=== PATIENT | male | born 2000 | race Caucasian/White ===

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

== ENCOUNTER 2018-05-01 13:58 | Emergency (ER) | payer BC, OTHER ==
--- NOTE | 2018-05-01 14:10 | PDOC ---
Rapid Medical Evaluation Time Seen by Provider: 05/01/18 14:05 Medical Evaluation: Allergies Allergy/AdvReac Type Severity Reaction Status Date / Time bee venom protein (honey bee) Allergy Severe Difficulty Verified 09/07/17 17:05 Breathing 05/01/18 14:05 I have done a brief in-person assessment of this patient. The patient presents with a chief complaint of nausea and vomiting since yesterday. Patient states after smoking marijuana yesterday, his color changed, and he has weakness in his body States discomfort in left lower quadrant. Also reports dark colored urine with strong odor, reports history of "liver problems" Pertinent physical exam findings NAD even and unlabored breathing non tender abdomen I have ordered the following: urinalysis The patient will proceed to the Ed for further evaluation.
[2018-05-01 14:11] VITALS: BP 136/72; PULSE 104; TEMP 98.1; BMI 31.2
[2018-05-01 14:47] LABS: BASO % 0.2 % (0-2.0); HEMATOCRIT 46.1 % (35.4-49); HEMOGLOBIN 15.6 GM/dL (11.7-16.9); LYMPH % 16.7 % (8-40); MCH 30.1 pg (25.7-33.7); MCHC 33.7 g/dl (32.0-35.9); MEAN CELL VOLUME 89.4 fl (80-96); MEAN PLT VOLUME 8.9 fl (7.5-11.1); MONO % 8.5 % (3.8-10.2); NEUT % 74.6 % (42.8-82.8); PLATELET COUNT 206 K/MM3 (134-434); RBC 5.16 M/mm3 (4.00-5.60); RDW 13.1 % (11.9-15.9)
[2018-05-01 15:14] LABS: ALBUMIN 4.1 g/dl (3.4-5.0); ALK PHOS 58 U/L (45-117); ANION GAP 11 MMOL/L (8-16); BLOOD UREA NITROGEN 17 mg/dL (7-18); CALCIUM 9.5 mg/dL (8.5-10.1); CHLORIDE 112 mmol/L (98-107); CO2 26 mmol/L (21-32); CREATININE 1.2 mg/dL (0.55-1.3); GLUCOSE,RANDOM 109 mg/dL (74-106); POTASSIUM 4.4 mmol/L (3.5-5.1); SGOT/AST 14 U/L (15-37); SGPT/ALT 21 U/L (13-61); SODIUM 149 mmol/L (136-145); TOT PROT 7.3 g/dl (6.4-8.2)
--- NOTE | 2018-05-01 15:34 | PDOC ---
Attending Attestation - Resident Resident Name: DanyChauncey - ED Attending Attestation I have performed the following: I have examined & evaluated the patient, The case was reviewed & discussed with the resident, I agree w/resident's findings & plan, Exceptions are as noted - HPI HPI: 17 yo M history prior liver failure following an amphetamine overdose presents with N/V x1 day. He states he was using marijuana last night, was concerned it was laced with another drug. Denies fever, jaundice, urine discoloration. - Physicial Exam PE: GENERAL: Awake, alert, and fully oriented, in no acute distress HEAD: No signs of trauma EYES: PERRLA, EOMI, sclera anicteric, conjunctiva clear ENT: Auricles normal inspection, hearing grossly normal, nares patent, oropharynx clear without exudates. Moist mucosa NECK: Normal ROM, supple, no lymphadenopathy, JVD, or masses LUNGS: Breath sounds equal, clear to auscultation bilaterally. No wheezes, and no crackles HEART: Regular rate and rhythm, normal S1 and S2, no murmurs, rubs or gallops ABDOMEN: Soft, nontender, normoactive bowel sounds. No guarding, no rebound. No masses EXTREMITIES: Normal range of motion, no edema. No clubbing or cyanosis. No cords, erythema, or tenderness NEUROLOGICAL: Cranial nerves II through XII grossly intact. Normal speech, normal gait. Motor and sensation intact SKIN: Warm, Dry, normal turgor, no rashes or lesions noted. - Medical Decision Making Pt comfortable on initial exam, no signs of acute abdomen. No signs of liver failure. Pt requesting food on arrival in ED. This is likely cannabis hyperemesis, however, labs obtained in light of prior history. RUQ sono obtained secondary to elevated TBili. No acute findings. Stable for DC home.
[2018-05-01] MEDS ORDERED: FAMOTIDINE 20 MG/50 ML IVPB 20 MG/50 ML MG IVPB ONE ×2 (15:47→15:52)
[2018-05-01] MEDS ORDERED: ONDANSETRON 4 MG/2 ML VIAL IVPUSH ONE (15:47)
[2018-05-01] MEDS ORDERED: SODIUM CHLORIDE 1,000 ML IV STA (15:52)
[2018-05-01] MEDS ORDERED: ONDANSETRON 4 MG/2 ML VIAL ONE (15:52)
--- NOTE | 2018-05-01 16:52 | PDOC ---
History of Present Illness - General Chief Complaint: Nausea/Vomiting Stated Complaint: NAUSEA/VOMITING Time Seen by Provider: 05/01/18 14:05 History Source: Patient Exam Limitations: No Limitations - History of Present Illness Initial Comments: 05/01/18 16:40 Pt. is a 17 y.o. M w/ PMHx. of Bipolar disorder, insomnia, poly substance and "liver problems" presents to the ED with nausea and vomiting since last night after "smoking some weed." Pt. states that an hour after "5 pulls from a blunt"( less than he normally uses) he began to feel nauseous and vomited. Pt. 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 Pt. states that he has vomited bilious non-bloody emesis from midnight to 3am and then from 6am to noon. Pt. endorses lower back pain, and how flashes while throwing up. Pt. endorses mild SOB and double vision yesterday that has resolved. Pt. states that he as not been able to refill his Seroquel or Zyprexa because he has not followed up with his Psychiatrist. Pt. denies chest pain, head ache, abdominal pain, constipation, changes in bowel habits or urinary habits. EKG, CBC, CMP, RUQ US, UTox., UA, Pepcid, Zofran and IVF were ordered to rule out cholecystitis. Pt. like has emesis as a sequelae of marijuana use. Timing/Duration: 24 hours Severity: mild Modifying Factors: worse with: eating Associated Symptoms: reports: nausea/vomiting, shortness of breath. denies: chest pain, fever/chills, headaches, loss of appetite, seizure Aspirin Received prior to arrival: Yes: no aspirin today Beta Iris Contraindications(Core Measure): Yes: Not Prescribed Past History - Travel Traveled outside of the country in the last 30 days: No Close contact w/someone who was outside of country & ill: No - Past Medical History Allergies/Adverse Reactions: Allergies Allergy/AdvReac Type Severity Reaction Status Date / Time bee venom protein (honey bee) Allergy Severe Difficulty Verified 09/07/17 17:05 Breathing Home Medications: Ambulatory Orders Quetiapine Fumarate [Seroquel -] 300 mg PO HS 08/29/15 Anemia: No COPD: No Diabetes: No HTN: No Hypercholesterolemia: No Psychiatric Problems: Yes (DEPRESSION) Seizures: No - Immunization History Immunization Up to Date: Yes - Suicide/Smoking/Psychosocial Hx Smoking Status: No Smoking History: Smoker current status UNK Have you smoked in the past 12 months: No Number of Cigarettes Smoked Daily: 3 Information on smoking cessation initiated: No Hx Alcohol Use: Yes (occassionally) Drug/Substance Use Hx: Yes Substance Use Type: None Review of Systems - Review of Systems Able to Perform ROS?: Yes Is the patient limited British proficient: No Constitutional: No: Chills, Fever, Weakness, Unexplained wgt Loss HEENTM: Yes: Recent change in vision (resolved ), Double Vision (resolved ) Respiratory: Yes: Shortness of Breath (resolved ). No: Cough, Orthopnea, Wheezing, Hemoptysis Cardiac (ROS): No: Chest Pain, Edema, Lightheadedness, Palpitations ABD/GI: Yes: Nausea, Vomiting. No: Constipated, Diarrhea, Difficulty Swallowing , Poor Appetite, Rectal Bleeding, Tarry Stools : No: Burning, Dysuria, Discharge, Frequency, Flank Pain, Hematuria, Pain, Urgency Musculoskeletal: Yes: Back Pain. No: Joint Pain, Muscle Weakness, Neck Pain Integumentary: No: Symptoms Reported Neurological: No: Symptoms reported, Headache, Paresthesia, Seizure, Tremors, Weakness, Unsteady Gait, Dizziness Psychiatric: Yes: Depression, Mood Swings Endocrine: No: Symptoms Reported Hematologic/Lymphatic: No: Symptoms Reported *Physical Exam - Vital Signs Last Vital Signs Temp Pulse Resp BP Pulse Ox 98.1 F 104 H 20 136/72 99 05/01/18 14:05 05/01/18 14:05 05/01/18 14:05 05/01/18 14:05 05/01/18 14:05 - Physical Exam General Appearance: Yes: Nourished, Appropriately Dressed. No: Apparent Distress HEENT: positive: BRYCE, Normal ENT Inspection, Normal Voice, Symmetrical, Pharynx Normal, Hearing Grossly Normal. negative: Pharyngeal Erythema, Tonsillar Exudate, Tonsillar Erythema, Nasal Congestion Neck: positive: Trachea midline, Normal Thyroid, Supple. negative: Tender, Rigid, Carotid bruit, Lymphadenopathy (R), Lymphadenopathy (L) Respiratory/Chest: positive: Lungs Clear, Normal Breath Sounds. negative: Chest Tender, Respiratory Distress, Accessory Muscle Use, Rapid RR, Crackles, Rales, Wheezing Cardiovascular: positive: Regular Rhythm, Regular Rate, S1, S2. negative: Edema , JVD, Murmur Vascular Pulses: Dorsalis-Pedis (R): 2+ (2+ radial ), Doralis-Pedis (L): 2+ (2+ radial ) Gastrointestinal/Abdominal: positive: Normal Bowel Sounds, Soft. negative: Tender, Distended, Guarding, Rebound, Tenderness, Hernia Rectal Exam: positive: deferred Musculoskeletal: positive: Normal Inspection. negative: CVA Tenderness, Vertebral Tenderness Extremity: positive: Normal Capillary Refill, Normal Inspection, Normal Range of Motion, Pelvis Stable. negative: Tender, Coldness, Pedal Edema, Swelling, Calf Tenderness, Erythema, Inflammation Integumentary: positive: Normal Color, Dry, Warm Neurologic: positive: theater manager II-XII NML intact, Fully Oriented, Alert, Normal Response, Motor Strength 5/5, Respond to painful stimul, Responsive Moderate Sedation - Procedure Monitoring Vital Signs: Procedure Monitoring Vital Signs Temperature 98.1 F 05/01/18 14:05 Pulse Rate 104 H 05/01/18 14:05 Respiratory Rate 20 05/01/18 14:05 Blood Pressure 136/72 05/01/18 14:05 O2 Sat by Pulse Oximetry (%) 99 05/01/18 14:05 ED Treatment Course - LABORATORY CBC & Chemistry Diagram: 05/01/18 14:20 05/01/18 14:20 - ADDITIONAL ORDERS Additional order review: Laboratory Results 05/01/18 14:20 Sodium 149 H Potassium 4.4 Chloride 112 H Carbon Dioxide 26 Anion Gap 11 BUN 17 Creatinine 1.2 Creat Clearance w eGFR > 60 Random Glucose 109 H Calcium 9.5 Total Bilirubin 2.0 H AST 14 L ALT 21 Alkaline Phosphatase 58 Total Protein 7.3 Albumin 4.1 05/01/18 14:20 RBC 5.16 MCV 89.4 MCHC 33.7 RDW 13.1 MPV 8.9 Neutrophils % 74.6 D Lymphocytes % 16.7 D Monocytes % 8.5 Eosinophils % 0.0 D Basophils % 0.2 - Medications Given in the ED: ED Medications Discontinued Medications Generic Name Dose Route Start Last Admin Trade Name Freq PRN Reason Stop Dose Admin Famotidine/Sodium Chloride 20 mg in 50 mls @ 100 mls/hr 05/01/18 15:47 16:14 Pepcid 20 Mg Premixed Ivpb - IVPB 05/01/18 16:16 100 mls/hr ONCE ONE Administration Ondansetron HCl 4 mg 05/01/18 15:47 05/01/18 16:14 Zofran Injection IVPUSH 05/01/18 15:48 4 mg ONCE ONE Administration *DC/Admit/Observation/Transfer Diagnosis at time of Disposition: Marijuana abuse, Nausea & vomiting - Discharge Dispostion Disposition: HOME Condition at time of disposition: Stable - Referrals Referrals: Ishaan Bailey MD [Primary Care Provider] - - Patient Instructions Printed Discharge Instructions: DI for Drug Abuse and Drug Addiction Additional Instructions: You came in for nausea and vomiting after marijuana use. We gave you fluids and medications to treat nausea. Please discontinue use of marijuana to prevent further nausea and vomiting in addition to liver injury. Please follow up with your Primary Care Physician within 1 week. If you do not have a Primary Care Physician we have provided one for you. - Post Discharge Activity
[2018-05-01 18:53] LABS: URINE APPEARANCE CLEAR; URINE BILIRUBIN NEGATIVE (<2.0 mg/dL); URINE COLOR YELLOW; URINE GLUCOSE (UA) NEGATIVE (NEGATIVE); URINE KETONE NEGATIVE (NEGATIVE); URINE LEUK ESTERASE NEGATIVE (NEGATIVE); URINE NITRITE NEGATIVE (NEGATIVE); URINE PROTEIN NEGATIVE (NEGATIVE)
[2018-05-01 19:19] LABS: METHADONE, UR NEGATIVE ng/ml (CUTOFF=300); PHENCYCLIDINE,URINE NEGATIVE ng/ml (CUTOFF=25); URINE AMPHETAMINES NEGATIVE ng/ml (CUTOFF=500); URINE BARBITURATES NEGATIVE ng/ml (CUTOFF=200); URINE BENZODIAZEPINES NEGATIVE ng/ml (CUTOFF=200)
[2018-05-01 19:26] LABS: COCAINE, UR POSITIVE ng/ml (CUTOFF=300); OPIATES, URI POSITIVE ng/ml (CUTOFF=300)
--- NOTE | 2018-05-02 10:02 | EKG ---
Test Reason : Blood Pressure : / mmHG Vent. Rate : 087 BPM Atrial Rate : 087 BPM P-R Int : 132 ms QRS Dur : 086 ms QT Int : 348 ms P-R-T Axes : 024 071 060 degrees QTc Int : 418 ms NORMAL SINUS RHYTHM NORMAL ECG NO PREVIOUS ECGS AVAILABLE Confirmed by yT Worrell MD ([id number]) on 05/02/2018 10:02:36 AM Referred By: Confirmed By:Ty Worrell MD
== END 2018-05-01 19:02 | disposition home or self-care (01) ==
LOC: JER 13:58
PROC: 3E033GC Introduction of Other Therapeutic Substance into Peripheral Vein, Percutaneous Approach (ICD-10-PCS; principal; 2018-05-01)
PROC: 3E0337Z Introduction of Electrolytic and Water Balance Substance into Peripheral Vein, Percutaneous Approach (ICD-10-PCS; 2018-05-01)
DX: F12.10 Cannabis abuse, uncomplicated (principal); R11.2 Nausea with vomiting, unspecified
CPT/HCPCS: 36415; 76705-TC; 80053; 80307; 81003; 85025; 87086; 93005; 93010; 99283-25; J7030

== ENCOUNTER 2018-10-12 20:39 | Emergency (ER) | payer SELFPAY ==
[2018-10-12 20:44] VITALS: BMI 26.3
[2018-10-12] MEDS ORDERED: MAG HYDROX/AL HYDROX/SIMETH 30 ML UNIT-DOSE CUP PO ONE (21:12)
[2018-10-12] MEDS ORDERED: FAMOTIDINE 20 MG/50 ML IVPB 20 MG/50 ML MG IVPB ONE ×2 (21:12→21:25)
[2018-10-12] MEDS ORDERED: SODIUM CHLORIDE 0.9% 500 ML INFUS.BAG IV ONE (21:12)
--- NOTE | 2018-10-12 21:13 | PDOC ---
History of Present Illness - General Chief Complaint: Alcohol intoxication Stated Complaint: INTOXICATED History Source: Patient Exam Limitations: No Limitations - History of Present Illness Initial Comments: 10/12/18 21:00 18YOM with h/o nipolar disorder (on thorazine and depakote), insomnia, polysubstance use disorder (including meth), EtOH use disorder, and prior liver failure who p/w reported polysubstance use requesting detox/rehab. The patient states he is sick of his substance use and wants to get clean. He wants to go to [place] for rehab where his 4 month old son lives. He last used crack cocaine an hour ago and had impending doom feeling, chest pain, and pounding palpitations. He also uses PCP. He denies IVDA except one time where he shot up cocaine a week ago. He also noted using meth and marijuana. He notes abdominal discomfort and head-to-toe body aches. Otherwise denies f/c/n/v/d/c, rash, skin infections, cough, SOB, or additional symptoms. Has been in detox and rehab before. Past History - Past Medical History Allergies/Adverse Reactions: Allergies Allergy/AdvReac Type Severity Reaction Status Date / Time bee venom protein (honey bee) Allergy Severe Difficulty Verified 10/12/18 20:45 Breathing Home Medications: Ambulatory Orders Chlorpromazine [Thorazine -] 50 mg PO DAILY 10/13/18 Risperidone [Risperdal] 2 mg PO DAILY 10/13/18 Anemia: No COPD: No Diabetes: No HTN: No Hypercholesterolemia: No Psychiatric Problems: Yes (DEPRESSION) Seizures: No - Immunization History Immunization Up to Date: Yes - Suicide/Smoking/Psychosocial Hx Smoking Status: No Smoking History: Current every day smoker Have you smoked in the past 12 months: No Number of Cigarettes Smoked Daily: 5 Information on smoking cessation initiated: Yes Hx Alcohol Use: No Drug/Substance Use Hx: Yes (COCAINE,METH,PCP.) Substance Use Type: None Review of Systems - Review of Systems Able to Perform ROS?: Yes Comments:: 10/12/18 21:16 GEN: malaise, no fever, chills, generalized weakness, or weight change HEENT: no ear pain, sore throat, vision change, or eye pain CV: chest pain, palpitations, no lightheadedness, syncope, or edema RESP: no cough, wheezing, or SOB GI: abdominal pain, no nausea, vomiting, diarrhea, constipation, or white/black/ bloody stool : no dysuria, hematuria, incontinence, retention, bleeding, or discharge MSK: muscle pain, no neck/back pain, or joint swelling/pain NEURO: no headache, seizure, vertigo, numbness, tingling, or focal weakness PSYCH: substance use, depression, no behavior change, SI, or HI SKIN: no jaundice, no rash ROS otherwise negative except as noted in HPI *Physical Exam - Vital Signs Last Vital Signs Temp Pulse Resp BP Pulse Ox 98.2 F 114 H 20 128/85 100 10/12/18 20:41 10/12/18 20:41 10/12/18 20:41 10/12/18 20:41 10/12/18 20:41 - Physical Exam Comments: 10/12/18 21:23 GENERAL: nontoxic appearing, A/Ox4, mild emotional distress, answers questions appropriately HEENT: scleral injection bilaterally, PERRLA, EOMI, moist mucous membranes NECK/BACK: no midline ttp, no spinal stepoff or deformity, no hematoma, full ROM , neck supple CARDIOVASCULAR: regular rate/rhythm, normal S1S2, no MGR, strong peripheral pulses, capillary refill <2 seconds, extremities wwp, no edema LUNGS/RESPIRATORY: no respiratory distress, CTAB GI/ABDOMEN: symmetric [id number]-[id number], normoactive BS, soft, no ttp, no midline pulsatile masses : no CVA tenderness EXTREMITIES: no muscle atrophy, no acute deformity SKIN: warm and dry, no pallor, no jaundice, no rash, no bruising, no skin breakdown, no cuts, no lesions NEUROLOGICAL: GCS 15, CN II-XII grossly intact, 5/5 strength proximally and distally, no facial droop PSYCHIATRIC: good eye contact, depressed affect, intermittently tearful, normal thought process, no SI/HI, not responding to external stimuli Heart Score/ECG Review - History History: Moderately suspicious - Electrocardiogram EKG: Normal - Age Age: </= 45 - Risk Factors Based on the list above the patient has:: No risk factors known - Troponin Troponin: </= normal limit - Score Heart Score - Total: 1 #1 SR rate 75 with normal axis/intervals and no ischemic ST-T changes ED Treatment Course - LABORATORY CBC & Chemistry Diagram: 10/12/18 21:58 10/12/18 21:58 Medical Decision Making - Medical Decision Making 10/12/18 21:25 Pt with h/o polysubstance use p/w chest discomfort, head-to-toe body aches, requesting detox/rehab. Initial Vital Signs Temp Pulse Resp BP Pulse Ox 98.2 F 114 H 20 128/85 100 10/12/18 20:41 10/12/18 20:41 10/12/18 20:41 10/12/18 20:41 10/12/18 20:41 Exam: As noted in Physical Exam section. DDX IBNLT: intoxication, withdrawal (w/wo seizures), DT, hepatic encephalopathy , ICH, UGIB (can cause AMS), LGIB, SBP, metabolic derangement, coingestion, hepatorenal syndrome, hepatopulmonary syndrome, Wernickes encephalopathy, Korsakoff syndrome, trauma, etc. W/U ordered: Labs as noted below, EKG TX ordered: IVF, benadryl Laboratory Tests 10/12/18 10/12/18 10/12/18 21:58 21:58 22:30 WBC 13.4 H RBC 5.29 Hgb 16.6 Hct 48.3 MCV 91.3 MCH 31.4 MCHC 34.4 RDW 12.9 Plt Count 183 MPV 8.5 Absolute Neuts (auto) 11.3 H Neutrophils % 83.9 H Lymphocytes % 8.2 D Monocytes % 7.5 Eosinophils % 0.1 D Basophils % 0.3 Nucleated RBC % 0 Sodium 140 Potassium 4.0 Chloride 108 H Carbon Dioxide 26 Anion Gap 6 L BUN 16.8 Creatinine 0.9 Est GFR (CKD-EPI)AfAm 142.00 Est GFR (CKD-EPI)NonAf 122.52 Random Glucose 87 Calcium 9.1 Total Bilirubin 1.7 H AST 23 ALT 31 Alkaline Phosphatase 59 Troponin I < 0.02 Total Protein 7.2 Albumin 4.2 Urine Color Yellow Urine Appearance Clear Urine pH 6.5 Ur Specific [place] 1.030 Urine Protein Negative Urine Glucose (UA) Negative Urine Ketones Trace H Urine Blood Negative Urine Nitrite Negative Urine Bilirubin Negative Urine Urobilinogen 1.0 Ur Leukocyte Esterase Negative Salicylates < 1.7 L Opiates Screen Methadone Screen Acetaminophen < 2.0 L Barbiturate Screen Phencyclidine Screen Ur Amphetamines Screen MDMA (Ecstasy) Screen Benzodiazepines Screen Cocaine Screen U Marijuana (THC) Screen Alcohol, Quantitative < 3.0 10/12/18 22:30 WBC RBC Hgb Hct MCV MCH MCHC RDW Plt Count MPV Absolute Neuts (auto) Neutrophils % Lymphocytes % Monocytes % Eosinophils % Basophils % Nucleated RBC % Sodium Potassium Chloride Carbon Dioxide Anion Gap BUN Creatinine Est GFR (CKD-EPI)AfAm Est GFR (CKD-EPI)NonAf Random Glucose Calcium Total Bilirubin AST ALT Alkaline Phosphatase Troponin I Total Protein Albumin Urine Color Urine Appearance Urine pH Ur Specific [place] Urine Protein Urine Glucose (UA) Urine Ketones Urine Blood Urine Nitrite Urine Bilirubin Urine Urobilinogen Ur Leukocyte Esterase Salicylates Opiates Screen Negative Methadone Screen Negative Acetaminophen Barbiturate Screen Negative Phencyclidine Screen Negative Ur Amphetamines Screen Negative MDMA (Ecstasy) Screen Negative Benzodiazepines Screen Negative Cocaine Screen Positive A* U Marijuana (THC) Screen Positive A* Alcohol, Quantitative Patient appears comfortable, texting on phone. EKG: Reviewed; results as noted in ECG Review section. HEART score is 1 but taken with a grain of salt because cocaine use is involved. Repeat troponin has been ordered for 0200. [facility] is contacted; they will re-open at 8 am and agree to have patient sent at that time. 10/12/18 23:55 Patient's care endorsed to night team at this time, pending repeat troponin and 8am transport to [facility]. 10/13/18 21:28 *DC/Admit/Observation/Transfer Diagnosis at time of Disposition: Polysubstance (excluding opioids) dependence - Discharge Dispostion Disposition: HOME Condition at time of disposition: Stable Decision to Admit order: No - Referrals - Patient Instructions Printed Discharge Instructions: DI for Drug Abuse and Drug Addiction Additional Instructions: You were seen in the ER for drug use/addiction and chest discomfort. We did an exam, lab work on your blood and urine, and an electrocardiogram. We gave you your Risperdal, and some benadryl for what looks like an insect bite on your arm. After our assessment, we do not believe you are having a medical emergency at this time, and we believe you are safe to go to [facility] for detox. We will drive you there. If you have any new or worsening symptoms, please come back to the ER at any time (24 hours a day). If you are having severe or life threatening symptoms, or symptoms that make it unsafe to drive or have someone drive you, please call 911. In case you ever need them, here are some detox and rehab resources other than [facility]: [facility] [address] [address] 24 Hour Facility [phone] Directions Located on the corner of [address] and [address] [employer] Stops [address] Stops Subway Train Lines A, C, B, D, 1 at [facility] N, R, Q at [address] [place] [address] Lines M57, M31, M11 [facility] [address] [address] Hours of Operation 9 a.m. - 8 p.m. [facility] is a Substance Abuse Rehab Services in [place], [place] Address: [address] [place] [address], [address] Intake Line: [phone] Website:[email or web address] Primary Focus: Substance Abuse Rehab Services Treatment Type: Hospital inpatient, Hospital inpatient detoxification, General Hospital(including [place] hospital) Treatment Approaches: No information available, please contact the facility directly. [facility] located in [place], [place]. Address: [address] [place] [address] , [address] - Post Discharge Activity
[2018-10-12] MEDS ORDERED: MAG HYDROX/AL HYDROX/SIMETH 30 ML UNIT-DOSE CUP ONE (21:24)
[2018-10-12 22:07] LABS: BASO % 0.3 % (0-2.0); EOS % 0.1 % (0-4.5); HEMATOCRIT 48.3 % (35.4-49); HEMOGLOBIN 16.6 GM/dL (11.7-16.9); LYMPH % 8.2 % (8-40); MCH 31.4 pg (25.7-33.7); MCHC 34.4 g/dl (32.0-35.9); MEAN CELL VOLUME 91.3 fl (80-96); MEAN PLT VOLUME 8.5 fl (7.5-11.1); MONO % 7.5 % (3.8-10.2); NEUT % 83.9 % (42.8-82.8); PLATELET COUNT 183 K/MM3 (134-434); RBC 5.29 M/mm3 (4.00-5.60); RDW 12.9 % (11.9-15.9); WHITE BLOOD COUNT 13.4 K/mm3 (4.0-10.0)
[2018-10-12 22:28] LABS: ALBUMIN 4.2 g/dl (3.4-5.0); ALK PHOS 59 U/L (45-117); ANION GAP 6 MMOL/L (8-16); BILIRUBIN,TOTAL 1.7 mg/dL (0.2-1); BLOOD UREA NITROGEN 16.8 mg/dL (7-18); CALCIUM 9.1 mg/dL (8.5-10.1); CHLORIDE 108 mmol/L (98-107); CO2 26 mmol/L (21-32); CREATININE 0.9 mg/dL (0.55-1.3); GLUCOSE,RANDOM 87 mg/dL (74-106); SGOT/AST 23 U/L (15-37); SGPT/ALT 31 U/L (13-61); SODIUM 140 mmol/L (136-145); TOT PROT 7.2 g/dl (6.4-8.2)
[2018-10-12 22:40] LABS: PH,URINE 6.5 (5.0-8.0); URINE APPEARANCE CLEAR; URINE BILIRUBIN NEGATIVE (NEGATIVE); URINE COLOR YELLOW; URINE GLUCOSE (UA) NEGATIVE (NEGATIVE); URINE KETONE TRACE (NEGATIVE); URINE LEUK ESTERASE NEGATIVE (NEGATIVE); URINE NITRITE NEGATIVE (NEGATIVE); URINE PROTEIN NEGATIVE (NEGATIVE)
[2018-10-12 22:56] LABS: METHADONE, UR NEGATIVE ng/ml (CUTOFF=300); OPIATES, URI NEGATIVE ng/ml (CUTOFF=300); PHENCYCLIDINE,URINE NEGATIVE ng/ml (CUTOFF=25); URINE AMPHETAMINES NEGATIVE ng/ml (CUTOFF=500); URINE BARBITURATES NEGATIVE ng/ml (CUTOFF=200); URINE BENZODIAZEPINES NEGATIVE ng/ml (CUTOFF=200)
[2018-10-12 23:11] LABS: COCAINE, UR POSITIVE ng/ml (CUTOFF=300)
[2018-10-12] MEDS ORDERED: diphenhydrAMINE HCL 25 MG CAPSULE (FP) PO ONE ×2 (23:20→23:49)
--- NOTE | 2018-10-12 23:24 | PDOC ---
Documentation entered by Nallely Agee SCRIBE, acting as scribe for Zuleika Hawkins DO. Zuleika Hawkins DO: This documentation has been prepared by the katherinee, Nallely Agee SCRIBE, under my direction and personally reviewed by me in its entirety. I confirm that the documentation accurately reflects all work, treatment, procedures, and medical decision making performed by me. Attending Attestation - Resident Resident Name: MatiasChloé - ED Attending Attestation I have performed the following: I have examined & evaluated the patient, The case was reviewed & discussed with the resident, I agree w/resident's findings & plan, Exceptions are as noted - HPI HPI: 10/12/18 22:02 The patient is a 18-year-old male with a past medical history significant for bipolar disorder, polysubstance abuse, alcohol abuse, and hx of liver failure ( following an amphetamine overdose) presents to the emergency department with abdominal pain and chest pain s/p smoking crack cocaine. The patient reports he was recently discharged from [facility] 2 days ago, where he was seen for psych related help. The patient reports he smoked crack cocaine today about an hour [employer], and since then hes been having chest pain, palpitations, abdominal pain, and body pain. The patient reports last IVDU was 13 days ago, when she injected cocaine, denies prior IVDU. The patient also reports using PCP and marijuana in the past. Denies fever, chills, nausea, vomiting, diarrhea. Denies SI, HI, or self-harm ideation. Allergies: bee venom. NKDA - Physicial Exam PE: 10/12/18 21:51 Constitutional: +agitated. Awake, alert, oriented. No acute distress. Head: Normocephalic. Atraumatic Eyes: PERRL. EOMI. Conjunctivae are not pale. ENT: Mucous membranes are moist and intact. Posterior pharynx without exudates or erythema. Uvula midline. Neck: Supple. Full ROM. No lymphadenopathy. Cardiovascular: +tachycardia. Regular rate. Regular rhythm. S1, S2 regular. Distal pulses are 2+ and symmetric. Pulmonary/Chest: No evidence of respiratory distress. Clear to auscultation bilaterally No wheezing, rales or rhonchi. Abdominal: +mild diffuse tenderness. Soft and nondistended. No rebound, guarding or rigidity. No organomegaly. No palpable masses. Back: No CVA tenderness. Musculoskeletal: No lower extremity edema. No cyanosis. No clubbing. Full range of motion in all extremities. No calf tenderness. Radial/pedal pulses are intact and 2+ bilaterally Skin: +old healed cut calderon to the left upper extremity. +bug bite to the left upper extremity. No track calderon on the arm. Skin is warm and dry. No petechiae. No purpura. Neurological: Alert and oriented to person, place, and time. Cranial nerves II -XII are grossly intact. Normal speech. Strength is grossly symmetric. No sensory deficits. Psychiatric: +Agitated. Good eye contact. Normal interaction, affect and behavior. - Medical Decision Making 10/12/18 21:39 I, Dr. Zuleika Hawkins, DO, attest that this document has been prepared under my direction and personally reviewed by me in its entirety. I further attest, that it accurately reflects all work, treatment, procedures and medical decision -making performed by me. 10/12/18 21:40 a/p: 18yo male with pcp and crack cocaine use -last injected 13 days ago, last smoked cocaine today -using x 2 days -after use of cocaine today he developed cp and abd pain -pt states pain has improved -given cocaine use, concern for acs -will send labs, ekg, cxr -pt requesting detox -denies si/hi -recently was in [facility] for psych help, hasn't taken his meds bc he couldn't afford them at the pharmacy due to insurance issues since -will monitor and reassess 10/12/18 23:24 uds + cocaine and marijuana 10/12/18 23:24 trop negative 10/13/18 00:09 pt pending transfer to [facility] in the AM given psych meds 10/13/18 00:11 repeat trop at 2am 10/13/18 02:02 pt pending repeat trop and transfer to [facility] in the AM Heart Score/ECG Review - ECG Intrepretation Comment:: 10/13/18 00:09 sinus at 70, nl axis, nl interval, no acute st/t wave findings
[2018-10-12] MEDS ORDERED: risperiDONE 2 MG TABLET PO ONE (23:47)
[2018-10-12] MEDS ORDERED: risperiDONE 0.5 MG TABLET (FP) ONE (23:59)
--- NOTE | 2018-10-13 00:12 | PDOC ---
*Physical Exam - Vital Signs Last Vital Signs Temp Pulse Resp BP Pulse Ox 98.2 F 114 H 20 128/85 100 10/12/18 20:41 10/12/18 20:41 10/12/18 20:41 10/12/18 20:41 10/12/18 20:41 ED Treatment Course - LABORATORY CBC & Chemistry Diagram: 10/12/18 21:58 10/12/18 21:58 - ADDITIONAL ORDERS Additional order review: Laboratory Results 10/12/18 10/12/18 10/12/18 22:30 22:30 21:58 Sodium 140 Potassium 4.0 Chloride 108 H Carbon Dioxide 26 Anion Gap 6 L BUN 16.8 Creatinine 0.9 Est GFR (CKD-EPI)AfAm 142.00 Est GFR (CKD-EPI)NonAf 122.52 Random Glucose 87 Calcium 9.1 Total Bilirubin 1.7 H AST 23 ALT 31 Alkaline Phosphatase 59 Troponin I < 0.02 Total Protein 7.2 Albumin 4.2 Urine Color Yellow Urine Appearance Clear Urine pH 6.5 Ur Specific [place] 1.030 Urine Protein Negative Urine Glucose (UA) Negative Urine Ketones Trace H Urine Blood Negative Urine Nitrite Negative Urine Bilirubin Negative Urine Urobilinogen 1.0 Ur Leukocyte Esterase Negative Salicylates < 1.7 L Opiates Screen Negative Methadone Screen Negative Acetaminophen < 2.0 L Barbiturate Screen Negative Phencyclidine Screen Negative Ur Amphetamines Screen Negative MDMA (Ecstasy) Screen Negative Benzodiazepines Screen Negative Cocaine Screen Positive A* U Marijuana (THC) Screen Positive A* Alcohol, Quantitative < 3.0 10/12/18 21:58 RBC 5.29 MCV 91.3 MCHC 34.4 RDW 12.9 MPV 8.5 Neutrophils % 83.9 H Lymphocytes % 8.2 D Monocytes % 7.5 Eosinophils % 0.1 D Basophils % 0.3 - Medications Given in the ED: ED Medications Discontinued Medications Generic Name Dose Route Start Last Admin Trade Name Freq PRN Reason Stop Dose Admin Al Hydroxide/Mg Hydroxide 30 ml 10/12/18 21:12 10/12/18 22:03 Mylanta Oral Suspension - PO 10/12/18 21:13 30 ml ONCE ONE Administration Famotidine/Sodium Chloride 20 mg in 50 mls @ 100 mls/hr 10/12/18 21:12 22:04 Pepcid 20 Mg Premixed Ivpb - IVPB 10/12/18 21:41 100 mls/hr ONCE ONE Administration Sodium Chloride 1,000 ml 10/12/18 21:12 10/12/18 22:03 Normal Saline - IV 10/12/18 21:13 1,000 ml ONCE ONE Administration Medical Decision Making - Medical Decision Making Received sign out from resident Dr. Matias. In short, pt is a 18 y/o male presenting for chest pain after abusing crack cocaine approx. 1hr prior to arrival. Electrolytes within normal limits. Initial EKG unremarkable for ischemic tracings. Initial troponin not elevated. Repeat EKG and troponin already ordered. Will f/u. Plan to discharged to [facility] at 08:00 when beds become available. Pt slept comfortably. No acute events since receiving sign out. Pt continuing to await transport to [facility]. Pt signed out to resident Dr. Ramirez after he was verbally appraised of the pts HPI, current ED course, and plan of management. Will f/u on pending transfer. *DC/Admit/Observation/Transfer Diagnosis at time of Disposition: Polysubstance (excluding opioids) dependence - Discharge Dispostion Disposition: [facility] Condition at time of disposition: Stable - Referrals - Patient Instructions Printed Discharge Instructions: DI for Drug Abuse and Drug Addiction Additional Instructions: You were seen in the ER for drug use/addiction and chest discomfort. We did an exam, lab work on your blood and urine, and an electrocardiogram. We gave you your Risperdal, and some benadryl for what looks like an insect bite on your arm. After our assessment, we do not believe you are having a medical emergency at this time, and we believe you are safe to go to [facility] for detox. We will drive you there. If you have any new or worsening symptoms, please come back to the ER at any time (24 hours a day). If you are having severe or life threatening symptoms, or symptoms that make it unsafe to drive or have someone drive you, please call 911. In case you ever need them, here are some detox and rehab resources other than [facility]: [facility] [address] [address] 24 Hour Facility [phone] Directions Located on the corner of [address] and [address] Convenient Subway Stops [address] Stops Subway Train Lines A, C, B, D, 1 at [facility][1] N, R, Q at [address] Bus Lines M57, M31, M11 [facility] [address] [address] Hours of Operation 9 a.m. - 8 p.m. [facility] is a Substance Abuse Rehab Services in [place], [place] Address: [address] [place] [address], [address] Intake Line: [phone] Website:[email or web address] Primary Focus: Substance Abuse Rehab Services Treatment Type: Hospital inpatient, Hospital inpatient detoxification, General Hospital(including [place] hospital) Treatment Approaches: No information available, please contact the facility directly. [facility] Center located in [place], [place]. Address: [address] [place] [address] , [address] - Post Discharge Activity
[2018-10-13 06:52] VITALS: BP 105/59; PULSE 72; TEMP 98.1
--- NOTE | 2018-10-13 13:36 | EKG ---
Test Reason : Blood Pressure : / mmHG Vent. Rate : 070 BPM Atrial Rate : 070 BPM P-R Int : 162 ms QRS Dur : 088 ms QT Int : 394 ms P-R-T Axes : 055 067 051 degrees QTc Int : 425 ms NORMAL SINUS RHYTHM NORMAL ECG WHEN COMPARED WITH ECG OF 01-MAY-2018 16:45, NO SIGNIFICANT CHANGE WAS FOUND Confirmed by RIDGE DORSEY MD ([id number]) on 10/13/2018 1:36:13 PM Referred By: Confirmed By:RIDGE DORSEY MD
== END 2018-10-13 09:00 | disposition home or self-care (01) ==
LOC: JER 20:39
PROC: 3E033GC Introduction of Other Therapeutic Substance into Peripheral Vein, Percutaneous Approach (ICD-10-PCS; principal; 2018-10-12)
DX: F19.20 Other psychoactive substance dependence, uncomplicated (principal); F14.20 Cocaine dependence, uncomplicated; F12.20 Cannabis dependence, uncomplicated; F17.210 Nicotine dependence, cigarettes, uncomplicated
CPT/HCPCS: 36415; 80053; 80307; 81003; 84484; 85025; 93005; 93010; 99284-25

== ENCOUNTER 2019-02-19 20:59 | Inpatient (IN) | payer OTHER ==
[2019-02-19 17:04] VITALS: BMI 25.9
--- NOTE | 2019-02-19 22:06 | HP ---
"CIWA Score Nausea/Vomitin Muscle Tremors: 2 Anxiety: 1-Mildly Anxious Agitation: 1-Slight > Activity Paroxysmal Sweats: 3 (Increased facial moisture) Orientation: 1-Uncertain about Date Tacttile Disturbances: 0-None Auditory Disturbances: 0-None Visual Disturbances: 0-None Headache: 2-Mild CIWA-Ar Total Score: 12 - Admission Criteria [facility]ASAS Guidelines: Admission for Medically Managed Detox: Requires at least one of the followin. CIWA greater than 12 2. Seizures within the past 24 hours 3. Delirium tremens within the past 24 hours 4. Hallucinations within the past 24 hours 5. Acute intervention needed for co occurring medical disorder 6. Acute intervention needed for co occurring psychiatric disorder 7. Severe withdrawal that cannot be handled at a lower level of care (continued vomiting, continued diarrhea, abnormal vital signs) requiring intravenous medication and/or fluids 8. Patient presents the following: CIWA greater than 12 (ROCCO: 0.085) Admission Criteria Met: Admission criteria met Admitting History and Physical - Smoking History Smoking history: Current every day smoker Have you smoked in the past 12 months: No Aproximately how many cigarettes per day: 10 - Alcohol/Substance Use Hx Alcohol Use: Yes [facility] Chief Complaint: Here for alcohol detox. Allergies/Adverse Reactions: Allergies Allergy/AdvReac Type Severity Reaction Status Date / Time bee venom protein (honey bee) Allergy Severe Difficulty Verified 02/19/19 16:52 Breathing History of Present Illness: 18 yo presents w/alcohol withdrawal symptoms and poly-substance use disorder, seeking detox. ROCCO: 0.085 Utox: + THC/AMARILIS/ Alcohol use began at age 5. Currently drinks 1/2 pint vodka daily x 3-4 weeks. Cocaine use began at age 17. Currently using about 1x/week. Marijuana use began at age 12. Currently using daily. Nicotine use began at age 13. Currently smokes 4-6 cig/day. Denies seizures, blackouts, overdoses. PMHx: Elevated liver enzymes. Chlamydia 10/2018 - Completed tx. EK10/12/18: NSR MHHx: Insomnia, Depression. Denies thoughts of harming self or others. Does not see a MH Provider in the community. Would like to see one while here. SHx: Lives w/ girlfriend. Unemployed. Has court on 02/21. Search Terms: Geovany Cox, 2000 Search Date: 02/19/2019 10:10:43 PM The Drug Utilization Report below displays all of the controlled substance prescriptions, if any, that your patient has filled in the last twelve months. The information displayed on this report is compiled from pharmacy submissions to the Department, and accurately reflects the information as submitted by the pharmacies. This report was requested by: Kaylen Ferrell | Reference #: [id number] There are no results for the search terms that you entered. Exam Limitations: No Limitations - Ebola screening Have you traveled outside of the country in the last 21 days: No Have you had contact with anyone from an Ebola affected area: No Have you been sick,other than usual withdrawal symptoms: No Do you have a fever: No - Review of Systems Constitutional: Changes in sleep (Difficulty falling and staying asleep.) EENT: reports: Blurred Vision, Dental Problems (Broken teeth.) Respiratory: reports: No Symptoms reported Cardiac: reports: No Symptoms Reported GI: reports: Nausea, Vomiting : reports: No Symptoms Reported (Denies burning/pain w/ urination) Musculoskeletal: reports: No Symptoms Reported Integumentary: reports: No Symptoms Reported Neuro: reports: Headache (MIld throbbing frontal headache), Other (Sharp stabbing pain in (L) arm since started smoking crack.) Endocrine: reports: Increased Thirst Hematology: reports: No Symptoms Reported Psychiatric: reports: Orientated x3 (Missed date by 1 day.), Anxious, Depressed (Denies thoughts of harming self or others) Patient History - Patient Medical History Hx Anemia: No Hx Chronic Obstructive Pulmonary Disease (COPD): No Hx Hypertension: No Hx Hypercholesterolemia: No Hx Seizures: No Hx Diabetes: No Hx Liver Disease: Yes (ELEVATED LIVER ENZYMES) - Patient Surgical History Past Surgical History: No - PPD History Previous Implant?: Yes Documented Results: Negative w/proof Implanted On Prior [facility] Admission?: No PPD to be Administered?: Yes - Smoking Cessation Smoking history: Current every day smoker Have you smoked in the past 12 months: No Aproximately how many cigarettes per day: 5 Hx Chewing Tobacco Use: No Initiated information on smoking cessation: Yes 'Breaking Loose' booklet given: 02/19/19 - Substance & Tx. History Hx Alcohol Use: Yes Hx Substance Use: Yes Substance Use Type: Alcohol, Cocaine, Marijuana Hx Substance Use Treatment: Yes (detox, rehab) - Substances abused Crack Substance route: Inhalation Frequency: 3-6 times per week Amount used: a couple dimes Age of first use: 17 Date of last use: 02/17/19 Alcohol Substance route: Oral Frequency: Daily Amount used: a whole bottle of vodka Age of first use: 5 Date of last use: 02/19/19 [facility] Vital [facility] Vital Signs: Vital Signs - 24 hr 02/19/19 16:55 Temperature 96.8 F L Pulse Rate 65 Respiratory 16 Rate Blood Pressure 120/88 - Physical General Appearance: Yes: Nourished, Mild Distress, Tremorous (Mild), Sweating ( Increased facial moisture), Anxious HEENTM: Yes: EOMI (Jerking movement of eyes upon lateral gaze), Hearing grossly Normal, Normocephalic, Normal Voice, BRYCE, Pharynx Normal Respiratory: Yes: Lungs Clear (Pulse Ox = 99 %), Normal Breath Sounds, No Respiratory Distress Neck: Yes: No masses,lesions,Nodules, Supple Breast: Yes: Breast Exam Deferred Cardiology: Yes: Regular Rhythm, Regular Rate, S1, S2 Abdominal: Yes: Non Tender, Flat, Soft, Increased Bowel Sounds Genitourinary: Yes: Within Normal Limits Back: Yes: Normal Inspection Musculoskeletal: Yes: full range of Motion, Gait Steady Extremities: Yes: Normal Capillary Refill Neurological: Yes: food counter worker II-XII NML intact (Jerking movement of eyes upon lateral gaze), Fully Oriented, Alert, Motor Strength 5/5 Integumentary: Yes: Normal Color, Warm Lymphatic: Yes: Within Normal Limits - Diagnostic (1) Alcohol dependence with withdrawal, uncomplicated Current Visit: Yes Status: Acute (2) Cannabis dependence, uncomplicated Current Visit: Yes Status: Chronic (3) Cocaine dependence, uncomplicated Current Visit: Yes Status: Chronic (4) Unspecified nystagmus Current Visit: Yes Status: Acute (5) Nicotine dependence, unspecified, uncomplicated Current Visit: Yes Status: Chronic Qualifiers: Nicotine product type: cigarettes Qualified Code(s): F17.210 - Nicotine dependence, cigarettes, uncomplicated Cleared for Admission [facility] - [facility] Level of Care: Medically Managed Detox Regimen/Protocol: Librium Claeared for Rehab Admission: No Breathalyzer - Breathalyzer Breathalyzer: 0.085 Urine Drug Screen - Test Device Lot number: [id number] Expiration date: 10/22/20 - Control Is test valid?: Yes - Results Drug screen NEGATIVE: No Urine drug screen results: THC-Marijuana, AMARILIS-Cocaine Inpatient Rehab Admission - Rehab Decision to Admit Inpatient rehab admission?: No"
[2019-02-19] MEDS ORDERED: MAGNESIUM CITRATE 300 ML BOTTLE PO PRN (22:45)
[2019-02-19] MEDS ORDERED: MENTHOL/PHENOL 1 EACH UD MM PRN (22:45)
[2019-02-19] MEDS ORDERED: BISMUTH SUBSALICYLATE 524 MG/30 ML UD PO PRN (22:45)
[2019-02-19] MEDS ORDERED: MAG HYDROX/AL HYDROX/SIMETH 30 ML UNIT-DOSE CUP PO PRN (22:45)
[2019-02-19] MEDS ORDERED: NICOTINE POLACRILEX 2 MG GUM BUC PRN (22:45)
[2019-02-19] MEDS ORDERED: ACETAMINOPHEN 325 MG TABLET (FP) PO PRN ×2 (22:45)
[2019-02-19] MEDS ORDERED: IBUPROFEN 400 MG TABLET (FP) PO PRN (22:45)
[2019-02-19] MEDS ORDERED: MAGNESIUM HYDROX 2400MG/30ML ORAL SUSPENSION 30 ML CUP PO PRN (22:45)
[2019-02-19] MEDS ORDERED: METHOCARBAMOL 500 MG TABLET PO PRN (22:45)
[2019-02-19] MEDS ORDERED: chlordiazePOXIDE HCL 25 MG CAPSULE PO ONE (23:30)
[2019-02-19] MEDS: MELATONIN 5 MG TABLETS PO PRN (23:43)
[2019-02-20] MEDS ORDERED: chlordiazePOXIDE HCL 10 MG CAPSULE PO PRN ×2 (01:00→22:49)
[2019-02-20] MEDS: chlordiazePOXIDE HCL 25 MG CAPSULE PO SCH ×3 (06:18→22:11)
[2019-02-20 09:59] LABS: HEMATOCRIT 45.7 % (35.4-49); HEMOGLOBIN 15.5 GM/dL (11.7-16.9); MCH 31.3 pg (25.7-33.7); MEAN CELL VOLUME 92.3 fl (80-96); MEAN PLT VOLUME 9.6 fl (7.5-11.1); PLATELET COUNT 155 K/MM3 (134-434); RBC 4.96 M/mm3 (4.00-5.60); RDW 12.9 % (11.9-15.9); WHITE BLOOD COUNT 4.1 K/mm3 (4.0-10.0)
[2019-02-20 10:02] LABS: ALBUMIN 3.6 g/dl (3.4-5.0); BILIRUBIN,TOTAL 1.4 mg/dL (0.2-1); BLOOD UREA NITROGEN 17.5 mg/dL (7-18); CALCIUM 8.9 mg/dL (8.5-10.1); CREATININE 1.1 mg/dL (0.55-1.3); POTASSIUM 4.1 mmol/L (3.5-5.1); TOT PROT 6.4 g/dl (6.4-8.2)
[2019-02-20] MEDS: PRENATAL VITAMINS W/ FOLIC ACID TABLET (FP) PO SCH (10:46)
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
[2019-02-20] MEDS ORDERED: risperiDONE 1 MG TABLET (FP) PO SCH (12:00)
[2019-02-20] MEDS ORDERED: FLU VACCINE QUAD 60 MCG/0.5 ML (MDV 19-20) IM ONE (12:00)
[2019-02-20] MEDS ORDERED: risperiDONE 1 MG TABLET (FP) PO ONE (12:06)
--- NOTE | 2019-02-20 12:27 | PN ---
S CIWA - CIWA Score Nausea/Vomitin Muscle Tremors: 3 Anxiety: 2 Agitation: 2 Paroxysmal Sweats: No Perspiration Orientation: 0-Oriented Tacttile Disturbances: 1-Very Mild Itch/Numbness Auditory Disturbances: 0-None Visual Disturbances: 0-None Headache: 1-Very Mild CIWA-Ar Total Score: 11 S Progress Note (SOAP) Subjective: alert,irritable,anxious,interrupted sleep,tremor Objective: 02/20/19 12:25 Vital Signs Temperature 97.3 F L 02/20/19 09:42 Pulse Rate 83 02/20/19 09:42 Respiratory Rate 18 02/20/19 09:42 Blood Pressure 151/79 02/20/19 09:42 O2 Sat by Pulse Oximetry (%) Laboratory Last Values WBC 4.1 K/mm3 (4.0-10.0) 02/20/19 08:15 RBC 4.96 M/mm3 (4.00-5.60) 02/20/19 08:15 Hgb 15.5 GM/dL (11.7-16.9) 02/20/19 08:15 Hct 45.7 % (35.4-49) 02/20/19 08:15 MCV 92.3 fl (80-96) 02/20/19 08:15 MCH 31.3 pg (25.7-33.7) 02/20/19 08:15 MCHC 34.0 g/dl (32.0-35.9) 02/20/19 08:15 RDW 12.9 % (11.9-15.9) 02/20/19 08:15 Plt Count 155 K/MM3 (134-434) 02/20/19 08:15 MPV 9.6 fl (7.5-11.1) 02/20/19 08:15 Sodium 138 mmol/L (136-145) 02/20/19 08:15 Potassium 4.1 mmol/L (3.5-5.1) 02/20/19 08:15 Chloride 104 mmol/L (98-107) 02/20/19 08:15 Carbon Dioxide 29 mmol/L (21-32) 02/20/19 08:15 Anion Gap 5 MMOL/L (8-16) L 02/20/19 08:15 BUN 17.5 mg/dL (7-18) 02/20/19 08:15 Creatinine 1.1 mg/dL (0.55-1.3) 02/20/19 08:15 Est GFR (CKD-EPI)AfAm 111.41 02/20/19 08:15 Est GFR (CKD-EPI)NonAf 96.13 02/20/19 08:15 Random Glucose 84 mg/dL (74-106) 02/20/19 08:15 Calcium 8.9 mg/dL (8.5-10.1) 02/20/19 08:15 Total Bilirubin 1.4 mg/dL (0.2-1) H 02/20/19 08:15 AST 20 U/L (15-37) 02/20/19 08:15 ALT 34 U/L (13-61) 02/20/19 08:15 Alkaline Phosphatase 46 U/L (45-117) 02/20/19 08:15 Total Protein 6.4 g/dl (6.4-8.2) 02/20/19 08:15 Albumin 3.6 g/dl (3.4-5.0) 02/20/19 08:15 RPR Titer Nonreactive (NONREACTIVE) 02/20/19 08:15 HIV 1&2 Antibody Screen Negative 02/20/19 08:15 HIV P24 Antigen Negative 02/20/19 08:15 Assessment: 02/20/19 12:26 withdrawal symptom Plan: continue detox librium regimen
[2019-02-20] MEDS: PARoxetine HCL 20 MG TABLET PO SCH (12:51)
[2019-02-20] MEDS: risperiDONE 1 MG TABLET (FP) PO SCH ×2 (13:15→22:11)
[2019-02-20] MEDS: GABAPENTIN 400 MG CAPSULE (FP) PO SCH ×2 (13:15→22:13)
[2019-02-20] MEDS ORDERED: THIAMINE HCL 100 MG TABLET (FP) PO SCH (22:00)
[2019-02-20] MEDS ORDERED: risperiDONE 2 MG TABLET PO SCH (22:00)
[2019-02-20] MEDS: MELATONIN 5 MG TABLETS PO PRN (22:11)
[2019-02-21] MEDS: chlordiazePOXIDE 5 MG CAPSULE PO SCH ×2 (06:11→13:55)
[2019-02-21] MEDS: risperiDONE 1 MG TABLET (FP) PO SCH ×2 (06:12→13:55)
[2019-02-21] MEDS: GABAPENTIN 400 MG CAPSULE (FP) PO SCH ×2 (06:12→13:55)
[2019-02-21 10:00] LABS: URINE APPEARANCE CLEAR; URINE BILIRUBIN NEGATIVE (NEGATIVE); URINE COLOR YELLOW; URINE GLUCOSE (UA) NEGATIVE (NEGATIVE); URINE KETONE NEGATIVE (NEGATIVE); URINE LEUK ESTERASE NEGATIVE (NEGATIVE); URINE NITRITE NEGATIVE (NEGATIVE); URINE PROTEIN NEGATIVE (NEGATIVE); URINE UROBILINOGEN 0.2 mg/dL (0.2-1.0)
[2019-02-21] MEDS: PRENATAL VITAMINS W/ FOLIC ACID TABLET (FP) PO SCH (10:24)
[2019-02-21] MEDS: PARoxetine HCL 20 MG TABLET PO SCH (10:24)
--- NOTE | 2019-02-21 10:38 | PN ---
S CIWA - CIWA Score Nausea/Vomitin Muscle Tremors: 2 Anxiety: 2 Agitation: 2 Paroxysmal Sweats: 1-Minimal Palms Moist Orientation: 0-Oriented Tacttile Disturbances: 1-Very Mild Itch/Numbness Auditory Disturbances: 0-None Visual Disturbances: 0-None Headache: 2-Mild CIWA-Ar Total Score: 12 [facility] Progress Note (SOAP) Subjective: alert,irritable,anxious,interrupted sleep,tremor Objective: 02/21/19 10:37 Vital Signs Temperature 97.8 F 02/21/19 09:17 Pulse Rate 63 02/21/19 09:17 Respiratory Rate 18 02/21/19 09:17 Blood Pressure 105/50 L 02/21/19 09:17 O2 Sat by Pulse Oximetry (%) Laboratory Last Values WBC 4.1 K/mm3 (4.0-10.0) 02/20/19 08:15 RBC 4.96 M/mm3 (4.00-5.60) 02/20/19 08:15 Hgb 15.5 GM/dL (11.7-16.9) 02/20/19 08:15 Hct 45.7 % (35.4-49) 02/20/19 08:15 MCV 92.3 fl (80-96) 02/20/19 08:15 MCH 31.3 pg (25.7-33.7) 02/20/19 08:15 MCHC 34.0 g/dl (32.0-35.9) 02/20/19 08:15 RDW 12.9 % (11.9-15.9) 02/20/19 08:15 Plt Count 155 K/MM3 (134-434) 02/20/19 08:15 MPV 9.6 fl (7.5-11.1) 02/20/19 08:15 Sodium 138 mmol/L (136-145) 02/20/19 08:15 Potassium 4.1 mmol/L (3.5-5.1) 02/20/19 08:15 Chloride 104 mmol/L (98-107) 02/20/19 08:15 Carbon Dioxide 29 mmol/L (21-32) 02/20/19 08:15 Anion Gap 5 MMOL/L (8-16) L 02/20/19 08:15 BUN 17.5 mg/dL (7-18) 02/20/19 08:15 Creatinine 1.1 mg/dL (0.55-1.3) 02/20/19 08:15 Est GFR (CKD-EPI)AfAm 111.41 02/20/19 08:15 Est GFR (CKD-EPI)NonAf 96.13 02/20/19 08:15 Random Glucose 84 mg/dL (74-106) 02/20/19 08:15 Calcium 8.9 mg/dL (8.5-10.1) 02/20/19 08:15 Total Bilirubin 1.4 mg/dL (0.2-1) H 02/20/19 08:15 AST 20 U/L (15-37) 02/20/19 08:15 ALT 34 U/L (13-61) 02/20/19 08:15 Alkaline Phosphatase 46 U/L (45-117) 02/20/19 08:15 Total Protein 6.4 g/dl (6.4-8.2) 02/20/19 08:15 Albumin 3.6 g/dl (3.4-5.0) 02/20/19 08:15 Urine Color Yellow 02/21/19 08:00 Urine Appearance Clear 02/21/19 08:00 Urine pH 6.0 (5.0-8.0) 02/21/19 08:00 Ur Specific [place] 1.020 (1.010-1.035) 02/21/19 08:00 Urine Protein Negative (NEGATIVE) 02/21/19 08:00 Urine Glucose (UA) Negative (NEGATIVE) 02/21/19 08:00 Urine Ketones Negative (NEGATIVE) 02/21/19 08:00 Urine Blood Negative (NEGATIVE) 02/21/19 08:00 Urine Nitrite Negative (NEGATIVE) 02/21/19 08:00 Urine Bilirubin Negative (NEGATIVE) 02/21/19 08:00 Urine Urobilinogen 0.2 mg/dL (0.2-1.0) 02/21/19 08:00 Ur Leukocyte Esterase Negative (NEGATIVE) 02/21/19 08:00 RPR Titer Nonreactive (NONREACTIVE) 02/20/19 08:15 HIV 1&2 Antibody Screen Negative 02/20/19 08:15 HIV P24 Antigen Negative 02/20/19 08:15 Assessment: 02/21/19 10:37 withdrawal symptom Plan: continue detox librium regimen
[2019-02-21 13:02] VITALS: BP 110/64; PULSE 118; TEMP 98.2
--- NOTE | 2019-02-21 15:02 | PN ---
[facility] Progress Note Note: patient did not want to complete treatment,all attempts to convince patient to stray with no avail,high risk of relapsing explain,understood, patient signed release ama,advise to call 911 if any problem
--- NOTE | 2019-02-21 15:06 | DS ---
[facility] Detox Discharge Summary Admission Date: 02/19/19 Discharge Date: 02/21/19 - History Present History: Alcohol Dependence, Cannabis Dependence, Cocaine Dependence Additional Comments: paatient left ama - Physical Exam Results Vital Signs: Vital Signs Temperature 98.2 F 02/21/19 13:01 Pulse Rate 118 H 02/21/19 13:01 Respiratory Rate 18 02/21/19 13:01 Blood Pressure 110/64 02/21/19 13:01 O2 Sat by Pulse Oximetry (%) Pertinent Admission Physical Exam Findings: withdrawal signs and symptom Laboratory Last Values WBC 4.1 K/mm3 (4.0-10.0) 02/20/19 08:15 RBC 4.96 M/mm3 (4.00-5.60) 02/20/19 08:15 Hgb 15.5 GM/dL (11.7-16.9) 02/20/19 08:15 Hct 45.7 % (35.4-49) 02/20/19 08:15 MCV 92.3 fl (80-96) 02/20/19 08:15 MCH 31.3 pg (25.7-33.7) 02/20/19 08:15 MCHC 34.0 g/dl (32.0-35.9) 02/20/19 08:15 RDW 12.9 % (11.9-15.9) 02/20/19 08:15 Plt Count 155 K/MM3 (134-434) 02/20/19 08:15 MPV 9.6 fl (7.5-11.1) 02/20/19 08:15 Sodium 138 mmol/L (136-145) 02/20/19 08:15 Potassium 4.1 mmol/L (3.5-5.1) 02/20/19 08:15 Chloride 104 mmol/L (98-107) 02/20/19 08:15 Carbon Dioxide 29 mmol/L (21-32) 02/20/19 08:15 Anion Gap 5 MMOL/L (8-16) L 02/20/19 08:15 BUN 17.5 mg/dL (7-18) 02/20/19 08:15 Creatinine 1.1 mg/dL (0.55-1.3) 02/20/19 08:15 Est GFR (CKD-EPI)AfAm 111.41 02/20/19 08:15 Est GFR (CKD-EPI)NonAf 96.13 02/20/19 08:15 Random Glucose 84 mg/dL (74-106) 02/20/19 08:15 Calcium 8.9 mg/dL (8.5-10.1) 02/20/19 08:15 Total Bilirubin 1.4 mg/dL (0.2-1) H 02/20/19 08:15 AST 20 U/L (15-37) 02/20/19 08:15 ALT 34 U/L (13-61) 02/20/19 08:15 Alkaline Phosphatase 46 U/L (45-117) 02/20/19 08:15 Total Protein 6.4 g/dl (6.4-8.2) 02/20/19 08:15 Albumin 3.6 g/dl (3.4-5.0) 02/20/19 08:15 Urine Color Yellow 02/21/19 08:00 Urine Appearance Clear 02/21/19 08:00 Urine pH 6.0 (5.0-8.0) 02/21/19 08:00 Ur Specific [place] 1.020 (1.010-1.035) 02/21/19 08:00 Urine Protein Negative (NEGATIVE) 02/21/19 08:00 Urine Glucose (UA) Negative (NEGATIVE) 02/21/19 08:00 Urine Ketones Negative (NEGATIVE) 02/21/19 08:00 Urine Blood Negative (NEGATIVE) 02/21/19 08:00 Urine Nitrite Negative (NEGATIVE) 02/21/19 08:00 Urine Bilirubin Negative (NEGATIVE) 02/21/19 08:00 Urine Urobilinogen 0.2 mg/dL (0.2-1.0) 02/21/19 08:00 Ur Leukocyte Esterase Negative (NEGATIVE) 02/21/19 08:00 RPR Titer Nonreactive (NONREACTIVE) 02/20/19 08:15 HIV 1&2 Antibody Screen Negative 02/20/19 08:15 HIV P24 Antigen Negative 02/20/19 08:15 Vital Signs Temperature 98.2 F 02/21/19 13:01 Pulse Rate 118 H 02/21/19 13:01 Respiratory Rate 18 02/21/19 13:01 Blood Pressure 110/64 02/21/19 13:01 O2 Sat by Pulse Oximetry (%) - Medication Discharge Medications: Ambulatory Orders Chlorpromazine [Thorazine -] 50 mg PO DAILY 10/13/18 Risperidone [Risperdal] 2 mg PO DAILY 10/13/18 Gabapentin 400 mg PO DAILY 02/19/19 Paxil 4 mg PO BIDLASIX 02/19/19 - Diagnosis (1) Alcohol dependence with withdrawal, uncomplicated Current Visit: Yes Status: Acute (2) Cannabis dependence, uncomplicated Current Visit: Yes Status: Acute (3) Cocaine dependence, uncomplicated Current Visit: Yes Status: Acute (4) Bipolar disorder Current Visit: Yes Status: Chronic (5) Nicotine dependence Current Visit: Yes Status: Chronic - AMA Did Patient Leave Against Medical Advice: Yes
[2019-02-22] MEDS ORDERED: chlordiazePOXIDE HCL 10 MG CAPSULE PO PRN (05:00)
[2019-02-22] MEDS ORDERED: chlordiazePOXIDE HCL 10 MG CAPSULE PO SCH (05:00)
[2019-02-23] MEDS ORDERED: chlordiazePOXIDE HCL 10 MG CAPSULE PO ONE (05:00)
== END 2019-02-21 16:06 | disposition left against medical advice (07) | DRG 770 ==
LOC: YASAS 20:59 → Y6N 23:19
PROVIDERS: ADMIT Allergy & Immunology; ATTEND Allergy & Immunology
PROC: HZ2ZZZZ Detoxification Services for Substance Abuse Treatment (ICD-10-PCS; principal; 2019-02-19)
DX: F10.230 Alcohol dependence with withdrawal, uncomplicated (principal); F14.20 Cocaine dependence, uncomplicated; F12.20 Cannabis dependence, uncomplicated; F17.210 Nicotine dependence, cigarettes, uncomplicated; F31.9 Bipolar disorder, unspecified; F43.10 Post-traumatic stress disorder, unspecified; F19.24 Other psychoactive substance dependence with psychoactive substance-induced mood disorder; F19.282 Other psychoactive substance dependence with psychoactive substance-induced sleep disorder; Z91.038 Other insect allergy status; Z87.438 Personal history of other diseases of male genital organs
CPT/HCPCS: 36415; 80053; 81003; 85027; 86593; 87389; J2794; Q2036

== ENCOUNTER 2019-03-11 17:14 | Inpatient (IN) | payer OTHER ==
[2019-03-11 17:39] VITALS: BMI 24.7
--- NOTE | 2019-03-11 18:30 | HP ---
CIWA Score Nausea/Vomitin Muscle Tremors: 2 Anxiety: 2 Agitation: 2 Paroxysmal Sweats: 2 Orientation: 0-Oriented Tacttile Disturbances: 2-Mild Itch/Numbness/Burn Auditory Disturbances: 0-None Visual Disturbances: 0-None Headache: 2-Mild CIWA-Ar Total Score: 14 - Admission Criteria OASAS Guidelines: Admission for Medically Managed Detox: Requires at least one of the followin. CIWA greater than 12 2. Seizures within the past 24 hours 3. Delirium tremens within the past 24 hours 4. Hallucinations within the past 24 hours 5. Acute intervention needed for co occurring medical disorder 6. Acute intervention needed for co occurring psychiatric disorder 7. Severe withdrawal that cannot be handled at a lower level of care (continued vomiting, continued diarrhea, abnormal vital signs) requiring intravenous medication and/or fluids 8. Patient presents the following: CIWA greater than 12 Admission Criteria Met: Admission criteria met Admitting History and Physical - Smoking History Smoking history: Current every day smoker Have you smoked in the past 12 months: No Aproximately how many cigarettes per day: 5 - Alcohol/Substance Use Hx Alcohol Use: Yes Admission ROS S - HPI Chief Complaint: I want to stop using alcohol and drugs Allergies/Adverse Reactions: Allergies Allergy/AdvReac Type Severity Reaction Status Date / Time bee venom protein (honey bee) Allergy Severe Difficulty Verified 02/19/19 16:52 Breathing History of Present Illness: Patient is a 18 year old male who presents for detox. His last treatment was from 02/19-02/21/19; he signed out AMA because he had to go and do drugs and drink. He reports blackout a year ago. - Ebola screening Have you traveled outside of the country in the last 21 days: No ([place]) Have you had contact with anyone from an Ebola affected area: No Have you been sick,other than usual withdrawal symptoms: No Do you have a fever: No - Review of Systems Constitutional: Chills, Loss of Appetite, Changes in sleep, Weight Stable EENT: reports: No Symptoms Reported Respiratory: reports: Cough, SOB with Exertion Cardiac: reports: No Symptoms Reported GI: reports: Nausea, Poor Appetite, Poor Fluid Intake, Abdominal cramping : reports: No Symptoms Reported Musculoskeletal: reports: Back Pain, Joint Pain, Muscle Pain, Muscle Weakness Integumentary: reports: Flushing Neuro: reports: Headache, Numbness, Tremors Endocrine: reports: No Symptoms Reported Hematology: reports: No Symptoms Reported Psychiatric: reports: Anxious Other Systems: Reviewed and Negative Patient History - Patient Medical History Hx Anemia: No Hx Asthma: No Hx Chronic Obstructive Pulmonary Disease (COPD): No Hx Cancer: No Hx Cardiac Disorders: No Hx Congestive Heart Failure: No Hx Hypertension: No Hx Hypercholesterolemia: No Hx Pacemaker: No HX Cerebrovascular Accident: No Hx Seizures: No Hx Diabetes: No Hx Gastrointestinal Disorders: No Hx Liver Disease: Yes Hx Genitourinary Disorders: No Hx Sexually Transmitted Disorders: Yes (Chlamydia) Hx Renal Disease (ESRD): No Hx Thyroid Disease: No Hx Human Immunodeficiency Virus (HIV): No Hx Hepatitis C: No Hx Depression: No Hx Suicide Attempt: No Hx Bipolar Disorder: Yes Hx Schizophrenia: No Other Medical History: Neuropathy - Patient Surgical History Past Surgical History: No - PPD History Previous Implant?: Yes Documented Results: Negative w/o proof Implanted On Prior [facility] Admission?: Yes Date: 02/21/19 Results: pt left PPD to be Administered?: Yes - Smoking Cessation Smoking history: Current every day smoker Have you smoked in the past 12 months: Yes Aproximately how many cigarettes per day: 10 Hx Chewing Tobacco Use: No Initiated information on smoking cessation: Yes 'Breaking Loose' booklet given: 03/11/19 - Substances abused Crack Substance route: Inhalation Frequency: 3-6 times per week Amount used: $50 Age of first use: 17 Date of last use: 03/11/19 Alcohol Substance route: Oral Frequency: Daily Amount used: 1 pint of vodka Age of first use: 10 Date of last use: 03/11/19 Admission Physical Exam S - Vital Signs Vital Signs: Vital Signs - 24 hr 03/11/19 17:36 Temperature 98.9 F Pulse Rate 95 H Respiratory 19 Rate Blood Pressure 107/63 - Physical General Appearance: Yes: No Apparent Distress, Anxious HEENTM: Yes: Hearing grossly Normal, Normocephalic, Normal Voice, Pharynx Normal Respiratory: Yes: Chest Non-Tender, Lungs Clear, Normal Breath Sounds, No Respiratory Distress, No Accessory Muscle Use Neck: Yes: No masses,lesions,Nodules, Supple Breast: Yes: Breast Exam Deferred Cardiology: Yes: Regular Rhythm, Regular Rate, S1, S2 Abdominal: Yes: Normal Bowel Sounds, Soft Genitourinary: Yes: Within Normal Limits Back: Yes: Normal Inspection Musculoskeletal: Yes: Gait Steady, Back pain, Muscle Pain, Other (knee pain) Extremities: Yes: Non-Tender, Tremors, Coldness Neurological: Yes: Fully Oriented, Alert, Motor Strength 5/5, Normal Mood/Affect , Normal Response, Numbness, Other (neuropathy) Integumentary: Yes: Normal Color, Moist Lymphatic: Yes: Within Normal Limits - Diagnostic (1) Alcohol dependence with withdrawal, uncomplicated Current Visit: Yes Status: Acute (2) Cannabis dependence, uncomplicated Current Visit: Yes Status: Acute (3) Cocaine dependence, uncomplicated Current Visit: Yes Status: Acute (4) Bipolar disorder Current Visit: Yes Status: Chronic (5) Nicotine dependence Current Visit: Yes Status: Chronic Qualifiers: Nicotine product type: cigarettes Substance use status: uncomplicated Qualified Code(s): F17.210 - Nicotine dependence, cigarettes, uncomplicated (6) Neuropathy Current Visit: Yes Status: Chronic Cleared for Admission S - Detox or Rehab [facility] Level of Care: Medically Managed Detox Regimen/Protocol: Librium Claeared for Rehab Admission: No Breathalyzer - Breathalyzer Breathalyzer: 0 Urine Drug Screen - Test Device Lot number: [id number] Expiration date: 11/22/20 - Control Is test valid?: Yes - Results Drug screen NEGATIVE: No Urine drug screen results: THC-Marijuana, AMARILIS-Cocaine Inpatient Rehab Admission - Rehab Decision to Admit Inpatient rehab admission?: No
[2019-03-11] MEDS ORDERED: chlordiazePOXIDE HCL 25 MG CAPSULE PO PRN (18:32)
[2019-03-11] MEDS ORDERED: chlordiazePOXIDE HCL 25 MG CAPSULE PO ONE (18:32)
[2019-03-11] MEDS ORDERED: METHOCARBAMOL 500 MG TABLET PO PRN (18:32)
[2019-03-11] MEDS ORDERED: IBUPROFEN 400 MG TABLET (FP) PO PRN (18:32)
[2019-03-11] MEDS ORDERED: NICOTINE POLACRILEX 2 MG GUM BUC PRN (18:32)
[2019-03-11] MEDS ORDERED: hydrOXYzine PAMOATE 50 MG CAPSULE (FP) PO PRN (18:32)
[2019-03-11] MEDS ORDERED: ACETAMINOPHEN 325 MG TABLET (FP) PO PRN ×2 (18:32)
[2019-03-11] MEDS ORDERED: MELATONIN 5 MG TABLETS PO PRN (18:32)
[2019-03-11] MEDS ORDERED: ONDANSETRON *ODT* 4 MG TABLET SL PRN (18:32)
[2019-03-11] MEDS ORDERED: MAGNESIUM CITRATE 300 ML BOTTLE PO PRN (18:32)
[2019-03-11] MEDS ORDERED: BISMUTH SUBSALICYLATE 524 MG/30 ML UD PO PRN (18:32)
[2019-03-11] MEDS ORDERED: MAG HYDROX/AL HYDROX/SIMETH 30 ML UNIT-DOSE CUP PO PRN (18:32)
[2019-03-11] MEDS ORDERED: MENTHOL/PHENOL 1 EACH UD MM PRN (18:32)
[2019-03-11] MEDS ORDERED: MAGNESIUM HYDROX 2400MG/30ML ORAL SUSPENSION 30 ML CUP PO PRN (18:32)
[2019-03-11] MEDS: NICOTINE 7 MG/24 HOURS TOPICAL PATCH TD SCH (19:44)
[2019-03-11] MEDS ORDERED: THIAMINE HCL 100 MG TABLET (FP) PO SCH (22:00)
[2019-03-11] MEDS ORDERED: GABAPENTIN 400 MG PO SCH (22:00)
[2019-03-12] MEDS: chlordiazePOXIDE HCL 25 MG CAPSULE PO SCH ×3 (00:02→10:34)
[2019-03-12] MEDS: GABAPENTIN 400 MG CAPSULE (FP) PO SCH ×3 (00:02→13:27)
[2019-03-12] MEDS ORDERED: PRENATAL VITAMINS W/ FOLIC ACID TABLET (FP) PO SCH (10:00)
[2019-03-12] MEDS: NICOTINE 7 MG/24 HOURS TOPICAL PATCH TD SCH (10:34)
--- NOTE | 2019-03-12 10:47 | PN ---
S CIWA - CIWA Score Nausea/Vomitin-Mild Nausea/No Vomiting Muscle Tremors: 3 Anxiety: 3 Agitation: 4-Moderately Restless Paroxysmal Sweats: 3 Orientation: 0-Oriented Tacttile Disturbances: 0-None Auditory Disturbances: 0-None Visual Disturbances: 0-None Headache: 0-None Present CIWA-Ar Total Score: 14 [facility] Progress Note (SOAP) Subjective: nausea sweats irritable agitation Objective: 03/12/19 11:00 Vital Signs Temperature 97.9 F 03/12/19 09:24 Pulse Rate 78 03/12/19 09:24 Respiratory Rate 18 03/12/19 09:24 Blood Pressure 119/76 03/12/19 09:24 O2 Sat by Pulse Oximetry (%) labs pending aaox3 ambulating no acute distress Assessment: 03/12/19 11:01 withdrawals Plan: continue detox increase fluids gardenia leong prn
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
[2019-03-12 12:12] LABS: HEMATOCRIT 43.8 % (35.4-49); HEMOGLOBIN 14.9 GM/dL (11.7-16.9); MCH 31.5 pg (25.7-33.7); MEAN CELL VOLUME 92.6 fl (80-96); MEAN PLT VOLUME 9.8 fl (7.5-11.1); PLATELET COUNT 155 K/MM3 (134-434); RBC 4.73 M/mm3 (4.00-5.60); RDW 13.3 % (11.9-15.9); WHITE BLOOD COUNT 3.4 K/mm3 (4.0-10.0)
[2019-03-12 12:13] LABS: ALBUMIN 3.4 g/dl (3.4-5.0); BILIRUBIN,TOTAL 0.7 mg/dL (0.2-1); BLOOD UREA NITROGEN 12.9 mg/dL (7-18); CALCIUM 8.7 mg/dL (8.5-10.1); CREATININE 0.8 mg/dL (0.55-1.3); TOT PROT 5.8 g/dl (6.4-8.2)
--- NOTE | 2019-03-12 12:55 | PN ---
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 pt was encouraged to stay and complete his detox however pt insisted on leaving, pt was also advised of risks of relapse, seizure, OD, DTs and or loss, however, pt chose to sign out AMA.
--- NOTE | 2019-03-12 12:56 | DS ---
[facility] Detox Discharge Summary Admission Date: 03/11/19 - History Present History: Alcohol Dependence, Cannabis Dependence, Cocaine Dependence - Physical Exam Results Vital Signs: Vital Signs Temperature 97.9 F 03/12/19 09:24 Pulse Rate 78 03/12/19 09:24 Respiratory Rate 18 03/12/19 09:24 Blood Pressure 119/76 03/12/19 09:24 O2 Sat by Pulse Oximetry (%) - Treatment Hospital Course: Discharged Condition Good, Rehab Referral Accepted - Medication Discharge Medications: Ambulatory Orders Risperidone [Risperdal] 1 mg PO DAILY 10/13/18 Gabapentin 400 mg PO TID 02/19/19 Sertraline HCl [Zoloft -] 75 mg PO DAILY 03/11/19 - Diagnosis (1) Alcohol dependence with withdrawal, uncomplicated Current Visit: Yes Status: Chronic (2) Cannabis dependence, uncomplicated Current Visit: Yes Status: Chronic (3) Cocaine dependence, uncomplicated Current Visit: Yes Status: Acute (4) Bipolar disorder Current Visit: Yes Status: Chronic (5) Nicotine dependence Current Visit: Yes Status: Chronic Qualifiers: Nicotine product type: cigarettes Substance use status: uncomplicated Qualified Code(s): F17.210 - Nicotine dependence, cigarettes, uncomplicated (6) Closed fracture dislocation of metacarpophalangeal joint Current Visit: No Status: Acute (7) Marihuana abuse Current Visit: No Status: Acute (8) Polysubstance (excluding opioids) dependence Current Visit: No Status: Acute (9) Substance induced mood disorder Current Visit: No Status: Acute (10) Substance-induced sleep disorder Current Visit: No Status: Acute (11) PTSD (post-traumatic stress disorder) Current Visit: No Status: Chronic - AMA Did Patient Leave Against Medical Advice: Yes
[2019-03-12 13:30] VITALS: BP 115/60; PULSE 73; TEMP 98.2
[2019-03-12] MEDS ORDERED: SERTRALINE HCL 25 MG TABLET (FP) PO SCH (13:45)
[2019-03-12] MEDS ORDERED: risperiDONE 1 MG TABLET (FP) PO SCH (13:45)
[2019-03-13] MEDS ORDERED: chlordiazePOXIDE HCL 25 MG CAPSULE PO SCH (05:00)
[2019-03-14] MEDS ORDERED: chlordiazePOXIDE HCL 10 MG CAPSULE PO PRN
[2019-03-14] MEDS ORDERED: chlordiazePOXIDE HCL 10 MG CAPSULE PO SCH (05:00)
[2019-03-15] MEDS ORDERED: chlordiazePOXIDE HCL 10 MG CAPSULE PO SCH (05:00)
[2019-03-16] MEDS ORDERED: chlordiazePOXIDE HCL 10 MG CAPSULE PO ONE (05:00)
== END 2019-03-12 13:45 | disposition left against medical advice (07) | DRG 770 ==
LOC: YASAS 17:14 → Y6N 18:56
PROVIDERS: ADMIT Allergy & Immunology; ATTEND Allergy & Immunology
PROC: HZ2ZZZZ Detoxification Services for Substance Abuse Treatment (ICD-10-PCS; principal; 2019-03-11)
DX: F10.230 Alcohol dependence with withdrawal, uncomplicated (principal); F14.20 Cocaine dependence, uncomplicated; F12.20 Cannabis dependence, uncomplicated; F17.210 Nicotine dependence, cigarettes, uncomplicated; F19.282 Other psychoactive substance dependence with psychoactive substance-induced sleep disorder; F19.24 Other psychoactive substance dependence with psychoactive substance-induced mood disorder; F31.9 Bipolar disorder, unspecified; F43.10 Post-traumatic stress disorder, unspecified; G62.9 Polyneuropathy, unspecified; K76.9 Liver disease, unspecified; Z86.19 Personal history of other infectious and parasitic diseases
CPT/HCPCS: 36415; 80053; 85027; 86593; 87389

== ENCOUNTER 2019-06-16 01:04 | Inpatient (IN) | payer OTHER ==
[2019-06-16 01:49] VITALS: BMI 27.1
--- NOTE | 2019-06-16 02:12 | HP ---
COWS - Scale Resting Pulse: 1= [place] 81-100 Sweatin=Flushed/Facial Moisture Restless Observation: 0= Sits Still Pupil Size: 1= Pupils >than Normal Bone or Joint Aches: 2= Severe Diffuse Aches Runny Nose/ Eye Tearin= Runny Nose/Eyes GI Upset > 30mins: 3= Vomiting/Diarrhea (vomiting x 3) Tremor Observation: 2= Slight Tremor Visible Yawning Observation: 1= 1-2x During Session Anxiety or Irritability: 2=Irritable/Anxious Goose Flesh Skin: 0=Smooth Skin COWS Score: 16 CIWA Score Nausea/Vomitin (vomiting x 3) Muscle Tremors: 3 Anxiety: 3 Agitation: 2 Paroxysmal Sweats: 3 Orientation: 0-Oriented Tacttile Disturbances: 0-None Auditory Disturbances: 0-None Visual Disturbances: 1-Very Mild Sensitivity Headache: 2-Mild CIWA-Ar Total Score: 17 - Admission Criteria OASAS Guidelines: Admission for Medically Managed Detox: Requires at least one of the followin. CIWA greater than 12 2. Seizures within the past 24 hours 3. Delirium tremens within the past 24 hours 4. Hallucinations within the past 24 hours 5. Acute intervention needed for co occurring medical disorder 6. Acute intervention needed for co occurring psychiatric disorder 7. Severe withdrawal that cannot be handled at a lower level of care (continued vomiting, continued diarrhea, abnormal vital signs) requiring intravenous medication and/or fluids 8. Admitting History and Physical - Smoking History Smoking history: Current every day smoker Have you smoked in the past 12 months: Yes Aproximately how many cigarettes per day: 10 - Alcohol/Substance Use Hx Alcohol Use: Yes Admission [facility] Chief Complaint: Heroin and alcohol withdrawal symptoms Allergies/Adverse Reactions: Allergies Allergy/AdvReac Type Severity Reaction Status Date / Time bee venom protein (honey bee) Allergy Severe Difficulty Verified 02/19/19 16:52 Breathing History of Present Illness: 18 years old male with a history of heroin and alcohol withdrawal symptoms is eking admission to detox. Patient has medical history of chlamydia and elevated liver enzymes, psych history of insomnia, depression, anxiety and bipolar disorder. He reports suicide attempt in 2014 and denies suicidal ideation at his time. 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 Exam Limitations: No Limitations - Ebola screening Have you traveled outside of the country in the last 21 days: No Have you had contact with anyone from an Ebola affected area: No Do you have a fever: No - Review of Systems Constitutional: Chills, Malaise, Night Sweats, Changes in sleep EENT: reports: No Symptoms Reported Respiratory: reports: No Symptoms reported Cardiac: reports: No Symptoms Reported : reports: No Symptoms Reported Musculoskeletal: reports: Back Pain, Joint Pain Integumentary: reports: Dryness, Flushing Neuro: reports: Headache, Tremors Endocrine: reports: No Symptoms Reported Hematology: reports: No Symptoms Reported Psychiatric: reports: Mood/Affect Appropiate, Orientated x3, Anxious, Depressed Other Systems: Reviewed and Negative Patient History - Patient Medical History Hx Anemia: No Hx Asthma: No Hx Chronic Obstructive Pulmonary Disease (COPD): No Hx Cancer: No Hx Cardiac Disorders: No Hx Congestive Heart Failure: No Hx Hypertension: No Hx Hypercholesterolemia: No Hx Pacemaker: No HX Cerebrovascular Accident: No Hx Seizures: No Hx Diabetes: No Hx Gastrointestinal Disorders: No Hx Liver Disease: Yes (elevated liver enzymes) Hx Genitourinary Disorders: No Hx Sexually Transmitted Disorders: Yes (chlymadia (treated)) Hx Renal Disease (ESRD): No Hx Thyroid Disease: No Hx Human Immunodeficiency Virus (HIV): No (Negative 2018) Hx Hepatitis C: No Hx Depression: Yes Hx Suicide Attempt: No (Attempt in 2013. Denies suicidal ideation at this time) Hx Bipolar Disorder: Yes Hx Schizophrenia: No Other Medical History: Anxiety - Patient Surgical History Past Surgical History: No Hx Neurologic Surgery: No Hx Cataract Extraction: No Hx Cardiac Surgery: No Hx Lung Surgery: No Hx Abdominal Surgery: No Hx Appendectomy: No Hx Cholecystectomy: No Hx Genitourinary Surgery: No Hx Orthopedic Surgery: No Anesthesia Reaction: No - PPD History Previous Implant?: Yes Implanted On Prior [facility] Admission?: No Date: 03/13/19 Results: pt left PPD to be Administered?: Yes - Reproductive History Patient is a Female of Child Bearing Age (11 -55 yrs old): No (male) - Smoking Cessation Smoking history: Current every day smoker Have you smoked in the past 12 months: Yes Aproximately how many cigarettes per day: 10 Hx Chewing Tobacco Use: No Initiated information on smoking cessation: Yes 'Breaking Loose' booklet given: 06/16/19 - Substance & Tx. History Hx Alcohol Use: Yes Hx Substance Use: Yes Substance Use Type: Heroin Hx Substance Use Treatment: Yes ([facility]) - Substances abused Heroin Frequency: Daily Amount used: 4 bags Age of first use: 18 Date of last use: 06/15/19 Alcohol Frequency: 3-6 times per week Amount used: 1 pint of liquor (jose) Age of first use: 10 Date of last use: 06/15/19 Marijuana/Hashish Substance route: Oral Frequency: Daily Amount used: $20 Age of first use: 12 Date of last use: 06/15/19 Cocaine Frequency: Daily Amount used: $60 Age of first use: 15 Date of last use: 06/15/19 Admission Physical Exam [facility] - Vital Signs Vital Signs: Vital Signs - 24 hr 06/16/19 01:38 Temperature 97.6 F Pulse Rate 85 Respiratory 16 Rate Blood Pressure 118/57 L - Physical General Appearance: Yes: Moderate Distress, Tremorous, Irritable, Anxious HEENTM: Yes: Within Normal Limits Respiratory: Yes: Lungs Clear, Normal Breath Sounds, No Respiratory Distress Neck: Yes: Within Normal Limits Breast: Yes: Breast Exam Deferred Cardiology: Yes: Within Normal Limits Abdominal: Yes: Normal Bowel Sounds, Soft Genitourinary: Yes: Within Normal Limits Back: Yes: Normal Inspection Musculoskeletal: Yes: Back pain Extremities: Yes: Tremors Neurological: Yes: Within Normal Limits Integumentary: Yes: Warm Lymphatic: Yes: Within Normal Limits - Diagnostic (1) Marijuana dependence Current Visit: Yes Status: Chronic (2) Alcohol dependence with withdrawal, uncomplicated Current Visit: Yes Status: Acute (3) Cocaine dependence, uncomplicated Current Visit: No Status: Acute (4) Bipolar disorder Current Visit: Yes Status: Chronic Qualifiers: Current episode severity: unspecified (5) Nicotine dependence Current Visit: Yes Status: Chronic Qualifiers: Nicotine product type: cigarettes Substance use status: uncomplicated Qualified Code(s): F17.210 - Nicotine dependence, cigarettes, uncomplicated (6) PTSD (post-traumatic stress disorder) Current Visit: Yes Status: Chronic Cleared for Admission [facility] - Detox or Rehab [facility] Level of Care: Medically Managed Detox Regimen/Protocol: Methadone/Librium Claeared for Rehab Admission: No Breathalyzer - Breathalyzer Breathalyzer: 0 Urine Drug Screen - Test Device Lot number: [id number] Expiration date: 03/24/21 - Control Is test valid?: Yes - Results Drug screen NEGATIVE: No Urine drug screen results: THC-Marijuana, AMARILIS-Cocaine, MOP-Opiates Inpatient Rehab Admission - Rehab Decision to Admit Inpatient rehab admission?: No
[2019-06-16] MEDS ORDERED: MAG HYDROX/AL HYDROX/SIMETH 30 ML UNIT-DOSE CUP PO PRN (02:37)
[2019-06-16] MEDS ORDERED: IBUPROFEN 400 MG TABLET (FP) PO PRN (02:37)
[2019-06-16] MEDS ORDERED: cloNIDine HCL 0.1 MG TABLET PO PRN (02:37)
[2019-06-16] MEDS ORDERED: chlordiazePOXIDE HCL 10 MG CAPSULE PO PRN (02:37)
[2019-06-16] MEDS ORDERED: MELATONIN 5 MG TABLETS PO PRN (02:37)
[2019-06-16] MEDS ORDERED: METHADONE HCL 10 MG TABLET (FOR DETOX USE ONLY) PO ONE (02:37)
[2019-06-16] MEDS ORDERED: MAGNESIUM CITRATE 300 ML BOTTLE PO PRN (02:37)
[2019-06-16] MEDS ORDERED: MAGNESIUM HYDROX 2400MG/30ML ORAL SUSPENSION 30 ML CUP PO PRN (02:37)
[2019-06-16] MEDS ORDERED: NICOTINE POLACRILEX 2 MG GUM BUC PRN (02:37)
[2019-06-16] MEDS ORDERED: MENTHOL/PHENOL 1 EACH UD MM PRN (02:37)
[2019-06-16] MEDS ORDERED: BISMUTH SUBSALICYLATE 524 MG/30 ML UD PO PRN (02:37)
[2019-06-16] MEDS ORDERED: ACETAMINOPHEN 325 MG TABLET (FP) PO PRN ×2 (02:37)
[2019-06-16] MEDS: chlordiazePOXIDE HCL 25 MG CAPSULE PO SCH ×3 (05:15→22:27)
[2019-06-16] MEDS: PRENATAL VITAMINS W/ FOLIC ACID TABLET (FP) PO SCH (10:21)
[2019-06-16] MEDS: NICOTINE 14 MG/24 HOURS TOPICAL PATCH TD SCH (10:21)
[2019-06-16] MEDS ORDERED: diphenhydrAMINE HCL 50 MG CAPSULE PO ONE (10:30)
--- NOTE | 2019-06-16 10:35 | EKG ---
Test Reason : Blood Pressure : / mmHG Vent. Rate : 068 BPM Atrial Rate : 068 BPM P-R Int : 158 ms QRS Dur : 092 ms QT Int : 370 ms P-R-T Axes : 051 066 055 degrees QTc Int : 393 ms NORMAL SINUS RHYTHM NORMAL ECG WHEN COMPARED WITH ECG OF 13-OCT-2018 02:14, NO SIGNIFICANT CHANGE WAS FOUND Confirmed by MARIELY NICOLAS MD ([id number]) on 06/16/2019 10:35:39 AM Referred By: EBONI MOTA NP Confirmed By:MARIELY NICOLAS MD
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
--- NOTE | 2019-06-16 17:22 | PN ---
S CIWA - CIWA Score Nausea/Vomitin-No Nausea/No Vomiting Muscle Tremors: None Anxiety: 4-Mod. Anxious/Guarded Agitation: 3 Paroxysmal Sweats: 2 Orientation: 0-Oriented Tacttile Disturbances: 2-Mild Itch/Numbness/Burn Auditory Disturbances: 0-None Visual Disturbances: 1-Very Mild Sensitivity Headache: 2-Mild CIWA-Ar Total Score: 14 [facility] COWS - Scale Resting Pulse: 0= AR 80 or Below Sweatin= Chills/Flushing Restless Observation: 1= Difficult to Sit Still Pupil Size: 0= Normal to Room Light Bone or Joint Aches: 2= Severe Diffuse Aches Runny Nose/ Eye Tearin= Nasal Congestion GI Upset > 30mins: 0= None Tremor Observation of Outstretched Hands: 0= None Yawning Observation: 1= 1-2x During Session Anxiety or Irritability: 2=Irritable/Anxious Goose Flesh Skin: 3=Piloerection COWS Score: 11 [facility] Progress Note (SOAP) Subjective: Anxious, Sweating, Body Aches, Insomnia, Itching (Generalized). Objective: PATIENT A & O X 3, OBSERVED AMBULATING ON DETOX UNIT UNASSISTED. IN NO ACUTE DISTRESS. 06/16/19 17:23 Vital Signs Temperature 98.4 F 06/16/19 13:42 Pulse Rate 80 06/16/19 13:42 Respiratory Rate 18 06/16/19 13:42 Blood Pressure 112/62 06/16/19 13:42 O2 Sat by Pulse Oximetry (%) RESULTS OF DETOX ADMISSION LABS PENDING. Assessment: 06/16/19 17:25 WITHDRAWAL SYMPTOMS. Plan: CONTINUE DETOX. INCREASE DAILY ORAL WATER INTAKE. BENADRYL, 50 MG ORAL X 1 DOSE FOR RELIEF OF GENERALIZED ITCHING.
[2019-06-16] MEDS: risperiDONE 2 MG TABLET PO SCH (22:27)
[2019-06-16] MEDS: THIAMINE HCL 100 MG TABLET (FP) PO SCH (22:27)
[2019-06-17] MEDS: chlordiazePOXIDE 5 MG CAPSULE PO SCH ×3 (06:55→22:15)
[2019-06-17 09:46] LABS: HEMATOCRIT 42.1 % (35.4-49); HEMOGLOBIN 14.4 GM/dL (11.7-16.9); MCH 31.9 pg (25.7-33.7); MCHC 34.3 g/dl (32.0-35.9); MEAN CELL VOLUME 93.1 fl (80-96); MEAN PLT VOLUME 9.5 fl (7.5-11.1); PLATELET COUNT 157 K/MM3 (134-434); RBC 4.52 M/mm3 (4.00-5.60); WHITE BLOOD COUNT 3.7 K/mm3 (4.0-10.0)
[2019-06-17] MEDS ORDERED: METHADONE HCL 5 MG TABLET (FOR DETOX USE ONLY) PO ONE (10:00)
[2019-06-17 10:16] LABS: ALBUMIN 3.2 g/dl (3.4-5.0); BILIRUBIN,TOTAL 0.7 mg/dL (0.2-1); BLOOD UREA NITROGEN 10.6 mg/dL (7-18); CALCIUM 8.7 mg/dL (8.5-10.1); CREATININE 1.1 mg/dL (0.55-1.3); POTASSIUM 4.1 mmol/L (3.5-5.1); TOT PROT 5.6 g/dl (6.4-8.2)
[2019-06-17] MEDS: PRENATAL VITAMINS W/ FOLIC ACID TABLET (FP) PO SCH (10:31)
[2019-06-17] MEDS: risperiDONE 1 MG TABLET PO SCH (10:31)
[2019-06-17] MEDS: NICOTINE 14 MG/24 HOURS TOPICAL PATCH TD SCH (10:32)
--- NOTE | 2019-06-17 16:23 | PN ---
[facility] CIWA - CIWA Score Nausea/Vomitin-Mild Nausea/No Vomiting Muscle Tremors: 2 Anxiety: 2 Agitation: 2 Paroxysmal Sweats: 2 Orientation: 0-Oriented Tacttile Disturbances: 0-None Auditory Disturbances: 0-None Visual Disturbances: 0-None Headache: 0-None Present CIWA-Ar Total Score: 9 S COWS - Scale Resting Pulse: 1= SD 81-100 Sweatin= Chills/Flushing Restless Observation: 0= Sits Still Pupil Size: 0= Normal to Room Light Bone or Joint Aches: 2= Severe Diffuse Aches Runny Nose/ Eye Tearin= None GI Upset > 30mins: 2= Nausea/Diarrhea Tremor Observation of Outstretched Hands: 2= Slight Tremor Visible Yawning Observation: 0= None Anxiety or Irritability: 2=Irritable/Anxious Goose Flesh Skin: 0=Smooth Skin COWS Score: 10 [facility] Progress Note (SOAP) Subjective: Feels ok Objective: 06/17/19 16:22 Last Vital Signs Temp Pulse Resp BP Pulse Ox 97.5 F L 82 18 126/64 06/17/19 12:59 06/17/19 12:59 06/17/19 12:59 06/17/19 12:59 Laboratory Tests 06/17/19 06/17/19 06/17/19 07:10 07:10 07:10 WBC 3.7 L RBC 4.52 Hgb 14.4 Hct 42.1 MCV 93.1 MCH 31.9 MCHC 34.3 RDW 13.0 Plt Count 157 MPV 9.5 Sodium 139 Potassium 4.1 Chloride 106 Carbon Dioxide 28 Anion Gap 4 L BUN 10.6 Creatinine 1.1 Est GFR (CKD-EPI)AfAm 111.41 Est GFR (CKD-EPI)NonAf 96.13 Random Glucose 93 Calcium 8.7 Total Bilirubin 0.7 AST 12 L ALT 17 Alkaline Phosphatase 47 Total Protein 5.6 L Albumin 3.2 L RPR Titer Nonreactive HIV 1&2 Antibody Screen HIV P24 Antigen 06/17/19 07:10 WBC RBC Hgb Hct MCV MCH MCHC RDW Plt Count MPV Sodium Potassium Chloride Carbon Dioxide Anion Gap BUN Creatinine Est GFR (CKD-EPI)AfAm Est GFR (CKD-EPI)NonAf Random Glucose Calcium Total Bilirubin AST ALT Alkaline Phosphatase Total Protein Albumin RPR Titer HIV 1&2 Antibody Screen Negative HIV P24 Antigen Negative Labs reviewed Assessment: 06/17/19 16:23 Withdrawal sxs Plan: Continue detox Encouraged PO water intake
[2019-06-17] MEDS: THIAMINE HCL 100 MG TABLET (FP) PO SCH (22:16)
[2019-06-17] MEDS: risperiDONE 2 MG TABLET PO SCH (22:16)
[2019-06-17] MEDS: METHOCARBAMOL 500 MG TABLET PO PRN (22:16)
[2019-06-18] MEDS ORDERED: chlordiazePOXIDE HCL 10 MG CAPSULE PO PRN
[2019-06-18] MEDS: chlordiazePOXIDE HCL 10 MG CAPSULE PO SCH ×3 (06:13→21:35)
[2019-06-18] MEDS ORDERED: METHADONE HCL 10 MG TABLET (FOR DETOX USE ONLY) PO ONE (10:00)
[2019-06-18] MEDS: PRENATAL VITAMINS W/ FOLIC ACID TABLET (FP) PO SCH (10:37)
[2019-06-18] MEDS: NICOTINE 14 MG/24 HOURS TOPICAL PATCH TD SCH (10:37)
[2019-06-18] MEDS: risperiDONE 1 MG TABLET PO SCH (10:37)
--- NOTE | 2019-06-18 10:43 | PN ---
[facility] CIWA - CIWA Score Nausea/Vomitin-Mild Nausea/No Vomiting Muscle Tremors: 2 Anxiety: 1-Mildly Anxious Agitation: 1-Slight > Activity Paroxysmal Sweats: 1-Minimal Palms Moist Orientation: 0-Oriented Tacttile Disturbances: 0-None Auditory Disturbances: 0-None Visual Disturbances: 0-None Headache: 0-None Present CIWA-Ar Total Score: 6 S COWS - Scale Resting Pulse: 1= MO 81-100 Sweatin= Chills/Flushing Restless Observation: 1= Difficult to Sit Still Pupil Size: 0= Normal to Room Light Bone or Joint Aches: 1= Mild Discomfort Runny Nose/ Eye Tearin= Nasal Congestion GI Upset > 30mins: 1= Stomach Cramp Tremor Observation of Outstretched Hands: 0= None Yawning Observation: 0= None Anxiety or Irritability: 0= None Goose Flesh Skin: 0=Smooth Skin COWS Score: 6 S Progress Note (SOAP) Subjective: pt was admitted for dual detox. Completing detox protocols. O: Vital Signs - 24 hr 06/17/19 06/17/19 06/17/19 12:59 16:37 20:38 Temperature 97.5 F L 97.3 F L 98.1 F Pulse Rate 82 65 75 Respiratory 18 18 16 Rate Blood Pressure 126/64 125/71 123/78 06/18/19 06/18/19 06/18/19 00:31 06:40 08:39 Temperature 96.8 F L Pulse Rate 81 Respiratory 16 16 18 Rate Blood Pressure 123/67 Laboratory Tests 06/17/19 06/17/19 06/17/19 07:10 07:10 07:10 WBC 3.7 L RBC 4.52 Hgb 14.4 Hct 42.1 MCV 93.1 MCH 31.9 MCHC 34.3 RDW 13.0 Plt Count 157 MPV 9.5 Sodium 139 Potassium 4.1 Chloride 106 Carbon Dioxide 28 Anion Gap 4 L BUN 10.6 Creatinine 1.1 Est GFR (CKD-EPI)AfAm 111.41 Est GFR (CKD-EPI)NonAf 96.13 Random Glucose 93 Calcium 8.7 Total Bilirubin 0.7 AST 12 L ALT 17 Alkaline Phosphatase 47 Total Protein 5.6 L Albumin 3.2 L RPR Titer Nonreactive HIV 1&2 Antibody Screen HIV P24 Antigen 06/17/19 07:10 WBC RBC Hgb Hct MCV MCH MCHC RDW Plt Count MPV Sodium Potassium Chloride Carbon Dioxide Anion Gap BUN Creatinine Est GFR (CKD-EPI)AfAm Est GFR (CKD-EPI)NonAf Random Glucose Calcium Total Bilirubin AST ALT Alkaline Phosphatase Total Protein Albumin RPR Titer HIV 1&2 Antibody Screen Negative HIV P24 Antigen Negative a/p: AUd/OUD: continue detox protocols pt states she will continue with suboxone as an outpt anticipate d/c tomorrow
[2019-06-18] MEDS: METHOCARBAMOL 500 MG TABLET PO PRN (13:36)
--- NOTE | 2019-06-18 16:30 | PN ---
[facility] Progress Note Note: Family emergency and requesting to leave. Discussed relapse risks and encouraged to remain to complete detox. Going to outpatient in a.m. Patient agreed to stay.
--- NOTE | 2019-06-18 16:30 | DS ---
[facility] Detox Discharge Summary Admission Date: 06/16/19 Discharge Date: 06/18/19 - Physical Exam Results Vital Signs: Vital Signs Temperature 97.9 F 06/18/19 13:32 Pulse Rate 95 H 06/18/19 13:32 Respiratory Rate 18 06/18/19 13:32 Blood Pressure 140/65 06/18/19 13:32 O2 Sat by Pulse Oximetry (%) - Medication Discharge Medications: Ambulatory Orders Risperidone [Risperdal] 1 mg PO DAILY 10/13/18 Gabapentin 400 mg PO TID 02/19/19 Sertraline HCl [Zoloft -] 75 mg PO DAILY 03/11/19 - AMA Did Patient Leave Against Medical Advice: Yes
[2019-06-18] MEDS ORDERED: hydrOXYzine PAMOATE 25 MG CAPSULE (FP) PO PRN (17:07)
[2019-06-18] MEDS: THIAMINE HCL 100 MG TABLET (FP) PO SCH (21:35)
[2019-06-18] MEDS: risperiDONE 2 MG TABLET PO SCH (21:35)
[2019-06-19] MEDS ORDERED: chlordiazePOXIDE HCL 10 MG CAPSULE PO ONE (05:00)
[2019-06-19] MEDS ORDERED: METHADONE HCL 5 MG TABLET (FOR DETOX USE ONLY) PO ONE (06:00)
--- NOTE | 2019-06-19 09:47 | PN ---
[facility] CIWA - CIWA Score Nausea/Vomitin-No Nausea/No Vomiting Muscle Tremors: None Anxiety: 1-Mildly Anxious Agitation: 0-Normal Activity Paroxysmal Sweats: No Perspiration Orientation: 0-Oriented Tacttile Disturbances: 0-None Auditory Disturbances: 0-None Visual Disturbances: 0-None Headache: 0-None Present CIWA-Ar Total Score: 1 [facility] COWS - Scale Resting Pulse: 0= ID 80 or Below Sweatin= No chills or Flushing Restless Observation: 0= Sits Still Pupil Size: 0= Normal to Room Light Bone or Joint Aches: 0= None Runny Nose/ Eye Tearin= None GI Upset > 30mins: 0= None Tremor Observation of Outstretched Hands: 0= None Yawning Observation: 0= None Anxiety or Irritability: 1=Feels Anxious/Irritable Goose Flesh Skin: 0=Smooth Skin COWS Score: 1 [facility] Progress Note (SOAP) Subjective: alert,no complaint Objective: 06/19/19 09:46 Vital Signs Temperature 97.7 F 06/19/19 05:50 Pulse Rate 58 L 06/19/19 05:50 Respiratory Rate 18 06/19/19 05:50 Blood Pressure 95/51 L 06/19/19 05:50 O2 Sat by Pulse Oximetry (%) Assessment: 06/19/19 09:46 detox completed,no withdrawal symptom Plan: discharge today,follow up with after care program as arrangement
--- NOTE | 2019-06-19 09:49 | DS ---
[facility] Detox Discharge Summary Admission Date: 06/16/19 Discharge Date: 06/19/19 - History Present History: Alcohol Dependence, Cannabis Dependence, Cocaine Dependence, Opioid Dependence Additional Comments: alert,oriented x 3 heart normal heart sound,s1s2 lung clear,no wheezing abdomen no pain,soft ambulation on the unit stable for discharge total time spending on discharge 30 mins Pertinent Past History: bipolar disorder - Physical Exam Results Vital Signs: Vital Signs Temperature 97.7 F 06/19/19 05:50 Pulse Rate 58 L 06/19/19 05:50 Respiratory Rate 18 06/19/19 05:50 Blood Pressure 95/51 L 06/19/19 05:50 O2 Sat by Pulse Oximetry (%) Pertinent Admission Physical Exam Findings: withdrawal signs and symptom Laboratory Last Values WBC 3.7 K/mm3 (4.0-10.0) L 06/17/19 07:10 RBC 4.52 M/mm3 (4.00-5.60) 06/17/19 07:10 Hgb 14.4 GM/dL (11.7-16.9) 06/17/19 07:10 Hct 42.1 % (35.4-49) 06/17/19 07:10 MCV 93.1 fl (80-96) 06/17/19 07:10 MCH 31.9 pg (25.7-33.7) 06/17/19 07:10 MCHC 34.3 g/dl (32.0-35.9) 06/17/19 07:10 RDW 13.0 % (11.9-15.9) 06/17/19 07:10 Plt Count 157 K/MM3 (134-434) 06/17/19 07:10 MPV 9.5 fl (7.5-11.1) 06/17/19 07:10 Sodium 139 mmol/L (136-145) 06/17/19 07:10 Potassium 4.1 mmol/L (3.5-5.1) 06/17/19 07:10 Chloride 106 mmol/L (98-107) 06/17/19 07:10 Carbon Dioxide 28 mmol/L (21-32) 06/17/19 07:10 Anion Gap 4 MMOL/L (8-16) L 06/17/19 07:10 BUN 10.6 mg/dL (7-18) 06/17/19 07:10 Creatinine 1.1 mg/dL (0.55-1.3) 06/17/19 07:10 Est GFR (CKD-EPI)AfAm 111.41 06/17/19 07:10 Est GFR (CKD-EPI)NonAf 96.13 06/17/19 07:10 Random Glucose 93 mg/dL (74-106) 06/17/19 07:10 Calcium 8.7 mg/dL (8.5-10.1) 06/17/19 07:10 Total Bilirubin 0.7 mg/dL (0.2-1) 06/17/19 07:10 AST 12 U/L (15-37) L 06/17/19 07:10 ALT 17 U/L (13-61) 06/17/19 07:10 Alkaline Phosphatase 47 U/L (45-117) 06/17/19 07:10 Total Protein 5.6 g/dl (6.4-8.2) L 06/17/19 07:10 Albumin 3.2 g/dl (3.4-5.0) L 06/17/19 07:10 RPR Titer Nonreactive (NONREACTIVE) 06/17/19 07:10 Hep C Ab Diagnostic <0.1 s/co ratio (0.0-0.9) 06/17/19 07:10 HIV 1&2 Antibody Screen Negative 06/17/19 07:10 HIV P24 Antigen Negative 06/17/19 07:10 Vital Signs Temperature 97.7 F 06/19/19 05:50 Pulse Rate 58 L 06/19/19 05:50 Respiratory Rate 18 06/19/19 05:50 Blood Pressure 95/51 L 06/19/19 05:50 O2 Sat by Pulse Oximetry (%) - Treatment Hospital Course: Detox Protocol Followed, Detoxed Safely, Responded well, Discharged Condition Good, Rehab Referral Accepted Patient has Accepted a Rehab Referral to: declined - Medication Discharge Medications: Ambulatory Orders Risperidone [Risperdal] 1 mg PO DAILY 10/13/18 Gabapentin 400 mg PO TID 02/19/19 Sertraline HCl [Zoloft -] 75 mg PO DAILY 03/11/19 - Diagnosis (1) Alcohol dependence with withdrawal, uncomplicated Current Visit: Yes Status: Acute (2) Bipolar disorder Current Visit: Yes Status: Chronic Qualifiers: Current episode severity: unspecified (3) Cocaine dependence, uncomplicated Current Visit: Yes Status: Chronic (4) Marijuana dependence Current Visit: Yes Status: Chronic (5) Nicotine dependence Current Visit: Yes Status: Chronic Qualifiers: Nicotine product type: cigarettes Substance use status: uncomplicated Qualified Code(s): F17.210 - Nicotine dependence, cigarettes, uncomplicated (6) Opioid dependence Current Visit: Yes Status: Acute - AMA Did Patient Leave Against Medical Advice: No
[2019-06-19 09:50] VITALS: BP 153/70; PULSE 74; TEMP 97.5
== END 2019-06-19 09:23 | disposition home or self-care (01) | DRG 773 ==
LOC: YASAS 01:04 → Y6N 02:29
PROVIDERS: ADMIT Allergy & Immunology; ATTEND Allergy & Immunology
PROC: HZ2ZZZZ Detoxification Services for Substance Abuse Treatment (ICD-10-PCS; principal; 2019-06-16)
DX: F10.230 Alcohol dependence with withdrawal, uncomplicated (principal); F11.23 Opioid dependence with withdrawal; F14.20 Cocaine dependence, uncomplicated; F12.20 Cannabis dependence, uncomplicated; F17.210 Nicotine dependence, cigarettes, uncomplicated; F31.9 Bipolar disorder, unspecified; F19.24 Other psychoactive substance dependence with psychoactive substance-induced mood disorder; F43.10 Post-traumatic stress disorder, unspecified; G62.9 Polyneuropathy, unspecified; R94.5 Abnormal results of liver function studies; Z86.19 Personal history of other infectious and parasitic diseases; Z91.410 Personal history of adult physical and sexual abuse; Z91.19 Patient's noncompliance with other medical treatment and regimen
CPT/HCPCS: 36415; 80053; 85027; 86593; 86803; 87389; 93005; 93010; J0735; J2794

== ENCOUNTER 2020-04-29 09:01 | Emergency (ER) | payer OTHER ==
[2020-04-29] MEDS ORDERED: morphine SULFATE 4 MG/ML VIAL IVPUSH ONE (09:08)
[2020-04-29] MEDS ORDERED: morphine SULFATE 4 MG/ML VIAL ONE (09:08)
[2020-04-29] MEDS ORDERED: LIDOCAINE HCL 2% (50ML VIAL) INF ONE (09:20)
[2020-04-29] MEDS ORDERED: MIDAZOLAM HCL 2 MG/2 ML SINGLE DOSE VIAL IVPUSH ONE (09:20)
[2020-04-29 09:24] VITALS: TEMP 98.1; BMI 24.4
[2020-04-29] MEDS ORDERED: LIDOCAINE HCL 2% (20ML MULTI-DOSE VIAL) ONE (09:27)
[2020-04-29] MEDS ORDERED: MIDAZOLAM HCL 2 MG/2 ML SINGLE DOSE VIAL ONE (09:28)
[2020-04-29] MEDS ORDERED: HYDROmorphone HCl 2 MG/ML VIAL ONE ×2 (10:01→10:02)
[2020-04-29] MEDS ORDERED: HYDROmorphone HCL CARPU-JECT 2 MG/1 ML DISP.SYRIN IVPUSH ONE (13:14)
[2020-04-29 18:42] VITALS: BP 133/90; PULSE 80
== END 2020-04-29 13:35 | disposition home or self-care (01) ==
LOC: JER 09:01
PROC: 0RSKXZZ Reposition Left Shoulder Joint, External Approach (ICD-10-PCS; principal; 2020-04-29)
PROC: 3E033NZ Introduction of Analgesics, Hypnotics, Sedatives into Peripheral Vein, Percutaneous Approach (ICD-10-PCS; 2020-04-29)
PROC: 3E033GC Introduction of Other Therapeutic Substance into Peripheral Vein, Percutaneous Approach (ICD-10-PCS; 2020-04-29)
PROC: 3E033NZ Introduction of Analgesics, Hypnotics, Sedatives into Peripheral Vein, Percutaneous Approach (ICD-10-PCS; 2020-04-29)
DX: S43.005A Unspecified dislocation of left shoulder joint, initial encounter (principal)
CPT/HCPCS: 71045-TC-FY; 73030-TC-LT-FY; 99285-25

== ENCOUNTER 2020-05-13 14:45 | Inpatient (IN) | payer OTHER ==
[2020-05-13] MEDS ORDERED: MAG HYDROX/AL HYDROX/SIMETH 30 ML UNIT-DOSE CUP PO PRN (18:44)
[2020-05-13] MEDS ORDERED: NICOTINE POLACRILEX 2 MG GUM BUC PRN (18:44)
[2020-05-13] MEDS ORDERED: ONDANSETRON *ODT* 4 MG TABLET SL PRN (18:44)
[2020-05-13] MEDS ORDERED: IBUPROFEN 400 MG TABLET (FP) PO PRN (18:44)
[2020-05-13] MEDS ORDERED: MAGNESIUM CITRATE 300 ML BOTTLE PO PRN (18:44)
[2020-05-13] MEDS ORDERED: MAGNESIUM HYDROX 2400MG/30ML ORAL SUSPENSION 30 ML CUP PO PRN (18:44)
[2020-05-13] MEDS ORDERED: ACETAMINOPHEN 325 MG TABLET (FP) PO PRN ×2 (18:44)
[2020-05-13] MEDS ORDERED: METHADONE HCL 10 MG TABLET (FOR DETOX USE ONLY) PO ONE (18:44)
[2020-05-13] MEDS ORDERED: BISMUTH SUBSALICYLATE 524 MG/30 ML UD PO PRN (18:44)
[2020-05-13] MEDS ORDERED: MENTHOL/PHENOL 1 EACH UD MM PRN (18:44)
[2020-05-13 19:12] VITALS: BMI 23.4
[2020-05-13] MEDS: THIAMINE HCL 100 MG TABLET (FP) PO SCH (22:51)
[2020-05-13] MEDS: METHOCARBAMOL 500 MG TABLET PO PRN (22:51)
[2020-05-13] MEDS: MELATONIN 5 MG TABLETS PO SCH (22:51)
[2020-05-14] MEDS: cloNIDine HCL 0.1 MG TABLET PO PRN ×3 (05:25→17:32)
[2020-05-14] MEDS ORDERED: METHADONE HCL 5 MG TABLET (FOR DETOX USE ONLY) ONE (09:02)
[2020-05-14] MEDS ORDERED: METHADONE HCL 10 MG TABLET (FOR DETOX USE ONLY) ONE (09:02)
[2020-05-14] MEDS: PRENATAL VITAMINS W/ FOLIC ACID TABLET (FP) PO SCH (09:39)
[2020-05-14] MEDS: NICOTINE 14 MG/24 HOURS TOPICAL PATCH TD SCH (09:39)
[2020-05-14] MEDS: hydrOXYzine PAMOATE 25 MG CAPSULE (FP) PO PRN (09:40)
[2020-05-14] MEDS ORDERED: METHADONE (DETOX) 20 MG, METHADONE (DETOX) 5 MG PO ONE (10:00)
[2020-05-14 11:01] LABS: HEMATOCRIT 43.8 % (35.4-49); MCH 31.5 pg (25.7-33.7); MCHC 34.2 g/dl (32.0-35.9); MEAN PLT VOLUME 9.3 fl (7.5-11.1); PLATELET COUNT 185 K/MM3 (134-434); RBC 4.76 M/mm3 (4.00-5.60); RDW 13.3 % (11.9-15.9); WHITE BLOOD COUNT 3.2 K/mm3 (4.0-10.0)
[2020-05-14 11:09] LABS: POTASSIUM 4.7 mmol/L (3.5-5.1)
[2020-05-14 11:11] LABS: CALCIUM 8.7 mg/dL (8.5-10.1)
[2020-05-14 11:12] LABS: ALBUMIN 3.2 g/dl (3.4-5.0); BLOOD UREA NITROGEN 14.4 mg/dL (7-18)
[2020-05-14 11:16] LABS: BILIRUBIN,TOTAL 0.6 mg/dL (0.2-1); TOT PROT 5.9 g/dl (6.4-8.2)
[2020-05-14] MEDS ORDERED: ONDANSETRON *ODT* 4 MG TABLET SL PRN (16:30)
[2020-05-14] MEDS: diazePAM 5 MG TABLET PO PRN ×2 (17:31→22:44)
[2020-05-14] MEDS: QUEtiapine FUMARATE 100 MG TABLET (FP) PO SCH (22:42)
[2020-05-14] MEDS: THIAMINE HCL 100 MG TABLET (FP) PO SCH (22:42)
[2020-05-14] MEDS: MELATONIN 5 MG TABLETS PO SCH (22:42)
[2020-05-14] MEDS: METHOCARBAMOL 500 MG TABLET PO PRN (22:45)
[2020-05-15] MEDS: hydrOXYzine PAMOATE 25 MG CAPSULE (FP) PO PRN ×2 (01:44→16:44)
[2020-05-15] MEDS: diazePAM 5 MG TABLET PO PRN ×3 (09:26→22:44)
[2020-05-15] MEDS: PRENATAL VITAMINS W/ FOLIC ACID TABLET (FP) PO SCH (09:26)
[2020-05-15] MEDS: NICOTINE 14 MG/24 HOURS TOPICAL PATCH TD SCH (09:30)
[2020-05-15] MEDS ORDERED: METHADONE HCL 10 MG TABLET (FOR DETOX USE ONLY) PO ONE (10:00)
[2020-05-15] MEDS: cloNIDine HCL 0.1 MG TABLET PO PRN ×2 (13:01→22:44)
[2020-05-15] MEDS: QUEtiapine FUMARATE 100 MG TABLET (FP) PO SCH (22:44)
[2020-05-15] MEDS: THIAMINE HCL 100 MG TABLET (FP) PO SCH (22:44)
[2020-05-15] MEDS: METHOCARBAMOL 500 MG TABLET PO PRN (22:44)
[2020-05-15] MEDS: MELATONIN 5 MG TABLETS PO SCH (22:44)
[2020-05-16] MEDS: hydrOXYzine PAMOATE 25 MG CAPSULE (FP) PO PRN (02:18)
[2020-05-16] MEDS: diazePAM 5 MG TABLET PO PRN ×2 (03:57→10:30)
[2020-05-16] MEDS ORDERED: METHADONE HCL 10 MG TABLET (FOR DETOX USE ONLY) ONE (08:50)
[2020-05-16] MEDS ORDERED: METHADONE HCL 5 MG TABLET (FOR DETOX USE ONLY) ONE (08:50)
[2020-05-16 09:09] VITALS: BP 101/55; PULSE 60; TEMP 98
[2020-05-16] MEDS ORDERED: METHADONE (DETOX) 10 MG, METHADONE (DETOX) 5 MG PO ONE (10:00)
[2020-05-16] MEDS: PRENATAL VITAMINS W/ FOLIC ACID TABLET (FP) PO SCH (10:29)
[2020-05-16] MEDS: NICOTINE 14 MG/24 HOURS TOPICAL PATCH TD SCH (10:29)
[2020-05-17] MEDS ORDERED: METHADONE HCL 10 MG TABLET (FOR DETOX USE ONLY) PO ONE (10:00)
[2020-05-18] MEDS ORDERED: METHADONE HCL 5 MG TABLET (FOR DETOX USE ONLY) PO ONE (06:00)
== END 2020-05-16 11:19 | disposition left against medical advice (07) | DRG 770 ==
LOC: YASAS 14:45 → Y3N 18:47
PROVIDERS: ADMIT Allergy & Immunology; ATTEND Allergy & Immunology
PROC: HZ2ZZZZ Detoxification Services for Substance Abuse Treatment (ICD-10-PCS; principal; 2020-05-13)
DX: F11.23 Opioid dependence with withdrawal (principal); F14.20 Cocaine dependence, uncomplicated; F17.210 Nicotine dependence, cigarettes, uncomplicated; F19.24 Other psychoactive substance dependence with psychoactive substance-induced mood disorder; F31.9 Bipolar disorder, unspecified; F43.10 Post-traumatic stress disorder, unspecified; G47.00 Insomnia, unspecified; B19.10 Unspecified viral hepatitis B without hepatic coma; B19.20 Unspecified viral hepatitis C without hepatic coma; G62.9 Polyneuropathy, unspecified; Z62.810 Personal history of physical and sexual abuse in childhood; Z91.5 Personal history of self-harm; Z91.030 Bee allergy status; Z86.19 Personal history of other infectious and parasitic diseases; S43.005D Unspecified dislocation of left shoulder joint, subsequent encounter; X58.XXXD Exposure to other specified factors, subsequent encounter; Z56.0 Unemployment, unspecified
CPT/HCPCS: 36415; 80053; 85027; 86780; 93005; 93010; C9803; J0735; U0003

== ENCOUNTER 2020-06-30 15:19 | Emergency (ER) | payer OTHER ==
[2020-06-30 15:37] VITALS: BP 116/80; PULSE 66; TEMP 98.8; BMI 23.3
[2020-06-30] MEDS ORDERED: LACTATED RINGERS SOLUTION 1000 ML INFUS.BAG IV ONE (15:42)
[2020-06-30 16:23] LABS: BASO % 0.2 % (0-2.0); EOS % 0.8 % (0-4.5); HEMATOCRIT 45.2 % (35.4-49); HEMOGLOBIN 15.9 GM/dL (11.7-16.9); LYMPH % 27.7 % (8-40); MCHC 35.1 g/dl (32.0-35.9); MEAN CELL VOLUME 91.1 fl (80-96); MEAN PLT VOLUME 8.3 fl (7.5-11.1); MONO % 7.9 % (3.8-10.2); NEUT % 63.4 % (42.8-82.8); PLATELET COUNT 202 K/MM3 (134-434); RBC 4.96 M/mm3 (4.00-5.60); RDW 12.8 % (11.9-15.9); WHITE BLOOD COUNT 4.6 K/mm3 (4.0-10.0)
[2020-06-30 16:43] LABS: POTASSIUM 4.3 mmol/L (3.5-5.1)
[2020-06-30 16:45] LABS: BLOOD UREA NITROGEN 16.7 mg/dL (7-18); CALCIUM 9.7 mg/dL (8.5-10.1)
[2020-06-30 16:49] LABS: CREATININE 1.1 mg/dL (0.55-1.3)
[2020-06-30 16:50] LABS: BILIRUBIN,TOTAL 1.5 mg/dL (0.2-1); TOT PROT 7.1 g/dl (6.4-8.2)
[2020-06-30] MEDS ORDERED: SODIUM CHLORIDE 1,000 ML IV STA (17:01)
== END 2020-06-30 18:28 | disposition home or self-care (01) ==
LOC: JER 15:19
PROC: 3E0337Z Introduction of Electrolytic and Water Balance Substance into Peripheral Vein, Percutaneous Approach (ICD-10-PCS; principal; 2020-06-30)
DX: F11.220 Opioid dependence with intoxication, uncomplicated (principal)
CPT/HCPCS: 36415; 80053; 82550; 82553; 85025; 99285-25

== ENCOUNTER 2021-04-30 09:12 | Emergency (ER) | payer OTHER ==
[2021-04-30 09:22] VITALS: BP 136/82; PULSE 66; TEMP 98.1; BMI 25.7
[2021-04-30] MEDS ORDERED: ONDANSETRON 4 MG/2 ML VIAL IVPUSH ONE (09:44)
[2021-04-30] MEDS ORDERED: ACETAMINOPHEN 1000 MG/100 ML BAG IVPB ONE (09:44)
[2021-04-30] MEDS ORDERED: SODIUM CHLORIDE 1,000 ML IV STA (09:44)
[2021-04-30] MEDS ORDERED: ACETAMINOPHEN INJECTION 100 ML IVPB ONE (10:38)
[2021-04-30] MEDS ORDERED: ONDANSETRON 4 MG/2 ML VIAL ONE (10:38)
[2021-04-30 12:16] LABS: URINE APPEARANCE CLEAR; URINE BILIRUBIN NEGATIVE (NEGATIVE); URINE COLOR YELLOW; URINE GLUCOSE (UA) NEGATIVE (NEGATIVE); URINE KETONE NEGATIVE (NEGATIVE); URINE LEUK ESTERASE NEGATIVE (NEGATIVE); URINE NITRITE NEGATIVE (NEGATIVE); URINE PROTEIN NEGATIVE (NEGATIVE); URINE UROBILINOGEN 0.2 mg/dL (0.2-1.0)
[2021-04-30 12:40] LABS: BASO % 0.4 % (0-2.0); EOS % 0.3 % (0-4.5); HEMATOCRIT 44.6 % (35.4-49); LYMPH % 17.5 % (8-40); MCH 30.9 pg (25.7-33.7); MCHC 33.5 g/dl (32.0-35.9); MEAN CELL VOLUME 92.3 fl (80-96); MEAN PLT VOLUME 8.6 fl (7.5-11.1); MONO % 6.3 % (3.8-10.2); NEUT % 75.5 % (42.8-82.8); PLATELET COUNT 196 10^3/uL (134-434); RBC 4.84 M/mm3 (4.00-5.60); RDW 12.4 % (11.9-15.9); WHITE BLOOD COUNT 5.6 K/mm3 (4.0-10.0)
[2021-04-30 13:03] LABS: ALBUMIN 3.7 g/dl (3.4-5.0); BLOOD UREA NITROGEN 9.7 mg/dL (7-18); CALCIUM 8.9 mg/dL (8.5-10.1)
[2021-04-30 13:06] LABS: CREATININE 0.8 mg/dL (0.55-1.3)
[2021-04-30 13:08] LABS: BILIRUBIN,TOTAL 1.2 mg/dL (0.2-1); TOT PROT 6.9 g/dl (6.4-8.2)
[2021-04-30] MEDS ORDERED: MAG HYDROX/AL HYDROX/SIMETH -MYLANTA- ORAL SUSPENSION PO ONE (14:52)
[2021-04-30] MEDS ORDERED: FAMOTIDINE 20 MG TABLET PO ONE (14:53)
[2021-04-30] MEDS ORDERED: FAMOTIDINE 20 MG TABLET ONE (14:56)
[2021-04-30] MEDS ORDERED: MAG HYDROX/AL HYDROX/SIMETH 30 ML UNIT-DOSE CUP ONE (14:57)
== END 2021-04-30 18:21 | disposition home or self-care (01) ==
LOC: JER 09:12
PROC: 3E033NZ Introduction of Analgesics, Hypnotics, Sedatives into Peripheral Vein, Percutaneous Approach (ICD-10-PCS; principal; 2021-04-30)
PROC: 3E033GC Introduction of Other Therapeutic Substance into Peripheral Vein, Percutaneous Approach (ICD-10-PCS; 2021-04-30)
PROC: 3E0337Z Introduction of Electrolytic and Water Balance Substance into Peripheral Vein, Percutaneous Approach (ICD-10-PCS; 2021-04-30)
DX: R10.84 Generalized abdominal pain (principal)
CPT/HCPCS: 36415; 74177-TC; 76870-TC; 80053; 81003; 83690; 85025; 87086; 99285-25; J0131

== ENCOUNTER 2021-05-18 14:16 | Inpatient (IN) | payer OTHER ==
[2021-05-19 00:44] VITALS: BMI 26.2
[2021-05-19] MEDS ORDERED: IBUPROFEN 400 MG TABLET (FP) PO PRN (01:39)
[2021-05-19] MEDS ORDERED: MAGNESIUM CITRATE 300 ML BOTTLE PO PRN (01:39)
[2021-05-19] MEDS ORDERED: ONDANSETRON *ODT* 4 MG TABLET SL PRN (01:39)
[2021-05-19] MEDS ORDERED: cloNIDine HCL 0.1 MG TABLET PO PRN (01:39)
[2021-05-19] MEDS ORDERED: MENTHOL/PHENOL 1 EACH UD MM PRN (01:39)
[2021-05-19] MEDS ORDERED: ACETAMINOPHEN 325 MG TABLET (FP) PO PRN ×2 (01:39)
[2021-05-19] MEDS ORDERED: methaDONE HCL 10 MG TABLET (FOR DETOX USE ONLY) PO ONE ×2 (01:39→10:00)
[2021-05-19] MEDS ORDERED: diazePAM 5 MG TABLET PO PRN (01:39)
[2021-05-19] MEDS ORDERED: BISMUTH SUBSALICYLATE 524 MG/30 ML PO PRN (01:39)
[2021-05-19] MEDS ORDERED: MAGNESIUM HYDROX 2400MG/30ML ORAL SUSPENSION 30 ML CUP PO PRN (01:39)
[2021-05-19] MEDS ORDERED: MAG HYDROX/AL HYDROX/SIMETH 30 ML UNIT-DOSE CUP PO PRN (01:39)
[2021-05-19] MEDS ORDERED: METHOCARBAMOL 500 MG TABLET ONE (02:16)
[2021-05-19] MEDS ORDERED: methaDONE HCL 10 MG TABLET (FOR DETOX USE ONLY) ONE (02:16)
[2021-05-19] MEDS: METHOCARBAMOL 500 MG TABLET PO PRN (02:21)
[2021-05-19] MEDS: diazePAM 5 MG TABLET PO SCH ×4 (05:20→22:20)
[2021-05-19] MEDS: PRENATAL VITAMINS W/ FOLIC ACID TABLET (FP) PO SCH (10:36)
[2021-05-19] MEDS: NICOTINE 14 MG/24 HOURS TOPICAL PATCH TD SCH (10:38)
[2021-05-19 14:33] LABS: HEMATOCRIT 41.9 % (35.4-49); MCH 30.7 pg (25.7-33.7); MCHC 33.5 g/dl (32.0-35.9); MEAN CELL VOLUME 91.7 fl (80-96); MEAN PLT VOLUME 8.9 fl (7.5-11.1); PLATELET COUNT 213 10^3/uL (134-434); RBC 4.57 M/mm3 (4.00-5.60); RDW 12.5 % (11.9-15.9); WHITE BLOOD COUNT 4.1 K/mm3 (4.0-10.0)
[2021-05-19 14:36] LABS: CALCIUM 8.4 mg/dL (8.5-10.1)
[2021-05-19 14:37] LABS: ALBUMIN 3.2 g/dl (3.4-5.0); BLOOD UREA NITROGEN 15.4 mg/dL (7-18)
[2021-05-19 14:40] LABS: CREATININE 1.1 mg/dL (0.55-1.3)
[2021-05-19 14:42] LABS: BILIRUBIN,TOTAL 1.3 mg/dL (0.2-1); TOT PROT 5.8 g/dl (6.4-8.2)
[2021-05-19] MEDS: THIAMINE HCL 100 MG TABLET (FP) PO SCH (22:21)
[2021-05-19] MEDS: QUEtiapine FUMARATE 100 MG TABLET (FP) PO SCH (22:21)
[2021-05-19] MEDS: MELATONIN 5 MG TABLETS PO SCH (22:21)
[2021-05-20] MEDS: diazePAM 5 MG TABLET PO SCH ×3 (05:17→22:26)
[2021-05-20] MEDS: METHOCARBAMOL 500 MG TABLET PO PRN ×2 (05:18→20:47)
[2021-05-20] MEDS ORDERED: methaDONE HCL 10 MG TABLET (FOR DETOX USE ONLY) ONE (09:16)
[2021-05-20] MEDS: PRENATAL VITAMINS W/ FOLIC ACID TABLET (FP) PO SCH (10:22)
[2021-05-20] MEDS: NICOTINE 10 MG CARTRIDGE (INHALER) IH PRN (10:25)
[2021-05-20] MEDS: NICOTINE 14 MG/24 HOURS TOPICAL PATCH TD SCH (10:25)
[2021-05-20] MEDS: QUEtiapine FUMARATE 100 MG TABLET (FP) PO SCH (22:26)
[2021-05-20] MEDS: THIAMINE HCL 100 MG TABLET (FP) PO SCH (22:26)
[2021-05-20] MEDS: hydrOXYzine PAMOATE 25 MG CAPSULE (FP) PO PRN (22:26)
[2021-05-20] MEDS: MELATONIN 5 MG TABLETS PO SCH (22:26)
[2021-05-21] MEDS: diazePAM 5 MG TABLET PO SCH ×2 (05:50→17:43)
[2021-05-21] MEDS: METHOCARBAMOL 500 MG TABLET PO PRN ×2 (05:51→17:44)
[2021-05-21] MEDS ORDERED: methaDONE HCL 10 MG TABLET (FOR DETOX USE ONLY) PO ONE (10:00)
[2021-05-21] MEDS: NICOTINE 14 MG/24 HOURS TOPICAL PATCH TD SCH (12:14)
[2021-05-21] MEDS: PRENATAL VITAMINS W/ FOLIC ACID TABLET (FP) PO SCH (12:18)
[2021-05-21] MEDS: hydrOXYzine PAMOATE 25 MG CAPSULE (FP) PO PRN ×3 (12:49→22:27)
[2021-05-21] MEDS: THIAMINE HCL 100 MG TABLET (FP) PO SCH (22:27)
[2021-05-21] MEDS: QUEtiapine FUMARATE 100 MG TABLET (FP) PO SCH (22:27)
[2021-05-21] MEDS: MELATONIN 5 MG TABLETS PO SCH (22:27)
[2021-05-22] MEDS ORDERED: diazePAM 5 MG TABLET PO ONE (06:00)
[2021-05-22] MEDS ORDERED: methaDONE HCL 10 MG TABLET (FOR DETOX USE ONLY) ONE (08:46)
[2021-05-22] MEDS: NICOTINE 14 MG/24 HOURS TOPICAL PATCH TD SCH (11:14)
[2021-05-22] MEDS: PRENATAL VITAMINS W/ FOLIC ACID TABLET (FP) PO SCH (11:14)
[2021-05-22] MEDS: hydrOXYzine PAMOATE 25 MG CAPSULE (FP) PO PRN ×2 (17:34→21:28)
[2021-05-22] MEDS: METHOCARBAMOL 500 MG TABLET PO PRN (20:11)
[2021-05-22] MEDS: THIAMINE HCL 100 MG TABLET (FP) PO SCH (21:28)
[2021-05-22] MEDS: MELATONIN 5 MG TABLETS PO SCH (21:28)
[2021-05-22] MEDS: QUEtiapine FUMARATE 100 MG TABLET (FP) PO SCH (21:28)
[2021-05-23] MEDS ORDERED: methaDONE HCL 10 MG TABLET (FOR DETOX USE ONLY) PO ONE (10:00)
[2021-05-23] MEDS: PRENATAL VITAMINS W/ FOLIC ACID TABLET (FP) PO SCH (11:44)
[2021-05-23] MEDS: NICOTINE 14 MG/24 HOURS TOPICAL PATCH TD SCH (11:44)
[2021-05-23] MEDS: QUEtiapine FUMARATE 50 MG TABLET PO PRN ×2 (14:05→23:11)
[2021-05-23] MEDS: hydrOXYzine PAMOATE 25 MG CAPSULE (FP) PO PRN ×2 (14:05→23:11)
[2021-05-23] MEDS: METHOCARBAMOL 500 MG TABLET PO PRN (23:11)
[2021-05-23] MEDS: MELATONIN 5 MG TABLETS PO SCH (23:11)
[2021-05-23] MEDS: THIAMINE HCL 100 MG TABLET (FP) PO SCH (23:12)
[2021-05-23] MEDS: QUEtiapine FUMARATE 100 MG TABLET (FP) PO SCH (23:12)
[2021-05-23] MEDS: NICOTINE 10 MG CARTRIDGE (INHALER) IH PRN (23:13)
[2021-05-24] MEDS: NICOTINE 14 MG/24 HOURS TOPICAL PATCH TD SCH (10:24)
[2021-05-24] MEDS: PRENATAL VITAMINS W/ FOLIC ACID TABLET (FP) PO SCH (10:24)
[2021-05-24] MEDS: hydrOXYzine PAMOATE 25 MG CAPSULE (FP) PO PRN ×2 (10:41→19:27)
[2021-05-24] MEDS: QUEtiapine FUMARATE 50 MG TABLET PO PRN (10:41)
[2021-05-24] MEDS: MELATONIN 5 MG TABLETS PO SCH (22:03)
[2021-05-24] MEDS: QUEtiapine FUMARATE 100 MG TABLET (FP) PO SCH (22:03)
[2021-05-24] MEDS: THIAMINE HCL 100 MG TABLET (FP) PO SCH (22:04)
[2021-05-25 09:07] VITALS: BP 125/71; PULSE 73; TEMP 96.4
[2021-05-25] MEDS: NICOTINE 14 MG/24 HOURS TOPICAL PATCH TD SCH (10:27)
[2021-05-25] MEDS: PRENATAL VITAMINS W/ FOLIC ACID TABLET (FP) PO SCH (10:28)
== END 2021-05-25 09:15 | disposition home or self-care (01) | DRG 773 ==
LOC: YASAS 14:16 → Y3N 05-19 01:07
PROVIDERS: ADMIT Allergy & Immunology; ATTEND Allergy & Immunology
PROC: HZ2ZZZZ Detoxification Services for Substance Abuse Treatment (ICD-10-PCS; principal; 2021-05-19)
DX: F11.23 Opioid dependence with withdrawal (principal); F10.230 Alcohol dependence with withdrawal, uncomplicated; F13.20 Sedative, hypnotic or anxiolytic dependence, uncomplicated; F14.20 Cocaine dependence, uncomplicated; F12.20 Cannabis dependence, uncomplicated; F17.210 Nicotine dependence, cigarettes, uncomplicated; F19.282 Other psychoactive substance dependence with psychoactive substance-induced sleep disorder; F19.24 Other psychoactive substance dependence with psychoactive substance-induced mood disorder; F31.9 Bipolar disorder, unspecified; F43.10 Post-traumatic stress disorder, unspecified; B19.20 Unspecified viral hepatitis C without hepatic coma; B19.10 Unspecified viral hepatitis B without hepatic coma; G62.9 Polyneuropathy, unspecified; Z62.810 Personal history of physical and sexual abuse in childhood; Z86.19 Personal history of other infectious and parasitic diseases
CPT/HCPCS: 36415; 71046-TC-FY; 80048; 80053; 81003; 83735; 85025; 85027; 86780; 87086; 87491; 87591; 90715; 93005; 93010; 99284-25; C9803; U0003; U0005

== ENCOUNTER 2021-05-18 17:04 | Emergency (ER) | payer OTHER ==
[2021-05-18 18:37] VITALS: BP 137/84; PULSE 88; TEMP 98.2; BMI 29.2
[2021-05-18] MEDS ORDERED: DIPHTH,PERTUSS(ACELL),TET 0.5 ML DISP.SYRIN IM ONE ×2 (18:37→19:07)
[2021-05-18] MEDS ORDERED: LORazepam 2 MG TABLET PO ONE (19:07)
[2021-05-18] MEDS ORDERED: LORazepam 1 MG TABLET ONE (19:31)
[2021-05-18 19:35] LABS: BASO % 1.1 % (0-2.0); EOS % 1.1 % (0-4.5); HEMATOCRIT 46.4 % (35.4-49); HEMOGLOBIN 15.6 GM/dL (11.7-16.9); LYMPH % 42.4 % (8-40); MCH 30.8 pg (25.7-33.7); MCHC 33.6 g/dl (32.0-35.9); MEAN CELL VOLUME 91.5 fl (80-96); MEAN PLT VOLUME 8.5 fl (7.5-11.1); MONO % 11.3 % (3.8-10.2); NEUT % 44.1 % (42.8-82.8); PLATELET COUNT 245 10^3/uL (134-434); RBC 5.07 M/mm3 (4.00-5.60); RDW 12.8 % (11.9-15.9); WHITE BLOOD COUNT 4.1 K/mm3 (4.0-10.0)
[2021-05-18 19:51] LABS: CALCIUM 9.3 mg/dL (8.5-10.1)
[2021-05-18 19:52] LABS: ALBUMIN 3.9 g/dl (3.4-5.0); BLOOD UREA NITROGEN 17.4 mg/dL (7-18); MAGNESIUM 2.3 mg/dL (1.8-2.4)
[2021-05-18 19:54] LABS: CREATININE 1.5 mg/dL (0.55-1.3)
[2021-05-18 19:56] LABS: BILIRUBIN,TOTAL 1.7 mg/dL (0.2-1)
[2021-05-18] MEDS ORDERED: LACTATED RINGERS SOLUTION 1000 ML INFUS.BAG IV ONE ×2 (20:09→21:19)
[2021-05-18 22:28] LABS: PH,URINE 6.5 (5.0-8.0); URINE APPEARANCE CLEAR; URINE BILIRUBIN NEGATIVE (NEGATIVE); URINE COLOR DK YELLOW; URINE GLUCOSE (UA) NEGATIVE (NEGATIVE); URINE KETONE TRACE (NEGATIVE); URINE LEUK ESTERASE NEGATIVE (NEGATIVE); URINE NITRITE NEGATIVE (NEGATIVE); URINE PROTEIN TRACE (NEGATIVE)
[2021-05-18 23:10] LABS: CALCIUM 8.1 mg/dL (8.5-10.1)
[2021-05-18 23:11] LABS: BLOOD UREA NITROGEN 18.6 mg/dL (7-18)
[2021-05-18 23:14] LABS: CREATININE 1.3 mg/dL (0.55-1.3)
== END 2021-05-18 23:52 | disposition short-term general hospital (02) ==
LOC: JER 17:04
PROC: 3E0234Z Introduction of Serum, Toxoid and Vaccine into Muscle, Percutaneous Approach (ICD-10-PCS; principal; 2021-05-18)
DX: F19.10 Other psychoactive substance abuse, uncomplicated (principal); F10.239 Alcohol dependence with withdrawal, unspecified
CPT/HCPCS: 36415; 71046-TC-FY; 80048; 80053; 81003; 83735; 85025; 86780; 87086; 87491; 87591; 90715; 99284-25; C9803; U0003; U0005

== ENCOUNTER 2021-08-31 11:37 | Inpatient (IN) | payer OTHER ==
[2021-08-31 15:12] VITALS: BMI 21.7
[2021-08-31] MEDS ORDERED: P-EPHED 60MG/TRIPROLIDI 2.5MG TABLET PO PRN (16:08)
[2021-08-31] MEDS ORDERED: MAGNESIUM CITRATE 300 ML BOTTLE PO PRN (16:08)
[2021-08-31] MEDS ORDERED: guaiFENesin 200 MG/10 ML 10 ML UNIT-DOSE CUPS PO PRN (16:08)
[2021-08-31] MEDS ORDERED: MAG HYDROX/AL HYDROX/SIMETH 30 ML UNIT-DOSE CUP PO PRN (16:08)
[2021-08-31] MEDS ORDERED: NALOXONE HCL (KLOXXADO) 8 MG SPRAY NS PRN (16:08)
[2021-08-31] MEDS ORDERED: IBUPROFEN 400 MG TABLET (FP) PO PRN (16:08)
[2021-08-31] MEDS ORDERED: ACETAMINOPHEN 325 MG TABLET (FP) PO PRN (16:08)
[2021-08-31] MEDS ORDERED: NICOTINE 10 MG CARTRIDGE (INHALER) IH PRN (16:08)
[2021-08-31] MEDS ORDERED: MAGNESIUM HYDROX 2400MG/30ML ORAL SUSPENSION 30 ML CUP PO PRN (16:08)
[2021-08-31] MEDS ORDERED: LOPERAMIDE HCL 2 MG CAPSULE PO PRN (16:08)
[2021-08-31] MEDS ORDERED: THIAMINE HCL 100 MG TABLET (FP) PO SCH (22:00)
[2021-08-31] MEDS ORDERED: MELATONIN 5 MG TABLETS PO SCH (22:00)
[2021-09-01] MEDS: NICOTINE 7 MG/24 HOURS TOPICAL PATCH TD SCH ×2 (01:56→10:41)
[2021-09-01] MEDS: hydrOXYzine PAMOATE 25 MG CAPSULE (FP) PO SCH ×4 (01:57→10:38)
[2021-09-01] MEDS ORDERED: PRENATAL VITAMINS W/ FOLIC ACID TABLET (FP) PO SCH (10:00)
[2021-09-01] MEDS ORDERED: methaDONE HCL 40 MG DISPERSABLE TABLET PO ONE (10:00)
[2021-09-01] MEDS ORDERED: hydrOXYzine PAMOATE 50 MG CAPSULE (FP) PO PRN (11:22)
[2021-09-01 11:27] LABS: HEMATOCRIT 42.7 % (35.4-49); HEMOGLOBIN 14.6 GM/dL (11.7-16.9); MCH 31.1 pg (25.7-33.7); MCHC 34.3 g/dl (32.0-35.9); MEAN CELL VOLUME 90.5 fl (80-96); MEAN PLT VOLUME 9.1 fl (7.5-11.1); PLATELET COUNT 194 10^3/uL (134-434); RBC 4.72 M/mm3 (4.00-5.60); RDW 12.9 % (11.9-15.9); WHITE BLOOD COUNT 4.6 K/mm3 (4.0-10.0)
[2021-09-01 12:27] LABS: CALCIUM 9.3 mg/dL (8.5-10.1)
[2021-09-01 12:28] LABS: ALBUMIN 3.9 g/dl (3.4-5.0); BLOOD UREA NITROGEN 15.3 mg/dL (7-18)
[2021-09-01 12:32] LABS: TOT PROT 6.7 g/dl (6.4-8.2)
[2021-09-01 12:34] LABS: BILIRUBIN,TOTAL 1.1 mg/dL (0.2-1)
[2021-09-01 18:32] VITALS: BP 107/54; PULSE 75; TEMP 99.1
[2021-09-01 19:18] LABS: SYPHILIS W/ RPR CONF NON-REACTIVE (NONREACTIVE)
== END 2021-09-01 19:19 | disposition other institution (70) | DRG 773 ==
LOC: YASAS 11:37 → Y6N 22:08
PROVIDERS: ADMIT Allergy & Immunology; ATTEND Allergy & Immunology
PROC: HZ2ZZZZ Detoxification Services for Substance Abuse Treatment (ICD-10-PCS; principal; 2021-08-31)
DX: F11.23 Opioid dependence with withdrawal (principal); F14.20 Cocaine dependence, uncomplicated; F12.20 Cannabis dependence, uncomplicated; F15.10 Other stimulant abuse, uncomplicated; F17.210 Nicotine dependence, cigarettes, uncomplicated; F19.282 Other psychoactive substance dependence with psychoactive substance-induced sleep disorder; F19.280 Other psychoactive substance dependence with psychoactive substance-induced anxiety disorder; F19.24 Other psychoactive substance dependence with psychoactive substance-induced mood disorder; F31.9 Bipolar disorder, unspecified; B18.1 Chronic viral hepatitis B without delta-agent; B18.2 Chronic viral hepatitis C
CPT/HCPCS: 36415; 80053; 85027; 86780; 86803; 87522; C9803-CS; U0003; U0005

== ENCOUNTER 2021-09-01 18:14 | Inpatient (IN) | payer OTHER ==
[2021-09-01] MEDS ORDERED: BENZOCAINE/MENTHOL (CHLORASEPTIC ) LOZENGE MM PRN (19:15)
[2021-09-01] MEDS ORDERED: ACETAMINOPHEN 325 MG TABLET (FP) PO PRN (19:15)
[2021-09-01] MEDS ORDERED: MAG HYDROX/AL HYDROX/SIMETH 30 ML UNIT-DOSE CUP PO PRN (19:15)
[2021-09-01] MEDS ORDERED: LOPERAMIDE HCL 2 MG CAPSULE PO PRN (19:15)
[2021-09-01] MEDS ORDERED: IBUPROFEN 400 MG TABLET (FP) PO PRN (19:15)
[2021-09-01] MEDS ORDERED: guaiFENesin 200 MG/10 ML 10 ML UNIT-DOSE CUPS PO PRN (19:15)
[2021-09-01] MEDS ORDERED: MAGNESIUM HYDROX 2400MG/30ML ORAL SUSPENSION 30 ML CUP PO PRN (19:15)
[2021-09-01] MEDS ORDERED: P-EPHED 60MG/TRIPROLIDI 2.5MG TABLET PO PRN (19:15)
[2021-09-01] MEDS ORDERED: MAGNESIUM CITRATE 300 ML BOTTLE PO PRN (19:15)
[2021-09-01] MEDS ORDERED: MELATONIN 5 MG TABLETS PO PRN (19:15)
[2021-09-01] MEDS: THIAMINE HCL 100 MG TABLET (FP) PO SCH (21:23)
[2021-09-01] MEDS: hydrOXYzine PAMOATE 25 MG CAPSULE (FP) PO PRN (21:23)
[2021-09-02] MEDS ORDERED: methaDONE HCL 40 MG DISPERSABLE TABLET PO SCH (06:30)
[2021-09-02] MEDS: hydrOXYzine PAMOATE 25 MG CAPSULE (FP) PO PRN ×4 (07:10→21:14)
[2021-09-02] MEDS ORDERED: NICOTINE POLACRILEX 2 MG GUM BUC PRN (10:03)
[2021-09-02] MEDS: NICOTINE 14 MG/24 HOURS TOPICAL PATCH TD SCH (10:48)
[2021-09-02] MEDS: NICOTINE 10 MG CARTRIDGE (INHALER) IH SCH (10:48)
[2021-09-02] MEDS: PRENATAL VITAMINS W/ FOLIC ACID TABLET (FP) PO SCH (10:48)
[2021-09-02] MEDS: THIAMINE HCL 100 MG TABLET (FP) PO SCH (21:14)
[2021-09-03] MEDS ORDERED: methaDONE HCL 40 MG DISPERSABLE TABLET ONE (05:44)
[2021-09-03] MEDS ORDERED: methaDONE HCL 10 MG TABLET ONE (05:44)
[2021-09-03] MEDS ORDERED: methaDONE HCL 10 MG TABLET PO SCH (06:00)
[2021-09-03] MEDS: methaDONE 40 MG, methaDONE 10 MG PO SCH (07:01)
[2021-09-03] MEDS: hydrOXYzine PAMOATE 25 MG CAPSULE (FP) PO PRN ×2 (07:03→11:12)
[2021-09-03] MEDS: NICOTINE 10 MG CARTRIDGE (INHALER) IH SCH (11:25)
[2021-09-03] MEDS: PRENATAL VITAMINS W/ FOLIC ACID TABLET (FP) PO SCH (11:25)
[2021-09-03] MEDS: NICOTINE 14 MG/24 HOURS TOPICAL PATCH TD SCH (11:25)
[2021-09-03] MEDS: QUEtiapine FUMARATE 25 MG TABLET PO PRN ×2 (12:53→18:55)
[2021-09-03] MEDS: QUEtiapine FUMARATE 100 MG TABLET (FP) PO SCH (21:24)
[2021-09-03] MEDS: THIAMINE HCL 100 MG TABLET (FP) PO SCH (21:24)
[2021-09-04] MEDS ORDERED: methaDONE HCL 40 MG DISPERSABLE TABLET ONE (03:51)
[2021-09-04] MEDS ORDERED: methaDONE HCL 10 MG TABLET ONE (03:51)
[2021-09-04] MEDS: methaDONE 40 MG, methaDONE 10 MG PO SCH (07:02)
[2021-09-04] MEDS: NICOTINE 14 MG/24 HOURS TOPICAL PATCH TD SCH (09:51)
[2021-09-04] MEDS: NICOTINE 10 MG CARTRIDGE (INHALER) IH SCH (09:51)
[2021-09-04] MEDS: PRENATAL VITAMINS W/ FOLIC ACID TABLET (FP) PO SCH (09:51)
[2021-09-04] MEDS: QUEtiapine FUMARATE 25 MG TABLET PO PRN (19:08)
[2021-09-04] MEDS: THIAMINE HCL 100 MG TABLET (FP) PO SCH (21:35)
[2021-09-04] MEDS: QUEtiapine FUMARATE 100 MG TABLET (FP) PO SCH (21:35)
[2021-09-05] MEDS ORDERED: methaDONE HCL 40 MG DISPERSABLE TABLET ONE (03:37)
[2021-09-05] MEDS ORDERED: methaDONE HCL 10 MG TABLET ONE (03:37)
[2021-09-05] MEDS: methaDONE 40 MG, methaDONE 10 MG PO SCH (06:38)
[2021-09-05] MEDS: NICOTINE 14 MG/24 HOURS TOPICAL PATCH TD SCH (10:07)
[2021-09-05] MEDS: NICOTINE 10 MG CARTRIDGE (INHALER) IH SCH (10:07)
[2021-09-05] MEDS: PRENATAL VITAMINS W/ FOLIC ACID TABLET (FP) PO SCH (10:07)
[2021-09-05] MEDS: QUEtiapine FUMARATE 25 MG TABLET PO PRN (10:08)
[2021-09-05] MEDS: QUEtiapine FUMARATE 100 MG TABLET (FP) PO SCH (21:13)
[2021-09-05] MEDS: THIAMINE HCL 100 MG TABLET (FP) PO SCH (21:13)
[2021-09-06] MEDS ORDERED: methaDONE HCL 10 MG TABLET ONE (03:13)
[2021-09-06] MEDS ORDERED: methaDONE HCL 40 MG DISPERSABLE TABLET ONE (03:13)
[2021-09-06] MEDS: methaDONE 40 MG, methaDONE 10 MG PO SCH (06:37)
[2021-09-06] MEDS: NICOTINE 14 MG/24 HOURS TOPICAL PATCH TD SCH (09:48)
[2021-09-06] MEDS: NICOTINE 10 MG CARTRIDGE (INHALER) IH SCH ×2 (09:48→14:51)
[2021-09-06] MEDS: PRENATAL VITAMINS W/ FOLIC ACID TABLET (FP) PO SCH (09:48)
[2021-09-06] MEDS: QUEtiapine FUMARATE 25 MG TABLET PO PRN (16:05)
[2021-09-07] MEDS: QUEtiapine FUMARATE 100 MG TABLET (FP) PO SCH ×2 (00:26→21:48)
[2021-09-07] MEDS: THIAMINE HCL 100 MG TABLET (FP) PO SCH ×2 (00:26→21:48)
[2021-09-07] MEDS: QUEtiapine FUMARATE 25 MG TABLET PO PRN (05:04)
[2021-09-07] MEDS ORDERED: methaDONE HCL 10 MG TABLET ONE (05:31)
[2021-09-07] MEDS ORDERED: methaDONE HCL 40 MG DISPERSABLE TABLET ONE (05:31)
[2021-09-07] MEDS: methaDONE 40 MG, methaDONE 10 MG PO SCH (06:35)
[2021-09-07] MEDS: NICOTINE 14 MG/24 HOURS TOPICAL PATCH TD SCH (10:19)
[2021-09-07] MEDS: PRENATAL VITAMINS W/ FOLIC ACID TABLET (FP) PO SCH (10:19)
[2021-09-07] MEDS: NICOTINE 10 MG CARTRIDGE (INHALER) IH SCH (10:19)
[2021-09-07 16:08] LABS: SARS-CoV-2 NAA Not Detected (Not Detected)
[2021-09-08] MEDS ORDERED: methaDONE HCL 40 MG DISPERSABLE TABLET ONE (07:04)
[2021-09-08] MEDS ORDERED: methaDONE HCL 10 MG TABLET ONE (07:04)
[2021-09-08] MEDS: methaDONE 40 MG, methaDONE 10 MG PO SCH (07:08)
[2021-09-08] MEDS: PRENATAL VITAMINS W/ FOLIC ACID TABLET (FP) PO SCH (10:05)
[2021-09-08] MEDS: NICOTINE 10 MG CARTRIDGE (INHALER) IH SCH (10:05)
[2021-09-08] MEDS: NICOTINE 14 MG/24 HOURS TOPICAL PATCH TD SCH (10:06)
[2021-09-08] MEDS: THIAMINE HCL 100 MG TABLET (FP) PO SCH (21:39)
[2021-09-08] MEDS: QUEtiapine FUMARATE 100 MG TABLET (FP) PO SCH (21:39)
[2021-09-09] MEDS ORDERED: methaDONE HCL 40 MG DISPERSABLE TABLET ONE (04:09)
[2021-09-09] MEDS ORDERED: methaDONE HCL 10 MG TABLET ONE (04:09)
[2021-09-09] MEDS: methaDONE 40 MG, methaDONE 10 MG PO SCH (07:04)
[2021-09-09] MEDS: NICOTINE 14 MG/24 HOURS TOPICAL PATCH TD SCH (10:10)
[2021-09-09] MEDS: hydrOXYzine PAMOATE 50 MG CAPSULE (FP) PO PRN ×2 (10:10→17:35)
[2021-09-09] MEDS: PRENATAL VITAMINS W/ FOLIC ACID TABLET (FP) PO SCH (10:10)
[2021-09-09] MEDS: NICOTINE 10 MG CARTRIDGE (INHALER) IH SCH (10:10)
[2021-09-09] MEDS: THIAMINE HCL 100 MG TABLET (FP) PO SCH (21:26)
[2021-09-09] MEDS: SUVOREXANT 10 MG TABLET PO PRN (21:29)
[2021-09-10] MEDS ORDERED: methaDONE HCL 10 MG TABLET ONE (03:11)
[2021-09-10] MEDS ORDERED: methaDONE HCL 40 MG DISPERSABLE TABLET ONE (03:11)
[2021-09-10] MEDS: methaDONE 40 MG, methaDONE 10 MG PO SCH (06:58)
[2021-09-10] MEDS: PRENATAL VITAMINS W/ FOLIC ACID TABLET (FP) PO SCH (10:05)
[2021-09-10] MEDS: NICOTINE 14 MG/24 HOURS TOPICAL PATCH TD SCH (10:06)
[2021-09-10] MEDS: NICOTINE 10 MG CARTRIDGE (INHALER) IH SCH (10:06)
[2021-09-10] MEDS: hydrOXYzine PAMOATE 50 MG CAPSULE (FP) PO PRN (16:26)
[2021-09-10] MEDS: THIAMINE HCL 100 MG TABLET (FP) PO SCH (21:27)
[2021-09-10] MEDS: SUVOREXANT 10 MG TABLET PO PRN (21:29)
[2021-09-11] MEDS ORDERED: methaDONE HCL 40 MG DISPERSABLE TABLET ONE (03:31)
[2021-09-11] MEDS ORDERED: methaDONE HCL 10 MG TABLET ONE (03:31)
[2021-09-11] MEDS: NICOTINE 14 MG/24 HOURS TOPICAL PATCH TD SCH (09:59)
[2021-09-11] MEDS: methaDONE 40 MG, methaDONE 10 MG PO SCH (09:59)
[2021-09-11] MEDS: PRENATAL VITAMINS W/ FOLIC ACID TABLET (FP) PO SCH (09:59)
[2021-09-11] MEDS ORDERED: buPROPion HCL 75 MG TABLET PO SCH (10:00)
[2021-09-11] MEDS: NICOTINE 10 MG CARTRIDGE (INHALER) IH SCH ×2 (10:01→17:08)
[2021-09-11] MEDS: buPROPion HCL 75 MG TABLET PO SCH ×2 (10:26→17:10)
[2021-09-11] MEDS: SUVOREXANT 15 MG TABLET PO PRN (21:28)
[2021-09-11] MEDS: THIAMINE HCL 100 MG TABLET (FP) PO SCH (21:28)
[2021-09-11] MEDS: hydrOXYzine PAMOATE 50 MG CAPSULE (FP) PO PRN (23:29)
[2021-09-12] MEDS ORDERED: methaDONE HCL 40 MG DISPERSABLE TABLET ONE (07:34)
[2021-09-12] MEDS ORDERED: methaDONE HCL 10 MG TABLET ONE (07:34)
[2021-09-12] MEDS: methaDONE 40 MG, methaDONE 10 MG PO SCH (07:38)
[2021-09-12] MEDS: PRENATAL VITAMINS W/ FOLIC ACID TABLET (FP) PO SCH (10:15)
[2021-09-12] MEDS: buPROPion HCL 75 MG TABLET PO SCH ×2 (10:15→16:59)
[2021-09-12] MEDS: NICOTINE 10 MG CARTRIDGE (INHALER) IH SCH (10:15)
[2021-09-12] MEDS: NICOTINE 14 MG/24 HOURS TOPICAL PATCH TD SCH (10:16)
[2021-09-12] MEDS: hydrOXYzine PAMOATE 50 MG CAPSULE (FP) PO PRN ×2 (14:14→21:27)
[2021-09-12] MEDS: NICOTINE 10 MG CARTRIDGE (INHALER) IH PRN (18:03)
[2021-09-12] MEDS: THIAMINE HCL 100 MG TABLET (FP) PO SCH (21:27)
[2021-09-12] MEDS: SUVOREXANT 15 MG TABLET PO PRN (21:27)
[2021-09-13] MEDS ORDERED: methaDONE HCL 10 MG TABLET ONE (03:35)
[2021-09-13] MEDS ORDERED: methaDONE HCL 40 MG DISPERSABLE TABLET ONE (03:35)
[2021-09-13] MEDS: methaDONE 40 MG, methaDONE 10 MG PO SCH (07:14)
[2021-09-13] MEDS: buPROPion HCL 75 MG TABLET PO SCH ×2 (10:02→17:22)
[2021-09-13] MEDS: NICOTINE 14 MG/24 HOURS TOPICAL PATCH TD SCH (10:02)
[2021-09-13] MEDS: PRENATAL VITAMINS W/ FOLIC ACID TABLET (FP) PO SCH (10:02)
[2021-09-13] MEDS: hydrOXYzine PAMOATE 50 MG CAPSULE (FP) PO PRN ×2 (14:52→21:46)
[2021-09-13] MEDS: NICOTINE 10 MG CARTRIDGE (INHALER) IH PRN ×2 (14:53→21:47)
[2021-09-13] MEDS: SUVOREXANT 15 MG TABLET PO PRN (21:45)
[2021-09-13] MEDS: THIAMINE HCL 100 MG TABLET (FP) PO SCH (21:46)
[2021-09-14] MEDS ORDERED: methaDONE HCL 10 MG TABLET ONE (03:09)
[2021-09-14] MEDS ORDERED: methaDONE HCL 40 MG DISPERSABLE TABLET ONE (03:09)
[2021-09-14] MEDS: methaDONE 40 MG, methaDONE 10 MG PO SCH (07:06)
[2021-09-14] MEDS: PRENATAL VITAMINS W/ FOLIC ACID TABLET (FP) PO SCH (10:09)
[2021-09-14] MEDS: NICOTINE 14 MG/24 HOURS TOPICAL PATCH TD SCH (10:09)
[2021-09-14] MEDS: NICOTINE 10 MG CARTRIDGE (INHALER) IH PRN ×2 (10:09→17:06)
[2021-09-14] MEDS: buPROPion HCL 75 MG TABLET PO SCH ×2 (10:09→17:05)
[2021-09-14] MEDS: THIAMINE HCL 100 MG TABLET (FP) PO SCH (21:20)
[2021-09-14] MEDS: hydrOXYzine PAMOATE 50 MG CAPSULE (FP) PO PRN (21:20)
[2021-09-14] MEDS: SUVOREXANT 15 MG TABLET PO PRN (21:22)
[2021-09-15] MEDS ORDERED: methaDONE HCL 10 MG TABLET ONE (05:39)
[2021-09-15] MEDS ORDERED: methaDONE HCL 40 MG DISPERSABLE TABLET ONE (05:40)
[2021-09-15] MEDS: methaDONE 40 MG, methaDONE 10 MG PO SCH (06:36)
[2021-09-15 08:05] VITALS: BP 108/69; PULSE 70; TEMP 98.4
[2021-09-15] MEDS: NICOTINE 14 MG/24 HOURS TOPICAL PATCH TD SCH (09:12)
[2021-09-15] MEDS: PRENATAL VITAMINS W/ FOLIC ACID TABLET (FP) PO SCH (09:12)
[2021-09-15] MEDS: buPROPion HCL 75 MG TABLET PO SCH (09:12)
== END 2021-09-15 09:51 | disposition home or self-care (01) | DRG 772 ==
LOC: YASAS 18:14 → Y3W 18:18 → Y5N 09-03 18:25
PROVIDERS: ADMIT Allergy & Immunology; ATTEND Psychiatry & Neurology Pain Medicine
PROC: HZ42ZZZ Group Counseling for Substance Abuse Treatment, Cognitive-Behavioral (ICD-10-PCS; principal; 2021-09-01)
DX: F11.20 Opioid dependence, uncomplicated (principal); F10.20 Alcohol dependence, uncomplicated; F14.20 Cocaine dependence, uncomplicated; F12.20 Cannabis dependence, uncomplicated; F17.210 Nicotine dependence, cigarettes, uncomplicated; F19.280 Other psychoactive substance dependence with psychoactive substance-induced anxiety disorder; F19.24 Other psychoactive substance dependence with psychoactive substance-induced mood disorder; F31.9 Bipolar disorder, unspecified; B19.10 Unspecified viral hepatitis B without hepatic coma; B19.20 Unspecified viral hepatitis C without hepatic coma; Z62.810 Personal history of physical and sexual abuse in childhood; Z86.19 Personal history of other infectious and parasitic diseases; Z86.59 Personal history of other mental and behavioral disorders; Z91.51 Personal history of suicidal behavior
CPT/HCPCS: C9803-CS; U0003; U0005

== ENCOUNTER 2021-09-25 04:11 | Emergency (ER) | payer OTHER ==
[2021-09-25] MEDS ORDERED: NALOXONE HCL 0.4 MG/ML VIAL ONE (04:43)
[2021-09-25 04:51] VITALS: BMI 29.2
[2021-09-25] MEDS ORDERED: NALOXONE HCL 0.4 MG/ML VIAL IM ONE (04:52)
[2021-09-25] MEDS ORDERED: ACETAMINOPHEN 500 MG TABLET (FP) PO ONE (06:30)
[2021-09-25] MEDS ORDERED: ACETAMINOPHEN 325 MG TABLET (FP) ONE (06:39)
[2021-09-25 07:42] LABS: BASO % 0.2 % (0-2.0); EOS % 0.3 % (0-4.5); HEMATOCRIT 39.7 % (35.4-49); HEMOGLOBIN 14.3 GM/dL (11.7-16.9); LYMPH % 18.3 % (8-40); MCH 31.6 pg (25.7-33.7); MEAN CELL VOLUME 87.8 fl (80-96); MEAN PLT VOLUME 8.4 fl (7.5-11.1); NEUT % 72.2 % (42.8-82.8); PLATELET COUNT 190 10^3/uL (134-434); RBC 4.52 M/mm3 (4.00-5.60); RDW 12.8 % (11.9-15.9); WHITE BLOOD COUNT 4.9 K/mm3 (4.0-10.0)
[2021-09-25 08:02] LABS: CHLORIDE 102 mmol/L (98-107); SODIUM 139 mmol/L (136-145)
[2021-09-25 08:05] LABS: ALBUMIN 3.6 g/dl (3.4-5.0); ANION GAP 6 MMOL/L (8-16); BLOOD UREA NITROGEN 13.2 mg/dL (7-18); CO2 31 mmol/L (21-32); GLUCOSE,RANDOM 88 mg/dL (74-106)
[2021-09-25 08:08] LABS: SGOT/AST 20 U/L (15-37); SGPT/ALT 42 U/L (13-61)
[2021-09-25 08:09] LABS: BILIRUBIN,TOTAL 1.2 mg/dL (0.2-1); TOT PROT 6.7 g/dl (6.4-8.2)
[2021-09-25 08:11] LABS: ALK PHOS 49 U/L (45-117)
[2021-09-25 09:11] VITALS: BP 93/55; PULSE 65
== END 2021-09-25 12:15 | disposition home or self-care (01) ==
LOC: JER 04:11
PROC: 3E023GC Introduction of Other Therapeutic Substance into Muscle, Percutaneous Approach (ICD-10-PCS; principal; 2021-09-25)
DX: T40.5X1A Poisoning by cocaine, accidental (unintentional), initial encounter (principal); T40.411A Poisoning by fentanyl or fentanyl analogs, accidental (unintentional), initial encounter
CPT/HCPCS: 0241U-QW; 36415; 71045-TC-FY; 80053; 80307; 85025; 93005; 93010; 99285-25

== ENCOUNTER 2021-11-18 11:48 | Inpatient (IN) | payer OTHER ==
[2021-11-18 13:08] VITALS: BMI 26.5
[2021-11-18] MEDS ORDERED: MAG HYDROX/AL HYDROX/SIMETH 30 ML UNIT-DOSE CUP PO PRN (14:05)
[2021-11-18] MEDS ORDERED: ACETAMINOPHEN 325 MG TABLET (FP) PO PRN ×2 (14:05)
[2021-11-18] MEDS ORDERED: BISMUTH SUBSALICYLATE 262 MG/15 ML BTL PO PRN (14:05)
[2021-11-18] MEDS ORDERED: NICOTINE 10 MG CARTRIDGE (INHALER) IH PRN (14:05)
[2021-11-18] MEDS ORDERED: DICYCLOMINE HCL 10 MG CAPSULE PO PRN (14:05)
[2021-11-18] MEDS ORDERED: MAGNESIUM HYDROX 2400MG/30ML ORAL SUSPENSION 30 ML CUP PO PRN (14:05)
[2021-11-18] MEDS ORDERED: IBUPROFEN 600 MG TABLET (FP) PO PRN (14:05)
[2021-11-18] MEDS ORDERED: LOPERAMIDE HCL 2 MG CAPSULE PO PRN (14:05)
[2021-11-18] MEDS ORDERED: BENZOCAINE/MENTHOL (CHLORASEPTIC ) LOZENGE MM PRN (14:05)
[2021-11-18] MEDS ORDERED: MAGNESIUM CITRATE 300 ML BOTTLE PO PRN (14:05)
[2021-11-18] MEDS ORDERED: cloNIDine HCL 0.1 MG TABLET PO PRN (14:05)
[2021-11-18] MEDS ORDERED: ONDANSETRON *ODT* 4 MG TABLET SL PRN (14:05)
[2021-11-18] MEDS ORDERED: IBUPROFEN 400 MG TABLET (FP) PO PRN (14:05)
[2021-11-18] MEDS ORDERED: NEOMYCIN/BACI/POLY/HC TOPICAL OINT 15 GM TUBE TP SCH (14:45)
[2021-11-18] MEDS: METHOCARBAMOL 500 MG TABLET PO PRN (16:01)
[2021-11-18] MEDS ORDERED: propRANOLol HCL 10 MG TABLET PO SCH (17:00)
[2021-11-18 18:23] LABS: HEMATOCRIT 39.9 % (35.4-49); HEMOGLOBIN 13.5 GM/dL (11.7-16.9); MCH 31.2 pg (25.7-33.7); MEAN CELL VOLUME 91.7 fl (80-96); MEAN PLT VOLUME 8.7 fl (7.5-11.1); PLATELET COUNT 204 10^3/uL (134-434); RBC 4.35 M/mm3 (4.00-5.60); RDW 13.8 % (11.9-15.9); WHITE BLOOD COUNT 5.5 K/mm3 (4.0-10.0)
[2021-11-18 18:29] LABS: CALCIUM 8.6 mg/dL (8.5-10.1)
[2021-11-18 18:30] LABS: ALBUMIN 3.7 g/dl (3.4-5.0); BLOOD UREA NITROGEN 21.5 mg/dL (7-18)
[2021-11-18] MEDS ORDERED: BACITRACIN/POLYMYXIN B SULFATE 15 GM TUBE TP SCH (18:30)
[2021-11-18 18:33] LABS: CREATININE 1.2 mg/dL (0.55-1.3)
[2021-11-18 18:35] LABS: TOT PROT 6.9 g/dl (6.4-8.2)
[2021-11-18] MEDS: hydrOXYzine PAMOATE 25 MG CAPSULE (FP) PO SCH ×2 (18:39→22:17)
[2021-11-18 21:21] VITALS: RESP 18
[2021-11-18] MEDS ORDERED: LITHIUM CARBONATE 300 MG CAPSULE PO SCH ×2 (22:00)
[2021-11-18] MEDS ORDERED: THIAMINE HCL 100 MG TABLET (FP) PO SCH (22:00)
[2021-11-18] MEDS ORDERED: MELATONIN 5 MG TABLETS PO SCH (22:00)
[2021-11-18] MEDS ORDERED: QUEtiapine FUMARATE 300 MG TABLET PO SCH (22:00)
[2021-11-18] MEDS: DOCUSATE SODIUM 100 MG CAPSULE (FP) PO SCH (22:17)
[2021-11-19] MEDS: hydrOXYzine PAMOATE 25 MG CAPSULE (FP) PO SCH ×3 (06:42→13:22)
[2021-11-19] MEDS ORDERED: QUEtiapine FUMARATE 200 MG TABLET PO SCH (07:00)
[2021-11-19] MEDS ORDERED: LITHIUM CARBONATE 300 MG CAPSULE PO SCH ×2 (07:00)
[2021-11-19] MEDS ORDERED: PRENATAL VITAMINS W/ FOLIC ACID TABLET (FP) PO SCH (10:00)
[2021-11-19] MEDS: METHOCARBAMOL 500 MG TABLET PO PRN (10:49)
[2021-11-19] MEDS: DOCUSATE SODIUM 100 MG CAPSULE (FP) PO SCH (10:49)
[2021-11-19] MEDS ORDERED: BACITRACIN/POLYMYXIN B SULFATE 15 GM TUBE TP SCH (12:12)
[2021-11-19] MEDS ORDERED: methaDONE HCL 10 MG TABLET PO ONE (12:48)
[2021-11-19] MEDS ORDERED: methaDONE 40 MG, methaDONE 10 MG PO ONE (12:55)
[2021-11-19 13:10] VITALS: BP 121/65; PULSE 84; TEMP 96
[2021-11-19] MEDS ORDERED: methaDONE HCL 10 MG TABLET ONE (13:20)
[2021-11-19] MEDS ORDERED: methaDONE HCL 40 MG DISPERSABLE TABLET ONE (13:20)
[2021-11-19] MEDS ORDERED: methaDONE HCL 10 MG TABLET (FOR DETOX USE ONLY) PO ONE (14:05)
[2021-11-20] MEDS ORDERED: methaDONE HCL 40 MG DISPERSABLE TABLET PO SCH (06:00)
[2021-11-20] MEDS ORDERED: methaDONE 40 MG, methaDONE 10 MG PO SCH (06:00)
[2021-11-21] MEDS ORDERED: methaDONE HCL 10 MG TABLET (FOR DETOX USE ONLY) PO ONE (10:00)
[2021-11-22] MEDS ORDERED: methaDONE HCL 10 MG TABLET (FOR DETOX USE ONLY) PO ONE (10:00)
== END 2021-11-19 13:30 | disposition home or self-care (01) | DRG 773 ==
LOC: YASAS 11:48 → Y6N 15:07
PROVIDERS: ADMIT Allergy & Immunology; ATTEND Surgery
PROC: HZ2ZZZZ Detoxification Services for Substance Abuse Treatment (ICD-10-PCS; principal; 2021-11-18)
DX: F11.23 Opioid dependence with withdrawal (principal); F14.20 Cocaine dependence, uncomplicated; F39 Unspecified mood [affective] disorder; F43.10 Post-traumatic stress disorder, unspecified; B18.2 Chronic viral hepatitis C; Z87.891 Personal history of nicotine dependence; Z91.038 Other insect allergy status; Z56.0 Unemployment, unspecified; Z59.00 Homelessness unspecified
CPT/HCPCS: 36415; 80053; 80178; 80307; 81003; 82550; 82553; 84443; 85025; 85027; 86780; 87086; 87811; 99282-25; C9803-CS; U0003; U0005

== ENCOUNTER 2021-12-01 23:28 | Inpatient (IN) | payer OTHER ==
[2021-12-01 21:34] VITALS: BMI 20.9
[2021-12-02] MEDS ORDERED: BENZOCAINE/MENTHOL (CHLORASEPTIC ) LOZENGE MM PRN (01:06)
[2021-12-02] MEDS ORDERED: LOPERAMIDE HCL 2 MG CAPSULE PO PRN (01:06)
[2021-12-02] MEDS ORDERED: ONDANSETRON *ODT* 4 MG TABLET SL PRN (01:06)
[2021-12-02] MEDS ORDERED: MAGNESIUM CITRATE 300 ML BOTTLE PO PRN (01:06)
[2021-12-02] MEDS ORDERED: BISMUTH SUBSALICYLATE 524 MG/30 ML PO PRN (01:06)
[2021-12-02] MEDS ORDERED: ACETAMINOPHEN 325 MG TABLET (FP) PO PRN ×2 (01:06)
[2021-12-02] MEDS ORDERED: IBUPROFEN 600 MG TABLET (FP) PO PRN (01:06)
[2021-12-02] MEDS ORDERED: methaDONE HCL 10 MG TABLET (FOR DETOX USE ONLY) PO ONE (01:06)
[2021-12-02] MEDS ORDERED: IBUPROFEN 400 MG TABLET (FP) PO PRN (01:06)
[2021-12-02] MEDS ORDERED: NICOTINE POLACRILEX 2 MG GUM BUC PRN (01:06)
[2021-12-02] MEDS ORDERED: DICYCLOMINE HCL 10 MG CAPSULE PO PRN (01:06)
[2021-12-02] MEDS ORDERED: MAG HYDROX/AL HYDROX/SIMETH 30 ML UNIT-DOSE CUP PO PRN (01:06)
[2021-12-02] MEDS ORDERED: MAGNESIUM HYDROX 2400MG/30ML ORAL SUSPENSION 30 ML CUP PO PRN (01:06)
[2021-12-02] MEDS: NICOTINE 21 MG/24 HOURS TOPICAL PATCH TD SCH (10:44)
[2021-12-02] MEDS: PRENATAL VITAMINS W/ FOLIC ACID TABLET (FP) PO SCH (10:44)
[2021-12-02 11:51] LABS: HIV INTERPRETATION NEGATIVE (NEGATIVE)
[2021-12-02] MEDS: LITHIUM CARBONATE 300 MG CAPSULE PO SCH (12:38)
[2021-12-02] MEDS: METHOCARBAMOL 500 MG TABLET PO PRN ×2 (14:31→22:11)
[2021-12-02 15:04] LABS: HEMATOCRIT 38.8 % (35.4-49); HEMOGLOBIN 13.2 GM/dL (11.7-16.9); MCH 30.6 pg (25.7-33.7); MCHC 33.9 g/dl (32.0-35.9); MEAN CELL VOLUME 90.2 fl (80-96); MEAN PLT VOLUME 8.3 fl (7.5-11.1); PLATELET COUNT 259 10^3/uL (134-434); RDW 13.5 % (11.9-15.9); WHITE BLOOD COUNT 4.9 K/mm3 (4.0-10.0)
[2021-12-02 15:17] LABS: ALBUMIN 3.2 g/dl (3.4-5.0)
[2021-12-02 15:22] LABS: BLOOD UREA NITROGEN 9.3 mg/dL (7-18); CALCIUM 8.8 mg/dL (8.5-10.1); CREATININE 0.9 mg/dL (0.55-1.3)
[2021-12-02 15:25] LABS: TOT PROT 6.2 g/dl (6.4-8.2)
[2021-12-02 15:28] LABS: BILIRUBIN,TOTAL 0.5 mg/dL (0.2-1)
[2021-12-02] MEDS: NICOTINE 10 MG CARTRIDGE (INHALER) IH PRN (18:08)
[2021-12-02] MEDS: THIAMINE HCL 100 MG TABLET (FP) PO SCH (22:08)
[2021-12-02] MEDS: QUEtiapine FUMARATE 100 MG TABLET (FP) PO SCH (22:08)
[2021-12-02] MEDS: MELATONIN 5 MG TABLETS PO SCH (22:08)
[2021-12-02] MEDS: cloNIDine HCL 0.1 MG TABLET PO PRN (22:11)
[2021-12-03] MEDS: NICOTINE 10 MG CARTRIDGE (INHALER) IH PRN (09:33)
[2021-12-03] MEDS: PRENATAL VITAMINS W/ FOLIC ACID TABLET (FP) PO SCH (10:43)
[2021-12-03] MEDS: LITHIUM CARBONATE 300 MG CAPSULE PO SCH (10:43)
[2021-12-03] MEDS: METHOCARBAMOL 500 MG TABLET PO PRN ×2 (10:45→17:26)
[2021-12-03] MEDS: NICOTINE 21 MG/24 HOURS TOPICAL PATCH TD SCH (11:48)
[2021-12-03] MEDS: cloNIDine HCL 0.1 MG TABLET PO PRN ×2 (17:26→22:30)
[2021-12-03] MEDS: MELATONIN 5 MG TABLETS PO SCH (22:30)
[2021-12-03] MEDS: THIAMINE HCL 100 MG TABLET (FP) PO SCH (22:30)
[2021-12-03] MEDS: QUEtiapine FUMARATE 100 MG TABLET (FP) PO SCH (22:30)
[2021-12-04 06:46] VITALS: RESP 18
[2021-12-04] MEDS ORDERED: methaDONE HCL 10 MG TABLET (FOR DETOX USE ONLY) PO ONE (10:00)
[2021-12-04] MEDS: PRENATAL VITAMINS W/ FOLIC ACID TABLET (FP) PO SCH (10:34)
[2021-12-04] MEDS: METHOCARBAMOL 500 MG TABLET PO PRN ×2 (10:34→18:13)
[2021-12-04] MEDS: LITHIUM CARBONATE 300 MG CAPSULE PO SCH (10:34)
[2021-12-04] MEDS: NICOTINE 21 MG/24 HOURS TOPICAL PATCH TD SCH (10:38)
[2021-12-04] MEDS: cloNIDine HCL 0.1 MG TABLET PO PRN (18:13)
[2021-12-04 22:13] VITALS: BP 105/59; PULSE 58; TEMP 97.3
[2021-12-06] MEDS ORDERED: methaDONE HCL 10 MG TABLET (FOR DETOX USE ONLY) PO ONE (10:00)
== END 2021-12-04 20:55 | disposition left against medical advice (07) | DRG 770 ==
LOC: YASAS 23:28 → Y6N 12-02 01:20
PROVIDERS: ADMIT Allergy & Immunology; ATTEND Allergy & Immunology
PROC: HZ2ZZZZ Detoxification Services for Substance Abuse Treatment (ICD-10-PCS; principal; 2021-12-02)
DX: F10.230 Alcohol dependence with withdrawal, uncomplicated (principal); F11.20 Opioid dependence, uncomplicated; F14.20 Cocaine dependence, uncomplicated; F15.20 Other stimulant dependence, uncomplicated; F12.20 Cannabis dependence, uncomplicated; F17.210 Nicotine dependence, cigarettes, uncomplicated; F19.280 Other psychoactive substance dependence with psychoactive substance-induced anxiety disorder; F19.282 Other psychoactive substance dependence with psychoactive substance-induced sleep disorder; F19.24 Other psychoactive substance dependence with psychoactive substance-induced mood disorder; F43.10 Post-traumatic stress disorder, unspecified; Z62.810 Personal history of physical and sexual abuse in childhood; Z56.0 Unemployment, unspecified
CPT/HCPCS: 36415; 80053; 80178; 85027; 86780; 87389; 99285-25; C9803-CS; J0735; U0003; U0005

== ENCOUNTER 2022-01-17 02:08 | Inpatient (IN) | payer OTHER ==
[2022-01-17 02:13] VITALS: BMI 22.1
[2022-01-17] MEDS ORDERED: NICOTINE POLACRILEX 4 MG GUM BUC PRN (03:34)
[2022-01-17] MEDS ORDERED: LOPERAMIDE HCL 2 MG CAPSULE PO PRN (03:34)
[2022-01-17] MEDS ORDERED: MAGNESIUM CITRATE 300 ML BOTTLE PO PRN (03:34)
[2022-01-17] MEDS ORDERED: LORazepam 1 MG TABLET PO PRN (03:34)
[2022-01-17] MEDS ORDERED: ACETAMINOPHEN 325 MG TABLET (FP) PO PRN ×2 (03:34)
[2022-01-17] MEDS ORDERED: cloNIDine HCL 0.1 MG TABLET PO PRN (03:34)
[2022-01-17] MEDS ORDERED: MAG HYDROX/AL HYDROX/SIMETH 30 ML UNIT-DOSE CUP PO PRN (03:34)
[2022-01-17] MEDS ORDERED: methaDONE HCL 10 MG TABLET (FOR DETOX USE ONLY) PO ONE (03:34)
[2022-01-17] MEDS ORDERED: DICYCLOMINE HCL 10 MG CAPSULE PO PRN (03:34)
[2022-01-17] MEDS ORDERED: NALOXONE HCL (KLOXXADO) 8 MG SPRAY NS PRN (03:34)
[2022-01-17] MEDS ORDERED: IBUPROFEN 400 MG TABLET (FP) PO PRN (03:34)
[2022-01-17] MEDS ORDERED: ONDANSETRON *ODT* 4 MG TABLET SL PRN (03:34)
[2022-01-17] MEDS ORDERED: BENZOCAINE/MENTHOL (CHLORASEPTIC ) LOZENGE MM PRN (03:34)
[2022-01-17] MEDS ORDERED: BISMUTH SUBSALICYLATE 524 MG/30 ML PO PRN (03:34)
[2022-01-17] MEDS ORDERED: MAGNESIUM HYDROX 2400MG/30ML ORAL SUSPENSION 30 ML CUP PO PRN (03:34)
[2022-01-17] MEDS: LORazepam 2 MG TABLET PO SCH ×4 (04:53→22:28)
[2022-01-17] MEDS: hydrOXYzine PAMOATE 25 MG CAPSULE (FP) PO SCH ×5 (06:22→23:29)
[2022-01-17] MEDS: NICOTINE 14 MG/24 HOURS TOPICAL PATCH TD SCH (10:15)
[2022-01-17] MEDS: PRENATAL VITAMINS W/ FOLIC ACID TABLET (FP) PO SCH (10:15)
[2022-01-17] MEDS: BACITRACIN 0.9 GM PACKET TP SCH ×2 (11:17→22:28)
[2022-01-17] MEDS ORDERED: QUEtiapine FUMARATE 100 MG TABLET (FP) PO ONE (11:58)
[2022-01-17] MEDS: QUEtiapine FUMARATE 100 MG TABLET (FP) PO SCH (22:28)
[2022-01-17] MEDS: THIAMINE HCL 100 MG TABLET (FP) PO SCH (22:28)
[2022-01-17] MEDS: MELATONIN 5 MG TABLETS PO SCH (23:29)
[2022-01-18] MEDS: hydrOXYzine PAMOATE 25 MG CAPSULE (FP) PO SCH ×5 (05:32→22:10)
[2022-01-18] MEDS: LORazepam 1 MG TABLET PO SCH ×4 (05:34→22:10)
[2022-01-18] MEDS: QUEtiapine FUMARATE 100 MG TABLET (FP) PO SCH (10:28)
[2022-01-18] MEDS: PRENATAL VITAMINS W/ FOLIC ACID TABLET (FP) PO SCH (10:28)
[2022-01-18] MEDS: BACITRACIN 0.9 GM PACKET TP SCH ×2 (10:28→22:15)
[2022-01-18] MEDS: NICOTINE 14 MG/24 HOURS TOPICAL PATCH TD SCH (10:35)
[2022-01-18 11:17] LABS: HEMOGLOBIN 13.8 GM/dL (11.7-16.9); MCH 29.9 pg (25.7-33.7); MCHC 32.8 g/dl (32.0-35.9); MEAN CELL VOLUME 91.2 fl (80-96); MEAN PLT VOLUME 8.6 fl (7.5-11.1); PLATELET COUNT 229 10^3/uL (134-434); RDW 13.5 % (11.9-15.9); WHITE BLOOD COUNT 3.8 K/mm3 (4.0-10.0)
[2022-01-18 11:20] LABS: CALCIUM 9.1 mg/dL (8.5-10.1)
[2022-01-18 11:21] LABS: ALBUMIN 3.6 g/dl (3.4-5.0)
[2022-01-18 11:25] LABS: BILIRUBIN,TOTAL 1.1 mg/dL (0.2-1)
[2022-01-18 11:26] LABS: TOT PROT 6.5 g/dl (6.4-8.2)
[2022-01-18] MEDS: QUEtiapine FUMARATE 25 MG TABLET PO PRN (16:43)
[2022-01-18] MEDS: NICOTINE 10 MG CARTRIDGE (INHALER) IH PRN (16:44)
[2022-01-18] MEDS: THIAMINE HCL 100 MG TABLET (FP) PO SCH (22:10)
[2022-01-18] MEDS: QUEtiapine FUMARATE 200 MG TABLET PO SCH (22:10)
[2022-01-18] MEDS: MELATONIN 5 MG TABLETS PO SCH (22:16)
[2022-01-19] MEDS ORDERED: LORazepam 0.5 MG TABLET PO PRN
[2022-01-19] MEDS: LORazepam 0.5 MG TABLET PO SCH ×4 (06:13→22:46)
[2022-01-19] MEDS: hydrOXYzine PAMOATE 25 MG CAPSULE (FP) PO SCH ×5 (06:16→22:45)
[2022-01-19] MEDS ORDERED: methaDONE HCL 10 MG TABLET (FOR DETOX USE ONLY) PO ONE (10:00)
[2022-01-19] MEDS: NICOTINE 14 MG/24 HOURS TOPICAL PATCH TD SCH (10:43)
[2022-01-19] MEDS: PRENATAL VITAMINS W/ FOLIC ACID TABLET (FP) PO SCH (10:43)
[2022-01-19] MEDS: BACITRACIN 0.9 GM PACKET TP SCH ×2 (10:43→22:48)
[2022-01-19] MEDS: QUEtiapine FUMARATE 200 MG TABLET PO SCH ×2 (10:54→22:45)
[2022-01-19] MEDS: NICOTINE 10 MG CARTRIDGE (INHALER) IH PRN (10:54)
[2022-01-19] MEDS ORDERED: hydrOXYzine PAMOATE 50 MG CAPSULE (FP) PO ONE (12:30)
[2022-01-19] MEDS: propRANOLol HCL 10 MG TABLET PO SCH ×2 (12:40→18:12)
[2022-01-19] MEDS: QUEtiapine FUMARATE 25 MG TABLET PO PRN ×2 (14:44→19:53)
[2022-01-19] MEDS: METHOCARBAMOL 500 MG TABLET PO PRN (17:18)
[2022-01-19] MEDS: MELATONIN 5 MG TABLETS PO SCH (22:45)
[2022-01-19] MEDS: THIAMINE HCL 100 MG TABLET (FP) PO SCH (22:45)
[2022-01-20] MEDS ORDERED: LORazepam 0.5 MG TABLET PO ONE (05:00)
[2022-01-20] MEDS: hydrOXYzine PAMOATE 25 MG CAPSULE (FP) PO SCH ×5 (06:33→23:07)
[2022-01-20] MEDS ORDERED: QUEtiapine FUMARATE 25 MG TABLET PO ONE (09:20)
[2022-01-20] MEDS ORDERED: LORazepam 0.5 MG TABLET PO PRN (09:21)
[2022-01-20] MEDS ORDERED: hydrOXYzine PAMOATE 25 MG CAPSULE (FP) PO ONE (09:30)
[2022-01-20] MEDS ORDERED: ONDANSETRON *ODT* 4 MG TABLET SL ONE (09:30)
[2022-01-20] MEDS: PRENATAL VITAMINS W/ FOLIC ACID TABLET (FP) PO SCH (11:07)
[2022-01-20] MEDS: QUEtiapine FUMARATE 25 MG TABLET PO PRN ×2 (11:08→18:01)
[2022-01-20] MEDS: METHOCARBAMOL 500 MG TABLET PO PRN (11:11)
[2022-01-20] MEDS: IBUPROFEN 600 MG TABLET (FP) PO PRN (11:12)
[2022-01-20] MEDS: BACITRACIN 0.9 GM PACKET TP SCH ×2 (11:13→23:07)
[2022-01-20] MEDS: NICOTINE 14 MG/24 HOURS TOPICAL PATCH TD SCH (11:13)
[2022-01-20] MEDS: QUEtiapine FUMARATE 200 MG TABLET PO SCH ×2 (11:14→23:07)
[2022-01-20] MEDS: propRANOLol HCL 10 MG TABLET PO SCH ×3 (11:36→18:03)
[2022-01-20] MEDS: NICOTINE 10 MG CARTRIDGE (INHALER) IH PRN (17:16)
[2022-01-20] MEDS: MELATONIN 5 MG TABLETS PO SCH (23:07)
[2022-01-20] MEDS: THIAMINE HCL 100 MG TABLET (FP) PO SCH (23:07)
[2022-01-21] MEDS: hydrOXYzine PAMOATE 25 MG CAPSULE (FP) PO SCH ×3 (06:15→14:12)
[2022-01-21 07:17] VITALS: RESP 18
[2022-01-21] MEDS: NICOTINE 10 MG CARTRIDGE (INHALER) IH PRN (08:55)
[2022-01-21] MEDS ORDERED: methaDONE HCL 10 MG TABLET (FOR DETOX USE ONLY) PO ONE (10:00)
[2022-01-21] MEDS: propRANOLol HCL 10 MG TABLET PO SCH ×2 (10:06→14:12)
[2022-01-21] MEDS: BACITRACIN 0.9 GM PACKET TP SCH (10:06)
[2022-01-21] MEDS: QUEtiapine FUMARATE 25 MG TABLET PO PRN (10:06)
[2022-01-21] MEDS: PRENATAL VITAMINS W/ FOLIC ACID TABLET (FP) PO SCH (10:07)
[2022-01-21] MEDS: NICOTINE 14 MG/24 HOURS TOPICAL PATCH TD SCH (10:07)
[2022-01-21] MEDS: METHOCARBAMOL 500 MG TABLET PO PRN (10:10)
[2022-01-21] MEDS: IBUPROFEN 600 MG TABLET (FP) PO PRN (10:10)
[2022-01-21] MEDS: QUEtiapine FUMARATE 200 MG TABLET PO SCH (10:13)
[2022-01-21 14:21] VITALS: BP 114/55; PULSE 76; TEMP 96.9
== END 2022-01-21 15:44 | disposition home or self-care (01) | DRG 773 ==
LOC: YASAS 02:08 → Y6N 03:53
PROVIDERS: ADMIT Allergy & Immunology; ATTEND Allergy & Immunology
PROC: HZ2ZZZZ Detoxification Services for Substance Abuse Treatment (ICD-10-PCS; principal; 2022-01-17)
DX: F11.23 Opioid dependence with withdrawal (principal); F10.230 Alcohol dependence with withdrawal, uncomplicated; F13.20 Sedative, hypnotic or anxiolytic dependence, uncomplicated; F14.20 Cocaine dependence, uncomplicated; F15.20 Other stimulant dependence, uncomplicated; F12.20 Cannabis dependence, uncomplicated; F15.951 Other stimulant use, unspecified with stimulant-induced psychotic disorder with hallucinations; F19.280 Other psychoactive substance dependence with psychoactive substance-induced anxiety disorder; F19.282 Other psychoactive substance dependence with psychoactive substance-induced sleep disorder; F19.24 Other psychoactive substance dependence with psychoactive substance-induced mood disorder; F17.210 Nicotine dependence, cigarettes, uncomplicated; F31.9 Bipolar disorder, unspecified; Z62.810 Personal history of physical and sexual abuse in childhood; Z86.19 Personal history of other infectious and parasitic diseases; Z59.02 Unsheltered homelessness
CPT/HCPCS: 36415; 80053; 80178; 85027; 86780; C9803-CS; Q0162; U0003; U0005

== ENCOUNTER 2022-01-28 09:25 | Inpatient (IN) | payer OTHER ==
[2022-01-28 10:03] VITALS: BMI 22.3
[2022-01-28] MEDS ORDERED: ONDANSETRON *ODT* 4 MG TABLET SL PRN (10:24)
[2022-01-28] MEDS ORDERED: MAGNESIUM HYDROX 2400MG/30ML ORAL SUSPENSION 30 ML CUP PO PRN (10:24)
[2022-01-28] MEDS ORDERED: METHOCARBAMOL 500 MG TABLET PO PRN (10:24)
[2022-01-28] MEDS ORDERED: NALOXONE HCL (KLOXXADO) 8 MG SPRAY NS PRN (10:24)
[2022-01-28] MEDS ORDERED: ACETAMINOPHEN 325 MG TABLET (FP) PO PRN ×2 (10:24)
[2022-01-28] MEDS ORDERED: DICYCLOMINE HCL 10 MG CAPSULE PO PRN (10:24)
[2022-01-28] MEDS ORDERED: BISMUTH SUBSALICYLATE 524 MG/30 ML PO PRN (10:24)
[2022-01-28] MEDS ORDERED: P-EPHED 60MG/TRIPROLIDI 2.5MG TABLET PO PRN (10:24)
[2022-01-28] MEDS ORDERED: MAG HYDROX/AL HYDROX/SIMETH 30 ML UNIT-DOSE CUP PO PRN (10:24)
[2022-01-28] MEDS ORDERED: IBUPROFEN 400 MG TABLET (FP) PO PRN (10:24)
[2022-01-28] MEDS ORDERED: guaiFENesin 200 MG/10 ML 10 ML UNIT-DOSE CUPS PO PRN (10:24)
[2022-01-28] MEDS ORDERED: IBUPROFEN 600 MG TABLET (FP) PO PRN (10:24)
[2022-01-28] MEDS ORDERED: LOPERAMIDE HCL 2 MG CAPSULE PO PRN (10:24)
[2022-01-28] MEDS ORDERED: MAGNESIUM CITRATE 300 ML BOTTLE PO PRN (10:24)
[2022-01-28] MEDS ORDERED: BENZOCAINE/MENTHOL (CHLORASEPTIC ) LOZENGE MM PRN (10:24)
[2022-01-28] MEDS ORDERED: cloNIDine HCL 0.1 MG TABLET PO PRN (10:27)
[2022-01-28] MEDS ORDERED: methaDONE HCL 10 MG TABLET (FOR DETOX USE ONLY) PO ONE (10:45)
[2022-01-28] MEDS ORDERED: NICOTINE 7 MG/24 HOURS TOPICAL PATCH TD PRN (10:45)
[2022-01-28] MEDS ORDERED: methaDONE HCL 10 MG TABLET (FOR DETOX USE ONLY) ONE (10:47)
[2022-01-28] MEDS ORDERED: IBUPROFEN 600 MG TABLET (FP) PO ONE (10:47)
[2022-01-28] MEDS: diazePAM 5 MG TABLET PO PRN ×2 (12:05→16:27)
[2022-01-28] MEDS: hydrOXYzine PAMOATE 25 MG CAPSULE (FP) PO PRN (16:28)
[2022-01-28] MEDS: NICOTINE 10 MG CARTRIDGE (INHALER) IH PRN (17:09)
[2022-01-28 19:25] LABS: HIV INTERPRETATION NEGATIVE (NEGATIVE)
[2022-01-28] MEDS ORDERED: QUEtiapine FUMARATE 50 MG TABLET PO SCH (22:00)
[2022-01-28] MEDS: MELATONIN 5 MG TABLETS PO PRN (22:47)
[2022-01-28] MEDS: THIAMINE HCL 100 MG TABLET (FP) PO SCH (22:47)
[2022-01-29] MEDS: diazePAM 5 MG TABLET PO PRN ×3 (06:10→18:30)
[2022-01-29] MEDS ORDERED: QUEtiapine FUMARATE 50 MG TABLET PO SCH (07:00)
[2022-01-29] MEDS: PRENATAL VITAMINS W/ FOLIC ACID TABLET (FP) PO SCH (10:27)
[2022-01-29] MEDS ORDERED: FLU VACC QS2022-23(6MOS UP)/PF 60 MCG/0.5 ML SYRINGE IM ONE (12:00)
[2022-01-29] MEDS: hydrOXYzine PAMOATE 25 MG CAPSULE (FP) PO PRN ×2 (13:15→18:31)
[2022-01-29 14:31] LABS: HEMATOCRIT 43.2 % (35.4-49); HEMOGLOBIN 13.9 GM/dL (11.7-16.9); MCH 29.3 pg (25.7-33.7); MCHC 32.2 g/dl (32.0-35.9); MEAN CELL VOLUME 91.1 fl (80-96); MEAN PLT VOLUME 9.2 fl (7.5-11.1); PLATELET COUNT 258 10^3/uL (134-434); RBC 4.74 M/mm3 (4.00-5.60); RDW 13.3 % (11.9-15.9); WHITE BLOOD COUNT 6.7 K/mm3 (4.0-10.0)
[2022-01-29 15:08] LABS: BLOOD UREA NITROGEN 12.3 mg/dL (7-18); CALCIUM 8.8 mg/dL (8.5-10.1)
[2022-01-29 15:09] LABS: ALBUMIN 3.3 g/dl (3.4-5.0)
[2022-01-29 15:13] LABS: BILIRUBIN,TOTAL 1.1 mg/dL (0.2-1); TOT PROT 6.1 g/dl (6.4-8.2)
[2022-01-29] MEDS: NICOTINE 10 MG CARTRIDGE (INHALER) IH PRN (20:52)
[2022-01-29] MEDS: THIAMINE HCL 100 MG TABLET (FP) PO SCH (22:27)
[2022-01-29] MEDS: QUEtiapine FUMARATE 100 MG TABLET (FP) PO SCH (22:27)
[2022-01-29] MEDS: MELATONIN 5 MG TABLETS PO PRN (22:27)
[2022-01-30] MEDS: PRENATAL VITAMINS W/ FOLIC ACID TABLET (FP) PO SCH (09:44)
[2022-01-30] MEDS: QUEtiapine FUMARATE 100 MG TABLET (FP) PO SCH (09:45)
[2022-01-30] MEDS: hydrOXYzine PAMOATE 25 MG CAPSULE (FP) PO PRN (09:45)
[2022-01-30 09:52] VITALS: RESP 18
[2022-01-30] MEDS ORDERED: methaDONE HCL 10 MG TABLET (FOR DETOX USE ONLY) PO ONE (10:00)
[2022-01-30] MEDS ORDERED: NICOTINE 21 MG/24 HOURS TOPICAL PATCH TD SCH (10:00)
[2022-01-30] MEDS: diazePAM 5 MG TABLET PO PRN (12:21)
[2022-01-30 12:54] VITALS: BP 117/68; PULSE 70; TEMP 97.5
[2022-02-01] MEDS ORDERED: methaDONE HCL 10 MG TABLET (FOR DETOX USE ONLY) PO ONE (10:00)
== END 2022-01-30 15:00 | disposition left against medical advice (07) | DRG 770 ==
LOC: YASAS 09:25 → Y3N 10:34
PROVIDERS: ADMIT Allergy & Immunology; ATTEND Psychiatry & Neurology Psychiatry
PROC: HZ2ZZZZ Detoxification Services for Substance Abuse Treatment (ICD-10-PCS; principal; 2022-01-28)
DX: F11.23 Opioid dependence with withdrawal (principal); F14.20 Cocaine dependence, uncomplicated; F16.20 Hallucinogen dependence, uncomplicated; F12.20 Cannabis dependence, uncomplicated; F17.210 Nicotine dependence, cigarettes, uncomplicated; F19.24 Other psychoactive substance dependence with psychoactive substance-induced mood disorder; F43.10 Post-traumatic stress disorder, unspecified; F90.9 Attention-deficit hyperactivity disorder, unspecified type; E87.6 Hypokalemia; G47.00 Insomnia, unspecified; Z86.19 Personal history of other infectious and parasitic diseases; Z56.0 Unemployment, unspecified; Z59.00 Homelessness unspecified; Z91.199 Patient's noncompliance with other medical treatment and regimen due to unspecified reason
CPT/HCPCS: 36415; 80053; 80178; 85027; 87389; C9803-CS; G0008; Q2036; U0003; U0005

== ENCOUNTER 2022-04-02 16:31 | Inpatient (IN) | payer OTHER ==
[2022-04-02 17:11] VITALS: BMI 20.9
[2022-04-02] MEDS ORDERED: BISMUTH SUBSALICYLATE 524 MG/30 ML PO PRN (20:05)
[2022-04-02] MEDS ORDERED: cloNIDine HCL 0.1 MG TABLET PO PRN (20:05)
[2022-04-02] MEDS ORDERED: MAGNESIUM HYDROX 2400MG/30ML ORAL SUSPENSION 30 ML CUP PO PRN (20:05)
[2022-04-02] MEDS ORDERED: ACETAMINOPHEN 325 MG TABLET (FP) PO PRN ×2 (20:05)
[2022-04-02] MEDS ORDERED: POLYETHYLENE GLYCOL (HEALTHYLAX) 3350 17 GM PACKET PO PRN (20:05)
[2022-04-02] MEDS ORDERED: DICYCLOMINE HCL 10 MG CAPSULE PO PRN (20:05)
[2022-04-02] MEDS ORDERED: NALOXONE HCL (KLOXXADO) 8 MG SPRAY NS PRN (20:05)
[2022-04-02] MEDS ORDERED: ONDANSETRON *ODT* 4 MG TABLET SL PRN (20:05)
[2022-04-02] MEDS ORDERED: LOPERAMIDE HCL 2 MG CAPSULE PO PRN (20:05)
[2022-04-02] MEDS ORDERED: methaDONE HCL 10 MG TABLET (FOR DETOX USE ONLY) PO ONE (20:05)
[2022-04-02] MEDS ORDERED: MAG HYDROX/AL HYDROX/SIMETH 30 ML UNIT-DOSE CUP PO PRN (20:05)
[2022-04-02] MEDS ORDERED: BENZOCAINE/MENTHOL (CHLORASEPTIC ) LOZENGE MM PRN (20:05)
[2022-04-02] MEDS ORDERED: methaDONE HCL 10 MG TABLET (FOR DETOX USE ONLY) ONE (23:33)
[2022-04-02] MEDS: PRENATAL VITAMINS W/ FOLIC ACID TABLET (FP) PO SCH (23:40)
[2022-04-03] MEDS: hydrOXYzine PAMOATE 25 MG CAPSULE (FP) PO PRN ×3 (00:26→17:04)
[2022-04-03] MEDS: METHOCARBAMOL 500 MG TABLET PO PRN ×3 (00:26→17:04)
[2022-04-03] MEDS: IBUPROFEN 400 MG TABLET (FP) PO PRN (01:47)
[2022-04-03] MEDS: MELATONIN 5 MG TABLETS PO SCH ×2 (01:50→22:52)
[2022-04-03] MEDS: THIAMINE HCL 100 MG TABLET (FP) PO SCH ×2 (01:50→22:52)
[2022-04-03] MEDS: NICOTINE 7 MG/24 HOURS TOPICAL PATCH TD SCH ×2 (01:51→11:12)
[2022-04-03] MEDS: BACITRACIN 15 GM TUBE TOPICAL OINTMENT TP SCH ×2 (01:51→11:12)
[2022-04-03] MEDS: NICOTINE 10 MG CARTRIDGE (INHALER) IH PRN (08:27)
[2022-04-03] MEDS: PRENATAL VITAMINS W/ FOLIC ACID TABLET (FP) PO SCH (09:48)
[2022-04-03] MEDS ORDERED: QUEtiapine FUMARATE 50 MG TABLET PO ONE (10:47)
[2022-04-03] MEDS ORDERED: FLUoxetine HCL 20 MG CAPSULE PO ONE (10:47)
[2022-04-03 11:48] LABS: HEMATOCRIT 39.8 % (35.4-49); HEMOGLOBIN 13.3 GM/dL (11.7-16.9); MCH 29.8 pg (25.7-33.7); MCHC 33.3 g/dl (32.0-35.9); MEAN CELL VOLUME 89.7 fl (80-96); MEAN PLT VOLUME 8.6 fl (7.5-11.1); PLATELET COUNT 249 10^3/uL (134-434); RBC 4.44 M/mm3 (4.00-5.60); RDW 14.2 % (11.9-15.9); WHITE BLOOD COUNT 5.1 K/mm3 (4.0-10.0)
[2022-04-03 12:34] LABS: ALBUMIN 3.1 g/dl (3.4-5.0); BLOOD UREA NITROGEN 15.4 mg/dL (7-18); CALCIUM 8.7 mg/dL (8.5-10.1)
[2022-04-03 12:37] LABS: BILIRUBIN,TOTAL 0.8 mg/dL (0.2-1); CREATININE 0.9 mg/dL (0.55-1.3); TOT PROT 5.8 g/dl (6.4-8.2)
[2022-04-03] MEDS: busPIRone HCL 10 MG TABLET (FP) PO SCH ×2 (13:21→22:51)
[2022-04-03] MEDS: IBUPROFEN 600 MG TABLET (FP) PO PRN (17:03)
[2022-04-03] MEDS: QUEtiapine FUMARATE 200 MG TABLET PO SCH (22:51)
[2022-04-03] MEDS: propRANOLol HCL 10 MG TABLET PO SCH (22:56)
[2022-04-04] MEDS: busPIRone HCL 10 MG TABLET (FP) PO SCH ×3 (06:46→22:39)
[2022-04-04] MEDS ORDERED: methaDONE HCL 10 MG TABLET (FOR DETOX USE ONLY) PO ONE (10:00)
[2022-04-04] MEDS: QUEtiapine FUMARATE 100 MG TABLET (FP) PO SCH (10:56)
[2022-04-04] MEDS: propRANOLol HCL 10 MG TABLET PO SCH ×2 (10:56→22:40)
[2022-04-04] MEDS: PRENATAL VITAMINS W/ FOLIC ACID TABLET (FP) PO SCH (10:56)
[2022-04-04] MEDS: NICOTINE 7 MG/24 HOURS TOPICAL PATCH TD SCH (10:58)
[2022-04-04] MEDS ORDERED: methaDONE HCL 10 MG TABLET (FOR DETOX USE ONLY) ONE (11:03)
[2022-04-04] MEDS: BACITRACIN 15 GM TUBE TOPICAL OINTMENT TP SCH (11:06)
[2022-04-04] MEDS: hydrOXYzine PAMOATE 25 MG CAPSULE (FP) PO PRN (15:27)
[2022-04-04] MEDS: METHOCARBAMOL 500 MG TABLET PO PRN (15:27)
[2022-04-04] MEDS: IBUPROFEN 400 MG TABLET (FP) PO PRN (18:13)
[2022-04-04] MEDS: QUEtiapine FUMARATE 200 MG TABLET PO SCH (22:39)
[2022-04-04] MEDS: MELATONIN 5 MG TABLETS PO SCH (22:41)
[2022-04-04] MEDS: THIAMINE HCL 100 MG TABLET (FP) PO SCH (22:41)
[2022-04-05] MEDS: busPIRone HCL 10 MG TABLET (FP) PO SCH ×4 (06:48→22:22)
[2022-04-05] MEDS: METHOCARBAMOL 500 MG TABLET PO PRN ×2 (10:32→18:41)
[2022-04-05] MEDS: propRANOLol HCL 10 MG TABLET PO SCH ×2 (10:32→22:22)
[2022-04-05] MEDS: QUEtiapine FUMARATE 100 MG TABLET (FP) PO SCH (10:33)
[2022-04-05] MEDS: PRENATAL VITAMINS W/ FOLIC ACID TABLET (FP) PO SCH (10:33)
[2022-04-05] MEDS: NICOTINE 7 MG/24 HOURS TOPICAL PATCH TD SCH (10:33)
[2022-04-05] MEDS: BACITRACIN 15 GM TUBE TOPICAL OINTMENT TP SCH (10:37)
[2022-04-05] MEDS: hydrOXYzine PAMOATE 25 MG CAPSULE (FP) PO PRN (18:42)
[2022-04-05] MEDS: QUEtiapine FUMARATE 200 MG TABLET PO SCH (22:21)
[2022-04-05] MEDS: THIAMINE HCL 100 MG TABLET (FP) PO SCH (22:21)
[2022-04-05] MEDS: MELATONIN 5 MG TABLETS PO SCH (22:21)
[2022-04-06] MEDS: busPIRone HCL 10 MG TABLET (FP) PO SCH ×3 (06:15→21:13)
[2022-04-06] MEDS ORDERED: methaDONE HCL 10 MG TABLET (FOR DETOX USE ONLY) PO ONE (10:00)
[2022-04-06] MEDS: PRENATAL VITAMINS W/ FOLIC ACID TABLET (FP) PO SCH (10:33)
[2022-04-06] MEDS: QUEtiapine FUMARATE 100 MG TABLET (FP) PO SCH (10:34)
[2022-04-06] MEDS: propRANOLol HCL 10 MG TABLET PO SCH ×2 (10:34→21:13)
[2022-04-06] MEDS: NICOTINE 7 MG/24 HOURS TOPICAL PATCH TD SCH (10:34)
[2022-04-06] MEDS: BACITRACIN 15 GM TUBE TOPICAL OINTMENT TP SCH (10:35)
[2022-04-06] MEDS: NICOTINE 10 MG CARTRIDGE (INHALER) IH PRN (10:46)
[2022-04-06] MEDS: hydrOXYzine PAMOATE 25 MG CAPSULE (FP) PO PRN (20:16)
[2022-04-06] MEDS: METHOCARBAMOL 500 MG TABLET PO PRN (20:16)
[2022-04-06] MEDS: QUEtiapine FUMARATE 200 MG TABLET PO SCH (21:12)
[2022-04-06] MEDS: THIAMINE HCL 100 MG TABLET (FP) PO SCH (21:12)
[2022-04-06] MEDS: MELATONIN 5 MG TABLETS PO SCH (21:13)
[2022-04-07 05:55] VITALS: RESP 16
[2022-04-07] MEDS: busPIRone HCL 10 MG TABLET (FP) PO SCH (06:07)
[2022-04-07 08:50] VITALS: BP 105/55; PULSE 56; TEMP 97.5
[2022-04-07] MEDS: IBUPROFEN 600 MG TABLET (FP) PO PRN (09:59)
[2022-04-07] MEDS: propRANOLol HCL 10 MG TABLET PO SCH (09:59)
[2022-04-07] MEDS: BACITRACIN 15 GM TUBE TOPICAL OINTMENT TP SCH (10:00)
[2022-04-07] MEDS: NICOTINE 7 MG/24 HOURS TOPICAL PATCH TD SCH (10:01)
[2022-04-07] MEDS: PRENATAL VITAMINS W/ FOLIC ACID TABLET (FP) PO SCH (10:02)
[2022-04-07] MEDS: QUEtiapine FUMARATE 100 MG TABLET (FP) PO SCH (10:02)
== END 2022-04-07 11:34 | disposition other institution (70) | DRG 773 ==
LOC: YASAS 16:31 → Y3N 23:36
PROVIDERS: ADMIT Allergy & Immunology; ATTEND Surgery
PROC: HZ2ZZZZ Detoxification Services for Substance Abuse Treatment (ICD-10-PCS; principal; 2022-04-02)
DX: F11.23 Opioid dependence with withdrawal (principal); F14.20 Cocaine dependence, uncomplicated; F12.20 Cannabis dependence, uncomplicated; F19.24 Other psychoactive substance dependence with psychoactive substance-induced mood disorder; F19.282 Other psychoactive substance dependence with psychoactive substance-induced sleep disorder; Z86.59 Personal history of other mental and behavioral disorders; Z62.810 Personal history of physical and sexual abuse in childhood; Z91.410 Personal history of adult physical and sexual abuse; Z86.19 Personal history of other infectious and parasitic diseases; Z91.51 Personal history of suicidal behavior; Z56.0 Unemployment, unspecified; Z59.00 Homelessness unspecified
CPT/HCPCS: 36415; 80053; 85027; 86780; 87811; C9803-CS; U0003; U0005

== ENCOUNTER 2022-04-07 11:50 | Inpatient (IN) | payer OTHER ==
[2022-04-07] MEDS ORDERED: IBUPROFEN 400 MG TABLET (FP) PO PRN (14:55)
[2022-04-07] MEDS ORDERED: NICOTINE 10 MG CARTRIDGE (INHALER) IH PRN (14:55)
[2022-04-07] MEDS ORDERED: LOPERAMIDE HCL 2 MG CAPSULE PO PRN (14:55)
[2022-04-07] MEDS ORDERED: POLYETHYLENE GLYCOL (HEALTHYLAX) 3350 17 GM PACKET PO PRN (14:55)
[2022-04-07] MEDS ORDERED: MAGNESIUM HYDROX 2400MG/30ML ORAL SUSPENSION 30 ML CUP PO PRN (14:55)
[2022-04-07] MEDS ORDERED: guaiFENesin 200 MG/10 ML 10 ML UNIT-DOSE CUPS PO PRN (14:55)
[2022-04-07] MEDS ORDERED: P-EPHED 60MG/TRIPROLIDI 2.5MG TABLET PO PRN (14:55)
[2022-04-07] MEDS ORDERED: BENZOCAINE/MENTHOL (CHLORASEPTIC ) LOZENGE MM PRN (14:55)
[2022-04-07] MEDS ORDERED: hydrOXYzine PAMOATE 25 MG CAPSULE (FP) PO PRN (14:55)
[2022-04-07] MEDS ORDERED: MAG HYDROX/AL HYDROX/SIMETH 30 ML UNIT-DOSE CUP PO PRN (14:55)
[2022-04-07] MEDS ORDERED: ACETAMINOPHEN 325 MG TABLET (FP) PO PRN (14:55)
[2022-04-07] MEDS: busPIRone HCL 10 MG TABLET (FP) PO SCH ×2 (15:18→21:34)
[2022-04-07] MEDS: propRANOLol HCL 10 MG TABLET PO SCH (21:06)
[2022-04-07] MEDS ORDERED: QUEtiapine FUMARATE 200 MG TABLET PO SCH (22:00)
[2022-04-07] MEDS ORDERED: THIAMINE HCL 100 MG TABLET (FP) PO SCH (22:00)
[2022-04-07] MEDS ORDERED: MELATONIN 5 MG TABLETS PO SCH (22:00)
[2022-04-07 22:04] VITALS: RESP 18; TEMP 97.7
[2022-04-08] MEDS: busPIRone HCL 10 MG TABLET (FP) PO SCH ×2 (06:32→13:11)
[2022-04-08] MEDS ORDERED: BUPRENORPHINE HCL 150 MCG, BUPRENORPHINE HCL 75 MCG BC PRN (09:19)
[2022-04-08] MEDS ORDERED: BUPRENORPHINE HCL 150 MCG, BUPRENORPHINE HCL 75 MCG BC ONE (09:19)
[2022-04-08] MEDS ORDERED: cloNIDine HCL 0.1 MG TABLET PO ONE (09:19)
[2022-04-08] MEDS: propRANOLol HCL 10 MG TABLET PO SCH (09:27)
[2022-04-08] MEDS ORDERED: QUEtiapine FUMARATE 50 MG TABLET PO SCH (10:00)
[2022-04-08] MEDS ORDERED: NICOTINE 7 MG/24 HOURS TOPICAL PATCH TD SCH (10:00)
[2022-04-08] MEDS ORDERED: PRENATAL VITAMINS W/ FOLIC ACID TABLET (FP) PO SCH (10:00)
[2022-04-08] MEDS ORDERED: FLUoxetine HCL 20 MG CAPSULE PO ONE (10:04)
[2022-04-08] MEDS ORDERED: QUEtiapine FUMARATE 50 MG TABLET PO ONE (10:04)
[2022-04-08 11:08] VITALS: BP 133/70; PULSE 81
[2022-04-08] MEDS ORDERED: cloNIDine HCL 0.1 MG TABLET PO PRN (13:19)
[2022-04-09] MEDS ORDERED: BUPRENORPHINE HCL 150 MCG, BUPRENORPHINE HCL 75 MCG BC PRN
[2022-04-09] MEDS ORDERED: BUPRENORPHINE HCL 150 MCG, BUPRENORPHINE HCL 75 MCG BC SCH (06:00)
[2022-04-09] MEDS ORDERED: FLUoxetine HCL 20 MG CAPSULE PO SCH (10:00)
[2022-04-10] MEDS ORDERED: BUPRENORPHINE HCL 450 MCG FILM BC SCH (06:00)
[2022-04-11] MEDS ORDERED: BUPRENORPHINE/NALOXONE 4 MG/1 MG FILM PACKET SL SCH (06:00)
[2022-04-12] MEDS ORDERED: BUPRENORPHINE/NALOXONE 8 MG/2 MG FILM PACKET SL SCH (06:00)
== END 2022-04-08 13:40 | disposition home or self-care (01) | DRG 773 ==
LOC: YASAS 11:50 → Y3W 12:00 → Y3E 04-08 11:46
PROVIDERS: ADMIT Allergy & Immunology; ATTEND Psychiatry & Neurology Pain Medicine
PROC: HZ2ZZZZ Detoxification Services for Substance Abuse Treatment (ICD-10-PCS; principal; 2022-04-07)
DX: F11.20 Opioid dependence, uncomplicated (principal); F12.20 Cannabis dependence, uncomplicated; F17.210 Nicotine dependence, cigarettes, uncomplicated; F19.24 Other psychoactive substance dependence with psychoactive substance-induced mood disorder; F19.280 Other psychoactive substance dependence with psychoactive substance-induced anxiety disorder; F31.9 Bipolar disorder, unspecified; G47.00 Insomnia, unspecified; Z91.199 Patient's noncompliance with other medical treatment and regimen due to unspecified reason; Z56.0 Unemployment, unspecified
CPT/HCPCS: 36415; 86803; 87522

== ENCOUNTER 2022-04-16 20:45 | Emergency (ER) | payer OTHER ==
[2022-04-16 21:04] VITALS: BMI 20.3
[2022-04-16] MEDS ORDERED: SODIUM CHLORIDE 0.9% 500 ML INFUS.BAG IV ONE (21:11)
[2022-04-16] MEDS ORDERED: ONDANSETRON 4 MG/2 ML VIAL IVPUSH ONE (22:13)
[2022-04-16] MEDS ORDERED: ONDANSETRON 4 MG/2 ML VIAL ONE (22:22)
[2022-04-16 22:26] LABS: BASO % 0.3 % (0-2.0); EOS % 0.2 % (0-4.5); HEMATOCRIT 43.9 % (35.4-49); HEMOGLOBIN 14.5 GM/dL (11.7-16.9); LYMPH % 14.3 % (8-40); MCH 29.7 pg (25.7-33.7); MCHC 33.1 g/dl (32.0-35.9); MEAN CELL VOLUME 89.8 fl (80-96); MEAN PLT VOLUME 7.9 fl (7.5-11.1); MONO % 4.4 % (3.8-10.2); NEUT % 80.8 % (42.8-82.8); PLATELET COUNT 270 10^3/uL (134-434); WHITE BLOOD COUNT 6.5 K/mm3 (4.0-10.0)
[2022-04-16 22:30] LABS: INR 1.15 (0.83-1.09); PROTHROMBIN TIME (PATIENT) 13.2 SEC (9.7-13.0)
[2022-04-16 22:44] LABS: CHLORIDE 102 mmol/L (98-107); SODIUM 139 mmol/L (136-145)
[2022-04-16 22:46] LABS: ANION GAP 8 MMOL/L (8-16); BLOOD UREA NITROGEN 13.7 mg/dL (7-18); CALCIUM 9.3 mg/dL (8.5-10.1); CO2 29 mmol/L (21-32); GLUCOSE,RANDOM 84 mg/dL (74-106); MAGNESIUM 2.1 mg/dL (1.8-2.4)
[2022-04-16 22:49] LABS: SGOT/AST 27 U/L (15-37); SGPT/ALT 45 U/L (13-61)
[2022-04-16 22:51] LABS: BILIRUBIN,TOTAL 1.3 mg/dL (0.2-1)
[2022-04-16 22:52] LABS: ALBUMIN 3.8 g/dl (3.4-5.0); ALK PHOS 48 U/L (45-117)
[2022-04-17] MEDS ORDERED: LORazepam 2 MG TABLET PO ONE (04:34)
[2022-04-17] MEDS ORDERED: FAMOTIDINE 20 MG/50 ML IVPB 20 MG/50 ML MG IVPB ONE ×2 (04:35→04:38)
[2022-04-17] MEDS ORDERED: ACETAMINOPHEN 1000 MG/100 ML BAG IVPB ONE (04:35)
[2022-04-17] MEDS ORDERED: ACETAMINOPHEN INJECTION 100 ML IVPB ONE (04:38)
[2022-04-17] MEDS ORDERED: LORazepam 1 MG TABLET ONE (04:38)
[2022-04-17 04:52] LABS: URINE APPEARANCE TURBID; URINE BILIRUBIN NEGATIVE (NEGATIVE); URINE COLOR YELLOW; URINE GLUCOSE (UA) NEGATIVE (NEGATIVE); URINE KETONE TRACE (NEGATIVE); URINE LEUK ESTERASE NEGATIVE (NEGATIVE); URINE NITRITE NEGATIVE (NEGATIVE); URINE PROTEIN NEGATIVE (NEGATIVE)
[2022-04-17 04:58] LABS: PHENCYCLIDINE,URINE NEGATIVE (NEGATIVE)
[2022-04-17 04:59] LABS: METHADONE, UR NEGATIVE (NEGATIVE); URINE AMPHETAMINES NEGATIVE (NEGATIVE); URINE BARBITURATES NEGATIVE (NEGATIVE)
[2022-04-17 05:02] VITALS: BP 110/63; PULSE 76; RESP 18; TEMP 98.1
[2022-04-17 05:11] LABS: COCAINE, UR POSITIVE (NEGATIVE); OPIATES, URI POSITIVE (NEGATIVE); URINE BENZODIAZEPINES NEGATIVE (NEGATIVE)
== END 2022-04-17 05:19 | disposition home or self-care (01) ==
LOC: JER 20:45
PROC: 3E0333Z Introduction of Anti-inflammatory into Peripheral Vein, Percutaneous Approach (ICD-10-PCS; principal; 2022-04-16)
PROC: 3E033GC Introduction of Other Therapeutic Substance into Peripheral Vein, Percutaneous Approach (ICD-10-PCS; 2022-04-16)
PROC: 3E033NZ Introduction of Analgesics, Hypnotics, Sedatives into Peripheral Vein, Percutaneous Approach (ICD-10-PCS; 2022-04-16)
PROC: 3E033GC Introduction of Other Therapeutic Substance into Peripheral Vein, Percutaneous Approach (ICD-10-PCS; 2022-04-16)
DX: F19.10 Other psychoactive substance abuse, uncomplicated (principal)
CPT/HCPCS: 36415; 70450-TC; 71045-TC-FY; 72125-TC; 80053; 80307; 81003; 83735; 84484; 85025; 85610; 87086; 93005; 93010; 99285-25

== ENCOUNTER 2022-04-17 05:41 | Inpatient (IN) | payer OTHER ==
[2022-04-17 06:09] VITALS: BMI 22.4
[2022-04-17] MEDS ORDERED: MAGNESIUM HYDROX 2400MG/30ML ORAL SUSPENSION 30 ML CUP PO PRN (06:19)
[2022-04-17] MEDS ORDERED: IBUPROFEN 400 MG TABLET (FP) PO PRN (06:19)
[2022-04-17] MEDS ORDERED: hydrOXYzine PAMOATE 25 MG CAPSULE (FP) PO PRN (06:19)
[2022-04-17] MEDS ORDERED: MAG HYDROX/AL HYDROX/SIMETH 30 ML UNIT-DOSE CUP PO PRN (06:19)
[2022-04-17] MEDS ORDERED: NALOXONE HCL (KLOXXADO) 8 MG SPRAY NS PRN (06:19)
[2022-04-17] MEDS ORDERED: NICOTINE POLACRILEX 2 MG GUM BUC PRN (06:19)
[2022-04-17] MEDS ORDERED: POLYETHYLENE GLYCOL (HEALTHYLAX) 3350 17 GM PACKET PO PRN (06:19)
[2022-04-17] MEDS ORDERED: DICYCLOMINE HCL 10 MG CAPSULE PO PRN (06:19)
[2022-04-17] MEDS ORDERED: BENZOCAINE/MENTHOL (CHLORASEPTIC ) LOZENGE MM PRN (06:19)
[2022-04-17] MEDS ORDERED: ACETAMINOPHEN 325 MG TABLET (FP) PO PRN ×2 (06:19)
[2022-04-17] MEDS ORDERED: NALOXONE HCL 0.4 MG/ML VIAL IM PRN (06:19)
[2022-04-17] MEDS ORDERED: MELATONIN 5 MG TABLETS PO PRN (06:19)
[2022-04-17] MEDS ORDERED: ONDANSETRON *ODT* 4 MG TABLET SL PRN (06:19)
[2022-04-17] MEDS ORDERED: P-EPHED 60MG/TRIPROLIDI 2.5MG TABLET PO PRN (06:19)
[2022-04-17] MEDS ORDERED: IBUPROFEN 600 MG TABLET (FP) PO PRN (06:19)
[2022-04-17] MEDS ORDERED: LOPERAMIDE HCL 2 MG CAPSULE PO PRN (06:19)
[2022-04-17] MEDS ORDERED: METHOCARBAMOL 500 MG TABLET PO PRN (06:19)
[2022-04-17] MEDS ORDERED: guaiFENesin 200 MG/10 ML 10 ML UNIT-DOSE CUPS PO PRN (06:19)
[2022-04-17] MEDS ORDERED: BISMUTH SUBSALICYLATE 524 MG/30 ML PO PRN (06:19)
[2022-04-17] MEDS ORDERED: diazePAM 5 MG TABLET PO ONE (06:22)
[2022-04-17] MEDS ORDERED: diazePAM 5 MG TABLET PO PRN (06:22)
[2022-04-17] MEDS ORDERED: methaDONE HCL 10 MG TABLET (FOR DETOX USE ONLY) PO ONE (06:23)
[2022-04-17] MEDS ORDERED: cloNIDine HCL 0.1 MG TABLET PO PRN (06:23)
[2022-04-17] MEDS: PRENATAL VITAMINS W/ FOLIC ACID TABLET (FP) PO SCH (10:39)
[2022-04-17] MEDS: diazePAM 5 MG TABLET PO SCH ×3 (10:40→22:07)
[2022-04-17] MEDS: NICOTINE 14 MG/24 HOURS TOPICAL PATCH TD SCH (10:40)
[2022-04-17] MEDS: FLUoxetine HCL 20 MG CAPSULE PO SCH (12:19)
[2022-04-17] MEDS: QUEtiapine FUMARATE 100 MG TABLET (FP) PO SCH (12:19)
[2022-04-17] MEDS ORDERED: QUEtiapine FUMARATE 200 MG TABLET PO SCH (22:00)
[2022-04-17] MEDS ORDERED: THIAMINE HCL 100 MG TABLET (FP) PO SCH (22:00)
[2022-04-17] MEDS: busPIRone HCL 10 MG TABLET (FP) PO SCH (22:08)
[2022-04-18 06:51] VITALS: PULSE 69
[2022-04-18] MEDS: diazePAM 5 MG TABLET PO SCH ×2 (07:01→10:01)
[2022-04-18 08:57] VITALS: BP 116/59; RESP 16; TEMP 98
[2022-04-18] MEDS: NICOTINE 14 MG/24 HOURS TOPICAL PATCH TD SCH (09:03)
[2022-04-18] MEDS: busPIRone HCL 10 MG TABLET (FP) PO SCH (09:04)
[2022-04-18] MEDS: FLUoxetine HCL 20 MG CAPSULE PO SCH (09:04)
[2022-04-18] MEDS: QUEtiapine FUMARATE 100 MG TABLET (FP) PO SCH (09:06)
[2022-04-18] MEDS: PRENATAL VITAMINS W/ FOLIC ACID TABLET (FP) PO SCH (09:08)
[2022-04-18] MEDS ORDERED: NICOTINE 10 MG CARTRIDGE (INHALER) IH PRN (10:01)
[2022-04-19] MEDS ORDERED: diazePAM 5 MG TABLET PO SCH (06:00)
[2022-04-19] MEDS ORDERED: methaDONE HCL 10 MG TABLET (FOR DETOX USE ONLY) PO ONE (10:00)
[2022-04-20] MEDS ORDERED: diazePAM 5 MG TABLET PO SCH (06:00)
[2022-04-21] MEDS ORDERED: diazePAM 5 MG TABLET PO ONE (06:00)
[2022-04-21] MEDS ORDERED: methaDONE HCL 10 MG TABLET (FOR DETOX USE ONLY) PO ONE (10:00)
== END 2022-04-18 11:43 | disposition left against medical advice (07) | DRG 770 ==
LOC: YASAS 05:41 → Y3N 06:40
PROVIDERS: ADMIT Allergy & Immunology; ATTEND Allergy & Immunology
PROC: HZ2ZZZZ Detoxification Services for Substance Abuse Treatment (ICD-10-PCS; principal; 2022-04-17)
DX: F11.23 Opioid dependence with withdrawal (principal); F13.20 Sedative, hypnotic or anxiolytic dependence, uncomplicated; F14.20 Cocaine dependence, uncomplicated; F17.210 Nicotine dependence, cigarettes, uncomplicated; F19.24 Other psychoactive substance dependence with psychoactive substance-induced mood disorder; F31.9 Bipolar disorder, unspecified; G62.9 Polyneuropathy, unspecified; Z86.19 Personal history of other infectious and parasitic diseases; Z56.0 Unemployment, unspecified; Z59.00 Homelessness unspecified
CPT/HCPCS: C9803-CS; U0003; U0005

== ENCOUNTER 2022-09-21 17:56 | Inpatient (IN) | payer OTHER ==
[2022-09-21 18:40] VITALS: BMI 23.8
[2022-09-21] MEDS ORDERED: ACETAMINOPHEN 325 MG TABLET (FP) PO PRN (20:52)
[2022-09-21] MEDS ORDERED: IBUPROFEN 400 MG TABLET (FP) PO PRN (20:52)
[2022-09-21] MEDS ORDERED: NALOXONE HCL 0.4 MG/ML VIAL IM PRN (20:52)
[2022-09-21] MEDS ORDERED: LOPERAMIDE HCL 2 MG CAPSULE PO PRN (20:52)
[2022-09-21] MEDS ORDERED: BENZONATATE 200 MG CAPSULE PO PRN (20:52)
[2022-09-21] MEDS ORDERED: DICYCLOMINE HCL 10 MG CAPSULE PO PRN (20:52)
[2022-09-21] MEDS ORDERED: POLYETHYLENE GLYCOL (HEALTHYLAX) 3350 17 GM PACKET PO PRN (20:52)
[2022-09-21] MEDS ORDERED: hydrOXYzine PAMOATE 25 MG CAPSULE (FP) PO PRN (20:52)
[2022-09-21] MEDS ORDERED: MAG HYDROX/AL HYDROX/SIMETH 30 ML UNIT-DOSE CUP PO PRN (20:52)
[2022-09-21] MEDS ORDERED: IBUPROFEN 600 MG TABLET (FP) PO PRN (20:52)
[2022-09-21] MEDS ORDERED: guaiFENesin 600 MG TABLET.ER (FP) PO PRN (20:52)
[2022-09-21] MEDS ORDERED: NALOXONE HCL (KLOXXADO) 8 MG SPRAY NS PRN (20:52)
[2022-09-21] MEDS ORDERED: MAGNESIUM HYDROX 2400MG/30ML ORAL SUSPENSION 30 ML CUP PO PRN (20:52)
[2022-09-21] MEDS ORDERED: ONDANSETRON *ODT* 4 MG TABLET SL PRN (20:52)
[2022-09-21] MEDS ORDERED: P-EPHED 60MG/TRIPROLIDI 2.5MG TABLET PO PRN (20:52)
[2022-09-21] MEDS ORDERED: NICOTINE POLACRILEX 2 MG GUM BUC PRN (20:52)
[2022-09-21] MEDS ORDERED: BISMUTH SUBSALICYLATE 524 MG/30 ML PO PRN (20:52)
[2022-09-21] MEDS ORDERED: BENZOCAINE/MENTHOL (CHLORASEPTIC ) LOZENGE MM PRN (20:52)
[2022-09-21] MEDS ORDERED: MELATONIN 5 MG TABLETS PO SCH (22:00)
[2022-09-21] MEDS: THIAMINE HCL 100 MG TABLET (FP) PO SCH (23:44)
[2022-09-22] MEDS ORDERED: NICOTINE 7 MG/24 HOURS TOPICAL PATCH TD SCH (10:00)
[2022-09-22] MEDS ORDERED: PRENATAL VITAMINS W/ FOLIC ACID TABLET (FP) PO SCH (10:00)
[2022-09-22] MEDS ORDERED: methaDONE HCL 10 MG TABLET (FOR DETOX USE ONLY) PO ONE (10:00)
[2022-09-22] MEDS: METHOCARBAMOL 500 MG TABLET PO PRN ×2 (10:11→17:49)
[2022-09-22 11:41] LABS: HEMATOCRIT 39.5 % (35.4-49); MCH 31.5 pg (25.7-33.7); MCHC 35.6 g/dl (32.0-35.9); MEAN CELL VOLUME 88.5 fl (80-96); MEAN PLT VOLUME 8.8 fl (7.5-11.1); PLATELET COUNT 233 10^3/uL (134-434); RBC 4.46 M/mm3 (4.00-5.60); RDW 13.4 % (11.9-15.9); WHITE BLOOD COUNT 3.7 K/mm3 (4.0-10.0)
[2022-09-22 12:11] LABS: POTASSIUM 4.1 mmol/L (3.5-5.1)
[2022-09-22 12:28] LABS: CALCIUM 8.9 mg/dL (8.5-10.1)
[2022-09-22 12:29] LABS: ALBUMIN 3.2 g/dl (3.4-5.0); BLOOD UREA NITROGEN 10.7 mg/dL (7-18)
[2022-09-22 12:32] LABS: CREATININE 0.9 mg/dL (0.55-1.3)
[2022-09-22 12:33] LABS: BILIRUBIN,TOTAL 1.2 mg/dL (0.2-1)
[2022-09-22] MEDS ORDERED: NICOTINE 21 MG/24 HOURS TOPICAL PATCH TD SCH (12:33)
[2022-09-22] MEDS ORDERED: NICOTINE POLACRILEX 4 MG GUM BUC PRN (12:33)
[2022-09-22] MEDS: NICOTINE 10 MG CARTRIDGE (INHALER) IH PRN ×2 (13:13→18:03)
[2022-09-22 17:56] VITALS: RESP 17
[2022-09-22] MEDS ORDERED: QUEtiapine FUMARATE 200 MG TABLET PO SCH (22:00)
[2022-09-22] MEDS: THIAMINE HCL 100 MG TABLET (FP) PO SCH (23:07)
[2022-09-23 07:15] VITALS: BP 134/63; PULSE 82; TEMP 97.6
[2022-09-24] MEDS ORDERED: methaDONE HCL 10 MG TABLET (FOR DETOX USE ONLY) PO ONE (10:00)
[2022-09-26] MEDS ORDERED: methaDONE HCL 10 MG TABLET (FOR DETOX USE ONLY) PO ONE (10:00)
== END 2022-09-23 06:18 | disposition left against medical advice (07) | DRG 770 ==
LOC: YASAS 17:56 → Y6N 22:57 → UNDOADMIN 22:57 → Y6N 09-22 08:14
PROVIDERS: ADMIT Allergy & Immunology; ATTEND Surgery
PROC: HZ2ZZZZ Detoxification Services for Substance Abuse Treatment (ICD-10-PCS; principal; 2022-09-21)
DX: F11.23 Opioid dependence with withdrawal (principal); F14.20 Cocaine dependence, uncomplicated; F12.20 Cannabis dependence, uncomplicated; F17.210 Nicotine dependence, cigarettes, uncomplicated; F31.9 Bipolar disorder, unspecified; F19.282 Other psychoactive substance dependence with psychoactive substance-induced sleep disorder; F19.24 Other psychoactive substance dependence with psychoactive substance-induced mood disorder; F43.10 Post-traumatic stress disorder, unspecified; G62.9 Polyneuropathy, unspecified; Z62.810 Personal history of physical and sexual abuse in childhood; Z56.0 Unemployment, unspecified; Z59.00 Homelessness unspecified
CPT/HCPCS: 36415; 80053; 85027; 86780; C9803-CS; U0003; U0005

== ENCOUNTER 2022-09-23 20:34 | Inpatient (IN) | payer OTHER ==
[2022-09-23 21:05] VITALS: BMI 23.7
[2022-09-23] MEDS ORDERED: LOPERAMIDE HCL 2 MG CAPSULE PO PRN (22:08)
[2022-09-23] MEDS ORDERED: BENZONATATE 200 MG CAPSULE PO PRN (22:08)
[2022-09-23] MEDS ORDERED: P-EPHED 60MG/TRIPROLIDI 2.5MG TABLET PO PRN (22:08)
[2022-09-23] MEDS ORDERED: ONDANSETRON *ODT* 4 MG TABLET SL PRN (22:08)
[2022-09-23] MEDS ORDERED: BENZOCAINE/MENTHOL (CHLORASEPTIC ) LOZENGE MM PRN (22:08)
[2022-09-23] MEDS ORDERED: DICYCLOMINE HCL 10 MG CAPSULE PO PRN (22:08)
[2022-09-23] MEDS ORDERED: POLYETHYLENE GLYCOL (HEALTHYLAX) 3350 17 GM PACKET PO PRN (22:08)
[2022-09-23] MEDS ORDERED: guaiFENesin 600 MG TABLET.ER (FP) PO PRN (22:08)
[2022-09-23] MEDS ORDERED: NALOXONE HCL (KLOXXADO) 8 MG SPRAY NS PRN (22:08)
[2022-09-23] MEDS ORDERED: MAGNESIUM HYDROX 2400MG/30ML ORAL SUSPENSION 30 ML CUP PO PRN (22:08)
[2022-09-23] MEDS ORDERED: BISMUTH SUBSALICYLATE 524 MG/30 ML PO PRN (22:08)
[2022-09-23] MEDS ORDERED: NICOTINE POLACRILEX 4 MG GUM BUC PRN (22:08)
[2022-09-23] MEDS ORDERED: IBUPROFEN 400 MG TABLET (FP) PO PRN (22:08)
[2022-09-23] MEDS ORDERED: MAG HYDROX/AL HYDROX/SIMETH 30 ML UNIT-DOSE CUP PO PRN (22:08)
[2022-09-23] MEDS ORDERED: IBUPROFEN 600 MG TABLET (FP) PO PRN (22:08)
[2022-09-23] MEDS ORDERED: NALOXONE HCL 0.4 MG/ML VIAL IM PRN (22:08)
[2022-09-23] MEDS ORDERED: methaDONE HCL 10 MG TABLET (FOR DETOX USE ONLY) PO ONE (22:11)
[2022-09-23] MEDS ORDERED: cloNIDine HCL 0.1 MG TABLET PO PRN (22:11)
[2022-09-24] MEDS: METHOCARBAMOL 500 MG TABLET PO PRN ×2 (02:03→10:14)
[2022-09-24] MEDS: hydrOXYzine PAMOATE 25 MG CAPSULE (FP) PO PRN ×2 (02:03→10:14)
[2022-09-24] MEDS: diazePAM 5 MG TABLET PO PRN ×3 (02:03→20:32)
[2022-09-24] MEDS ORDERED: methaDONE HCL 10 MG TABLET (FOR DETOX USE ONLY) PO ONE ×3 (02:09→10:00)
[2022-09-24] MEDS: PRENATAL VITAMINS W/ FOLIC ACID TABLET (FP) PO SCH (10:13)
[2022-09-24] MEDS: NICOTINE 21 MG/24 HOURS TOPICAL PATCH TD SCH (10:15)
[2022-09-24 14:13] LABS: HIV INTERPRETATION NEGATIVE (NEGATIVE)
[2022-09-24] MEDS ORDERED: MELATONIN 5 MG TABLETS PO SCH (22:00)
[2022-09-24] MEDS: QUEtiapine FUMARATE 200 MG TABLET PO SCH (22:11)
[2022-09-24] MEDS: THIAMINE HCL 100 MG TABLET (FP) PO SCH (22:11)
[2022-09-25] MEDS ORDERED: QUEtiapine FUMARATE 300 MG TABLET PO SCH (07:00)
[2022-09-25] MEDS ORDERED: QUEtiapine FUMARATE 100 MG TABLET (FP) PO SCH (07:05)
[2022-09-25] MEDS: QUEtiapine FUMARATE 100 MG TABLET (FP) PO SCH (07:13)
[2022-09-25] MEDS: ACETAMINOPHEN 325 MG TABLET (FP) PO PRN (07:14)
[2022-09-25] MEDS ORDERED: methaDONE HCL 10 MG TABLET (FOR DETOX USE ONLY) PO ONE (10:00)
[2022-09-25] MEDS: PRENATAL VITAMINS W/ FOLIC ACID TABLET (FP) PO SCH (10:50)
[2022-09-25] MEDS: NICOTINE 21 MG/24 HOURS TOPICAL PATCH TD SCH (10:50)
[2022-09-25] MEDS: diazePAM 5 MG TABLET PO PRN (20:05)
[2022-09-25] MEDS: THIAMINE HCL 100 MG TABLET (FP) PO SCH (22:27)
[2022-09-25] MEDS: QUEtiapine FUMARATE 200 MG TABLET PO SCH (22:27)
[2022-09-26] MEDS: QUEtiapine FUMARATE 100 MG TABLET (FP) PO SCH (06:11)
[2022-09-26] MEDS: ACETAMINOPHEN 325 MG TABLET (FP) PO PRN (06:11)
[2022-09-26] MEDS ORDERED: methaDONE HCL 10 MG TABLET (FOR DETOX USE ONLY) PO ONE ×2 (10:00)
[2022-09-26] MEDS: NICOTINE 21 MG/24 HOURS TOPICAL PATCH TD SCH (10:56)
[2022-09-26] MEDS: PRENATAL VITAMINS W/ FOLIC ACID TABLET (FP) PO SCH (10:56)
[2022-09-26] MEDS: METHOCARBAMOL 500 MG TABLET PO PRN (10:57)
[2022-09-26] MEDS: hydrOXYzine PAMOATE 25 MG CAPSULE (FP) PO PRN ×2 (10:57→19:37)
[2022-09-26] MEDS: diazePAM 5 MG TABLET PO PRN (16:53)
[2022-09-26 17:26] VITALS: RESP 18
[2022-09-26 18:30] LABS: PH,URINE 6.5 (5.0-8.0); URINE APPEARANCE CLEAR; URINE BILIRUBIN NEGATIVE (NEGATIVE); URINE COLOR YELLOW; URINE GLUCOSE (UA) NEGATIVE (NEGATIVE); URINE KETONE NEGATIVE (NEGATIVE); URINE LEUK ESTERASE NEGATIVE (NEGATIVE); URINE NITRITE NEGATIVE (NEGATIVE); URINE PROTEIN NEGATIVE (NEGATIVE)
[2022-09-27] MEDS: THIAMINE HCL 100 MG TABLET (FP) PO SCH (00:10)
[2022-09-27] MEDS: QUEtiapine FUMARATE 200 MG TABLET PO SCH (00:10)
[2022-09-27] MEDS ORDERED: methaDONE HCL 10 MG TABLET (FOR DETOX USE ONLY) PO ONE (06:00)
[2022-09-27] MEDS: QUEtiapine FUMARATE 100 MG TABLET (FP) PO SCH (06:15)
[2022-09-27] MEDS: METHOCARBAMOL 500 MG TABLET PO PRN (09:31)
[2022-09-27] MEDS: PRENATAL VITAMINS W/ FOLIC ACID TABLET (FP) PO SCH (09:31)
[2022-09-27] MEDS: hydrOXYzine PAMOATE 25 MG CAPSULE (FP) PO PRN (09:31)
[2022-09-27] MEDS: NICOTINE 21 MG/24 HOURS TOPICAL PATCH TD SCH (09:32)
[2022-09-27 10:54] LABS: POTASSIUM 4.1 mmol/L (3.5-5.1)
[2022-09-27 10:58] LABS: HEMATOCRIT 39.9 % (35.4-49); HEMOGLOBIN 13.2 GM/dL (11.7-16.9); MCH 30.2 pg (25.7-33.7); MEAN CELL VOLUME 91.4 fl (80-96); MEAN PLT VOLUME 8.8 fl (7.5-11.1); PLATELET COUNT 193 10^3/uL (134-434); RBC 4.37 M/mm3 (4.00-5.60); RDW 13.2 % (11.9-15.9); WHITE BLOOD COUNT 5.5 K/mm3 (4.0-10.0)
[2022-09-27 10:59] LABS: CALCIUM 9.1 mg/dL (8.5-10.1)
[2022-09-27 11:00] LABS: ALBUMIN 2.9 g/dl (3.4-5.0)
[2022-09-27 11:04] LABS: TOT PROT 6.1 g/dl (6.4-8.2)
[2022-09-27 11:05] LABS: BILIRUBIN,TOTAL 0.5 mg/dL (0.2-1)
[2022-09-27 13:02] VITALS: BP 149/79; PULSE 74; TEMP 97.6
== END 2022-09-27 12:25 | disposition other institution (70) | DRG 773 ==
LOC: YASAS 20:34 → Y6N 09-24 01:23
PROVIDERS: ADMIT Allergy & Immunology; ATTEND Allergy & Immunology
PROC: HZ2ZZZZ Detoxification Services for Substance Abuse Treatment (ICD-10-PCS; principal; 2022-09-24)
DX: F11.23 Opioid dependence with withdrawal (principal); F14.20 Cocaine dependence, uncomplicated; F12.20 Cannabis dependence, uncomplicated; F17.210 Nicotine dependence, cigarettes, uncomplicated; F31.9 Bipolar disorder, unspecified; F19.282 Other psychoactive substance dependence with psychoactive substance-induced sleep disorder; F19.24 Other psychoactive substance dependence with psychoactive substance-induced mood disorder; F43.10 Post-traumatic stress disorder, unspecified; G62.9 Polyneuropathy, unspecified; J02.9 Acute pharyngitis, unspecified; R50.9 Fever, unspecified; Z62.810 Personal history of physical and sexual abuse in childhood; Z59.00 Homelessness unspecified; Z56.0 Unemployment, unspecified; Z86.19 Personal history of other infectious and parasitic diseases
CPT/HCPCS: 36415; 80053; 81003; 85027; 87389; 87635

== ENCOUNTER 2022-09-27 12:31 | Inpatient (IN) | payer OTHER ==
[2022-09-27] MEDS ORDERED: hydrOXYzine PAMOATE 25 MG CAPSULE (FP) PO PRN (13:15)
[2022-09-27] MEDS ORDERED: NICOTINE 21 MG/24 HOURS TOPICAL PATCH TD PRN (13:15)
[2022-09-27] MEDS ORDERED: LOPERAMIDE HCL 2 MG CAPSULE PO PRN (13:15)
[2022-09-27] MEDS ORDERED: BENZOCAINE/MENTHOL (CHLORASEPTIC ) LOZENGE MM PRN (13:15)
[2022-09-27] MEDS ORDERED: MAGNESIUM HYDROX 2400MG/30ML ORAL SUSPENSION 30 ML CUP PO PRN (13:15)
[2022-09-27] MEDS ORDERED: AMMONIUM LACTATE 12% LOTION 225 GM BOTTLE TP PRN (13:15)
[2022-09-27] MEDS ORDERED: MAG HYDROX/AL HYDROX/SIMETH 30 ML UNIT-DOSE CUP PO PRN (13:15)
[2022-09-27] MEDS ORDERED: POLYETHYLENE GLYCOL (HEALTHYLAX) 3350 17 GM PACKET PO PRN (13:15)
[2022-09-27] MEDS ORDERED: NICOTINE 10 MG CARTRIDGE (INHALER) IH PRN (13:15)
[2022-09-27] MEDS ORDERED: BACLOFEN 10 MG TABLET (FP) PO PRN (13:15)
[2022-09-27] MEDS ORDERED: NALOXONE HCL 0.4 MG/ML VIAL IVPUSH PRN (13:15)
[2022-09-27] MEDS ORDERED: COLLOIDAL OATMEAL 1 BAR EACH TP PRN (13:15)
[2022-09-27] MEDS ORDERED: IBUPROFEN 400 MG TABLET (FP) PO PRN (13:15)
[2022-09-27] MEDS ORDERED: ACETAMINOPHEN 325 MG TABLET (FP) PO PRN (13:15)
[2022-09-27] MEDS ORDERED: NALOXONE HCL (KLOXXADO) 8 MG SPRAY NS PRN (13:15)
[2022-09-27] MEDS ORDERED: IBUPROFEN 600 MG TABLET (FP) PO PRN (13:15)
[2022-09-27] MEDS ORDERED: BENZONATATE 200 MG CAPSULE PO PRN (13:15)
[2022-09-27] MEDS ORDERED: guaiFENesin 600 MG TABLET.ER (FP) PO PRN (13:15)
[2022-09-27] MEDS ORDERED: BUPRENORPHINE HCL 150 MCG FILM BC ONE (14:30)
[2022-09-27 15:37] VITALS: RESP 18
[2022-09-27 18:20] VITALS: BP 137/79; PULSE 77; TEMP 97.1
[2022-09-27] MEDS ORDERED: buPROPion HCL 100 MG TABLET PO SCH (22:00)
[2022-09-27] MEDS ORDERED: MELATONIN 5 MG TABLETS PO SCH (22:00)
[2022-09-27] MEDS ORDERED: THIAMINE HCL 100 MG TABLET (FP) PO SCH (22:00)
[2022-09-27] MEDS ORDERED: QUEtiapine FUMARATE 200 MG TABLET PO SCH (22:00)
[2022-09-28] MEDS ORDERED: QUEtiapine FUMARATE 100 MG TABLET (FP) PO SCH (07:00)
[2022-09-28] MEDS ORDERED: buPROPion HCL 100 MG TABLET PO SCH (09:00)
[2022-09-28] MEDS ORDERED: PRENATAL VITAMINS W/ FOLIC ACID TABLET (FP) PO SCH (10:00)
[2022-09-28] MEDS ORDERED: BUPRENORPHINE HCL 150 MCG FILM BC SCH (10:00)
[2022-09-29] MEDS ORDERED: BUPRENORPHINE HCL 150 MCG FILM BC SCH (10:00)
[2022-09-30] MEDS ORDERED: BUPRENORPHINE HCL 450 MCG FILM BC SCH (10:00)
[2022-10-01] MEDS ORDERED: BUPRENORPHINE/NALOXONE 2 MG/0.5 MG FILM PACKET SL SCH (10:00)
== END 2022-09-27 18:30 | disposition left against medical advice (07) | DRG 770 ==
LOC: YASAS 12:31 → Y3W 12:32 → Y3E 15:16
PROVIDERS: ADMIT Allergy & Immunology; ATTEND Psychiatry & Neurology Pain Medicine
PROC: HZ42ZZZ Group Counseling for Substance Abuse Treatment, Cognitive-Behavioral (ICD-10-PCS; principal; 2022-09-27)
DX: F11.20 Opioid dependence, uncomplicated (principal); F14.20 Cocaine dependence, uncomplicated; F12.20 Cannabis dependence, uncomplicated; F17.210 Nicotine dependence, cigarettes, uncomplicated
CPT/HCPCS: 36415; 86803; 87522; J0475

== ENCOUNTER 2022-10-18 19:36 | Inpatient (IN) | payer OTHER ==
[2022-10-18 20:25] VITALS: BMI 23.1
[2022-10-18] MEDS ORDERED: NICOTINE POLACRILEX 2 MG GUM BUC PRN (22:22)
[2022-10-18] MEDS ORDERED: NICOTINE 10 MG CARTRIDGE (INHALER) IH PRN (22:22)
[2022-10-18] MEDS ORDERED: BISMUTH SUBSALICYLATE 524 MG/30 ML PO PRN (22:22)
[2022-10-18] MEDS ORDERED: IBUPROFEN 400 MG TABLET (FP) PO PRN (22:22)
[2022-10-18] MEDS ORDERED: NALOXONE HCL (KLOXXADO) 8 MG SPRAY NS PRN (22:22)
[2022-10-18] MEDS ORDERED: LOPERAMIDE HCL 2 MG CAPSULE PO PRN (22:22)
[2022-10-18] MEDS ORDERED: MAG HYDROX/AL HYDROX/SIMETH 30 ML UNIT-DOSE CUP PO PRN (22:22)
[2022-10-18] MEDS ORDERED: POLYETHYLENE GLYCOL (HEALTHYLAX) 3350 17 GM PACKET PO PRN (22:22)
[2022-10-18] MEDS ORDERED: DICYCLOMINE HCL 10 MG CAPSULE PO PRN (22:22)
[2022-10-18] MEDS ORDERED: ACETAMINOPHEN 325 MG TABLET (FP) PO PRN (22:22)
[2022-10-18] MEDS ORDERED: guaiFENesin 600 MG TABLET.ER (FP) PO PRN (22:22)
[2022-10-18] MEDS ORDERED: BENZONATATE 200 MG CAPSULE PO PRN (22:22)
[2022-10-18] MEDS ORDERED: IBUPROFEN 600 MG TABLET (FP) PO PRN (22:22)
[2022-10-18] MEDS ORDERED: P-EPHED 60MG/TRIPROLIDI 2.5MG TABLET PO PRN (22:22)
[2022-10-18] MEDS ORDERED: ONDANSETRON *ODT* 4 MG TABLET SL PRN (22:22)
[2022-10-18] MEDS ORDERED: BENZOCAINE/MENTHOL (CHLORASEPTIC ) LOZENGE MM PRN (22:22)
[2022-10-18] MEDS ORDERED: MAGNESIUM HYDROX 2400MG/30ML ORAL SUSPENSION 30 ML CUP PO PRN (22:22)
[2022-10-18] MEDS ORDERED: NALOXONE HCL 0.4 MG/ML VIAL IM PRN (22:22)
[2022-10-18] MEDS ORDERED: cloNIDine HCL 0.1 MG TABLET PO PRN (22:25)
[2022-10-19] MEDS ORDERED: diazePAM 5 MG TABLET ONE (01:20)
[2022-10-19] MEDS ORDERED: hydrOXYzine PAMOATE 25 MG CAPSULE (FP) PO ONE (01:20)
[2022-10-19] MEDS: hydrOXYzine PAMOATE 25 MG CAPSULE (FP) PO PRN (01:23)
[2022-10-19] MEDS: diazePAM 5 MG TABLET PO PRN ×2 (01:23→12:51)
[2022-10-19] MEDS: METHOCARBAMOL 500 MG TABLET PO PRN (02:27)
[2022-10-19] MEDS ORDERED: methaDONE HCL 10 MG TABLET (FOR DETOX USE ONLY) PO ONE ×2 (10:00)
[2022-10-19] MEDS: PRENATAL VITAMINS W/ FOLIC ACID TABLET (FP) PO SCH (10:29)
[2022-10-19 11:18] LABS: HEMATOCRIT 41.2 % (35.4-49); HEMOGLOBIN 13.8 GM/dL (11.7-16.9); MCH 29.8 pg (25.7-33.7); MCHC 33.5 g/dl (32.0-35.9); MEAN CELL VOLUME 88.9 fl (80-96); MEAN PLT VOLUME 8.6 fl (7.5-11.1); PLATELET COUNT 214 10^3/uL (134-434); RBC 4.63 M/mm3 (4.00-5.60); RDW 14.2 % (11.9-15.9); WHITE BLOOD COUNT 3.7 K/mm3 (4.0-10.0)
[2022-10-19 11:39] LABS: POTASSIUM 3.9 mmol/L (3.5-5.1)
[2022-10-19 11:41] LABS: CALCIUM 8.9 mg/dL (8.5-10.1)
[2022-10-19 11:42] LABS: ALBUMIN 3.2 g/dl (3.4-5.0); BLOOD UREA NITROGEN 15.7 mg/dL (7-18)
[2022-10-19 11:45] LABS: CREATININE 1.1 mg/dL (0.55-1.3)
[2022-10-19 11:46] LABS: BILIRUBIN,TOTAL 1.1 mg/dL (0.2-1); TOT PROT 6.1 g/dl (6.4-8.2)
[2022-10-19] MEDS ORDERED: NICOTINE 14 MG/24 HOURS TOPICAL PATCH TD SCH (12:00)
[2022-10-19] MEDS: MELATONIN 5 MG TABLETS PO SCH (22:36)
[2022-10-19] MEDS: QUEtiapine FUMARATE 200 MG TABLET PO SCH (22:36)
[2022-10-19] MEDS: THIAMINE HCL 100 MG TABLET (FP) PO SCH (22:37)
[2022-10-20] MEDS: PRENATAL VITAMINS W/ FOLIC ACID TABLET (FP) PO SCH (10:25)
[2022-10-20] MEDS: QUEtiapine FUMARATE 100 MG TABLET (FP) PO SCH (10:25)
[2022-10-20] MEDS: NICOTINE 21 MG/24 HOURS TOPICAL PATCH TD SCH (10:28)
[2022-10-20] MEDS: diazePAM 5 MG TABLET PO PRN ×2 (14:10→22:24)
[2022-10-20] MEDS: hydrOXYzine PAMOATE 25 MG CAPSULE (FP) PO PRN (17:26)
[2022-10-20] MEDS: METHOCARBAMOL 500 MG TABLET PO PRN (17:26)
[2022-10-20] MEDS: THIAMINE HCL 100 MG TABLET (FP) PO SCH (22:23)
[2022-10-20] MEDS: MELATONIN 5 MG TABLETS PO SCH (22:23)
[2022-10-20] MEDS: QUEtiapine FUMARATE 200 MG TABLET PO SCH (22:23)
[2022-10-21] MEDS ORDERED: methaDONE HCL 10 MG TABLET (FOR DETOX USE ONLY) PO ONE ×2 (10:00)
[2022-10-21] MEDS: QUEtiapine FUMARATE 100 MG TABLET (FP) PO SCH (10:11)
[2022-10-21] MEDS: NICOTINE 21 MG/24 HOURS TOPICAL PATCH TD SCH (10:11)
[2022-10-21] MEDS: PRENATAL VITAMINS W/ FOLIC ACID TABLET (FP) PO SCH (10:11)
[2022-10-21 13:30] VITALS: RESP 18
[2022-10-21] MEDS: diazePAM 5 MG TABLET PO PRN (13:40)
[2022-10-21] MEDS: MELATONIN 5 MG TABLETS PO SCH (21:44)
[2022-10-21] MEDS: THIAMINE HCL 100 MG TABLET (FP) PO SCH (21:44)
[2022-10-21] MEDS: hydrOXYzine PAMOATE 25 MG CAPSULE (FP) PO PRN (21:44)
[2022-10-21] MEDS: QUEtiapine FUMARATE 200 MG TABLET PO SCH (21:44)
[2022-10-22 08:53] VITALS: BP 130/77; PULSE 90; TEMP 97.5
[2022-10-22] MEDS: QUEtiapine FUMARATE 100 MG TABLET (FP) PO SCH (10:17)
[2022-10-22] MEDS: METHOCARBAMOL 500 MG TABLET PO PRN (10:18)
[2022-10-22] MEDS: PRENATAL VITAMINS W/ FOLIC ACID TABLET (FP) PO SCH (10:18)
[2022-10-22] MEDS: NICOTINE 21 MG/24 HOURS TOPICAL PATCH TD SCH (10:19)
[2022-10-23] MEDS ORDERED: methaDONE HCL 10 MG TABLET (FOR DETOX USE ONLY) PO ONE ×2 (10:00)
== END 2022-10-22 13:33 | disposition left against medical advice (07) | DRG 770 ==
LOC: YASAS 19:36 → Y3N 10-19 02:02
PROVIDERS: ADMIT Allergy & Immunology; ATTEND Surgery
PROC: HZ2ZZZZ Detoxification Services for Substance Abuse Treatment (ICD-10-PCS; principal; 2022-10-19)
DX: F11.23 Opioid dependence with withdrawal (principal); F14.20 Cocaine dependence, uncomplicated; F16.20 Hallucinogen dependence, uncomplicated; F17.210 Nicotine dependence, cigarettes, uncomplicated; F19.24 Other psychoactive substance dependence with psychoactive substance-induced mood disorder; F31.9 Bipolar disorder, unspecified; G47.00 Insomnia, unspecified; Z62.810 Personal history of physical and sexual abuse in childhood; R63.4 Abnormal weight loss; Z68.23 Body mass index [BMI] 23.0-23.9, adult; Z86.19 Personal history of other infectious and parasitic diseases
CPT/HCPCS: 36415; 80053; 85027; 86780; 87635; 87811

== ENCOUNTER 2022-10-30 07:03 | Inpatient (IN) | payer OTHER ==
[2022-10-30 07:12] VITALS: BMI 22.4
[2022-10-30] MEDS ORDERED: NALOXONE HCL (KLOXXADO) 8 MG SPRAY NS PRN (07:19)
[2022-10-30] MEDS ORDERED: BENZOCAINE/MENTHOL (CHLORASEPTIC ) LOZENGE MM PRN (07:19)
[2022-10-30] MEDS ORDERED: NICOTINE POLACRILEX 2 MG GUM BUC PRN (07:19)
[2022-10-30] MEDS ORDERED: BISMUTH SUBSALICYLATE 524 MG/30 ML PO PRN (07:19)
[2022-10-30] MEDS ORDERED: LOPERAMIDE HCL 2 MG CAPSULE PO PRN (07:19)
[2022-10-30] MEDS ORDERED: ACETAMINOPHEN 325 MG TABLET (FP) PO PRN (07:19)
[2022-10-30] MEDS ORDERED: cloNIDine HCL 0.1 MG TABLET PO PRN (07:19)
[2022-10-30] MEDS ORDERED: DICYCLOMINE HCL 10 MG CAPSULE PO PRN (07:19)
[2022-10-30] MEDS ORDERED: MAG HYDROX/AL HYDROX/SIMETH 30 ML UNIT-DOSE CUP PO PRN (07:19)
[2022-10-30] MEDS ORDERED: methaDONE HCL 10 MG TABLET (FOR DETOX USE ONLY) PO ONE (07:19)
[2022-10-30] MEDS ORDERED: POLYETHYLENE GLYCOL (HEALTHYLAX) 3350 17 GM PACKET PO PRN (07:19)
[2022-10-30] MEDS ORDERED: NALOXONE HCL 0.4 MG/ML VIAL IM PRN (07:19)
[2022-10-30] MEDS ORDERED: MAGNESIUM HYDROX 2400MG/30ML ORAL SUSPENSION 30 ML CUP PO PRN (07:19)
[2022-10-30] MEDS ORDERED: IBUPROFEN 600 MG TABLET (FP) PO PRN (07:19)
[2022-10-30] MEDS ORDERED: IBUPROFEN 400 MG TABLET (FP) PO PRN (07:19)
[2022-10-30] MEDS ORDERED: P-EPHED 60MG/TRIPROLIDI 2.5MG TABLET PO PRN (07:19)
[2022-10-30] MEDS ORDERED: BENZONATATE 200 MG CAPSULE PO PRN (07:19)
[2022-10-30] MEDS ORDERED: NICOTINE 10 MG CARTRIDGE (INHALER) IH PRN (07:19)
[2022-10-30] MEDS ORDERED: guaiFENesin 600 MG TABLET.ER (FP) PO PRN (07:19)
[2022-10-30] MEDS ORDERED: ONDANSETRON *ODT* 4 MG TABLET SL PRN (07:19)
[2022-10-30] MEDS ORDERED: methaDONE HCL 10 MG TABLET (FOR DETOX USE ONLY) ONE (08:11)
[2022-10-30] MEDS: NICOTINE 14 MG/24 HOURS TOPICAL PATCH TD SCH (09:59)
[2022-10-30] MEDS: diazePAM 5 MG TABLET PO PRN ×3 (10:00→22:24)
[2022-10-30] MEDS: PRENATAL VITAMINS W/ FOLIC ACID TABLET (FP) PO SCH (10:02)
[2022-10-30] MEDS: QUEtiapine FUMARATE 100 MG TABLET (FP) PO SCH (22:24)
[2022-10-30] MEDS: THIAMINE HCL 100 MG TABLET (FP) PO SCH (22:24)
[2022-10-30] MEDS: MELATONIN 5 MG TABLETS PO SCH (22:25)
[2022-10-31] MEDS ORDERED: methaDONE HCL 10 MG TABLET (FOR DETOX USE ONLY) PO ONE (10:00)
[2022-10-31] MEDS ORDERED: QUEtiapine FUMARATE 50 MG TABLET PO SCH (10:00)
[2022-10-31] MEDS: NICOTINE 14 MG/24 HOURS TOPICAL PATCH TD SCH (10:38)
[2022-10-31] MEDS: PRENATAL VITAMINS W/ FOLIC ACID TABLET (FP) PO SCH (10:39)
[2022-10-31] MEDS: diazePAM 5 MG TABLET PO PRN ×2 (12:14→17:18)
[2022-10-31 18:37] VITALS: RESP 17
[2022-10-31 21:25] VITALS: BP 140/75; PULSE 75; TEMP 97.7
[2022-10-31] MEDS: QUEtiapine FUMARATE 100 MG TABLET (FP) PO SCH (22:49)
[2022-10-31] MEDS: MELATONIN 5 MG TABLETS PO SCH (22:49)
[2022-10-31] MEDS: THIAMINE HCL 100 MG TABLET (FP) PO SCH (22:49)
[2022-11-01] MEDS ORDERED: methaDONE HCL 10 MG TABLET (FOR DETOX USE ONLY) PO ONE (10:00)
[2022-11-03] MEDS ORDERED: methaDONE HCL 10 MG TABLET (FOR DETOX USE ONLY) PO ONE (10:00)
== END 2022-10-31 20:40 | disposition left against medical advice (07) | DRG 770 ==
LOC: YASAS 07:03 → Y6N 08:21
PROVIDERS: ADMIT Allergy & Immunology; ATTEND Surgery
PROC: HZ2ZZZZ Detoxification Services for Substance Abuse Treatment (ICD-10-PCS; principal; 2022-10-30)
DX: F11.23 Opioid dependence with withdrawal (principal); F14.20 Cocaine dependence, uncomplicated; F12.20 Cannabis dependence, uncomplicated; F17.210 Nicotine dependence, cigarettes, uncomplicated; F19.24 Other psychoactive substance dependence with psychoactive substance-induced mood disorder; F31.9 Bipolar disorder, unspecified; F43.10 Post-traumatic stress disorder, unspecified; Z59.00 Homelessness unspecified; Z88.8 Allergy status to other drugs, medicaments and biological substances

== ENCOUNTER 2022-11-15 20:23 | Inpatient (IN) | payer OTHER ==
[2022-11-15 22:18] VITALS: BMI 22.0
[2022-11-16] MEDS ORDERED: MAG HYDROX/AL HYDROX/SIMETH 30 ML UNIT-DOSE CUP PO PRN (01:10)
[2022-11-16] MEDS ORDERED: NALOXONE HCL 0.4 MG/ML VIAL IM PRN (01:10)
[2022-11-16] MEDS ORDERED: IBUPROFEN 600 MG TABLET (FP) PO PRN (01:10)
[2022-11-16] MEDS ORDERED: POLYETHYLENE GLYCOL (HEALTHYLAX) 3350 17 GM PACKET PO PRN (01:10)
[2022-11-16] MEDS ORDERED: LOPERAMIDE HCL 2 MG CAPSULE PO PRN (01:10)
[2022-11-16] MEDS ORDERED: BENZONATATE 200 MG CAPSULE PO PRN (01:10)
[2022-11-16] MEDS ORDERED: BENZOCAINE/MENTHOL (CHLORASEPTIC ) LOZENGE MM PRN (01:10)
[2022-11-16] MEDS ORDERED: BISMUTH SUBSALICYLATE 524 MG/30 ML PO PRN (01:10)
[2022-11-16] MEDS ORDERED: ONDANSETRON *ODT* 4 MG TABLET SL PRN (01:10)
[2022-11-16] MEDS ORDERED: ACETAMINOPHEN 325 MG TABLET (FP) PO PRN (01:10)
[2022-11-16] MEDS ORDERED: IBUPROFEN 400 MG TABLET (FP) PO PRN (01:10)
[2022-11-16] MEDS ORDERED: NALOXONE HCL (KLOXXADO) 8 MG SPRAY NS PRN (01:10)
[2022-11-16] MEDS ORDERED: DICYCLOMINE HCL 10 MG CAPSULE PO PRN (01:10)
[2022-11-16] MEDS ORDERED: guaiFENesin 600 MG TABLET.ER (FP) PO PRN (01:10)
[2022-11-16] MEDS ORDERED: MAGNESIUM HYDROX 2400MG/30ML ORAL SUSPENSION 30 ML CUP PO PRN (01:10)
[2022-11-16] MEDS ORDERED: cloNIDine HCL 0.1 MG TABLET PO PRN (01:15)
[2022-11-16] MEDS ORDERED: methaDONE HCL 10 MG TABLET (FOR DETOX USE ONLY) PO ONE ×2 (01:15→03:00)
[2022-11-16] MEDS: diazePAM 5 MG TABLET PO SCH ×4 (05:36→22:29)
[2022-11-16] MEDS: METHOCARBAMOL 500 MG TABLET PO PRN (05:37)
[2022-11-16] MEDS: NICOTINE 14 MG/24 HOURS TOPICAL PATCH TD SCH (10:23)
[2022-11-16] MEDS: PRENATAL VITAMINS W/ FOLIC ACID TABLET (FP) PO SCH (10:24)
[2022-11-16] MEDS: QUEtiapine FUMARATE 100 MG TABLET (FP) PO SCH ×2 (10:25→22:28)
[2022-11-16 11:22] LABS: HEMATOCRIT 41.9 % (35.4-49); MCH 29.6 pg (25.7-33.7); MCHC 33.3 g/dl (32.0-35.9); MEAN CELL VOLUME 88.8 fl (80-96); PLATELET COUNT 276 10^3/uL (134-434); RBC 4.72 M/mm3 (4.00-5.60); RDW 13.7 % (11.9-15.9); WHITE BLOOD COUNT 4.3 K/mm3 (4.0-10.0)
[2022-11-16 11:48] LABS: POTASSIUM 4.2 mmol/L (3.5-5.1)
[2022-11-16 12:19] LABS: CALCIUM 8.7 mg/dL (8.5-10.1)
[2022-11-16 12:20] LABS: ALBUMIN 3.1 g/dl (3.4-5.0); BLOOD UREA NITROGEN 11.9 mg/dL (7-18)
[2022-11-16 12:23] LABS: CREATININE 0.9 mg/dL (0.55-1.3)
[2022-11-16 12:24] LABS: BILIRUBIN,TOTAL 0.5 mg/dL (0.2-1)
[2022-11-16 12:25] LABS: TOT PROT 6.4 g/dl (6.4-8.2)
[2022-11-16] MEDS ORDERED: MELATONIN 5 MG TABLETS PO SCH (22:00)
[2022-11-16] MEDS: THIAMINE HCL 100 MG TABLET (FP) PO SCH (22:28)
[2022-11-17] MEDS: diazePAM 5 MG TABLET PO SCH ×3 (06:04→22:10)
[2022-11-17] MEDS: PRENATAL VITAMINS W/ FOLIC ACID TABLET (FP) PO SCH (09:52)
[2022-11-17] MEDS: NICOTINE 14 MG/24 HOURS TOPICAL PATCH TD SCH (09:52)
[2022-11-17] MEDS: diazePAM 5 MG TABLET PO PRN ×2 (09:53→17:24)
[2022-11-17] MEDS: QUEtiapine FUMARATE 100 MG TABLET (FP) PO SCH ×2 (09:54→22:10)
[2022-11-17] MEDS: METHOCARBAMOL 500 MG TABLET PO PRN (17:23)
[2022-11-17] MEDS: THIAMINE HCL 100 MG TABLET (FP) PO SCH (22:10)
[2022-11-18] MEDS: diazePAM 5 MG TABLET PO SCH ×2 (05:10→18:50)
[2022-11-18] MEDS: METHOCARBAMOL 500 MG TABLET PO PRN (09:42)
[2022-11-18] MEDS: diazePAM 5 MG TABLET PO PRN ×2 (09:43→14:06)
[2022-11-18] MEDS: QUEtiapine FUMARATE 100 MG TABLET (FP) PO SCH (09:43)
[2022-11-18] MEDS: PRENATAL VITAMINS W/ FOLIC ACID TABLET (FP) PO SCH (09:43)
[2022-11-18] MEDS: NICOTINE 14 MG/24 HOURS TOPICAL PATCH TD SCH (09:43)
[2022-11-18] MEDS ORDERED: methaDONE HCL 10 MG TABLET (FOR DETOX USE ONLY) PO ONE (10:00)
[2022-11-18] MEDS ORDERED: QUEtiapine FUMARATE 50 MG TABLET PO PRN (12:54)
[2022-11-18 16:31] VITALS: BP 133/60; PULSE 76; RESP 17; TEMP 97.1
[2022-11-18] MEDS ORDERED: QUEtiapine FUMARATE 100 MG TABLET (FP) PO SCH (22:00)
[2022-11-19] MEDS ORDERED: diazePAM 5 MG TABLET PO ONE (06:00)
[2022-11-20] MEDS ORDERED: methaDONE HCL 10 MG TABLET (FOR DETOX USE ONLY) PO ONE (10:00)
== END 2022-11-18 18:55 | disposition left against medical advice (07) | DRG 770 ==
LOC: YASAS 20:23 → Y6N 11-16 02:18
PROVIDERS: ADMIT Allergy & Immunology; ATTEND Surgery
PROC: HZ2ZZZZ Detoxification Services for Substance Abuse Treatment (ICD-10-PCS; principal; 2022-11-16)
DX: F11.23 Opioid dependence with withdrawal (principal); F13.230 Sedative, hypnotic or anxiolytic dependence with withdrawal, uncomplicated; F14.20 Cocaine dependence, uncomplicated; F12.20 Cannabis dependence, uncomplicated; F17.210 Nicotine dependence, cigarettes, uncomplicated; F31.9 Bipolar disorder, unspecified; G62.9 Polyneuropathy, unspecified; Z62.810 Personal history of physical and sexual abuse in childhood; Z86.19 Personal history of other infectious and parasitic diseases; Z56.0 Unemployment, unspecified; Z59.00 Homelessness unspecified
CPT/HCPCS: 36415; 80053; 85027; 86780; 93005; 93010

== ENCOUNTER 2022-11-19 10:45 | Inpatient (IN) | payer OTHER ==
[2022-11-19 12:07] VITALS: BMI 22.3
[2022-11-19] MEDS ORDERED: ACETAMINOPHEN 325 MG TABLET (FP) PO PRN (12:52)
[2022-11-19] MEDS ORDERED: AMMONIUM LACTATE 12% LOTION 225 GM BOTTLE TP PRN (12:52)
[2022-11-19] MEDS ORDERED: guaiFENesin 600 MG TABLET.ER (FP) PO PRN (12:52)
[2022-11-19] MEDS ORDERED: NALOXONE HCL 0.4 MG/ML VIAL IM PRN (12:52)
[2022-11-19] MEDS ORDERED: BENZOCAINE/MENTHOL (CHLORASEPTIC ) LOZENGE MM PRN (12:52)
[2022-11-19] MEDS ORDERED: IBUPROFEN 400 MG TABLET (FP) PO PRN (12:52)
[2022-11-19] MEDS ORDERED: MAGNESIUM HYDROX 2400MG/30ML ORAL SUSPENSION 30 ML CUP PO PRN (12:52)
[2022-11-19] MEDS ORDERED: NALOXONE HCL (KLOXXADO) 8 MG SPRAY NS PRN (12:52)
[2022-11-19] MEDS ORDERED: BENZONATATE 200 MG CAPSULE PO PRN (12:52)
[2022-11-19] MEDS ORDERED: COLLOIDAL OATMEAL 1 BAR EACH TP PRN (12:52)
[2022-11-19] MEDS ORDERED: MAG HYDROX/AL HYDROX/SIMETH 30 ML UNIT-DOSE CUP PO PRN (12:52)
[2022-11-19] MEDS ORDERED: LOPERAMIDE HCL 2 MG CAPSULE PO PRN (12:52)
[2022-11-19] MEDS ORDERED: POLYETHYLENE GLYCOL (HEALTHYLAX) 3350 17 GM PACKET PO PRN (12:52)
[2022-11-19 14:12] VITALS: RESP 18
[2022-11-19] MEDS: hydrOXYzine PAMOATE 25 MG CAPSULE (FP) PO PRN (14:22)
[2022-11-19] MEDS: PRENATAL VITAMINS W/ FOLIC ACID TABLET (FP) PO SCH (14:23)
[2022-11-19] MEDS ORDERED: QUEtiapine FUMARATE 50 MG TABLET PO ONE (15:04)
[2022-11-19] MEDS: QUEtiapine FUMARATE 100 MG TABLET (FP) PO SCH (21:43)
[2022-11-19] MEDS: MELATONIN 5 MG TABLETS PO SCH (21:43)
[2022-11-19] MEDS: THIAMINE HCL 100 MG TABLET (FP) PO SCH (21:43)
[2022-11-19] MEDS ORDERED: QUEtiapine FUMARATE 200 MG TABLET PO SCH (22:00)
[2022-11-19] MEDS ORDERED: buPROPion HCL 100 MG TABLET PO SCH (22:00)
[2022-11-20] MEDS: hydrOXYzine PAMOATE 25 MG CAPSULE (FP) PO PRN ×3 (06:42→19:03)
[2022-11-20 08:37] LABS: URINE APPEARANCE CLEAR; URINE BILIRUBIN NEGATIVE (NEGATIVE); URINE COLOR YELLOW; URINE GLUCOSE (UA) NEGATIVE (NEGATIVE); URINE KETONE NEGATIVE (NEGATIVE); URINE LEUK ESTERASE NEGATIVE (NEGATIVE); URINE NITRITE NEGATIVE (NEGATIVE); URINE PROTEIN NEGATIVE (NEGATIVE)
[2022-11-20] MEDS ORDERED: methaDONE HCL 10 MG TABLET (FOR DETOX USE ONLY) PO ONE (10:00)
[2022-11-20] MEDS: PRENATAL VITAMINS W/ FOLIC ACID TABLET (FP) PO SCH (10:47)
[2022-11-20] MEDS: THIAMINE HCL 100 MG TABLET (FP) PO SCH (21:58)
[2022-11-20] MEDS: MELATONIN 5 MG TABLETS PO SCH (21:58)
[2022-11-20] MEDS: QUEtiapine FUMARATE 100 MG TABLET (FP) PO SCH (21:58)
[2022-11-21] MEDS: QUEtiapine FUMARATE 50 MG TABLET PO PRN ×2 (07:35→19:03)
[2022-11-21 07:45] VITALS: BP 117/77; PULSE 71; TEMP 97.3
[2022-11-21] MEDS: PRENATAL VITAMINS W/ FOLIC ACID TABLET (FP) PO SCH (10:12)
[2022-11-21] MEDS: hydrOXYzine PAMOATE 25 MG CAPSULE (FP) PO PRN (10:13)
[2022-11-21] MEDS: IBUPROFEN 600 MG TABLET (FP) PO PRN (10:13)
[2022-11-21] MEDS ORDERED: hydrOXYzine PAMOATE 50 MG CAPSULE (FP) PO PRN (15:30)
[2022-11-21] MEDS ORDERED: QUEtiapine FUMARATE 200 MG TABLET PO SCH (22:00)
[2022-11-21] MEDS: MELATONIN 5 MG TABLETS PO SCH (22:15)
[2022-11-21] MEDS: THIAMINE HCL 100 MG TABLET (FP) PO SCH (22:15)
[2022-11-22] MEDS: IBUPROFEN 600 MG TABLET (FP) PO PRN (03:44)
[2022-11-22] MEDS: PRENATAL VITAMINS W/ FOLIC ACID TABLET (FP) PO SCH (10:24)
[2022-11-22] MEDS ORDERED: NICOTINE POLACRILEX 4 MG GUM BUC PRN (12:10)
[2022-11-22] MEDS ORDERED: NICOTINE 14 MG/24 HOURS TOPICAL PATCH TD PRN (12:11)
[2022-11-22] MEDS ORDERED: NICOTINE 10 MG CARTRIDGE (INHALER) IH SCH (12:15)
== END 2022-11-22 13:02 | disposition left against medical advice (07) | DRG 770 ==
LOC: YASAS 10:45 → Y3W 13:48
PROVIDERS: ADMIT Allergy & Immunology; ATTEND Psychiatry & Neurology Pain Medicine
PROC: HZ42ZZZ Group Counseling for Substance Abuse Treatment, Cognitive-Behavioral (ICD-10-PCS; principal; 2022-11-16)
DX: F11.20 Opioid dependence, uncomplicated (principal); F14.20 Cocaine dependence, uncomplicated; F12.20 Cannabis dependence, uncomplicated; F17.210 Nicotine dependence, cigarettes, uncomplicated; F31.9 Bipolar disorder, unspecified; F19.24 Other psychoactive substance dependence with psychoactive substance-induced mood disorder; F43.10 Post-traumatic stress disorder, unspecified; G62.9 Polyneuropathy, unspecified; Z62.810 Personal history of physical and sexual abuse in childhood; Z86.19 Personal history of other infectious and parasitic diseases; Z88.8 Allergy status to other drugs, medicaments and biological substances
CPT/HCPCS: 81003; 87635

== ENCOUNTER 2022-11-27 00:29 | Inpatient (IN) | payer OTHER ==
[2022-11-27 00:54] VITALS: BMI 21.2
[2022-11-27] MEDS ORDERED: ONDANSETRON *ODT* 4 MG TABLET SL PRN (01:11)
[2022-11-27] MEDS ORDERED: NALOXONE HCL 0.4 MG/ML VIAL IM PRN (01:11)
[2022-11-27] MEDS ORDERED: NALOXONE HCL (KLOXXADO) 8 MG SPRAY NS PRN (01:11)
[2022-11-27] MEDS ORDERED: ACETAMINOPHEN 325 MG TABLET (FP) PO PRN (01:11)
[2022-11-27] MEDS ORDERED: BENZONATATE 200 MG CAPSULE PO PRN (01:11)
[2022-11-27] MEDS ORDERED: BENZOCAINE/MENTHOL (CHLORASEPTIC ) LOZENGE MM PRN (01:11)
[2022-11-27] MEDS ORDERED: IBUPROFEN 600 MG TABLET (FP) PO PRN (01:11)
[2022-11-27] MEDS ORDERED: BISMUTH SUBSALICYLATE 524 MG/30 ML PO PRN (01:11)
[2022-11-27] MEDS ORDERED: guaiFENesin 600 MG TABLET.ER (FP) PO PRN (01:11)
[2022-11-27] MEDS ORDERED: MAG HYDROX/AL HYDROX/SIMETH 30 ML UNIT-DOSE CUP PO PRN (01:11)
[2022-11-27] MEDS ORDERED: IBUPROFEN 400 MG TABLET (FP) PO PRN (01:11)
[2022-11-27] MEDS ORDERED: POLYETHYLENE GLYCOL (HEALTHYLAX) 3350 17 GM PACKET PO PRN (01:11)
[2022-11-27] MEDS ORDERED: LOPERAMIDE HCL 2 MG CAPSULE PO PRN (01:11)
[2022-11-27] MEDS ORDERED: MAGNESIUM HYDROX 2400MG/30ML ORAL SUSPENSION 30 ML CUP PO PRN (01:11)
[2022-11-27] MEDS ORDERED: NICOTINE POLACRILEX 2 MG GUM BUC PRN (01:11)
[2022-11-27] MEDS ORDERED: DICYCLOMINE HCL 10 MG CAPSULE PO PRN (01:11)
[2022-11-27] MEDS: METHOCARBAMOL 500 MG TABLET PO PRN ×2 (02:13→10:41)
[2022-11-27] MEDS: hydrOXYzine PAMOATE 25 MG CAPSULE (FP) PO PRN ×3 (02:13→17:42)
[2022-11-27] MEDS: NICOTINE 21 MG/24 HOURS TOPICAL PATCH TD SCH (10:41)
[2022-11-27] MEDS: PRENATAL VITAMINS W/ FOLIC ACID TABLET (FP) PO SCH (10:41)
[2022-11-27] MEDS ORDERED: methaDONE HCL 10 MG TABLET (FOR DETOX USE ONLY) PO ONE (12:51)
[2022-11-27] MEDS: THIAMINE HCL 100 MG TABLET (FP) PO SCH (23:48)
[2022-11-27] MEDS: MELATONIN 5 MG TABLETS PO SCH (23:48)
[2022-11-28] MEDS: hydrOXYzine PAMOATE 25 MG CAPSULE (FP) PO PRN ×2 (10:10→20:25)
[2022-11-28] MEDS: METHOCARBAMOL 500 MG TABLET PO PRN ×2 (10:10→21:52)
[2022-11-28] MEDS: PRENATAL VITAMINS W/ FOLIC ACID TABLET (FP) PO SCH (10:10)
[2022-11-28] MEDS: NICOTINE 21 MG/24 HOURS TOPICAL PATCH TD SCH (10:11)
[2022-11-28 11:46] LABS: POTASSIUM 4.3 mmol/L (3.5-5.1)
[2022-11-28 11:50] LABS: HEMATOCRIT 39.2 % (35.4-49); HEMOGLOBIN 12.9 GM/dL (11.7-16.9); MCH 29.3 pg (25.7-33.7); MEAN CELL VOLUME 88.9 fl (80-96); MEAN PLT VOLUME 8.9 fl (7.5-11.1); PLATELET COUNT 236 10^3/uL (134-434); RBC 4.41 M/mm3 (4.00-5.60); RDW 13.6 % (11.9-15.9); WHITE BLOOD COUNT 3.9 K/mm3 (4.0-10.0)
[2022-11-28 11:54] LABS: ALBUMIN 2.8 g/dl (3.4-5.0); BLOOD UREA NITROGEN 10.6 mg/dL (7-18); CALCIUM 8.6 mg/dL (8.5-10.1); CREATININE 0.8 mg/dL (0.55-1.3)
[2022-11-28 11:55] LABS: BILIRUBIN,TOTAL 0.8 mg/dL (0.2-1); TOT PROT 5.6 g/dl (6.4-8.2)
[2022-11-28] MEDS: MELATONIN 5 MG TABLETS PO SCH (21:52)
[2022-11-28] MEDS: THIAMINE HCL 100 MG TABLET (FP) PO SCH (21:52)
[2022-11-28] MEDS: QUEtiapine FUMARATE 100 MG TABLET (FP) PO SCH (21:52)
[2022-11-29] MEDS ORDERED: methaDONE HCL 10 MG TABLET (FOR DETOX USE ONLY) PO ONE (10:00)
[2022-11-29] MEDS: PRENATAL VITAMINS W/ FOLIC ACID TABLET (FP) PO SCH (10:09)
[2022-11-29] MEDS: METHOCARBAMOL 500 MG TABLET PO PRN ×2 (10:09→18:22)
[2022-11-29] MEDS: NICOTINE 21 MG/24 HOURS TOPICAL PATCH TD SCH (10:10)
[2022-11-29] MEDS: hydrOXYzine PAMOATE 25 MG CAPSULE (FP) PO PRN (18:22)
[2022-11-29] MEDS: THIAMINE HCL 100 MG TABLET (FP) PO SCH (22:30)
[2022-11-29] MEDS: QUEtiapine FUMARATE 100 MG TABLET (FP) PO SCH (22:30)
[2022-11-29] MEDS: MELATONIN 5 MG TABLETS PO SCH (22:30)
[2022-11-29] MEDS: SUVOREXANT 10 MG TABLET PO PRN (22:31)
[2022-11-30] MEDS: NICOTINE 21 MG/24 HOURS TOPICAL PATCH TD SCH (09:58)
[2022-11-30] MEDS: PRENATAL VITAMINS W/ FOLIC ACID TABLET (FP) PO SCH (09:59)
[2022-11-30] MEDS: METHOCARBAMOL 500 MG TABLET PO PRN ×2 (10:01→17:47)
[2022-11-30] MEDS: hydrOXYzine PAMOATE 25 MG CAPSULE (FP) PO PRN (14:42)
[2022-11-30] MEDS: SUVOREXANT 10 MG TABLET PO PRN (22:53)
[2022-11-30] MEDS: QUEtiapine FUMARATE 100 MG TABLET (FP) PO SCH (22:53)
[2022-11-30] MEDS: THIAMINE HCL 100 MG TABLET (FP) PO SCH (22:53)
[2022-11-30] MEDS: MELATONIN 5 MG TABLETS PO SCH (22:58)
[2022-12-01] MEDS: PRENATAL VITAMINS W/ FOLIC ACID TABLET (FP) PO SCH (09:31)
[2022-12-01] MEDS: hydrOXYzine PAMOATE 25 MG CAPSULE (FP) PO PRN (09:31)
[2022-12-01] MEDS: METHOCARBAMOL 500 MG TABLET PO PRN (09:31)
[2022-12-01] MEDS: NICOTINE 21 MG/24 HOURS TOPICAL PATCH TD SCH (09:32)
[2022-12-01] MEDS ORDERED: methaDONE HCL 10 MG TABLET (FOR DETOX USE ONLY) PO ONE (10:00)
[2022-12-01] MEDS: QUEtiapine FUMARATE 100 MG TABLET (FP) PO SCH (21:00)
[2022-12-01] MEDS: SUVOREXANT 10 MG TABLET PO PRN (21:00)
[2022-12-01] MEDS: THIAMINE HCL 100 MG TABLET (FP) PO SCH (21:00)
[2022-12-01 21:23] VITALS: TEMP 98
[2022-12-01] MEDS: MELATONIN 5 MG TABLETS PO SCH (22:33)
[2022-12-02 06:44] VITALS: BP 112/72; PULSE 75; RESP 18
[2022-12-02] MEDS: PRENATAL VITAMINS W/ FOLIC ACID TABLET (FP) PO SCH (09:26)
[2022-12-02] MEDS: NICOTINE 21 MG/24 HOURS TOPICAL PATCH TD SCH (09:27)
== END 2022-12-02 10:05 | disposition other institution (70) | DRG 773 ==
LOC: YASAS 00:29 → Y6N 01:40 → UNDOADMIN 01:40 → Y6N 11-30 15:39
PROVIDERS: ADMIT Allergy & Immunology; ATTEND Surgery
PROC: HZ2ZZZZ Detoxification Services for Substance Abuse Treatment (ICD-10-PCS; principal; 2022-11-27)
DX: F11.23 Opioid dependence with withdrawal (principal); F14.20 Cocaine dependence, uncomplicated; F15.90 Other stimulant use, unspecified, uncomplicated; F17.210 Nicotine dependence, cigarettes, uncomplicated; F31.9 Bipolar disorder, unspecified; F19.24 Other psychoactive substance dependence with psychoactive substance-induced mood disorder; F43.10 Post-traumatic stress disorder, unspecified; F42.4 Excoriation (skin-picking) disorder; Z62.810 Personal history of physical and sexual abuse in childhood; Z20.822 Contact with and (suspected) exposure to COVID-19; Z86.19 Personal history of other infectious and parasitic diseases; Z88.8 Allergy status to other drugs, medicaments and biological substances; Z59.00 Homelessness unspecified
CPT/HCPCS: 36415; 80053; 85027; 86780; 87635

== ENCOUNTER 2022-12-10 06:17 | Inpatient (IN) | payer OTHER ==
[2022-12-10 06:43] VITALS: BMI 23.4
[2022-12-10] MEDS ORDERED: BENZONATATE 200 MG CAPSULE PO PRN (09:05)
[2022-12-10] MEDS ORDERED: MAGNESIUM HYDROX 2400MG/30ML ORAL SUSPENSION 30 ML CUP PO PRN (09:05)
[2022-12-10] MEDS ORDERED: NICOTINE POLACRILEX 2 MG GUM BUC PRN (09:05)
[2022-12-10] MEDS ORDERED: guaiFENesin 600 MG TABLET.ER (FP) PO PRN (09:05)
[2022-12-10] MEDS ORDERED: POLYETHYLENE GLYCOL (HEALTHYLAX) 3350 17 GM PACKET PO PRN (09:05)
[2022-12-10] MEDS ORDERED: LOPERAMIDE HCL 2 MG CAPSULE PO PRN (09:05)
[2022-12-10] MEDS ORDERED: ONDANSETRON *ODT* 4 MG TABLET SL PRN (09:05)
[2022-12-10] MEDS ORDERED: BENZOCAINE/MENTHOL (CHLORASEPTIC ) LOZENGE MM PRN (09:05)
[2022-12-10] MEDS ORDERED: P-EPHED 60MG/TRIPROLIDI 2.5MG TABLET PO PRN (09:05)
[2022-12-10] MEDS ORDERED: DICYCLOMINE HCL 10 MG CAPSULE PO PRN (09:05)
[2022-12-10] MEDS ORDERED: NALOXONE HCL (KLOXXADO) 8 MG SPRAY NS PRN (09:05)
[2022-12-10] MEDS ORDERED: NALOXONE HCL 0.4 MG/ML VIAL IM PRN (09:05)
[2022-12-10] MEDS ORDERED: BISMUTH SUBSALICYLATE 524 MG/30 ML PO PRN (09:05)
[2022-12-10] MEDS ORDERED: IBUPROFEN 400 MG TABLET (FP) PO PRN (09:05)
[2022-12-10] MEDS ORDERED: MAG HYDROX/AL HYDROX/SIMETH 30 ML UNIT-DOSE CUP PO PRN (09:05)
[2022-12-10] MEDS ORDERED: PRENATAL VITAMINS W/ FOLIC ACID TABLET (FP) PO ONE (10:06)
[2022-12-10] MEDS ORDERED: NICOTINE 14 MG/24 HOURS TOPICAL PATCH TD ONE (10:06)
[2022-12-10] MEDS: PRENATAL VITAMINS W/ FOLIC ACID TABLET (FP) PO SCH (10:11)
[2022-12-10] MEDS: NICOTINE 14 MG/24 HOURS TOPICAL PATCH TD SCH (10:11)
[2022-12-10] MEDS ORDERED: diazePAM 5 MG TABLET ONE (10:29)
[2022-12-10] MEDS: diazePAM 5 MG TABLET PO PRN ×2 (10:29→19:42)
[2022-12-10] MEDS ORDERED: cloNIDine HCL 0.1 MG TABLET PO PRN (13:09)
[2022-12-10] MEDS ORDERED: BUPRENORPHINE/NALOXONE 2 MG/0.5 MG FILM PACKET SL ONE (18:00)
[2022-12-10] MEDS: IBUPROFEN 600 MG TABLET (FP) PO PRN (19:45)
[2022-12-10] MEDS ORDERED: QUEtiapine FUMARATE 200 MG TABLET PO SCH (22:00)
[2022-12-10] MEDS: MELATONIN 5 MG TABLETS PO SCH (22:15)
[2022-12-10] MEDS: THIAMINE HCL 100 MG TABLET (FP) PO SCH (22:16)
[2022-12-10] MEDS: METHOCARBAMOL 500 MG TABLET PO PRN (22:16)
[2022-12-10] MEDS: ACETAMINOPHEN 325 MG TABLET (FP) PO PRN (22:17)
[2022-12-11] MEDS ORDERED: BUPRENORPHINE HCL 150 MCG, BUPRENORPHINE HCL 75 MCG BC PRN
[2022-12-11] MEDS: BUPRENORPHINE/NALOXONE 4 MG/1 MG FILM PACKET SL SCH ×2 (05:16→18:03)
[2022-12-11] MEDS: ACETAMINOPHEN 325 MG TABLET (FP) PO PRN (05:18)
[2022-12-11] MEDS ORDERED: QUEtiapine FUMARATE 100 MG TABLET (FP) PO SCH (10:00)
[2022-12-11] MEDS: PRENATAL VITAMINS W/ FOLIC ACID TABLET (FP) PO SCH (10:39)
[2022-12-11] MEDS: NICOTINE 14 MG/24 HOURS TOPICAL PATCH TD SCH (10:39)
[2022-12-11] MEDS: diazePAM 5 MG TABLET PO PRN (18:05)
[2022-12-11] MEDS: QUEtiapine FUMARATE 200 MG TABLET PO SCH (21:01)
[2022-12-11] MEDS: THIAMINE HCL 100 MG TABLET (FP) PO SCH (21:02)
[2022-12-11] MEDS: MELATONIN 5 MG TABLETS PO SCH (21:02)
[2022-12-12] MEDS: FLUoxetine HCL 10 MG CAPSULE PO SCH (10:19)
[2022-12-12] MEDS: PRENATAL VITAMINS W/ FOLIC ACID TABLET (FP) PO SCH (10:19)
[2022-12-12] MEDS: BUPRENORPHINE/NALOXONE 8 MG/2 MG FILM PACKET SL SCH (10:20)
[2022-12-12] MEDS: NICOTINE 14 MG/24 HOURS TOPICAL PATCH TD SCH (10:25)
[2022-12-12] MEDS: diazePAM 5 MG TABLET PO PRN ×3 (12:20→21:05)
[2022-12-12] MEDS: ACETAMINOPHEN 325 MG TABLET (FP) PO PRN (12:20)
[2022-12-12] MEDS: IBUPROFEN 600 MG TABLET (FP) PO PRN (18:01)
[2022-12-12] MEDS: THIAMINE HCL 100 MG TABLET (FP) PO SCH (21:03)
[2022-12-12] MEDS: QUEtiapine FUMARATE 200 MG TABLET PO SCH (21:03)
[2022-12-12] MEDS: MELATONIN 5 MG TABLETS PO SCH (23:06)
[2022-12-13] MEDS: PRENATAL VITAMINS W/ FOLIC ACID TABLET (FP) PO SCH (09:19)
[2022-12-13] MEDS: NICOTINE 14 MG/24 HOURS TOPICAL PATCH TD SCH (09:20)
[2022-12-13] MEDS: FLUoxetine HCL 10 MG CAPSULE PO SCH (09:20)
[2022-12-13] MEDS: BUPRENORPHINE/NALOXONE 8 MG/2 MG FILM PACKET SL SCH (09:21)
[2022-12-13] MEDS: ACETAMINOPHEN 325 MG TABLET (FP) PO PRN (11:36)
[2022-12-13] MEDS: QUEtiapine FUMARATE 200 MG TABLET PO SCH (22:00)
[2022-12-13] MEDS: THIAMINE HCL 100 MG TABLET (FP) PO SCH (22:14)
[2022-12-13] MEDS: MELATONIN 5 MG TABLETS PO SCH (22:15)
[2022-12-14 06:07] VITALS: RESP 18
[2022-12-14] MEDS: NICOTINE 14 MG/24 HOURS TOPICAL PATCH TD SCH (10:29)
[2022-12-14] MEDS: PRENATAL VITAMINS W/ FOLIC ACID TABLET (FP) PO SCH (10:29)
[2022-12-14] MEDS: FLUoxetine HCL 10 MG CAPSULE PO SCH (10:29)
[2022-12-14] MEDS ORDERED: BUPRENORPHINE/NALOXONE 4 MG/1 MG FILM PACKET SL ONE (11:15)
[2022-12-14] MEDS ORDERED: BUPRENORPHINE/NALOXONE 8 MG/2 MG FILM PACKET SL ONE (13:00)
[2022-12-14] MEDS: IBUPROFEN 600 MG TABLET (FP) PO PRN ×2 (13:51→22:16)
[2022-12-14] MEDS ORDERED: hydrOXYzine PAMOATE 50 MG CAPSULE (FP) PO ONE (16:39)
[2022-12-14 20:54] VITALS: BP 131/78; PULSE 79; TEMP 98
[2022-12-14] MEDS: QUEtiapine FUMARATE 200 MG TABLET PO SCH (21:00)
[2022-12-14] MEDS: THIAMINE HCL 100 MG TABLET (FP) PO SCH (22:14)
[2022-12-14] MEDS: METHOCARBAMOL 500 MG TABLET PO PRN (22:15)
[2022-12-14] MEDS: MELATONIN 5 MG TABLETS PO SCH (22:15)
[2022-12-15] MEDS: FLUoxetine HCL 10 MG CAPSULE PO SCH (09:50)
[2022-12-15] MEDS: NICOTINE 14 MG/24 HOURS TOPICAL PATCH TD SCH (09:50)
[2022-12-15] MEDS: PRENATAL VITAMINS W/ FOLIC ACID TABLET (FP) PO SCH (09:50)
[2022-12-15] MEDS ORDERED: BUPRENORPHINE/NALOXONE 8 MG/2 MG FILM PACKET SL SCH (10:00)
== END 2022-12-15 10:58 | disposition other institution (70) | DRG 773 ==
LOC: YASAS 06:17 → Y3N 09:26
PROVIDERS: ADMIT Allergy & Immunology; ATTEND Allergy & Immunology
PROC: HZ2ZZZZ Detoxification Services for Substance Abuse Treatment (ICD-10-PCS; principal; 2022-12-10)
DX: F11.23 Opioid dependence with withdrawal (principal); F14.20 Cocaine dependence, uncomplicated; F17.210 Nicotine dependence, cigarettes, uncomplicated; F19.24 Other psychoactive substance dependence with psychoactive substance-induced mood disorder; F31.9 Bipolar disorder, unspecified; F43.10 Post-traumatic stress disorder, unspecified; G47.00 Insomnia, unspecified; Z86.59 Personal history of other mental and behavioral disorders; Z56.0 Unemployment, unspecified; Z59.00 Homelessness unspecified
CPT/HCPCS: 87635

== ENCOUNTER 2023-01-18 21:03 | Inpatient (IN) | payer OTHER ==
[2023-01-18] MEDS ORDERED: VANCOMYCIN 1,000 MG in DEXTROSE 5%-WATER - 250 ML IVPB ONE (21:14)
[2023-01-18] MEDS ORDERED: PIPERACILLIN/TAZOB 4.5 GM 4.5 GM in DEXTROSE 5%-WATER 100 ML IVPB ONE (21:14)
[2023-01-18] MEDS ORDERED: ACETAMINOPHEN 1000 MG/100 ML BAG IVPB ONE (21:15)
[2023-01-18] MEDS ORDERED: ACETAMINOPHEN INJECTION 100 ML IVPB ONE (21:58)
[2023-01-18] MEDS ORDERED: PIPERACILLIN/TAZOB 4.5 GM 4.5 GM/100 ML BAG IVPB ONE (21:59)
[2023-01-18] MEDS ORDERED: VANCOMYCIN 1 GRAM (PRE-DOCKED) 1,000 MG/250 ML BAG IVPB ONE (21:59)
[2023-01-18 22:10] LABS: BASO % 0.2 % (0-2.0); EOS % 0.3 % (0-4.5); HEMATOCRIT 32.4 % (35.4-49); HEMOGLOBIN 11.3 GM/dL (11.7-16.9); LYMPH % 8.3 % (8-40); MCH 30.5 pg (25.7-33.7); MEAN CELL VOLUME 87.1 fl (80-96); MEAN PLT VOLUME 7.2 fl (7.5-11.1); MONO % 13.4 % (3.8-10.2); NEUT % 77.8 % (42.8-82.8); PLATELET COUNT 518 10^3/uL (134-434); RBC 3.72 M/mm3 (4.00-5.60); RDW 13.8 % (11.9-15.9)
[2023-01-18 22:27] LABS: INR 1.41 (0.83-1.09); PROTHROMBIN TIME (PATIENT) 16.3 SEC (9.7-13.0)
[2023-01-18 22:30] LABS: ACTIVATED PTT 26.7 SECONDS (25.2-36.5)
[2023-01-18 22:38] LABS: POTASSIUM 4.5 mmol/L (3.5-5.1)
[2023-01-18 22:40] LABS: CALCIUM 7.7 mg/dL (8.5-10.1)
[2023-01-18 22:41] LABS: ALBUMIN 1.7 g/dl (3.4-5.0); BLOOD UREA NITROGEN 21.4 mg/dL (7-18)
[2023-01-18 22:44] LABS: CREATININE 0.9 mg/dL (0.55-1.3)
[2023-01-18 22:46] LABS: BILIRUBIN,TOTAL 0.7 mg/dL (0.2-1); TOT PROT 6.5 g/dl (6.4-8.2)
[2023-01-18] MEDS ORDERED: SODIUM CHLORIDE 0.9% 500 ML INFUS.BAG IV ONE (22:49)
[2023-01-19] MEDS ORDERED: ACETAMINOPHEN 1000 MG/100 ML BAG IVPB ONE (03:12)
[2023-01-19] MEDS ORDERED: ACETAMINOPHEN INJECTION 100 ML IVPB ONE (03:48)
[2023-01-19] MEDS: VANCOMYCIN/WATER 1250 MG 1,250 MG/250 ML BAG IVPB SCH ×2 (04:15→18:31)
[2023-01-19] MEDS ORDERED: VANCOMYCIN/WATER 1250 MG 1,250 MG/250 ML BAG IVPB SCH ×2 (04:15→06:15)
[2023-01-19] MEDS ORDERED: PIPERACILLIN/TAZOB 3.375 GM 3.375 GM/50 ML BAG IVPB ONE ×2 (05:04→07:58)
[2023-01-19] MEDS: PIPERACILLIN/TAZOB 3.375 GM 3.375 GM in DEXTROSE 5%-WATER - 50 ML IVPB SCH ×5 (05:10→22:06)
[2023-01-19 06:37] LABS: HEMATOCRIT 29.6 % (35.4-49); HEMOGLOBIN 10.1 GM/dL (11.7-16.9); MCH 29.9 pg (25.7-33.7); MCHC 34.2 g/dl (32.0-35.9); MEAN CELL VOLUME 87.4 fl (80-96); MEAN PLT VOLUME 7.2 fl (7.5-11.1); PLATELET COUNT 455 10^3/uL (134-434); RBC 3.39 M/mm3 (4.00-5.60); RDW 13.8 % (11.9-15.9); WHITE BLOOD COUNT 7.1 K/mm3 (4.0-10.0)
[2023-01-19] MEDS ORDERED: KETOROLAC TROMETHAMINE 30 MG/1 ML VIAL IVPUSH ONE (07:24)
[2023-01-19] MEDS ORDERED: morphine SULFATE 4 MG/ML VIAL IVPUSH ONE (07:25)
[2023-01-19] MEDS ORDERED: KETOROLAC TROMETHAMINE 30 MG/1 ML VIAL IVPUSH SCH (07:30)
[2023-01-19] MEDS ORDERED: KETOROLAC TROMETHAMINE 30 MG/1 ML VIAL ONE (07:51)
[2023-01-19 08:55] LABS: POTASSIUM 3.6 mmol/L (3.5-5.1)
[2023-01-19 08:57] LABS: ALBUMIN 1.4 g/dl (3.4-5.0); CALCIUM 7.3 mg/dL (8.5-10.1)
[2023-01-19 08:58] LABS: BLOOD UREA NITROGEN 18.2 mg/dL (7-18); MAGNESIUM 1.8 mg/dL (1.8-2.4)
[2023-01-19 09:00] LABS: PHOSPHOROUS 3.4 mg/dL (2.5-4.9)
[2023-01-19 09:01] LABS: CREATININE 0.6 mg/dL (0.55-1.3)
[2023-01-19 09:02] LABS: BILIRUBIN,TOTAL 0.7 mg/dL (0.2-1); TOT PROT 5.3 g/dl (6.4-8.2)
[2023-01-19] MEDS ORDERED: FOLIC ACID 1 MG TABLET (FP) PO SCH (10:00)
[2023-01-19] MEDS ORDERED: THIAMINE HCL 100 MG TABLET (FP) PO SCH (10:00)
[2023-01-19] MEDS ORDERED: NICOTINE 14 MG/24 HOURS TOPICAL PATCH TD SCH (10:00)
[2023-01-19] MEDS ORDERED: ENOXAPARIN NA (PORCINE) 40 MG/0.4 ML DISP.SYRIN SQ SCH (10:00)
[2023-01-19] MEDS ORDERED: VANCOMYCIN/WATER FOR INJ (PEG) 1,000 MG/200 ML BAG IVPB SCH (12:30)
[2023-01-19] MEDS ORDERED: VANCOMYCIN 1 GRAM (PRE-DOCKED) 1,000 MG/250 ML BAG IVPB ONE (13:00)
[2023-01-19] MEDS ORDERED: PROPOFOL 40 ML ONE (13:46)
[2023-01-19] MEDS ORDERED: MIDAZOLAM HCL 2 MG/2 ML SINGLE DOSE VIAL ONE (13:46)
[2023-01-19] MEDS ORDERED: HYDROmorphone HCl 2 MG/ML VIAL ONE (14:08)
[2023-01-19] MEDS ORDERED: HYDROGEN PEROXIDE 473 ML PO ONE ×3 (14:35)
[2023-01-19] MEDS ORDERED: ONDANSETRON 4 MG/2 ML VIAL IVPUSH PRN ×2 (14:58→15:42)
[2023-01-19] MEDS ORDERED: PROMETHAZINE HCL 25 MG/1 ML VIAL IVPB PRN (14:58)
[2023-01-19] MEDS ORDERED: LACTATED RINGERS SOLUTION 1,000 ML IV SCH (15:00)
[2023-01-19] MEDS ORDERED: PIPERACILLIN/TAZOB 3.375 GM 3.375 GM in DEXTROSE 5%-WATER - 50 ML IVPB SCH (18:00)
[2023-01-19] MEDS: LACTATED RINGERS SOLUTION 1,000 ML IV SCH (18:29)
[2023-01-19] MEDS: oxyCODONE HCL 5 MG TABLET PO PRN (18:55)
[2023-01-19 19:28] LABS: POTASSIUM 3.6 mmol/L (3.5-5.1)
[2023-01-19 19:29] LABS: BLOOD UREA NITROGEN 15.2 mg/dL (7-18); CALCIUM 7.7 mg/dL (8.5-10.1)
[2023-01-19 19:32] LABS: CREATININE 0.7 mg/dL (0.55-1.3)
[2023-01-19] MEDS: KETOROLAC TROMETHAMINE 30 MG/1 ML VIAL IVPUSH SCH (21:53)
[2023-01-19] MEDS: ACETAMINOPHEN 1000 MG/100 ML BAG IVPB SCH (21:54)
[2023-01-20] MEDS: VANCOMYCIN/WATER FOR INJ (PEG) 1,000 MG/200 ML BAG IVPB SCH ×2 (00:12→12:03)
[2023-01-20] MEDS ORDERED: VANCOMYCIN/WATER FOR INJ (PEG) 1,000 MG/200 ML BAG IVPB SCH (01:00)
[2023-01-20] MEDS ORDERED: PIPERACILLIN/TAZOB 3.375 GM 3.375 GM in DEXTROSE 5%-WATER - 50 ML IVPB SCH (02:00)
[2023-01-20] MEDS: ACETAMINOPHEN 1000 MG/100 ML BAG IVPB SCH ×3 (02:31→14:20)
[2023-01-20] MEDS: KETOROLAC TROMETHAMINE 30 MG/1 ML VIAL IVPUSH SCH ×3 (03:00→17:19)
[2023-01-20] MEDS: PIPERACILLIN/TAZOB 3.375 GM 3.375 GM in DEXTROSE 5%-WATER - 50 ML IVPB SCH ×2 (03:00→09:16)
[2023-01-20] MEDS: oxyCODONE HCL 5 MG TABLET PO PRN ×3 (05:57→20:02)
[2023-01-20] MEDS: NICOTINE 14 MG/24 HOURS TOPICAL PATCH TD SCH (09:15)
[2023-01-20] MEDS: FOLIC ACID 1 MG TABLET (FP) PO SCH (09:15)
[2023-01-20] MEDS: THIAMINE HCL 100 MG TABLET (FP) PO SCH (09:15)
[2023-01-20 10:13] LABS: BASO % 0.4 % (0-2.0); EOS % 0.3 % (0-4.5); HEMATOCRIT 36.8 % (35.4-49); HEMOGLOBIN 12.5 GM/dL (11.7-16.9); LYMPH % 6.6 % (8-40); MCHC 33.9 g/dl (32.0-35.9); MEAN CELL VOLUME 88.4 fl (80-96); MONO % 6.6 % (3.8-10.2); NEUT % 86.1 % (42.8-82.8); PLATELET COUNT 590 10^3/uL (134-434); RBC 4.16 M/mm3 (4.00-5.60); RDW 14.1 % (11.9-15.9); WHITE BLOOD COUNT 10.1 K/mm3 (4.0-10.0)
[2023-01-20 10:37] LABS: POTASSIUM 4.1 mmol/L (3.5-5.1)
[2023-01-20 10:43] LABS: ALBUMIN 1.5 g/dl (3.4-5.0); CALCIUM 7.8 mg/dL (8.5-10.1)
[2023-01-20 10:44] LABS: BLOOD UREA NITROGEN 15.3 mg/dL (7-18); CREATININE 0.7 mg/dL (0.55-1.3)
[2023-01-20 10:46] LABS: BILIRUBIN,TOTAL 0.8 mg/dL (0.2-1); TOT PROT 6.3 g/dl (6.4-8.2)
[2023-01-20] MEDS: ENOXAPARIN NA (PORCINE) 40 MG/0.4 ML DISP.SYRIN SQ SCH (11:43)
[2023-01-20] MEDS: morphine SULFATE 4 MG/ML VIAL IVPUSH PRN ×2 (14:21→22:58)
[2023-01-20] MEDS: LACTATED RINGERS SOLUTION 1,000 ML IV SCH (16:33)
[2023-01-20] MEDS: SODIUM CHLORIDE 1,000 ML IV SCH (17:21)
[2023-01-21] MEDS: VANCOMYCIN PREMIX 1.5 GM 1,500 MG/300 ML BAG IVPB SCH ×2 (01:43→14:30)
[2023-01-21] MEDS: oxyCODONE HCL 5 MG TABLET PO PRN ×4 (02:34→20:30)
[2023-01-21] MEDS: morphine SULFATE 4 MG/ML VIAL IVPUSH PRN ×3 (08:25→18:01)
[2023-01-21 08:43] LABS: HEMATOCRIT 30.4 % (35.4-49); HEMOGLOBIN 10.4 GM/dL (11.7-16.9); MCHC 34.1 g/dl (32.0-35.9); MEAN CELL VOLUME 87.9 fl (80-96); MEAN PLT VOLUME 6.9 fl (7.5-11.1); PLATELET COUNT 624 10^3/uL (134-434); RBC 3.46 M/mm3 (4.00-5.60); RDW 13.8 % (11.9-15.9); WHITE BLOOD COUNT 11.5 K/mm3 (4.0-10.0)
[2023-01-21 09:07] LABS: POTASSIUM 4.1 mmol/L (3.5-5.1)
[2023-01-21 09:26] LABS: BLOOD UREA NITROGEN 8.5 mg/dL (7-18); CALCIUM 7.4 mg/dL (8.5-10.1)
[2023-01-21 09:27] LABS: ALBUMIN 1.3 g/dl (3.4-5.0)
[2023-01-21 09:29] LABS: PHOSPHOROUS 3.7 mg/dL (2.5-4.9)
[2023-01-21 09:30] LABS: CREATININE 0.4 mg/dL (0.55-1.3)
[2023-01-21 09:31] LABS: BILIRUBIN,TOTAL 0.5 mg/dL (0.2-1); TOT PROT 5.3 g/dl (6.4-8.2)
[2023-01-21] MEDS ORDERED: CEFTRIAXONE 1 GM in DEXTROSE 5%-WATER - 50 ML IVPB SCH (10:00)
[2023-01-21] MEDS: THIAMINE HCL 100 MG TABLET (FP) PO SCH (10:23)
[2023-01-21] MEDS: FOLIC ACID 1 MG TABLET (FP) PO SCH (10:23)
[2023-01-21] MEDS: ENOXAPARIN NA (PORCINE) 40 MG/0.4 ML DISP.SYRIN SQ SCH (10:24)
[2023-01-21] MEDS: CEFTRIAXONE 2 GM in DEXTROSE 5%-WATER 100 ML IVPB SCH (10:24)
[2023-01-21] MEDS: NICOTINE 14 MG/24 HOURS TOPICAL PATCH TD SCH (10:25)
[2023-01-21] MEDS: SODIUM CHLORIDE 1,000 ML IV SCH (17:39)
[2023-01-21] MEDS: QUEtiapine FUMARATE 200 MG TABLET PO SCH (22:30)
[2023-01-22] MEDS: VANCOMYCIN PREMIX 1.5 GM 1,500 MG/300 ML BAG IVPB SCH ×2 (03:04→13:54)
[2023-01-22] MEDS: morphine SULFATE 4 MG/ML VIAL IVPUSH PRN ×4 (03:25→20:39)
[2023-01-22 07:20] LABS: HEMATOCRIT 30.7 % (35.4-49); HEMOGLOBIN 10.3 GM/dL (11.7-16.9); MCH 29.9 pg (25.7-33.7); MCHC 33.6 g/dl (32.0-35.9); MEAN CELL VOLUME 89.2 fl (80-96); MEAN PLT VOLUME 6.6 fl (7.5-11.1); PLATELET COUNT 564 10^3/uL (134-434); RBC 3.44 M/mm3 (4.00-5.60); RDW 14.4 % (11.9-15.9); WHITE BLOOD COUNT 11.4 K/mm3 (4.0-10.0)
[2023-01-22 07:45] LABS: POTASSIUM 4.1 mmol/L (3.5-5.1)
[2023-01-22 07:47] LABS: CALCIUM 7.6 mg/dL (8.5-10.1)
[2023-01-22 07:48] LABS: ALBUMIN 1.4 g/dl (3.4-5.0); BLOOD UREA NITROGEN 7.6 mg/dL (7-18); MAGNESIUM 2.1 mg/dL (1.8-2.4)
[2023-01-22 07:51] LABS: CREATININE 0.5 mg/dL (0.55-1.3); PHOSPHOROUS 3.3 mg/dL (2.5-4.9)
[2023-01-22 07:52] LABS: TOT PROT 5.6 g/dl (6.4-8.2)
[2023-01-22 07:53] LABS: BILIRUBIN,TOTAL 0.3 mg/dL (0.2-1)
[2023-01-22] MEDS: oxyCODONE HCL 5 MG TABLET PO PRN ×3 (10:24→21:56)
[2023-01-22] MEDS: LORazepam 2 MG/ML SDV VIAL IVPUSH PRN ×2 (10:25→17:04)
[2023-01-22] MEDS: NICOTINE 14 MG/24 HOURS TOPICAL PATCH TD SCH (10:26)
[2023-01-22] MEDS: ENOXAPARIN NA (PORCINE) 40 MG/0.4 ML DISP.SYRIN SQ SCH (10:26)
[2023-01-22] MEDS: THIAMINE HCL 100 MG TABLET (FP) PO SCH (10:27)
[2023-01-22] MEDS: FOLIC ACID 1 MG TABLET (FP) PO SCH (10:27)
[2023-01-22] MEDS: CEFTRIAXONE 2 GM in DEXTROSE 5%-WATER 100 ML IVPB SCH (10:35)
[2023-01-22] MEDS: ACETAMINOPHEN 500 MG TABLET (FP) PO PRN (14:03)
[2023-01-22 14:04] VITALS: BMI 23.7
[2023-01-22] MEDS: MULTIVITAMINS (DAILY MVI) TABLET (FP) PO SCH (14:30)
[2023-01-22] MEDS: ASCORBIC ACID 500 MG TABLET (FP) PO SCH (14:30)
[2023-01-22] MEDS: QUEtiapine FUMARATE 200 MG TABLET PO SCH (21:29)
[2023-01-23] MEDS: VANCOMYCIN PREMIX 1.5 GM 1,500 MG/300 ML BAG IVPB SCH ×2 (00:34→13:12)
[2023-01-23] MEDS: oxyCODONE HCL 5 MG TABLET PO PRN ×4 (02:00→16:20)
[2023-01-23] MEDS: LORazepam 2 MG/ML SDV VIAL IVPUSH PRN ×3 (03:15→16:27)
[2023-01-23] MEDS: morphine SULFATE 4 MG/ML VIAL IVPUSH PRN ×3 (06:58→19:19)
[2023-01-23 08:53] LABS: HEMATOCRIT 28.3 % (35.4-49); HEMOGLOBIN 9.5 GM/dL (11.7-16.9); MCHC 33.7 g/dl (32.0-35.9); MEAN PLT VOLUME 6.2 fl (7.5-11.1); PLATELET COUNT 546 10^3/uL (134-434); RBC 3.18 M/mm3 (4.00-5.60); RDW 14.6 % (11.9-15.9); WHITE BLOOD COUNT 9.7 K/mm3 (4.0-10.0)
[2023-01-23 09:08] LABS: POTASSIUM 4.2 mmol/L (3.5-5.1)
[2023-01-23 09:12] LABS: ALBUMIN 1.4 g/dl (3.4-5.0); BLOOD UREA NITROGEN 7.2 mg/dL (7-18); CALCIUM 7.5 mg/dL (8.5-10.1); MAGNESIUM 1.9 mg/dL (1.8-2.4)
[2023-01-23 09:15] LABS: CREATININE 0.5 mg/dL (0.55-1.3); PHOSPHOROUS 3.8 mg/dL (2.5-4.9)
[2023-01-23 09:17] LABS: BILIRUBIN,TOTAL 0.3 mg/dL (0.2-1); TOT PROT 5.4 g/dl (6.4-8.2)
[2023-01-23] MEDS: ENOXAPARIN NA (PORCINE) 40 MG/0.4 ML DISP.SYRIN SQ SCH (10:14)
[2023-01-23] MEDS: CEFTRIAXONE 2 GM in DEXTROSE 5%-WATER 100 ML IVPB SCH (10:14)
[2023-01-23] MEDS: THIAMINE HCL 100 MG TABLET (FP) PO SCH (10:14)
[2023-01-23] MEDS: ASCORBIC ACID 500 MG TABLET (FP) PO SCH (10:15)
[2023-01-23] MEDS: MULTIVITAMINS (DAILY MVI) TABLET (FP) PO SCH (10:15)
[2023-01-23] MEDS: FOLIC ACID 1 MG TABLET (FP) PO SCH (10:15)
[2023-01-23] MEDS: NICOTINE 14 MG/24 HOURS TOPICAL PATCH TD SCH (10:26)
[2023-01-23] MEDS: ACETAMINOPHEN 500 MG TABLET (FP) PO PRN (16:21)
[2023-01-23] MEDS ORDERED: VANCOMYCIN PREMIX 1.75 GM 1,750 MG/350 ML PIGGYBACK IVPB SCH (17:30)
[2023-01-23] MEDS: QUEtiapine FUMARATE 200 MG TABLET PO SCH (21:39)
[2023-01-24] MEDS ORDERED: VANCOMYCIN PREMIX 1.75 GM 1,750 MG/350 ML PIGGYBACK IVPB SCH (01:00)
[2023-01-24] MEDS: morphine SULFATE 4 MG/ML VIAL IVPUSH PRN ×2 (03:20→09:10)
[2023-01-24] MEDS: LORazepam 2 MG/ML SDV VIAL IVPUSH PRN (06:18)
[2023-01-24 08:49] LABS: HEMATOCRIT 28.3 % (35.4-49); HEMOGLOBIN 9.7 GM/dL (11.7-16.9); MCH 30.3 pg (25.7-33.7); MCHC 34.3 g/dl (32.0-35.9); MEAN CELL VOLUME 88.2 fl (80-96); MEAN PLT VOLUME 6.2 fl (7.5-11.1); PLATELET COUNT 563 10^3/uL (134-434); RBC 3.21 M/mm3 (4.00-5.60); RDW 14.6 % (11.9-15.9); WHITE BLOOD COUNT 9.5 K/mm3 (4.0-10.0)
[2023-01-24] MEDS: ENOXAPARIN NA (PORCINE) 40 MG/0.4 ML DISP.SYRIN SQ SCH (09:08)
[2023-01-24] MEDS: NICOTINE 14 MG/24 HOURS TOPICAL PATCH TD SCH ×2 (09:08→09:14)
[2023-01-24] MEDS: CEFTRIAXONE 2 GM in DEXTROSE 5%-WATER 100 ML IVPB SCH (09:08)
[2023-01-24] MEDS: MULTIVITAMINS (DAILY MVI) TABLET (FP) PO SCH (09:09)
[2023-01-24] MEDS: FOLIC ACID 1 MG TABLET (FP) PO SCH (09:09)
[2023-01-24] MEDS: ASCORBIC ACID 500 MG TABLET (FP) PO SCH (09:10)
[2023-01-24] MEDS: THIAMINE HCL 100 MG TABLET (FP) PO SCH (09:10)
[2023-01-24 09:17] LABS: POTASSIUM 4.5 mmol/L (3.5-5.1)
[2023-01-24 09:18] LABS: CALCIUM 7.5 mg/dL (8.5-10.1)
[2023-01-24] MEDS ORDERED: oxyCODONE HCL 5 MG TABLET PO PRN ×2 (09:18)
[2023-01-24 09:20] LABS: ALBUMIN 1.5 g/dl (3.4-5.0); BLOOD UREA NITROGEN 10.8 mg/dL (7-18)
[2023-01-24] MEDS ORDERED: POLYETHYLENE GLYCOL (HEALTHYLAX) 3350 17 GM PACKET PO PRN (09:20)
[2023-01-24 09:23] LABS: CREATININE 0.5 mg/dL (0.55-1.3); PHOSPHOROUS 3.7 mg/dL (2.5-4.9)
[2023-01-24 09:24] LABS: BILIRUBIN,TOTAL 0.3 mg/dL (0.2-1); TOT PROT 5.6 g/dl (6.4-8.2)
[2023-01-24] MEDS ORDERED: TRIMETHOBENZAMIDE HCL 200MG/2ML INJ IM ONE (09:27)
[2023-01-24] MEDS ORDERED: VANCOMYCIN PREMIX 1.75 GM 1,750 MG/350 ML PIGGYBACK IVPB ONE (13:00)
[2023-01-24] MEDS ORDERED: morphine SULFATE 4 MG/ML VIAL IVPUSH PRN ×2 (13:45→17:12)
[2023-01-24] MEDS ORDERED: methaDONE HCL 10 MG TABLET PO ONE (17:30)
[2023-01-24] MEDS: oxyCODONE HCL 5 MG TABLET PO PRN (18:39)
[2023-01-24] MEDS: IBUPROFEN 600 MG TABLET (FP) PO PRN (22:37)
[2023-01-24] MEDS: QUEtiapine FUMARATE 200 MG TABLET PO SCH (22:38)
[2023-01-25] MEDS: oxyCODONE HCL 5 MG TABLET PO PRN ×3 (05:16→20:38)
[2023-01-25] MEDS: IBUPROFEN 600 MG TABLET (FP) PO PRN ×2 (08:33→21:45)
[2023-01-25] MEDS ORDERED: methaDONE HCL 10 MG TABLET PO SCH (09:30)
[2023-01-25 09:57] LABS: HEMATOCRIT 30.8 % (35.4-49); HEMOGLOBIN 10.2 GM/dL (11.7-16.9); MCH 29.5 pg (25.7-33.7); MEAN CELL VOLUME 89.4 fl (80-96); MEAN PLT VOLUME 6.3 fl (7.5-11.1); PLATELET COUNT 643 10^3/uL (134-434); RBC 3.45 M/mm3 (4.00-5.60); RDW 14.4 % (11.9-15.9); WHITE BLOOD COUNT 7.7 K/mm3 (4.0-10.0)
[2023-01-25 10:05] LABS: INR 1.16 (0.83-1.09); PROTHROMBIN TIME (PATIENT) 13.4 SEC (9.7-13.0)
[2023-01-25 10:15] LABS: BLOOD UREA NITROGEN 11.5 mg/dL (7-18); MAGNESIUM 2.2 mg/dL (1.8-2.4)
[2023-01-25 10:17] LABS: CALCIUM 8.3 mg/dL (8.5-10.1)
[2023-01-25] MEDS: ENOXAPARIN NA (PORCINE) 40 MG/0.4 ML DISP.SYRIN SQ SCH (10:17)
[2023-01-25] MEDS: MULTIVITAMINS (DAILY MVI) TABLET (FP) PO SCH (10:18)
[2023-01-25] MEDS: ASCORBIC ACID 500 MG TABLET (FP) PO SCH (10:18)
[2023-01-25] MEDS: NICOTINE 14 MG/24 HOURS TOPICAL PATCH TD SCH (10:18)
[2023-01-25] MEDS: FOLIC ACID 1 MG TABLET (FP) PO SCH (10:19)
[2023-01-25] MEDS: THIAMINE HCL 100 MG TABLET (FP) PO SCH (10:19)
[2023-01-25 10:20] LABS: CREATININE 0.7 mg/dL (0.55-1.3); TOT PROT 6.9 g/dl (6.4-8.2)
[2023-01-25] MEDS: VANCOMYCIN PREMIX 1.75 GM 1,750 MG/350 ML PIGGYBACK IVPB SCH ×2 (10:27→21:44)
[2023-01-25 10:34] LABS: BILIRUBIN,TOTAL 0.4 mg/dL (0.2-1)
[2023-01-25] MEDS ORDERED: methaDONE HCL 10 MG TABLET PO ONE (10:38)
[2023-01-25] MEDS ORDERED: VANCOMYCIN PREMIX 1.75 GM 1,750 MG/350 ML PIGGYBACK IVPB SCH (13:00)
[2023-01-25] MEDS: morphine SULFATE 4 MG/ML VIAL IVPUSH PRN ×3 (13:41→22:07)
[2023-01-25] MEDS: QUEtiapine FUMARATE 200 MG TABLET PO SCH (21:45)
[2023-01-26] MEDS: morphine SULFATE 4 MG/ML VIAL IVPUSH PRN ×2 (03:14→10:58)
[2023-01-26] MEDS: oxyCODONE HCL 5 MG TABLET PO PRN ×2 (06:31→14:07)
[2023-01-26 09:09] LABS: HEMATOCRIT 27.9 % (35.4-49); HEMOGLOBIN 9.6 GM/dL (11.7-16.9); MCHC 34.5 g/dl (32.0-35.9); MEAN CELL VOLUME 89.9 fl (80-96); MEAN PLT VOLUME 6.3 fl (7.5-11.1); PLATELET COUNT 656 10^3/uL (134-434); RBC 3.11 M/mm3 (4.00-5.60); RDW 14.4 % (11.9-15.9); WHITE BLOOD COUNT 6.8 K/mm3 (4.0-10.0)
[2023-01-26 09:18] LABS: INR 1.1 (0.83-1.09); PROTHROMBIN TIME (PATIENT) 12.8 SEC (9.7-13.0)
[2023-01-26 09:43] LABS: POTASSIUM 4.7 mmol/L (3.5-5.1)
[2023-01-26 09:47] LABS: ALBUMIN 1.8 g/dl (3.4-5.0)
[2023-01-26 09:48] LABS: BLOOD UREA NITROGEN 12.4 mg/dL (7-18)
[2023-01-26] MEDS: ASCORBIC ACID 500 MG TABLET (FP) PO SCH (09:48)
[2023-01-26] MEDS: NICOTINE 14 MG/24 HOURS TOPICAL PATCH TD SCH (09:48)
[2023-01-26] MEDS: THIAMINE HCL 100 MG TABLET (FP) PO SCH (09:48)
[2023-01-26] MEDS: MULTIVITAMINS (DAILY MVI) TABLET (FP) PO SCH (09:48)
[2023-01-26] MEDS: FOLIC ACID 1 MG TABLET (FP) PO SCH (09:48)
[2023-01-26 09:49] LABS: CALCIUM 8.2 mg/dL (8.5-10.1)
[2023-01-26 09:50] LABS: MAGNESIUM 1.9 mg/dL (1.8-2.4); PHOSPHOROUS 3.8 mg/dL (2.5-4.9)
[2023-01-26] MEDS: VANCOMYCIN PREMIX 1.75 GM 1,750 MG/350 ML PIGGYBACK IVPB SCH ×2 (09:50→21:35)
[2023-01-26 09:51] LABS: CREATININE 0.6 mg/dL (0.55-1.3)
[2023-01-26 09:52] LABS: BILIRUBIN,TOTAL 0.4 mg/dL (0.2-1); TOT PROT 6.3 g/dl (6.4-8.2)
[2023-01-26] MEDS ORDERED: FLUoxetine HCL 10 MG CAPSULE PO SCH (13:45)
[2023-01-26] MEDS ORDERED: LORazepam 2 MG/ML SDV VIAL IVPUSH PRN (14:58)
[2023-01-26] MEDS: QUEtiapine FUMARATE 200 MG TABLET PO SCH (21:34)
[2023-01-26] MEDS: IBUPROFEN 600 MG TABLET (FP) PO PRN (21:35)
[2023-01-26] MEDS: ALPRAZolam 1 MG TABLET PO PRN (21:49)
[2023-01-27] MEDS: IBUPROFEN 600 MG TABLET (FP) PO PRN ×2 (08:58→14:37)
[2023-01-27] MEDS: oxyCODONE HCL 5 MG TABLET PO PRN ×2 (09:00→17:12)
[2023-01-27] MEDS: VANCOMYCIN PREMIX 1.75 GM 1,750 MG/350 ML PIGGYBACK IVPB SCH ×2 (10:06→21:15)
[2023-01-27] MEDS: methaDONE HCL 10 MG TABLET PO SCH ×2 (10:08→21:15)
[2023-01-27] MEDS: FOLIC ACID 1 MG TABLET (FP) PO SCH (10:09)
[2023-01-27] MEDS: ASCORBIC ACID 500 MG TABLET (FP) PO SCH (10:09)
[2023-01-27] MEDS: THIAMINE HCL 100 MG TABLET (FP) PO SCH (10:09)
[2023-01-27] MEDS: NICOTINE 14 MG/24 HOURS TOPICAL PATCH TD SCH (10:09)
[2023-01-27] MEDS: MULTIVITAMINS (DAILY MVI) TABLET (FP) PO SCH (10:09)
[2023-01-27 12:44] LABS: HEMATOCRIT 27.8 % (35.4-49); HEMOGLOBIN 9.1 GM/dL (11.7-16.9); MCH 29.8 pg (25.7-33.7); MCHC 32.9 g/dl (32.0-35.9); MEAN CELL VOLUME 90.7 fl (80-96); MEAN PLT VOLUME 6.2 fl (7.5-11.1); PLATELET COUNT 625 10^3/uL (134-434); RBC 3.07 M/mm3 (4.00-5.60); RDW 14.5 % (11.9-15.9)
[2023-01-27 12:53] LABS: INR 1.17 (0.83-1.09); PROTHROMBIN TIME (PATIENT) 13.6 SEC (9.7-13.0)
[2023-01-27] MEDS: ALPRAZolam 1 MG TABLET PO PRN (13:03)
[2023-01-27 13:22] LABS: CHLORIDE 95 mmol/L (98-107); POTASSIUM 3.7 mmol/L (3.5-5.1); SODIUM 130 mmol/L (136-145)
[2023-01-27 13:24] LABS: MAGNESIUM 1.6 mg/dL (1.8-2.4)
[2023-01-27 13:25] LABS: ANION GAP 13 MMOL/L (8-16); BLOOD UREA NITROGEN 13.6 mg/dL (7-18); CO2 23 mmol/L (21-32); GLUCOSE,RANDOM 84 mg/dL (74-106)
[2023-01-27 13:27] LABS: CREATININE 0.3 mg/dL (0.55-1.3); SGOT/AST 86 U/L (15-37)
[2023-01-27 13:28] LABS: PHOSPHOROUS 2.9 mg/dL (2.5-4.9); SGPT/ALT 137 U/L (13-61)
[2023-01-27 13:29] LABS: TOT PROT 4.8 g/dl (6.4-8.2)
[2023-01-27 13:30] LABS: ALK PHOS 77 U/L (45-117)
[2023-01-27 13:51] LABS: ALBUMIN 1.3 g/dl (3.4-5.0); CALCIUM 6.6 mg/dL (8.5-10.1)
[2023-01-27] MEDS ORDERED: SODIUM CHLORIDE 1,000 ML IV SCH (14:15)
[2023-01-27] MEDS ORDERED: MAGNESIUM SULF 50% (8.12 MEQ/2 ML-1 GM VIAL) IVPB ONE (14:15)
[2023-01-27] MEDS: QUEtiapine FUMARATE 200 MG TABLET PO SCH (21:15)
[2023-01-28] MEDS: ALPRAZolam 1 MG TABLET PO PRN ×2 (05:59→23:20)
[2023-01-28] MEDS: oxyCODONE HCL 5 MG TABLET PO PRN ×2 (06:24→15:10)
[2023-01-28 09:51] LABS: INR 1.09 (0.83-1.09); PROTHROMBIN TIME (PATIENT) 12.6 SEC (9.7-13.0)
[2023-01-28 09:53] LABS: HEMATOCRIT 27.1 % (35.4-49); MCH 29.6 pg (25.7-33.7); MCHC 33.2 g/dl (32.0-35.9); MEAN CELL VOLUME 89.1 fl (80-96); MEAN PLT VOLUME 6.5 fl (7.5-11.1); PLATELET COUNT 569 10^3/uL (134-434); RBC 3.04 M/mm3 (4.00-5.60); WHITE BLOOD COUNT 7.6 K/mm3 (4.0-10.0)
[2023-01-28 10:01] LABS: POTASSIUM 4.2 mmol/L (3.5-5.1)
[2023-01-28 10:04] LABS: BLOOD UREA NITROGEN 10.9 mg/dL (7-18); MAGNESIUM 1.7 mg/dL (1.8-2.4)
[2023-01-28 10:07] LABS: CREATININE 0.6 mg/dL (0.55-1.3); PHOSPHOROUS 3.5 mg/dL (2.5-4.9)
[2023-01-28 10:08] LABS: TOT PROT 5.8 g/dl (6.4-8.2)
[2023-01-28 10:09] LABS: BILIRUBIN,TOTAL 0.4 mg/dL (0.2-1)
[2023-01-28 10:21] LABS: ALBUMIN 1.8 g/dl (3.4-5.0); CALCIUM 8.4 mg/dL (8.5-10.1)
[2023-01-28] MEDS: ASCORBIC ACID 500 MG TABLET (FP) PO SCH (10:38)
[2023-01-28] MEDS: THIAMINE HCL 100 MG TABLET (FP) PO SCH (10:38)
[2023-01-28] MEDS: FOLIC ACID 1 MG TABLET (FP) PO SCH (10:39)
[2023-01-28] MEDS: MULTIVITAMINS (DAILY MVI) TABLET (FP) PO SCH (10:40)
[2023-01-28] MEDS: NICOTINE 14 MG/24 HOURS TOPICAL PATCH TD SCH (10:40)
[2023-01-28] MEDS: IBUPROFEN 600 MG TABLET (FP) PO PRN (10:58)
[2023-01-28] MEDS: DAPTOMYCIN 800 MG in SODIUM CHLORIDE 100 ML IVPB SCH (14:06)
[2023-01-28] MEDS ORDERED: MAGNESIUM 2GM/50ML STERILE WATER IVPB IVPB ONE (14:45)
[2023-01-28] MEDS ORDERED: morphine SULFATE 4 MG/ML VIAL IVPUSH STA (16:02)
[2023-01-28] MEDS: QUEtiapine FUMARATE 200 MG TABLET PO SCH (21:44)
[2023-01-29 08:22] LABS: INR 1.11 (0.83-1.09); PROTHROMBIN TIME (PATIENT) 12.9 SEC (9.7-13.0)
[2023-01-29 08:35] LABS: POTASSIUM 4.5 mmol/L (3.5-5.1)
[2023-01-29 08:40] LABS: BLOOD UREA NITROGEN 13.6 mg/dL (7-18); CALCIUM 8.4 mg/dL (8.5-10.1)
[2023-01-29 08:41] LABS: ALBUMIN 1.7 g/dl (3.4-5.0); MAGNESIUM 2.1 mg/dL (1.8-2.4)
[2023-01-29 08:43] LABS: HEMATOCRIT 25.7 % (35.4-49); HEMOGLOBIN 8.8 GM/dL (11.7-16.9); MCH 29.9 pg (25.7-33.7); MCHC 34.2 g/dl (32.0-35.9); MEAN CELL VOLUME 87.5 fl (80-96); MEAN PLT VOLUME 6.4 fl (7.5-11.1); PLATELET COUNT 566 10^3/uL (134-434); RBC 2.93 M/mm3 (4.00-5.60); RDW 14.4 % (11.9-15.9); WHITE BLOOD COUNT 4.6 K/mm3 (4.0-10.0)
[2023-01-29 08:44] LABS: CREATININE 0.5 mg/dL (0.55-1.3); PHOSPHOROUS 4.8 mg/dL (2.5-4.9)
[2023-01-29 08:45] LABS: BILIRUBIN,TOTAL 0.3 mg/dL (0.2-1)
[2023-01-29] MEDS: THIAMINE HCL 100 MG TABLET (FP) PO SCH (09:13)
[2023-01-29] MEDS: FOLIC ACID 1 MG TABLET (FP) PO SCH (09:14)
[2023-01-29] MEDS: MULTIVITAMINS (DAILY MVI) TABLET (FP) PO SCH (09:14)
[2023-01-29] MEDS: NICOTINE 14 MG/24 HOURS TOPICAL PATCH TD SCH (09:15)
[2023-01-29] MEDS: ASCORBIC ACID 500 MG TABLET (FP) PO SCH (09:16)
[2023-01-29] MEDS ORDERED: methaDONE HCL 10 MG TABLET PO SCH (10:00)
[2023-01-29] MEDS: oxyCODONE HCL 5 MG TABLET PO PRN (12:22)
[2023-01-29] MEDS: ALPRAZolam 1 MG TABLET PO PRN (13:42)
[2023-01-29] MEDS: ENOXAPARIN NA (PORCINE) 40 MG/0.4 ML DISP.SYRIN SQ SCH ×2 (15:05→15:23)
[2023-01-29] MEDS: DAPTOMYCIN 800 MG in SODIUM CHLORIDE 100 ML IVPB SCH (15:08)
[2023-01-29] MEDS: IBUPROFEN 600 MG TABLET (FP) PO PRN (17:59)
[2023-01-29] MEDS: VANCOMYCIN PREMIX 1.75 GM 1,750 MG/350 ML PIGGYBACK IVPB SCH (19:38)
[2023-01-29] MEDS: QUEtiapine FUMARATE 200 MG TABLET PO SCH (21:41)
[2023-01-30] MEDS: methaDONE HCL 10 MG TABLET PO SCH (06:13)
[2023-01-30 08:32] LABS: POTASSIUM 4.7 mmol/L (3.5-5.1)
[2023-01-30 08:35] LABS: CALCIUM 8.3 mg/dL (8.5-10.1)
[2023-01-30 08:36] LABS: ALBUMIN 1.9 g/dl (3.4-5.0); BLOOD UREA NITROGEN 15.7 mg/dL (7-18); MAGNESIUM 1.7 mg/dL (1.8-2.4)
[2023-01-30 08:39] LABS: CREATININE 0.6 mg/dL (0.55-1.3); PHOSPHOROUS 4.2 mg/dL (2.5-4.9)
[2023-01-30 08:41] LABS: BILIRUBIN,TOTAL 0.6 mg/dL (0.2-1); TOT PROT 6.4 g/dl (6.4-8.2)
[2023-01-30] MEDS: THIAMINE HCL 100 MG TABLET (FP) PO SCH (09:08)
[2023-01-30] MEDS: NICOTINE 14 MG/24 HOURS TOPICAL PATCH TD SCH (09:08)
[2023-01-30] MEDS: ASCORBIC ACID 500 MG TABLET (FP) PO SCH (09:08)
[2023-01-30] MEDS: MULTIVITAMINS (DAILY MVI) TABLET (FP) PO SCH (09:08)
[2023-01-30] MEDS: FOLIC ACID 1 MG TABLET (FP) PO SCH (09:08)
[2023-01-30] MEDS ORDERED: diphenhydrAMINE HCL 25 MG CAPSULE (FP) PO ONE (12:42)
[2023-01-30] MEDS: DAPTOMYCIN 800 MG in SODIUM CHLORIDE 100 ML IVPB SCH (13:31)
[2023-01-30] MEDS: ALPRAZolam 1 MG TABLET PO PRN (13:42)
[2023-01-30] MEDS ORDERED: MAGNESIUM OXIDE 400 MG TABLET (FP) PO ONE (17:19)
[2023-01-30] MEDS: QUEtiapine FUMARATE 200 MG TABLET PO SCH (22:42)
[2023-01-31] MEDS: methaDONE HCL 10 MG TABLET PO SCH (06:45)
[2023-01-31] MEDS ORDERED: morphine SULFATE 4 MG/ML VIAL IVPUSH ONE (09:08)
[2023-01-31 09:15] LABS: POTASSIUM 4.7 mmol/L (3.5-5.1)
[2023-01-31 09:18] LABS: CALCIUM 8.4 mg/dL (8.5-10.1)
[2023-01-31 09:19] LABS: BLOOD UREA NITROGEN 14.4 mg/dL (7-18); MAGNESIUM 1.9 mg/dL (1.8-2.4)
[2023-01-31 09:21] LABS: CREATININE 0.6 mg/dL (0.55-1.3)
[2023-01-31 09:23] LABS: BILIRUBIN,TOTAL 0.4 mg/dL (0.2-1); TOT PROT 6.8 g/dl (6.4-8.2)
[2023-01-31] MEDS: THIAMINE HCL 100 MG TABLET (FP) PO SCH (09:33)
[2023-01-31] MEDS: MULTIVITAMINS (DAILY MVI) TABLET (FP) PO SCH (09:33)
[2023-01-31] MEDS: ASCORBIC ACID 500 MG TABLET (FP) PO SCH (09:33)
[2023-01-31] MEDS: FOLIC ACID 1 MG TABLET (FP) PO SCH (09:33)
[2023-01-31] MEDS: NICOTINE 14 MG/24 HOURS TOPICAL PATCH TD SCH (09:33)
[2023-01-31] MEDS: DAPTOMYCIN 800 MG in SODIUM CHLORIDE 100 ML IVPB SCH (14:14)
[2023-01-31] MEDS: IBUPROFEN 600 MG TABLET (FP) PO PRN (14:54)
[2023-01-31] MEDS: ALPRAZolam 1 MG TABLET PO PRN (18:34)
[2023-01-31] MEDS: QUEtiapine FUMARATE 200 MG TABLET PO SCH (21:37)
[2023-01-31 22:16] LABS: PHENCYCLIDINE,URINE NEGATIVE (NEGATIVE); URINE AMPHETAMINES NEGATIVE (NEGATIVE); URINE BARBITURATES NEGATIVE (NEGATIVE)
[2023-01-31 22:17] LABS: COCAINE, UR NEGATIVE (NEGATIVE)
[2023-01-31 22:21] LABS: METHADONE, UR POSITIVE (NEGATIVE); OPIATES, URI POSITIVE (NEGATIVE); URINE BENZODIAZEPINES POSITIVE (NEGATIVE)
[2023-02-01] MEDS: methaDONE HCL 10 MG TABLET PO SCH (05:52)
[2023-02-01] MEDS: IBUPROFEN 600 MG TABLET (FP) PO PRN ×2 (08:07→18:05)
[2023-02-01] MEDS: ALPRAZolam 1 MG TABLET PO PRN (08:07)
[2023-02-01 09:12] LABS: HEMATOCRIT 28.3 % (35.4-49); HEMOGLOBIN 9.4 GM/dL (11.7-16.9); MCH 29.8 pg (25.7-33.7); MCHC 33.2 g/dl (32.0-35.9); MEAN CELL VOLUME 89.7 fl (80-96); MEAN PLT VOLUME 6.4 fl (7.5-11.1); PLATELET COUNT 622 10^3/uL (134-434); RBC 3.15 M/mm3 (4.00-5.60); RDW 14.1 % (11.9-15.9); WHITE BLOOD COUNT 5.7 K/mm3 (4.0-10.0)
[2023-02-01 09:50] LABS: POTASSIUM 4.6 mmol/L (3.5-5.1)
[2023-02-01] MEDS: ASCORBIC ACID 500 MG TABLET (FP) PO SCH (10:10)
[2023-02-01] MEDS: NICOTINE 14 MG/24 HOURS TOPICAL PATCH TD SCH (10:10)
[2023-02-01] MEDS: FOLIC ACID 1 MG TABLET (FP) PO SCH (10:10)
[2023-02-01] MEDS: THIAMINE HCL 100 MG TABLET (FP) PO SCH (10:10)
[2023-02-01] MEDS: MULTIVITAMINS (DAILY MVI) TABLET (FP) PO SCH (10:10)
[2023-02-01 10:18] LABS: BLOOD UREA NITROGEN 16.8 mg/dL (7-18); CALCIUM 9.3 mg/dL (8.5-10.1)
[2023-02-01 10:19] LABS: ALBUMIN 2.1 g/dl (3.4-5.0); MAGNESIUM 1.8 mg/dL (1.8-2.4)
[2023-02-01 10:21] LABS: CREATININE 0.7 mg/dL (0.55-1.3); PHOSPHOROUS 4.7 mg/dL (2.5-4.9)
[2023-02-01 10:22] LABS: BILIRUBIN,TOTAL 0.5 mg/dL (0.2-1); TOT PROT 6.7 g/dl (6.4-8.2)
[2023-02-01] MEDS: DAPTOMYCIN 800 MG in SODIUM CHLORIDE 100 ML IVPB SCH (14:42)
[2023-02-01] MEDS: QUEtiapine FUMARATE 200 MG TABLET PO SCH (21:48)
[2023-02-02] MEDS: methaDONE HCL 10 MG TABLET PO SCH (05:42)
[2023-02-02 09:36] LABS: HEMATOCRIT 27.6 % (35.4-49); HEMOGLOBIN 9.5 GM/dL (11.7-16.9); MCH 30.4 pg (25.7-33.7); MCHC 34.5 g/dl (32.0-35.9); MEAN CELL VOLUME 88.3 fl (80-96); MEAN PLT VOLUME 6.5 fl (7.5-11.1); PLATELET COUNT 564 10^3/uL (134-434); RBC 3.13 M/mm3 (4.00-5.60); RDW 14.7 % (11.9-15.9); WHITE BLOOD COUNT 5.2 K/mm3 (4.0-10.0)
[2023-02-02 09:58] LABS: POTASSIUM 4.3 mmol/L (3.5-5.1)
[2023-02-02 09:59] LABS: BLOOD UREA NITROGEN 13.5 mg/dL (7-18)
[2023-02-02 10:00] LABS: ALBUMIN 2.1 g/dl (3.4-5.0); CALCIUM 8.6 mg/dL (8.5-10.1); MAGNESIUM 1.8 mg/dL (1.8-2.4)
[2023-02-02] MEDS: NICOTINE 14 MG/24 HOURS TOPICAL PATCH TD SCH ×2 (10:00→10:05)
[2023-02-02] MEDS: ASCORBIC ACID 500 MG TABLET (FP) PO SCH (10:00)
[2023-02-02] MEDS: THIAMINE HCL 100 MG TABLET (FP) PO SCH (10:00)
[2023-02-02] MEDS: MULTIVITAMINS (DAILY MVI) TABLET (FP) PO SCH (10:01)
[2023-02-02] MEDS: FOLIC ACID 1 MG TABLET (FP) PO SCH (10:01)
[2023-02-02 10:02] LABS: CREATININE 0.6 mg/dL (0.55-1.3)
[2023-02-02 10:03] LABS: PHOSPHOROUS 4.6 mg/dL (2.5-4.9)
[2023-02-02 10:05] LABS: BILIRUBIN,TOTAL 0.3 mg/dL (0.2-1); TOT PROT 6.5 g/dl (6.4-8.2)
[2023-02-02] MEDS: diphenhydrAMINE HCL 25 MG CAPSULE (FP) PO ONE ×2 (13:00→14:02)
[2023-02-02] MEDS: DAPTOMYCIN 800 MG in SODIUM CHLORIDE 100 ML IVPB SCH (16:42)
[2023-02-02] MEDS: ALPRAZolam 1 MG TABLET PO PRN (18:25)
[2023-02-02] MEDS: QUEtiapine FUMARATE 200 MG TABLET PO SCH (21:52)
[2023-02-03] MEDS: methaDONE HCL 10 MG TABLET PO SCH (06:03)
[2023-02-03 09:09] LABS: HEMATOCRIT 27.7 % (35.4-49); HEMOGLOBIN 9.8 GM/dL (11.7-16.9); MCHC 35.5 g/dl (32.0-35.9); MEAN CELL VOLUME 87.5 fl (80-96); MEAN PLT VOLUME 6.7 fl (7.5-11.1); PLATELET COUNT 586 10^3/uL (134-434); RBC 3.17 M/mm3 (4.00-5.60); RDW 14.9 % (11.9-15.9); WHITE BLOOD COUNT 5.1 K/mm3 (4.0-10.0)
[2023-02-03 09:50] LABS: ALBUMIN 2.3 g/dl (3.4-5.0)
[2023-02-03 09:52] LABS: CALCIUM 8.8 mg/dL (8.5-10.1)
[2023-02-03 09:54] LABS: CREATININE 0.6 mg/dL (0.55-1.3); MAGNESIUM 1.9 mg/dL (1.8-2.4); PHOSPHOROUS 5.6 mg/dL (2.5-4.9)
[2023-02-03 09:57] LABS: BILIRUBIN,TOTAL 0.4 mg/dL (0.2-1); TOT PROT 6.9 g/dl (6.4-8.2)
[2023-02-03] MEDS: FOLIC ACID 1 MG TABLET (FP) PO SCH (11:29)
[2023-02-03] MEDS: MULTIVITAMINS (DAILY MVI) TABLET (FP) PO SCH (11:29)
[2023-02-03] MEDS: THIAMINE HCL 100 MG TABLET (FP) PO SCH (11:29)
[2023-02-03] MEDS: NICOTINE 14 MG/24 HOURS TOPICAL PATCH TD SCH (11:30)
[2023-02-03] MEDS: ASCORBIC ACID 500 MG TABLET (FP) PO SCH (11:30)
[2023-02-03 11:44] LABS: POTASSIUM 4.6 mmol/L (3.5-5.1)
[2023-02-03] MEDS: DAPTOMYCIN 800 MG in SODIUM CHLORIDE 100 ML IVPB SCH (14:25)
[2023-02-03] MEDS: ALPRAZolam 1 MG TABLET PO PRN (15:08)
[2023-02-03] MEDS: QUEtiapine FUMARATE 200 MG TABLET PO SCH (21:07)
[2023-02-04] MEDS: methaDONE HCL 10 MG TABLET PO SCH (05:49)
[2023-02-04 08:26] LABS: HEMATOCRIT 28.7 % (35.4-49); HEMOGLOBIN 9.6 GM/dL (11.7-16.9); MCH 29.8 pg (25.7-33.7); MCHC 33.5 g/dl (32.0-35.9); MEAN CELL VOLUME 88.9 fl (80-96); MEAN PLT VOLUME 6.6 fl (7.5-11.1); PLATELET COUNT 592 10^3/uL (134-434); RBC 3.23 M/mm3 (4.00-5.60); RDW 14.2 % (11.9-15.9); WHITE BLOOD COUNT 4.3 K/mm3 (4.0-10.0)
[2023-02-04 08:47] LABS: POTASSIUM 4.5 mmol/L (3.5-5.1)
[2023-02-04 08:49] LABS: CALCIUM 9.2 mg/dL (8.5-10.1)
[2023-02-04 08:51] LABS: ALBUMIN 2.1 g/dl (3.4-5.0); BLOOD UREA NITROGEN 16.6 mg/dL (7-18); MAGNESIUM 1.8 mg/dL (1.8-2.4)
[2023-02-04 08:53] LABS: CREATININE 0.7 mg/dL (0.55-1.3); PHOSPHOROUS 5.2 mg/dL (2.5-4.9)
[2023-02-04 08:55] LABS: BILIRUBIN,TOTAL 0.4 mg/dL (0.2-1); TOT PROT 6.6 g/dl (6.4-8.2)
[2023-02-04] MEDS: MULTIVITAMINS (DAILY MVI) TABLET (FP) PO SCH (10:16)
[2023-02-04] MEDS: THIAMINE HCL 100 MG TABLET (FP) PO SCH (10:16)
[2023-02-04] MEDS: FOLIC ACID 1 MG TABLET (FP) PO SCH (10:16)
[2023-02-04] MEDS: ASCORBIC ACID 500 MG TABLET (FP) PO SCH (10:16)
[2023-02-04] MEDS: NICOTINE 14 MG/24 HOURS TOPICAL PATCH TD SCH (10:19)
[2023-02-04 10:42] VITALS: BP 128/59; PULSE 79; RESP 18; TEMP 98.5
[2023-02-04] MEDS: ALPRAZolam 1 MG TABLET PO PRN (15:25)
== END 2023-02-04 15:29 | disposition other institution (70) | DRG 364 ==
LOC: JER 21:03 → JERBED 23:03 → J6S 01-19 17:41 → J7W 01-21 14:18
PROVIDERS: ADMIT Internal Medicine; ATTEND Internal Medicine
PROC: 0J9F0ZZ Drainage of Left Upper Arm Subcutaneous Tissue and Fascia, Open Approach (ICD-10-PCS; principal; 2023-01-19 14:00)
DX: L02.414 Cutaneous abscess of left upper limb (principal); E43 Unspecified severe protein-calorie malnutrition; E87.1 Hypo-osmolality and hyponatremia; F11.20 Opioid dependence, uncomplicated; J44.1 Chronic obstructive pulmonary disease with (acute) exacerbation; R78.81 Bacteremia; B18.2 Chronic viral hepatitis C; B19.10 Unspecified viral hepatitis B without hepatic coma; D47.3 Essential (hemorrhagic) thrombocythemia; D63.8 Anemia in other chronic diseases classified elsewhere; D75.839 Thrombocytosis, unspecified; E86.0 Dehydration; F12.20 Cannabis dependence, uncomplicated; F17.210 Nicotine dependence, cigarettes, uncomplicated; F31.9 Bipolar disorder, unspecified; F43.10 Post-traumatic stress disorder, unspecified; R74.01 Elevation of levels of liver transaminase levels; R79.89 Other specified abnormal findings of blood chemistry; Z46.89 Encounter for fitting and adjustment of other specified devices; Z59.00 Homelessness unspecified; B95.62 Methicillin resistant Staphylococcus aureus infection as the cause of diseases classified elsewhere; L03.114 Cellulitis of left upper limb
CPT/HCPCS: 0241U-QW; 36415; 71045-TC-FY; 73030-TC-LT-FY; 73060-TC-LT-FY; 73090-TC-LT-FY; 73130-TC-LT-FY; 73201-TC-RT; 76705-TC; 80048; 80053; 80307; 82272; 82550; 82607; 82728; 83540; 83550; 83605; 83735; 84100; 85025; 85027; 85045; 85610; 85730; 86704; 86850; 86900; 86901; 87040; 87070; 87186; 87205; 87340; 87517; 87522; 93005; 93010; 93306-TC; 93971; 94010; 94760; 99285-25; G0480; J0878; J3370; Q9967

== ENCOUNTER 2023-02-06 08:31 | Inpatient (IN) | payer OTHER ==
[2023-02-06 10:50] VITALS: BMI 22.8
[2023-02-06] MEDS ORDERED: POLYETHYLENE GLYCOL (HEALTHYLAX) 3350 17 GM PACKET PO PRN (14:28)
[2023-02-06] MEDS ORDERED: BENZONATATE 200 MG CAPSULE PO PRN (14:28)
[2023-02-06] MEDS ORDERED: NALOXONE HCL 0.4 MG/ML VIAL IM PRN (14:28)
[2023-02-06] MEDS ORDERED: MAG HYDROX/AL HYDROX/SIMETH 30 ML UNIT-DOSE CUP PO PRN (14:28)
[2023-02-06] MEDS ORDERED: BENZOCAINE/MENTHOL (CHLORASEPTIC ) LOZENGE MM PRN (14:28)
[2023-02-06] MEDS ORDERED: MAGNESIUM HYDROX 2400MG/30ML ORAL SUSPENSION 30 ML CUP PO PRN (14:28)
[2023-02-06] MEDS ORDERED: LOPERAMIDE HCL 2 MG CAPSULE PO PRN (14:28)
[2023-02-06] MEDS ORDERED: NALOXONE HCL (KLOXXADO) 8 MG SPRAY NS PRN (14:28)
[2023-02-06] MEDS ORDERED: ONDANSETRON *ODT* 4 MG TABLET SL PRN (14:28)
[2023-02-06] MEDS ORDERED: DICYCLOMINE HCL 10 MG CAPSULE PO PRN (14:28)
[2023-02-06] MEDS ORDERED: NICOTINE POLACRILEX 2 MG GUM BUC PRN (14:28)
[2023-02-06] MEDS ORDERED: IBUPROFEN 400 MG TABLET (FP) PO PRN (14:28)
[2023-02-06] MEDS ORDERED: guaiFENesin 600 MG TABLET.ER (FP) PO PRN (14:28)
[2023-02-06] MEDS ORDERED: BISMUTH SUBSALICYLATE 524 MG/30 ML PO PRN (14:28)
[2023-02-06] MEDS: IBUPROFEN 600 MG TABLET (FP) PO PRN (15:12)
[2023-02-06] MEDS: hydrOXYzine PAMOATE 25 MG CAPSULE (FP) PO PRN (15:16)
[2023-02-06] MEDS: METHOCARBAMOL 500 MG TABLET PO PRN (17:54)
[2023-02-06] MEDS ORDERED: DOXYCYCLINE HYCLATE 100 MG CAPSULE PO SCH (18:00)
[2023-02-06] MEDS: MELATONIN 5 MG TABLETS PO SCH (21:53)
[2023-02-06] MEDS: THIAMINE HCL 100 MG TABLET (FP) PO SCH (21:55)
[2023-02-07] MEDS: METHOCARBAMOL 500 MG TABLET PO PRN ×3 (06:00→22:17)
[2023-02-07] MEDS: IBUPROFEN 600 MG TABLET (FP) PO PRN ×3 (06:00→17:07)
[2023-02-07] MEDS: hydrOXYzine PAMOATE 25 MG CAPSULE (FP) PO PRN ×2 (06:00→22:17)
[2023-02-07] MEDS ORDERED: methaDONE HCL 10 MG TABLET (FOR DETOX USE ONLY) PO ONE (09:30)
[2023-02-07] MEDS: PRENATAL VITAMINS W/ FOLIC ACID TABLET (FP) PO SCH (10:36)
[2023-02-07] MEDS: diazePAM 5 MG TABLET PO PRN ×2 (10:37→19:25)
[2023-02-07] MEDS: DOXYCYCLINE HYCLATE 100 MG TABLET PO SCH ×2 (10:37→17:07)
[2023-02-07 15:20] LABS: POTASSIUM 4.6 mmol/L (3.5-5.1)
[2023-02-07 15:21] LABS: HEMATOCRIT 29.3 % (35.4-49); MCH 29.6 pg (25.7-33.7); MEAN PLT VOLUME 7.1 fl (7.5-11.1); PLATELET COUNT 611 10^3/uL (134-434); RBC 3.37 M/mm3 (4.00-5.60); RDW 14.7 % (11.9-15.9); WHITE BLOOD COUNT 4.4 K/mm3 (4.0-10.0)
[2023-02-07 15:23] LABS: ALBUMIN 2.5 g/dl (3.4-5.0); CALCIUM 8.3 mg/dL (8.5-10.1)
[2023-02-07 15:24] LABS: BLOOD UREA NITROGEN 15.2 mg/dL (7-18)
[2023-02-07 15:26] LABS: CREATININE 0.6 mg/dL (0.55-1.3)
[2023-02-07 15:28] LABS: BILIRUBIN,TOTAL 0.6 mg/dL (0.2-1); TOT PROT 7.2 g/dl (6.4-8.2)
[2023-02-07] MEDS: ACETAMINOPHEN 325 MG TABLET (FP) PO PRN ×2 (15:28→22:17)
[2023-02-07] MEDS: QUEtiapine FUMARATE 200 MG TABLET PO SCH (22:18)
[2023-02-07] MEDS: THIAMINE HCL 100 MG TABLET (FP) PO SCH (22:18)
[2023-02-07] MEDS: MELATONIN 5 MG TABLETS PO SCH (22:18)
[2023-02-08] MEDS: IBUPROFEN 600 MG TABLET (FP) PO PRN ×2 (05:36→14:27)
[2023-02-08] MEDS: METHOCARBAMOL 500 MG TABLET PO PRN ×2 (05:37→12:07)
[2023-02-08] MEDS: hydrOXYzine PAMOATE 25 MG CAPSULE (FP) PO PRN (05:37)
[2023-02-08] MEDS: DOXYCYCLINE HYCLATE 100 MG TABLET PO SCH ×2 (10:36→18:12)
[2023-02-08] MEDS: PRENATAL VITAMINS W/ FOLIC ACID TABLET (FP) PO SCH (10:36)
[2023-02-08] MEDS: diazePAM 5 MG TABLET PO PRN ×2 (10:40→18:13)
[2023-02-08] MEDS: cloNIDine HCL 0.1 MG TABLET PO PRN (12:07)
[2023-02-08] MEDS: ACETAMINOPHEN 325 MG TABLET (FP) PO PRN (12:08)
[2023-02-08] MEDS: NICOTINE 21 MG/24 HOURS TOPICAL PATCH TD SCH (14:50)
[2023-02-08] MEDS ORDERED: GABAPENTIN 100 MG CAPSULE PO ONE (18:27)
[2023-02-08] MEDS ORDERED: GABAPENTIN 100 MG CAPSULE PO SCH (22:00)
[2023-02-08] MEDS: MELATONIN 5 MG TABLETS PO SCH (22:16)
[2023-02-08] MEDS: QUEtiapine FUMARATE 200 MG TABLET PO SCH (22:16)
[2023-02-08] MEDS: GABAPENTIN 100 MG CAPSULE PO SCH (22:16)
[2023-02-08] MEDS: THIAMINE HCL 100 MG TABLET (FP) PO SCH (22:17)
[2023-02-09] MEDS: METHOCARBAMOL 500 MG TABLET PO PRN ×3 (03:18→22:52)
[2023-02-09] MEDS: diazePAM 5 MG TABLET PO PRN ×3 (03:19→22:52)
[2023-02-09] MEDS: hydrOXYzine PAMOATE 25 MG CAPSULE (FP) PO PRN ×2 (03:19→14:21)
[2023-02-09] MEDS: GABAPENTIN 100 MG CAPSULE PO SCH ×3 (06:09→21:06)
[2023-02-09] MEDS ORDERED: methaDONE HCL 10 MG TABLET (FOR DETOX USE ONLY) PO ONE (10:00)
[2023-02-09] MEDS: PRENATAL VITAMINS W/ FOLIC ACID TABLET (FP) PO SCH (10:19)
[2023-02-09] MEDS: DOXYCYCLINE HYCLATE 100 MG TABLET PO SCH ×2 (10:20→17:02)
[2023-02-09] MEDS: NICOTINE 21 MG/24 HOURS TOPICAL PATCH TD SCH (10:20)
[2023-02-09] MEDS: cloNIDine HCL 0.1 MG TABLET PO PRN ×2 (10:22→17:06)
[2023-02-09] MEDS: ACETAMINOPHEN 325 MG TABLET (FP) PO PRN (14:21)
[2023-02-09] MEDS: IBUPROFEN 600 MG TABLET (FP) PO PRN (17:01)
[2023-02-09] MEDS: THIAMINE HCL 100 MG TABLET (FP) PO SCH (21:06)
[2023-02-09] MEDS: MELATONIN 5 MG TABLETS PO SCH (21:06)
[2023-02-09] MEDS: QUEtiapine FUMARATE 200 MG TABLET PO SCH (21:06)
[2023-02-10] MEDS: GABAPENTIN 100 MG CAPSULE PO SCH ×2 (05:43→13:13)
[2023-02-10] MEDS: hydrOXYzine PAMOATE 25 MG CAPSULE (FP) PO PRN (06:16)
[2023-02-10] MEDS: PRENATAL VITAMINS W/ FOLIC ACID TABLET (FP) PO SCH (10:04)
[2023-02-10] MEDS: DOXYCYCLINE HYCLATE 100 MG TABLET PO SCH ×2 (10:05→17:16)
[2023-02-10] MEDS: METHOCARBAMOL 500 MG TABLET PO PRN ×2 (10:09→17:33)
[2023-02-10] MEDS: NICOTINE 21 MG/24 HOURS TOPICAL PATCH TD SCH (10:10)
[2023-02-10] MEDS: diazePAM 5 MG TABLET PO PRN ×2 (11:03→21:22)
[2023-02-10] MEDS: IBUPROFEN 600 MG TABLET (FP) PO PRN ×2 (13:14→21:23)
[2023-02-10] MEDS ORDERED: hydrOXYzine PAMOATE 50 MG CAPSULE (FP) PO PRN (15:20)
[2023-02-10] MEDS: QUEtiapine FUMARATE 200 MG TABLET PO SCH (21:23)
[2023-02-10] MEDS: THIAMINE HCL 100 MG TABLET (FP) PO SCH (21:23)
[2023-02-10] MEDS: GABAPENTIN 300 MG CAPSULE PO SCH (21:23)
[2023-02-10] MEDS: MELATONIN 5 MG TABLETS PO SCH (21:35)
[2023-02-11] MEDS: METHOCARBAMOL 500 MG TABLET PO PRN ×2 (00:53→08:45)
[2023-02-11] MEDS: GABAPENTIN 300 MG CAPSULE PO SCH (05:38)
[2023-02-11] MEDS: IBUPROFEN 600 MG TABLET (FP) PO PRN (05:38)
[2023-02-11] MEDS: diazePAM 5 MG TABLET PO PRN (08:45)
[2023-02-11] MEDS ORDERED: methaDONE HCL 10 MG TABLET PO SCH (09:30)
[2023-02-11] MEDS: DOXYCYCLINE HYCLATE 100 MG TABLET PO SCH (09:58)
[2023-02-11] MEDS ORDERED: methaDONE HCL 10 MG TABLET (FOR DETOX USE ONLY) PO ONE (10:00)
[2023-02-11] MEDS ORDERED: QUEtiapine FUMARATE 50 MG TABLET PO SCH (10:00)
[2023-02-11] MEDS: PRENATAL VITAMINS W/ FOLIC ACID TABLET (FP) PO SCH (10:01)
[2023-02-11] MEDS: NICOTINE 21 MG/24 HOURS TOPICAL PATCH TD SCH (10:01)
[2023-02-11 12:13] LABS: BASO % 0.5 % (0-2.0); EOS % 5.1 % (0-4.5); HEMATOCRIT 31.9 % (35.4-49); HEMOGLOBIN 10.3 GM/dL (11.7-16.9); LYMPH % 33.7 % (8-40); MCHC 32.3 g/dl (32.0-35.9); MEAN CELL VOLUME 89.8 fl (80-96); MEAN PLT VOLUME 7.2 fl (7.5-11.1); MONO % 11.3 % (3.8-10.2); NEUT % 49.4 % (42.8-82.8); PLATELET COUNT 568 10^3/uL (134-434); RBC 3.55 M/mm3 (4.00-5.60); RDW 15.4 % (11.9-15.9); WHITE BLOOD COUNT 4.8 K/mm3 (4.0-10.0)
[2023-02-11 12:14] LABS: POTASSIUM 4.8 mmol/L (3.5-5.1)
[2023-02-11 12:21] LABS: CREATININE 0.7 mg/dL (0.55-1.3)
[2023-02-11 12:49] VITALS: BP 126/72; PULSE 112; RESP 16; TEMP 97.3
== END 2023-02-11 13:08 | disposition other institution (70) | DRG 773 ==
LOC: YASAS 08:31 → Y6N 14:46 → Y3N 14:54
PROVIDERS: ADMIT Allergy & Immunology; ATTEND Psychiatry & Neurology Pain Medicine
PROC: HZ2ZZZZ Detoxification Services for Substance Abuse Treatment (ICD-10-PCS; principal; 2023-02-06)
DX: F11.23 Opioid dependence with withdrawal (principal); F14.20 Cocaine dependence, uncomplicated; F17.210 Nicotine dependence, cigarettes, uncomplicated; F31.9 Bipolar disorder, unspecified; F60.9 Personality disorder, unspecified; G47.00 Insomnia, unspecified; Z62.810 Personal history of physical and sexual abuse in childhood; Z86.59 Personal history of other mental and behavioral disorders; Z88.8 Allergy status to other drugs, medicaments and biological substances; Z56.0 Unemployment, unspecified; Z59.00 Homelessness unspecified
CPT/HCPCS: 36415; 80048; 80053; 85025; 85027; 86780; 87635

== ENCOUNTER 2023-02-11 13:22 | Inpatient (IN) | payer OTHER ==
[2023-02-11] MEDS ORDERED: AMMONIUM LACTATE 12% LOTION 225 GM BOTTLE TP PRN (14:10)
[2023-02-11] MEDS ORDERED: LOPERAMIDE HCL 2 MG CAPSULE PO PRN (14:10)
[2023-02-11] MEDS ORDERED: NICOTINE POLACRILEX 4 MG GUM BUC PRN (14:10)
[2023-02-11] MEDS ORDERED: MAGNESIUM HYDROX 2400MG/30ML ORAL SUSPENSION 30 ML CUP PO PRN (14:10)
[2023-02-11] MEDS ORDERED: IBUPROFEN 400 MG TABLET (FP) PO PRN (14:10)
[2023-02-11] MEDS ORDERED: NALOXONE HCL (KLOXXADO) 8 MG SPRAY NS PRN (14:10)
[2023-02-11] MEDS ORDERED: BENZOCAINE/MENTHOL (CHLORASEPTIC ) LOZENGE MM PRN (14:10)
[2023-02-11] MEDS ORDERED: NALOXONE HCL 0.4 MG/ML VIAL IVPUSH PRN (14:10)
[2023-02-11] MEDS ORDERED: IBUPROFEN 600 MG TABLET (FP) PO PRN (14:10)
[2023-02-11] MEDS ORDERED: POLYETHYLENE GLYCOL (HEALTHYLAX) 3350 17 GM PACKET PO PRN (14:10)
[2023-02-11] MEDS ORDERED: BENZONATATE 200 MG CAPSULE PO PRN (14:10)
[2023-02-11] MEDS ORDERED: hydrOXYzine PAMOATE 25 MG CAPSULE (FP) PO PRN (14:10)
[2023-02-11] MEDS ORDERED: guaiFENesin 600 MG TABLET.ER (FP) PO PRN (14:10)
[2023-02-11] MEDS ORDERED: MAG HYDROX/AL HYDROX/SIMETH 30 ML UNIT-DOSE CUP PO PRN (14:10)
[2023-02-11] MEDS ORDERED: GABAPENTIN 300 MG CAPSULE PO SCH (14:15)
[2023-02-11] MEDS ORDERED: QUEtiapine FUMARATE 50 MG TABLET PO SCH (15:00)
[2023-02-11] MEDS: IBUPROFEN 400 MG TABLET (FP) PO SCH ×2 (15:35→22:02)
[2023-02-11] MEDS ORDERED: METHOCARBAMOL 500 MG TABLET PO ONE (15:39)
[2023-02-11] MEDS: COLLOIDAL OATMEAL 1 BAR EACH TP PRN (16:00)
[2023-02-11] MEDS: DOXYCYCLINE HYCLATE 100 MG TABLET PO SCH (17:59)
[2023-02-11] MEDS: ACETAMINOPHEN 325 MG TABLET (FP) PO PRN (19:34)
[2023-02-11] MEDS: MELATONIN 5 MG TABLETS PO SCH (22:01)
[2023-02-11] MEDS: THIAMINE HCL 100 MG TABLET (FP) PO SCH (22:02)
[2023-02-11] MEDS: METHOCARBAMOL 500 MG TABLET PO SCH (22:02)
[2023-02-11] MEDS: QUEtiapine FUMARATE 200 MG TABLET PO SCH (22:02)
[2023-02-11] MEDS: GABAPENTIN 400 MG CAPSULE PO SCH (22:02)
[2023-02-12] MEDS: ACETAMINOPHEN 325 MG TABLET (FP) PO PRN (02:11)
[2023-02-12] MEDS: GABAPENTIN 400 MG CAPSULE PO SCH ×3 (07:00→21:23)
[2023-02-12] MEDS: METHOCARBAMOL 500 MG TABLET PO SCH ×3 (07:00→21:23)
[2023-02-12] MEDS: methaDONE HCL 10 MG TABLET PO SCH (07:00)
[2023-02-12] MEDS: IBUPROFEN 400 MG TABLET (FP) PO SCH ×3 (07:03→21:23)
[2023-02-12] MEDS: PRENATAL VITAMINS W/ FOLIC ACID TABLET (FP) PO SCH (10:22)
[2023-02-12] MEDS: QUEtiapine FUMARATE 50 MG TABLET PO SCH ×3 (10:23→17:14)
[2023-02-12] MEDS: DOXYCYCLINE HYCLATE 100 MG TABLET PO SCH ×2 (10:23→17:13)
[2023-02-12] MEDS: NICOTINE 14 MG/24 HOURS TOPICAL PATCH TD PRN (13:48)
[2023-02-12] MEDS ORDERED: GABAPENTIN 300 MG CAPSULE PO SCH (14:00)
[2023-02-12] MEDS: diphenhydrAMINE HCL 25 MG CAPSULE (FP) PO PRN (17:13)
[2023-02-12] MEDS: THIAMINE HCL 100 MG TABLET (FP) PO SCH (21:23)
[2023-02-12] MEDS: MELATONIN 5 MG TABLETS PO SCH (21:23)
[2023-02-12] MEDS: QUEtiapine FUMARATE 200 MG TABLET PO SCH (21:23)
[2023-02-13] MEDS: ACETAMINOPHEN 325 MG TABLET (FP) PO PRN ×3 (01:11→18:30)
[2023-02-13] MEDS: diphenhydrAMINE HCL 25 MG CAPSULE (FP) PO PRN ×3 (01:11→21:39)
[2023-02-13] MEDS: methaDONE HCL 10 MG TABLET PO SCH (06:17)
[2023-02-13] MEDS: METHOCARBAMOL 500 MG TABLET PO SCH ×3 (06:17→21:36)
[2023-02-13] MEDS: GABAPENTIN 400 MG CAPSULE PO SCH ×3 (06:17→21:35)
[2023-02-13] MEDS: IBUPROFEN 400 MG TABLET (FP) PO SCH ×4 (06:20→21:36)
[2023-02-13] MEDS: PRENATAL VITAMINS W/ FOLIC ACID TABLET (FP) PO SCH (09:39)
[2023-02-13] MEDS: DOXYCYCLINE HYCLATE 100 MG TABLET PO SCH ×2 (09:39→17:29)
[2023-02-13] MEDS: QUEtiapine FUMARATE 50 MG TABLET PO SCH ×3 (09:39→17:29)
[2023-02-13] MEDS: NICOTINE 14 MG/24 HOURS TOPICAL PATCH TD PRN (11:08)
[2023-02-13] MEDS ORDERED: QUEtiapine FUMARATE 25 MG TABLET ONE (17:24)
[2023-02-13] MEDS: THIAMINE HCL 100 MG TABLET (FP) PO SCH (21:35)
[2023-02-13] MEDS: QUEtiapine FUMARATE 200 MG TABLET PO SCH (21:35)
[2023-02-13] MEDS: MELATONIN 5 MG TABLETS PO SCH (21:36)
[2023-02-14] MEDS: IBUPROFEN 400 MG TABLET (FP) PO SCH ×3 (05:57→21:24)
[2023-02-14] MEDS: METHOCARBAMOL 500 MG TABLET PO SCH ×3 (05:57→21:24)
[2023-02-14] MEDS: GABAPENTIN 400 MG CAPSULE PO SCH ×3 (05:57→21:24)
[2023-02-14] MEDS ORDERED: methaDONE 40 MG, methaDONE 30 MG PO SCH (06:00)
[2023-02-14] MEDS: methaDONE HCL 40 MG DISPERSABLE TABLET PO SCH (06:45)
[2023-02-14] MEDS: PRENATAL VITAMINS W/ FOLIC ACID TABLET (FP) PO SCH (10:31)
[2023-02-14] MEDS: DOXYCYCLINE HYCLATE 100 MG TABLET PO SCH ×2 (10:32→17:34)
[2023-02-14] MEDS: QUEtiapine FUMARATE 50 MG TABLET PO SCH ×3 (10:32→17:34)
[2023-02-14] MEDS: NICOTINE 14 MG/24 HOURS TOPICAL PATCH TD PRN (11:30)
[2023-02-14] MEDS: diphenhydrAMINE HCL 25 MG CAPSULE (FP) PO PRN ×2 (12:49→18:29)
[2023-02-14] MEDS: ACETAMINOPHEN 325 MG TABLET (FP) PO PRN (19:49)
[2023-02-14] MEDS: QUEtiapine FUMARATE 200 MG TABLET PO SCH (21:24)
[2023-02-14] MEDS: THIAMINE HCL 100 MG TABLET (FP) PO SCH (21:24)
[2023-02-14] MEDS: MELATONIN 5 MG TABLETS PO SCH (21:25)
[2023-02-14] MEDS: BENZOCAINE 20 % GEL TUBE MM PRN (22:57)
[2023-02-15] MEDS: diphenhydrAMINE HCL 25 MG CAPSULE (FP) PO PRN ×2 (03:43→20:01)
[2023-02-15] MEDS: methaDONE HCL 40 MG DISPERSABLE TABLET PO SCH (06:15)
[2023-02-15] MEDS: IBUPROFEN 400 MG TABLET (FP) PO SCH (06:15)
[2023-02-15] MEDS: METHOCARBAMOL 500 MG TABLET PO SCH ×3 (06:16→21:03)
[2023-02-15] MEDS: GABAPENTIN 400 MG CAPSULE PO SCH ×3 (06:16→21:03)
[2023-02-15] MEDS: DOXYCYCLINE HYCLATE 100 MG TABLET PO SCH ×2 (09:32→17:17)
[2023-02-15] MEDS: QUEtiapine FUMARATE 50 MG TABLET PO SCH ×3 (09:32→17:17)
[2023-02-15] MEDS: PRENATAL VITAMINS W/ FOLIC ACID TABLET (FP) PO SCH (09:32)
[2023-02-15] MEDS: NICOTINE 14 MG/24 HOURS TOPICAL PATCH TD PRN (09:37)
[2023-02-15] MEDS: BENZOCAINE 20 % GEL TUBE MM PRN (15:49)
[2023-02-15] MEDS: IBUPROFEN 400 MG TABLET (FP) PO PRN (17:17)
[2023-02-15] MEDS: SUVOREXANT 10 MG TABLET PO PRN (21:03)
[2023-02-15] MEDS: THIAMINE HCL 100 MG TABLET (FP) PO SCH (21:03)
[2023-02-15] MEDS: QUEtiapine FUMARATE 300 MG TABLET PO SCH (21:04)
[2023-02-16] MEDS: IBUPROFEN 400 MG TABLET (FP) PO PRN ×2 (03:44→18:54)
[2023-02-16] MEDS: methaDONE 40 MG, methaDONE 10 MG PO SCH (05:55)
[2023-02-16] MEDS: METHOCARBAMOL 500 MG TABLET PO SCH ×3 (05:55→21:05)
[2023-02-16] MEDS: GABAPENTIN 400 MG CAPSULE PO SCH ×3 (05:56→21:06)
[2023-02-16] MEDS ORDERED: methaDONE HCL 40 MG DISPERSABLE TABLET PO SCH (06:00)
[2023-02-16] MEDS: PRENATAL VITAMINS W/ FOLIC ACID TABLET (FP) PO SCH (10:07)
[2023-02-16] MEDS: DOXYCYCLINE HYCLATE 100 MG TABLET PO SCH ×2 (10:07→18:24)
[2023-02-16] MEDS: QUEtiapine FUMARATE 50 MG TABLET PO SCH ×3 (10:07→16:53)
[2023-02-16] MEDS: NICOTINE 14 MG/24 HOURS TOPICAL PATCH TD PRN (10:11)
[2023-02-16] MEDS: BENZOCAINE 20 % GEL TUBE MM PRN (11:06)
[2023-02-16] MEDS: diphenhydrAMINE HCL 25 MG CAPSULE (FP) PO PRN (16:53)
[2023-02-16] MEDS: SUVOREXANT 10 MG TABLET PO PRN (21:05)
[2023-02-16] MEDS: THIAMINE HCL 100 MG TABLET (FP) PO SCH (21:06)
[2023-02-16] MEDS: QUEtiapine FUMARATE 300 MG TABLET PO SCH (21:06)
[2023-02-17] MEDS: METHOCARBAMOL 500 MG TABLET PO SCH ×3 (05:42→21:03)
[2023-02-17] MEDS: GABAPENTIN 400 MG CAPSULE PO SCH ×3 (05:42→21:04)
[2023-02-17] MEDS: BENZOCAINE 20 % GEL TUBE MM PRN (05:42)
[2023-02-17] MEDS: methaDONE 40 MG, methaDONE 10 MG PO SCH (05:42)
[2023-02-17] MEDS: IBUPROFEN 400 MG TABLET (FP) PO PRN ×2 (07:24→18:45)
[2023-02-17] MEDS: QUEtiapine FUMARATE 50 MG TABLET PO SCH ×3 (09:53→17:36)
[2023-02-17] MEDS: PRENATAL VITAMINS W/ FOLIC ACID TABLET (FP) PO SCH (09:53)
[2023-02-17] MEDS: DOXYCYCLINE HYCLATE 100 MG TABLET PO SCH ×2 (09:54→17:36)
[2023-02-17] MEDS: NICOTINE 14 MG/24 HOURS TOPICAL PATCH TD PRN (09:56)
[2023-02-17] MEDS: diphenhydrAMINE HCL 25 MG CAPSULE (FP) PO PRN (18:45)
[2023-02-17] MEDS: QUEtiapine FUMARATE 300 MG TABLET PO SCH (21:04)
[2023-02-17] MEDS: SUVOREXANT 10 MG TABLET PO PRN (21:04)
[2023-02-17] MEDS: THIAMINE HCL 100 MG TABLET (FP) PO SCH (21:05)
[2023-02-18] MEDS: methaDONE 40 MG, methaDONE 10 MG PO SCH (06:35)
[2023-02-18] MEDS: METHOCARBAMOL 500 MG TABLET PO SCH ×3 (06:36→21:13)
[2023-02-18] MEDS: GABAPENTIN 400 MG CAPSULE PO SCH (06:36)
[2023-02-18] MEDS: PRENATAL VITAMINS W/ FOLIC ACID TABLET (FP) PO SCH (10:04)
[2023-02-18] MEDS: DOXYCYCLINE HYCLATE 100 MG TABLET PO SCH (10:04)
[2023-02-18] MEDS: QUEtiapine FUMARATE 50 MG TABLET PO SCH ×3 (10:04→17:11)
[2023-02-18] MEDS: NICOTINE 14 MG/24 HOURS TOPICAL PATCH TD PRN (10:06)
[2023-02-18] MEDS: BENZOCAINE 20 % GEL TUBE MM PRN ×2 (11:22→21:24)
[2023-02-18] MEDS: GABAPENTIN 300 MG CAPSULE PO SCH ×2 (13:40→21:13)
[2023-02-18] MEDS: diphenhydrAMINE HCL 25 MG CAPSULE (FP) PO PRN (17:11)
[2023-02-18] MEDS: SUVOREXANT 15 MG TABLET PO PRN (21:13)
[2023-02-18] MEDS: THIAMINE HCL 100 MG TABLET (FP) PO SCH (21:13)
[2023-02-18] MEDS: QUEtiapine FUMARATE 300 MG TABLET PO SCH (21:13)
[2023-02-19] MEDS ORDERED: methaDONE HCL 40 MG DISPERSABLE TABLET PO SCH (06:00)
[2023-02-19] MEDS: METHOCARBAMOL 500 MG TABLET PO SCH ×3 (06:15→21:14)
[2023-02-19] MEDS: methaDONE 40 MG, methaDONE 20 MG PO SCH (06:15)
[2023-02-19] MEDS: GABAPENTIN 300 MG CAPSULE PO SCH ×3 (06:16→21:14)
[2023-02-19] MEDS: BENZOCAINE 20 % GEL TUBE MM PRN (08:11)
[2023-02-19] MEDS: QUEtiapine FUMARATE 50 MG TABLET PO SCH ×3 (10:11→16:59)
[2023-02-19] MEDS: PRENATAL VITAMINS W/ FOLIC ACID TABLET (FP) PO SCH (10:11)
[2023-02-19] MEDS: NICOTINE 21 MG/24 HOURS TOPICAL PATCH TD PRN (10:12)
[2023-02-19] MEDS: diphenhydrAMINE HCL 25 MG CAPSULE (FP) PO PRN (16:59)
[2023-02-19] MEDS: IBUPROFEN 400 MG TABLET (FP) PO PRN (21:13)
[2023-02-19] MEDS: THIAMINE HCL 100 MG TABLET (FP) PO SCH (21:14)
[2023-02-19] MEDS: QUEtiapine FUMARATE 300 MG TABLET PO SCH (21:14)
[2023-02-19] MEDS: SUVOREXANT 15 MG TABLET PO PRN (21:19)
[2023-02-20] MEDS: methaDONE 40 MG, methaDONE 20 MG PO SCH (06:47)
[2023-02-20] MEDS: GABAPENTIN 300 MG CAPSULE PO SCH ×3 (06:47→21:12)
[2023-02-20] MEDS: METHOCARBAMOL 500 MG TABLET PO SCH ×3 (06:47→21:12)
[2023-02-20] MEDS: BENZOCAINE 20 % GEL TUBE MM PRN ×2 (06:51→22:06)
[2023-02-20 07:39] VITALS: RESP 18
[2023-02-20] MEDS: QUEtiapine FUMARATE 50 MG TABLET PO SCH ×3 (10:20→17:18)
[2023-02-20] MEDS: PRENATAL VITAMINS W/ FOLIC ACID TABLET (FP) PO SCH (10:20)
[2023-02-20] MEDS: diphenhydrAMINE HCL 25 MG CAPSULE (FP) PO PRN (11:26)
[2023-02-20] MEDS: IBUPROFEN 400 MG TABLET (FP) PO PRN ×2 (11:47→21:14)
[2023-02-20] MEDS: NICOTINE 21 MG/24 HOURS TOPICAL PATCH TD PRN (14:24)
[2023-02-20] MEDS ORDERED: QUEtiapine FUMARATE 25 MG TABLET ONE (17:13)
[2023-02-20] MEDS: SUVOREXANT 15 MG TABLET PO PRN (21:11)
[2023-02-20] MEDS: QUEtiapine FUMARATE 300 MG TABLET PO SCH (21:12)
[2023-02-20] MEDS: THIAMINE HCL 100 MG TABLET (FP) PO SCH (21:13)
[2023-02-21] MEDS: methaDONE 40 MG, methaDONE 20 MG PO SCH (06:34)
[2023-02-21] MEDS: GABAPENTIN 300 MG CAPSULE PO SCH ×3 (06:34→21:24)
[2023-02-21] MEDS: METHOCARBAMOL 500 MG TABLET PO SCH ×3 (06:34→21:24)
[2023-02-21] MEDS ORDERED: QUEtiapine FUMARATE 25 MG TABLET ONE (09:05)
[2023-02-21] MEDS: PRENATAL VITAMINS W/ FOLIC ACID TABLET (FP) PO SCH (09:52)
[2023-02-21] MEDS: QUEtiapine FUMARATE 50 MG TABLET PO SCH ×3 (09:53→16:52)
[2023-02-21] MEDS: diphenhydrAMINE HCL 25 MG CAPSULE (FP) PO PRN ×2 (09:54→18:33)
[2023-02-21] MEDS: LACTULOSE 20 GM/30 ML UDC (FOR ORAL USE ONLY) PO SCH ×2 (13:30→21:23)
[2023-02-21] MEDS: NICOTINE 21 MG/24 HOURS TOPICAL PATCH TD PRN (14:20)
[2023-02-21] MEDS: IBUPROFEN 400 MG TABLET (FP) PO PRN (16:51)
[2023-02-21] MEDS: THIAMINE HCL 100 MG TABLET (FP) PO SCH (21:24)
[2023-02-21] MEDS: QUEtiapine FUMARATE 300 MG TABLET PO SCH (21:24)
[2023-02-21] MEDS: SUVOREXANT 15 MG TABLET PO PRN (21:24)
[2023-02-22] MEDS: METHOCARBAMOL 500 MG TABLET PO SCH ×3 (06:19→21:44)
[2023-02-22] MEDS: LACTULOSE 20 GM/30 ML UDC (FOR ORAL USE ONLY) PO SCH ×3 (06:19→21:43)
[2023-02-22] MEDS: methaDONE 40 MG, methaDONE 20 MG PO SCH (06:19)
[2023-02-22] MEDS: GABAPENTIN 300 MG CAPSULE PO SCH ×3 (06:22→21:44)
[2023-02-22] MEDS: PRENATAL VITAMINS W/ FOLIC ACID TABLET (FP) PO SCH (09:40)
[2023-02-22] MEDS: NICOTINE 21 MG/24 HOURS TOPICAL PATCH TD SCH (09:42)
[2023-02-22] MEDS: QUEtiapine FUMARATE 50 MG TABLET PO SCH ×3 (09:42→17:05)
[2023-02-22] MEDS: IBUPROFEN 400 MG TABLET (FP) PO PRN (09:45)
[2023-02-22] MEDS: diphenhydrAMINE HCL 25 MG CAPSULE (FP) PO PRN ×2 (11:38→17:05)
[2023-02-22] MEDS: ACETAMINOPHEN 325 MG TABLET (FP) PO PRN (15:50)
[2023-02-22] MEDS: SUVOREXANT 15 MG TABLET PO PRN (21:43)
[2023-02-22] MEDS: THIAMINE HCL 100 MG TABLET (FP) PO SCH (21:44)
[2023-02-22] MEDS: QUEtiapine FUMARATE 300 MG TABLET PO SCH (21:44)
[2023-02-23] MEDS: LACTULOSE 20 GM/30 ML UDC (FOR ORAL USE ONLY) PO SCH ×3 (06:40→21:34)
[2023-02-23] MEDS: methaDONE 40 MG, methaDONE 20 MG PO SCH (06:40)
[2023-02-23] MEDS: METHOCARBAMOL 500 MG TABLET PO SCH ×3 (06:41→21:34)
[2023-02-23] MEDS: GABAPENTIN 300 MG CAPSULE PO SCH ×3 (06:41→21:34)
[2023-02-23] MEDS: PRENATAL VITAMINS W/ FOLIC ACID TABLET (FP) PO SCH (09:49)
[2023-02-23] MEDS: NICOTINE 21 MG/24 HOURS TOPICAL PATCH TD SCH (09:49)
[2023-02-23] MEDS: QUEtiapine FUMARATE 50 MG TABLET PO SCH ×3 (09:50→17:12)
[2023-02-23] MEDS: diphenhydrAMINE HCL 25 MG CAPSULE (FP) PO PRN (11:30)
[2023-02-23] MEDS: THIAMINE HCL 100 MG TABLET (FP) PO SCH (21:34)
[2023-02-23] MEDS: QUEtiapine FUMARATE 300 MG TABLET PO SCH (21:34)
[2023-02-24] MEDS: METHOCARBAMOL 500 MG TABLET PO SCH ×3 (06:36→23:17)
[2023-02-24] MEDS: GABAPENTIN 300 MG CAPSULE PO SCH ×3 (06:36→23:17)
[2023-02-24] MEDS: methaDONE 40 MG, methaDONE 20 MG PO SCH (06:37)
[2023-02-24] MEDS: LACTULOSE 20 GM/30 ML UDC (FOR ORAL USE ONLY) PO SCH ×3 (06:38→23:17)
[2023-02-24] MEDS: NICOTINE 21 MG/24 HOURS TOPICAL PATCH TD SCH (09:39)
[2023-02-24] MEDS: QUEtiapine FUMARATE 50 MG TABLET PO SCH ×3 (09:39→17:39)
[2023-02-24] MEDS: PRENATAL VITAMINS W/ FOLIC ACID TABLET (FP) PO SCH (09:39)
[2023-02-24] MEDS: diphenhydrAMINE HCL 25 MG CAPSULE (FP) PO PRN ×2 (10:45→17:38)
[2023-02-24] MEDS: THIAMINE HCL 100 MG TABLET (FP) PO SCH (23:17)
[2023-02-24] MEDS: QUEtiapine FUMARATE 300 MG TABLET PO SCH (23:18)
[2023-02-24] MEDS: IBUPROFEN 400 MG TABLET (FP) PO PRN (23:22)
[2023-02-25] MEDS: methaDONE 40 MG, methaDONE 20 MG PO SCH (07:42)
[2023-02-25] MEDS: METHOCARBAMOL 500 MG TABLET PO SCH ×2 (07:43→13:20)
[2023-02-25] MEDS: GABAPENTIN 300 MG CAPSULE PO SCH ×2 (07:44→13:20)
[2023-02-25] MEDS: LACTULOSE 20 GM/30 ML UDC (FOR ORAL USE ONLY) PO SCH ×2 (07:44→13:20)
[2023-02-25] MEDS: PRENATAL VITAMINS W/ FOLIC ACID TABLET (FP) PO SCH (10:05)
[2023-02-25] MEDS: QUEtiapine FUMARATE 50 MG TABLET PO SCH ×3 (10:05→18:05)
[2023-02-25] MEDS: NICOTINE 21 MG/24 HOURS TOPICAL PATCH TD SCH (10:05)
[2023-02-25] MEDS: FLUoxetine HCL 10 MG TABLET PO SCH (11:19)
[2023-02-25 13:34] LABS: HIV INTERPRETATION NEGATIVE (NEGATIVE)
[2023-02-25] MEDS: IBUPROFEN 400 MG TABLET (FP) PO PRN (14:37)
[2023-02-25] MEDS: diphenhydrAMINE HCL 25 MG CAPSULE (FP) PO PRN (16:07)
[2023-02-26] MEDS: LACTULOSE 20 GM/30 ML UDC (FOR ORAL USE ONLY) PO SCH ×4 (00:09→21:41)
[2023-02-26] MEDS: THIAMINE HCL 100 MG TABLET (FP) PO SCH ×2 (00:10→21:41)
[2023-02-26] MEDS: METHOCARBAMOL 500 MG TABLET PO SCH ×4 (00:10→21:42)
[2023-02-26] MEDS: QUEtiapine FUMARATE 300 MG TABLET PO SCH ×2 (00:10→21:41)
[2023-02-26] MEDS: GABAPENTIN 300 MG CAPSULE PO SCH ×4 (00:10→21:41)
[2023-02-26] MEDS: diphenhydrAMINE HCL 25 MG CAPSULE (FP) PO PRN ×2 (01:36→12:24)
[2023-02-26] MEDS: methaDONE 40 MG, methaDONE 20 MG PO SCH (06:11)
[2023-02-26] MEDS: NICOTINE 21 MG/24 HOURS TOPICAL PATCH TD SCH (09:16)
[2023-02-26] MEDS: QUEtiapine FUMARATE 50 MG TABLET PO SCH ×3 (09:16→18:25)
[2023-02-26] MEDS: PRENATAL VITAMINS W/ FOLIC ACID TABLET (FP) PO SCH (09:16)
[2023-02-26] MEDS: FLUoxetine HCL 10 MG TABLET PO SCH (09:18)
[2023-02-26] MEDS: IBUPROFEN 400 MG TABLET (FP) PO PRN (11:01)
[2023-02-26] MEDS: SUVOREXANT 15 MG TABLET PO PRN (21:44)
[2023-02-27] MEDS: GABAPENTIN 300 MG CAPSULE PO SCH ×3 (06:40→22:00)
[2023-02-27] MEDS: methaDONE 40 MG, methaDONE 20 MG PO SCH (06:40)
[2023-02-27] MEDS: METHOCARBAMOL 500 MG TABLET PO SCH ×3 (06:40→21:59)
[2023-02-27] MEDS: LACTULOSE 20 GM/30 ML UDC (FOR ORAL USE ONLY) PO SCH ×3 (06:40→21:58)
[2023-02-27] MEDS: IBUPROFEN 400 MG TABLET (FP) PO PRN ×2 (06:41→21:58)
[2023-02-27] MEDS: QUEtiapine FUMARATE 50 MG TABLET PO SCH ×3 (09:58→18:17)
[2023-02-27] MEDS: NICOTINE 21 MG/24 HOURS TOPICAL PATCH TD SCH (09:58)
[2023-02-27] MEDS: PRENATAL VITAMINS W/ FOLIC ACID TABLET (FP) PO SCH (09:58)
[2023-02-27] MEDS: FLUoxetine HCL 10 MG TABLET PO SCH (09:59)
[2023-02-27] MEDS: SUVOREXANT 15 MG TABLET PO PRN (21:58)
[2023-02-27] MEDS: QUEtiapine FUMARATE 300 MG TABLET PO SCH (21:59)
[2023-02-27] MEDS: THIAMINE HCL 100 MG TABLET (FP) PO SCH (21:59)
[2023-02-28] MEDS: GABAPENTIN 300 MG CAPSULE PO SCH ×3 (06:52→21:39)
[2023-02-28] MEDS: METHOCARBAMOL 500 MG TABLET PO SCH ×3 (06:52→21:39)
[2023-02-28] MEDS: LACTULOSE 20 GM/30 ML UDC (FOR ORAL USE ONLY) PO SCH ×3 (06:52→21:39)
[2023-02-28] MEDS: methaDONE 40 MG, methaDONE 20 MG PO SCH (06:53)
[2023-02-28] MEDS: IBUPROFEN 400 MG TABLET (FP) PO PRN (07:17)
[2023-02-28] MEDS ORDERED: QUEtiapine FUMARATE 25 MG TABLET ONE (08:20)
[2023-02-28] MEDS: PRENATAL VITAMINS W/ FOLIC ACID TABLET (FP) PO SCH (09:51)
[2023-02-28] MEDS: NICOTINE 21 MG/24 HOURS TOPICAL PATCH TD SCH (09:51)
[2023-02-28] MEDS: QUEtiapine FUMARATE 50 MG TABLET PO SCH ×3 (09:52→21:36)
[2023-02-28] MEDS: FLUoxetine HCL 10 MG TABLET PO SCH (09:52)
[2023-02-28] MEDS: diphenhydrAMINE HCL 25 MG CAPSULE (FP) PO PRN (11:17)
[2023-02-28] MEDS: QUEtiapine FUMARATE 300 MG TABLET PO SCH (21:39)
[2023-02-28] MEDS: THIAMINE HCL 100 MG TABLET (FP) PO SCH (21:40)
[2023-02-28] MEDS: SUVOREXANT 15 MG TABLET PO PRN (21:44)
[2023-03-01] MEDS: methaDONE 40 MG, methaDONE 20 MG PO SCH (07:06)
[2023-03-01] MEDS: GABAPENTIN 300 MG CAPSULE PO SCH ×3 (07:06→22:03)
[2023-03-01] MEDS: LACTULOSE 20 GM/30 ML UDC (FOR ORAL USE ONLY) PO SCH ×3 (07:06→22:03)
[2023-03-01] MEDS: METHOCARBAMOL 500 MG TABLET PO SCH ×3 (07:06→22:03)
[2023-03-01] MEDS: PRENATAL VITAMINS W/ FOLIC ACID TABLET (FP) PO SCH (09:54)
[2023-03-01] MEDS: QUEtiapine FUMARATE 50 MG TABLET PO SCH ×3 (09:54→16:51)
[2023-03-01] MEDS: FLUoxetine HCL 10 MG TABLET PO SCH (09:54)
[2023-03-01] MEDS: NICOTINE 21 MG/24 HOURS TOPICAL PATCH TD SCH (09:54)
[2023-03-01] MEDS: diphenhydrAMINE HCL 25 MG CAPSULE (FP) PO PRN ×2 (10:42→17:18)
[2023-03-01] MEDS ORDERED: ONDANSETRON *ODT* 4 MG TABLET SL PRN (13:36)
[2023-03-01] MEDS: SUVOREXANT 15 MG TABLET PO PRN (22:02)
[2023-03-01] MEDS: THIAMINE HCL 100 MG TABLET (FP) PO SCH (22:03)
[2023-03-01] MEDS: QUEtiapine FUMARATE 300 MG TABLET PO SCH (22:03)
[2023-03-02] MEDS: LACTULOSE 20 GM/30 ML UDC (FOR ORAL USE ONLY) PO SCH ×3 (06:57→21:05)
[2023-03-02] MEDS: METHOCARBAMOL 500 MG TABLET PO SCH ×3 (06:57→21:07)
[2023-03-02] MEDS: GABAPENTIN 300 MG CAPSULE PO SCH ×3 (06:58→21:06)
[2023-03-02] MEDS: methaDONE 40 MG, methaDONE 20 MG PO SCH (06:58)
[2023-03-02] MEDS: IBUPROFEN 400 MG TABLET (FP) PO PRN (09:09)
[2023-03-02] MEDS: diphenhydrAMINE HCL 25 MG CAPSULE (FP) PO PRN (09:09)
[2023-03-02] MEDS: NICOTINE 21 MG/24 HOURS TOPICAL PATCH TD SCH (09:12)
[2023-03-02] MEDS: PRENATAL VITAMINS W/ FOLIC ACID TABLET (FP) PO SCH (09:12)
[2023-03-02] MEDS: QUEtiapine FUMARATE 50 MG TABLET PO SCH ×3 (09:13→16:52)
[2023-03-02] MEDS: FLUoxetine HCL 10 MG TABLET PO SCH (09:16)
[2023-03-02] MEDS: QUEtiapine FUMARATE 300 MG TABLET PO SCH (21:05)
[2023-03-02] MEDS: THIAMINE HCL 100 MG TABLET (FP) PO SCH (21:06)
[2023-03-02] MEDS: SUVOREXANT 15 MG TABLET PO PRN (21:08)
[2023-03-03] MEDS: LACTULOSE 20 GM/30 ML UDC (FOR ORAL USE ONLY) PO SCH ×3 (06:49→21:30)
[2023-03-03] MEDS: METHOCARBAMOL 500 MG TABLET PO SCH ×3 (06:50→21:31)
[2023-03-03] MEDS: methaDONE 40 MG, methaDONE 20 MG PO SCH (06:50)
[2023-03-03] MEDS: GABAPENTIN 300 MG CAPSULE PO SCH ×3 (06:50→21:31)
[2023-03-03] MEDS: QUEtiapine FUMARATE 50 MG TABLET PO SCH ×3 (09:18→17:36)
[2023-03-03] MEDS: PRENATAL VITAMINS W/ FOLIC ACID TABLET (FP) PO SCH (09:18)
[2023-03-03] MEDS: FLUoxetine HCL 10 MG TABLET PO SCH (09:21)
[2023-03-03] MEDS: NICOTINE 21 MG/24 HOURS TOPICAL PATCH TD SCH (09:22)
[2023-03-03] MEDS: diphenhydrAMINE HCL 25 MG CAPSULE (FP) PO PRN ×2 (10:33→18:53)
[2023-03-03] MEDS: SUVOREXANT 15 MG TABLET PO PRN (20:58)
[2023-03-03] MEDS: THIAMINE HCL 100 MG TABLET (FP) PO SCH (21:31)
[2023-03-03] MEDS: QUEtiapine FUMARATE 300 MG TABLET PO SCH (21:31)
[2023-03-04] MEDS: LACTULOSE 20 GM/30 ML UDC (FOR ORAL USE ONLY) PO SCH ×3 (06:45→21:20)
[2023-03-04] MEDS: IBUPROFEN 400 MG TABLET (FP) PO PRN (06:45)
[2023-03-04] MEDS: METHOCARBAMOL 500 MG TABLET PO SCH ×3 (06:46→21:20)
[2023-03-04] MEDS: methaDONE 40 MG, methaDONE 20 MG PO SCH (06:46)
[2023-03-04] MEDS: GABAPENTIN 300 MG CAPSULE PO SCH ×3 (06:46→21:21)
[2023-03-04] MEDS: COLLOIDAL OATMEAL 1 BAR EACH TP PRN (06:48)
[2023-03-04] MEDS: FLUoxetine HCL 10 MG TABLET PO SCH (09:34)
[2023-03-04] MEDS: NICOTINE 21 MG/24 HOURS TOPICAL PATCH TD SCH (09:34)
[2023-03-04] MEDS: PRENATAL VITAMINS W/ FOLIC ACID TABLET (FP) PO SCH (09:35)
[2023-03-04] MEDS: QUEtiapine FUMARATE 50 MG TABLET PO SCH ×3 (09:35→17:00)
[2023-03-04] MEDS: diphenhydrAMINE HCL 25 MG CAPSULE (FP) PO PRN (17:00)
[2023-03-04] MEDS: SUVOREXANT 15 MG TABLET PO PRN (21:20)
[2023-03-04] MEDS: QUEtiapine FUMARATE 300 MG TABLET PO SCH (21:20)
[2023-03-04] MEDS: THIAMINE HCL 100 MG TABLET (FP) PO SCH (21:21)
[2023-03-05] MEDS: LACTULOSE 20 GM/30 ML UDC (FOR ORAL USE ONLY) PO SCH ×3 (06:44→21:41)
[2023-03-05] MEDS: GABAPENTIN 300 MG CAPSULE PO SCH ×3 (06:44→21:41)
[2023-03-05] MEDS: METHOCARBAMOL 500 MG TABLET PO SCH ×3 (06:44→21:41)
[2023-03-05] MEDS: methaDONE 40 MG, methaDONE 20 MG PO SCH (06:46)
[2023-03-05] MEDS: PRENATAL VITAMINS W/ FOLIC ACID TABLET (FP) PO SCH (10:13)
[2023-03-05] MEDS: NICOTINE 21 MG/24 HOURS TOPICAL PATCH TD SCH (10:13)
[2023-03-05] MEDS: FLUoxetine HCL 10 MG TABLET PO SCH (10:14)
[2023-03-05] MEDS: QUEtiapine FUMARATE 50 MG TABLET PO SCH ×3 (10:14→17:19)
[2023-03-05] MEDS: diphenhydrAMINE HCL 25 MG CAPSULE (FP) PO PRN ×2 (11:13→17:27)
[2023-03-05] MEDS: QUEtiapine FUMARATE 300 MG TABLET PO SCH (21:41)
[2023-03-05] MEDS: THIAMINE HCL 100 MG TABLET (FP) PO SCH (21:41)
[2023-03-05] MEDS: SUVOREXANT 15 MG TABLET PO PRN (21:43)
[2023-03-05] MEDS: IBUPROFEN 400 MG TABLET (FP) PO PRN (22:37)
[2023-03-06] MEDS: methaDONE 40 MG, methaDONE 20 MG PO SCH (06:52)
[2023-03-06] MEDS: METHOCARBAMOL 500 MG TABLET PO SCH ×3 (06:52→21:47)
[2023-03-06] MEDS: GABAPENTIN 300 MG CAPSULE PO SCH ×3 (06:52→21:46)
[2023-03-06] MEDS: LACTULOSE 20 GM/30 ML UDC (FOR ORAL USE ONLY) PO SCH ×3 (06:52→21:47)
[2023-03-06] MEDS: IBUPROFEN 400 MG TABLET (FP) PO PRN ×2 (08:04→16:39)
[2023-03-06] MEDS: PRENATAL VITAMINS W/ FOLIC ACID TABLET (FP) PO SCH (09:56)
[2023-03-06] MEDS: NICOTINE 21 MG/24 HOURS TOPICAL PATCH TD SCH (09:56)
[2023-03-06] MEDS: FLUoxetine HCL 10 MG TABLET PO SCH (09:57)
[2023-03-06] MEDS: QUEtiapine FUMARATE 50 MG TABLET PO SCH ×3 (09:57→16:43)
[2023-03-06] MEDS: diphenhydrAMINE HCL 25 MG CAPSULE (FP) PO PRN ×2 (12:26→16:39)
[2023-03-06] MEDS ORDERED: QUEtiapine FUMARATE 25 MG TABLET ONE (16:41)
[2023-03-06] MEDS: SUVOREXANT 15 MG TABLET PO PRN (21:46)
[2023-03-06] MEDS: QUEtiapine FUMARATE 300 MG TABLET PO SCH (21:46)
[2023-03-06] MEDS: THIAMINE HCL 100 MG TABLET (FP) PO SCH (21:47)
[2023-03-07] MEDS: LACTULOSE 20 GM/30 ML UDC (FOR ORAL USE ONLY) PO SCH ×3 (06:49→21:35)
[2023-03-07] MEDS: METHOCARBAMOL 500 MG TABLET PO SCH ×3 (06:50→21:35)
[2023-03-07] MEDS: GABAPENTIN 300 MG CAPSULE PO SCH ×3 (06:50→21:35)
[2023-03-07] MEDS: methaDONE 40 MG, methaDONE 20 MG PO SCH (06:51)
[2023-03-07] MEDS ORDERED: QUEtiapine FUMARATE 25 MG TABLET ONE (08:17)
[2023-03-07] MEDS: PRENATAL VITAMINS W/ FOLIC ACID TABLET (FP) PO SCH (10:06)
[2023-03-07] MEDS: FLUoxetine HCL 10 MG TABLET PO SCH (10:07)
[2023-03-07] MEDS: NICOTINE 21 MG/24 HOURS TOPICAL PATCH TD SCH (10:07)
[2023-03-07] MEDS: QUEtiapine FUMARATE 50 MG TABLET PO SCH ×3 (10:07→17:22)
[2023-03-07] MEDS: IBUPROFEN 400 MG TABLET (FP) PO PRN (12:03)
[2023-03-07] MEDS: diphenhydrAMINE HCL 25 MG CAPSULE (FP) PO PRN (17:22)
[2023-03-07] MEDS: THIAMINE HCL 100 MG TABLET (FP) PO SCH (21:35)
[2023-03-07] MEDS: QUEtiapine FUMARATE 300 MG TABLET PO SCH (21:36)
[2023-03-07] MEDS: SUVOREXANT 15 MG TABLET PO PRN (21:39)
[2023-03-08] MEDS: LACTULOSE 20 GM/30 ML UDC (FOR ORAL USE ONLY) PO SCH ×3 (06:50→21:41)
[2023-03-08] MEDS: methaDONE 40 MG, methaDONE 20 MG PO SCH (06:50)
[2023-03-08] MEDS: GABAPENTIN 300 MG CAPSULE PO SCH ×3 (06:51→21:42)
[2023-03-08] MEDS: METHOCARBAMOL 500 MG TABLET PO SCH ×3 (06:51→21:43)
[2023-03-08] MEDS: NICOTINE 21 MG/24 HOURS TOPICAL PATCH TD SCH (09:58)
[2023-03-08] MEDS: PRENATAL VITAMINS W/ FOLIC ACID TABLET (FP) PO SCH (09:58)
[2023-03-08] MEDS: QUEtiapine FUMARATE 50 MG TABLET PO SCH ×3 (09:59→16:59)
[2023-03-08] MEDS: FLUoxetine HCL 10 MG TABLET PO SCH (09:59)
[2023-03-08] MEDS: IBUPROFEN 400 MG TABLET (FP) PO PRN (11:17)
[2023-03-08] MEDS: diphenhydrAMINE HCL 25 MG CAPSULE (FP) PO PRN (12:26)
[2023-03-08] MEDS: SUVOREXANT 15 MG TABLET PO PRN (21:41)
[2023-03-08] MEDS: QUEtiapine FUMARATE 300 MG TABLET PO SCH (21:41)
[2023-03-08] MEDS: THIAMINE HCL 100 MG TABLET (FP) PO SCH (21:42)
[2023-03-09] MEDS: GABAPENTIN 300 MG CAPSULE PO SCH ×3 (06:48→21:40)
[2023-03-09] MEDS: METHOCARBAMOL 500 MG TABLET PO SCH ×3 (06:48→21:40)
[2023-03-09] MEDS: LACTULOSE 20 GM/30 ML UDC (FOR ORAL USE ONLY) PO SCH ×3 (06:48→21:40)
[2023-03-09] MEDS: methaDONE 40 MG, methaDONE 20 MG PO SCH (06:49)
[2023-03-09] MEDS: NICOTINE 21 MG/24 HOURS TOPICAL PATCH TD SCH (09:37)
[2023-03-09] MEDS: QUEtiapine FUMARATE 50 MG TABLET PO SCH ×3 (09:37→17:44)
[2023-03-09] MEDS: PRENATAL VITAMINS W/ FOLIC ACID TABLET (FP) PO SCH (09:37)
[2023-03-09] MEDS: FLUoxetine HCL 10 MG TABLET PO SCH (09:38)
[2023-03-09] MEDS: diphenhydrAMINE HCL 25 MG CAPSULE (FP) PO PRN ×2 (11:06→17:45)
[2023-03-09] MEDS: QUEtiapine FUMARATE 300 MG TABLET PO SCH (21:40)
[2023-03-09] MEDS: THIAMINE HCL 100 MG TABLET (FP) PO SCH (21:40)
[2023-03-09] MEDS ORDERED: SUVOREXANT 15 MG TABLET PO PRN (22:00)
[2023-03-10] MEDS: METHOCARBAMOL 500 MG TABLET PO SCH (06:35)
[2023-03-10] MEDS: GABAPENTIN 300 MG CAPSULE PO SCH (06:35)
[2023-03-10] MEDS: LACTULOSE 20 GM/30 ML UDC (FOR ORAL USE ONLY) PO SCH ×2 (06:35→06:38)
[2023-03-10] MEDS: methaDONE 40 MG, methaDONE 20 MG PO SCH (06:36)
[2023-03-10 07:18] VITALS: BP 135/75; PULSE 93; TEMP 98.5
[2023-03-10] MEDS: QUEtiapine FUMARATE 50 MG TABLET PO SCH (09:17)
[2023-03-10] MEDS: PRENATAL VITAMINS W/ FOLIC ACID TABLET (FP) PO SCH (09:17)
[2023-03-10] MEDS: FLUoxetine HCL 10 MG TABLET PO SCH (09:17)
[2023-03-10] MEDS: NICOTINE 21 MG/24 HOURS TOPICAL PATCH TD SCH (09:19)
== END 2023-03-10 10:04 | disposition home or self-care (01) | DRG 772 ==
LOC: YASAS 13:22 → Y5N 13:25
PROVIDERS: ADMIT Allergy & Immunology; ATTEND Psychiatry & Neurology Pain Medicine
PROC: HZ42ZZZ Group Counseling for Substance Abuse Treatment, Cognitive-Behavioral (ICD-10-PCS; principal; 2023-02-24)
DX: F11.23 Opioid dependence with withdrawal (principal); F14.20 Cocaine dependence, uncomplicated; F17.210 Nicotine dependence, cigarettes, uncomplicated; F12.20 Cannabis dependence, uncomplicated; F19.282 Other psychoactive substance dependence with psychoactive substance-induced sleep disorder; F31.9 Bipolar disorder, unspecified; F43.10 Post-traumatic stress disorder, unspecified; G62.9 Polyneuropathy, unspecified; R79.89 Other specified abnormal findings of blood chemistry; K08.89 Other specified disorders of teeth and supporting structures; R11.0 Nausea; Z86.19 Personal history of other infectious and parasitic diseases; Z87.2 Personal history of diseases of the skin and subcutaneous tissue
CPT/HCPCS: 36415; 82140; 86803; 87389; 87522; Q0162

== ENCOUNTER 2023-03-23 02:16 | Inpatient (IN) | payer OTHER ==
[2023-03-23 02:38] VITALS: BMI 22.4
[2023-03-23] MEDS ORDERED: POLYETHYLENE GLYCOL (HEALTHYLAX) 3350 17 GM PACKET PO PRN (05:45)
[2023-03-23] MEDS ORDERED: BENZONATATE 200 MG CAPSULE PO PRN (05:45)
[2023-03-23] MEDS ORDERED: NALOXONE HCL (KLOXXADO) 8 MG SPRAY NS PRN (05:45)
[2023-03-23] MEDS ORDERED: MAGNESIUM HYDROX 2400MG/30ML ORAL SUSPENSION 30 ML CUP PO PRN (05:45)
[2023-03-23] MEDS ORDERED: NALOXONE HCL 0.4 MG/ML VIAL IM PRN (05:45)
[2023-03-23] MEDS ORDERED: hydrOXYzine PAMOATE 25 MG CAPSULE (FP) PO PRN (05:45)
[2023-03-23] MEDS ORDERED: MAG HYDROX/AL HYDROX/SIMETH 30 ML UNIT-DOSE CUP PO PRN (05:45)
[2023-03-23] MEDS ORDERED: BENZOCAINE/MENTHOL (CHLORASEPTIC ) LOZENGE MM PRN (05:45)
[2023-03-23] MEDS ORDERED: ACETAMINOPHEN 325 MG TABLET (FP) PO PRN (05:45)
[2023-03-23] MEDS ORDERED: DICYCLOMINE HCL 10 MG CAPSULE PO PRN (05:45)
[2023-03-23] MEDS ORDERED: LOPERAMIDE HCL 2 MG CAPSULE PO PRN (05:45)
[2023-03-23] MEDS ORDERED: IBUPROFEN 400 MG TABLET (FP) PO PRN (05:45)
[2023-03-23] MEDS ORDERED: BISMUTH SUBSALICYLATE 524 MG/30 ML PO PRN (05:45)
[2023-03-23] MEDS ORDERED: ONDANSETRON *ODT* 4 MG TABLET SL PRN (05:45)
[2023-03-23] MEDS ORDERED: NICOTINE POLACRILEX 4 MG GUM BUC PRN (05:45)
[2023-03-23] MEDS ORDERED: guaiFENesin 600 MG TABLET.ER (FP) PO PRN (05:45)
[2023-03-23] MEDS: diazePAM 5 MG TABLET PO SCH ×4 (05:59→22:11)
[2023-03-23] MEDS ORDERED: cloNIDine HCL 0.1 MG TABLET PO PRN (06:25)
[2023-03-23] MEDS ORDERED: methaDONE HCL 10 MG TABLET (FOR DETOX USE ONLY) PO ONE (06:25)
[2023-03-23] MEDS ORDERED: diazePAM 5 MG TABLET ONE (06:35)
[2023-03-23] MEDS ORDERED: IBUPROFEN 600 MG TABLET (FP) PO ONE (06:36)
[2023-03-23] MEDS ORDERED: methaDONE HCL 10 MG TABLET (FOR DETOX USE ONLY) ONE (06:36)
[2023-03-23] MEDS: IBUPROFEN 600 MG TABLET (FP) PO PRN ×2 (06:45→18:59)
[2023-03-23] MEDS: NICOTINE 21 MG/24 HOURS TOPICAL PATCH TD SCH (10:22)
[2023-03-23] MEDS: PRENATAL VITAMINS W/ FOLIC ACID TABLET (FP) PO SCH (10:22)
[2023-03-23] MEDS: METHOCARBAMOL 500 MG TABLET PO PRN (10:23)
[2023-03-23] MEDS: diazePAM 5 MG TABLET PO PRN ×2 (13:47→18:59)
[2023-03-23] MEDS ORDERED: MELATONIN 5 MG TABLETS PO SCH (22:00)
[2023-03-23] MEDS ORDERED: QUEtiapine FUMARATE 200 MG TABLET PO SCH (22:00)
[2023-03-23] MEDS ORDERED: THIAMINE HCL 100 MG TABLET (FP) PO SCH (22:00)
[2023-03-24] MEDS: diazePAM 5 MG TABLET PO SCH ×2 (05:59→13:23)
[2023-03-24] MEDS: QUEtiapine FUMARATE 50 MG TABLET PO SCH ×3 (09:49→18:00)
[2023-03-24] MEDS: METHOCARBAMOL 500 MG TABLET PO PRN (09:49)
[2023-03-24] MEDS: diazePAM 5 MG TABLET PO PRN (09:49)
[2023-03-24] MEDS: NICOTINE 21 MG/24 HOURS TOPICAL PATCH TD SCH (09:50)
[2023-03-24] MEDS: PRENATAL VITAMINS W/ FOLIC ACID TABLET (FP) PO SCH (09:50)
[2023-03-24] MEDS ORDERED: FLUoxetine HCL 10 MG CAPSULE PO SCH (10:00)
[2023-03-24 14:57] LABS: HEMATOCRIT 34.4 % (35.4-49); HEMOGLOBIN 11.3 GM/dL (11.7-16.9); MCHC 32.8 g/dl (32.0-35.9); MEAN CELL VOLUME 82.2 fl (80-96); MEAN PLT VOLUME 7.8 fl (7.5-11.1); PLATELET COUNT 395 10^3/uL (134-434); RBC 4.18 M/mm3 (4.00-5.60); RDW 15.8 % (11.9-15.9); WHITE BLOOD COUNT 5.6 K/mm3 (4.0-10.0)
[2023-03-24 15:18] LABS: POTASSIUM 4.3 mmol/L (3.5-5.1)
[2023-03-24 15:21] LABS: ALBUMIN 2.7 g/dl (3.4-5.0); BLOOD UREA NITROGEN 7.8 mg/dL (7-18); CALCIUM 8.5 mg/dL (8.5-10.1)
[2023-03-24 15:24] LABS: CREATININE 0.6 mg/dL (0.55-1.3)
[2023-03-24 15:26] LABS: BILIRUBIN,TOTAL 0.4 mg/dL (0.2-1); TOT PROT 6.9 g/dl (6.4-8.2)
[2023-03-24 17:25] VITALS: BP 138/89; PULSE 117; RESP 18; TEMP 98.8
[2023-03-25] MEDS ORDERED: diazePAM 5 MG TABLET PO SCH (06:00)
[2023-03-25] MEDS ORDERED: methaDONE HCL 10 MG TABLET (FOR DETOX USE ONLY) PO ONE (10:00)
[2023-03-26] MEDS ORDERED: diazePAM 5 MG TABLET PO ONE (06:00)
[2023-03-27] MEDS ORDERED: methaDONE HCL 10 MG TABLET (FOR DETOX USE ONLY) PO ONE (10:00)
== END 2023-03-24 18:54 | disposition left against medical advice (07) | DRG 770 ==
LOC: YASAS 02:16 → UNDOADMIN 06:20 → Y6N 06:20
PROVIDERS: ADMIT Allergy & Immunology; ATTEND Surgery
PROC: HZ2ZZZZ Detoxification Services for Substance Abuse Treatment (ICD-10-PCS; principal; 2023-03-23)
DX: F11.23 Opioid dependence with withdrawal (principal); F13.230 Sedative, hypnotic or anxiolytic dependence with withdrawal, uncomplicated; F14.20 Cocaine dependence, uncomplicated; F12.20 Cannabis dependence, uncomplicated; F17.210 Nicotine dependence, cigarettes, uncomplicated; F31.9 Bipolar disorder, unspecified; F19.24 Other psychoactive substance dependence with psychoactive substance-induced mood disorder; G47.00 Insomnia, unspecified; Z86.19 Personal history of other infectious and parasitic diseases; Z62.810 Personal history of physical and sexual abuse in childhood; Z91.199 Patient's noncompliance with other medical treatment and regimen due to unspecified reason
CPT/HCPCS: 36415; 80053; 80307; 85027; 86780; 87635; 87811; 93005; 93010

== ENCOUNTER 2023-07-27 09:04 | Inpatient (IN) | payer OTHER ==
[2023-07-27 09:26] VITALS: BMI 21.7
[2023-07-27] MEDS ORDERED: BENZOCAINE/MENTHOL (CHLORASEPTIC ) LOZENGE MM PRN (10:27)
[2023-07-27] MEDS ORDERED: IBUPROFEN 400 MG TABLET (FP) PO PRN (10:27)
[2023-07-27] MEDS ORDERED: POLYETHYLENE GLYCOL (HEALTHYLAX) 3350 17 GM PACKET PO PRN (10:27)
[2023-07-27] MEDS ORDERED: guaiFENesin 600 MG TABLET.ER (FP) PO PRN (10:27)
[2023-07-27] MEDS ORDERED: MAGNESIUM HYDROX 2400MG/30ML ORAL SUSPENSION 30 ML CUP PO PRN (10:27)
[2023-07-27] MEDS ORDERED: NALOXONE HCL 0.4 MG/ML VIAL IM PRN (10:27)
[2023-07-27] MEDS ORDERED: LOPERAMIDE HCL 2 MG CAPSULE PO PRN (10:27)
[2023-07-27] MEDS ORDERED: BISMUTH SUBSALICYLATE 524 MG/30 ML PO PRN (10:27)
[2023-07-27] MEDS ORDERED: MAG HYDROX/AL HYDROX/SIMETH 30 ML UNIT-DOSE CUP PO PRN (10:27)
[2023-07-27] MEDS ORDERED: ACETAMINOPHEN 325 MG TABLET (FP) PO PRN (10:27)
[2023-07-27] MEDS ORDERED: BENZONATATE 200 MG CAPSULE PO PRN (10:27)
[2023-07-27] MEDS ORDERED: NALOXONE HCL (KLOXXADO) 8 MG SPRAY NS PRN (10:27)
[2023-07-27] MEDS: methaDONE HCL 10 MG TABLET (FOR DETOX USE ONLY) PO ONE (11:19)
[2023-07-27] MEDS: BUPRENORPHINE/NALOXONE 0.5 MG/0.125 MG FILM SL ONE ×2 (11:22→22:40)
[2023-07-27] MEDS: NICOTINE 21 MG/24 HOURS TOPICAL PATCH TD SCH (11:23)
[2023-07-27] MEDS: cloNIDine HCL 0.1 MG TABLET PO SCH (13:08)
[2023-07-27] MEDS ORDERED: QUEtiapine FUMARATE 100 MG TABLET (FP) PO SCH (22:00)
[2023-07-27] MEDS: QUEtiapine FUMARATE 50 MG TABLET PO SCH (22:08)
[2023-07-27] MEDS: THIAMINE HCL 100 MG TABLET (FP) PO SCH (22:08)
[2023-07-27] MEDS: MELATONIN 5 MG TABLETS PO SCH (22:08)
[2023-07-28] MEDS: QUEtiapine FUMARATE 50 MG TABLET PO SCH (06:54)
[2023-07-28] MEDS: PRENATAL VITAMINS W/ FOLIC ACID TABLET (FP) PO SCH (09:52)
[2023-07-28] MEDS: METHOCARBAMOL 500 MG TABLET PO PRN (09:58)
[2023-07-28] MEDS: hydrOXYzine PAMOATE 25 MG CAPSULE (FP) PO PRN (09:58)
[2023-07-28] MEDS: IBUPROFEN 600 MG TABLET (FP) PO PRN (09:58)
[2023-07-28] MEDS: BUPRENORPHINE/NALOXONE 0.5 MG/0.125 MG FILM SL SCH (09:59)
[2023-07-28 11:44] LABS: HEMATOCRIT 36.4 % (35.4-49); MCH 26.6 pg (25.7-33.7); MEAN CELL VOLUME 80.5 fl (80-96); MEAN PLT VOLUME 8.3 fl (7.5-11.1); PLATELET COUNT 264 10^3/uL (134-434); RBC 4.52 M/mm3 (4.00-5.60); RDW 17.2 % (11.9-15.9); WHITE BLOOD COUNT 4.1 K/mm3 (4.0-10.0)
[2023-07-28 11:51] LABS: POTASSIUM 3.6 mmol/L (3.5-5.1)
[2023-07-28 11:59] LABS: ALBUMIN 2.7 g/dl (3.4-5.0); BLOOD UREA NITROGEN 8.2 mg/dL (7-18); CALCIUM 8.4 mg/dL (8.5-10.1)
[2023-07-28 12:01] LABS: CREATININE 0.7 mg/dL (0.55-1.3)
[2023-07-28 12:03] LABS: TOT PROT 6.6 g/dl (6.4-8.2)
[2023-07-28 12:05] LABS: BILIRUBIN,TOTAL 0.8 mg/dL (0.2-1)
[2023-07-29] MEDS: methaDONE HCL 10 MG TABLET (FOR DETOX USE ONLY) PO ONE (10:37)
[2023-07-29] MEDS: BUPRENORPHINE/NALOXONE 2 MG/0.5 MG FILM PACKET SL SCH (10:38)
[2023-07-29] MEDS: DICYCLOMINE HCL 10 MG CAPSULE PO PRN (17:35)
[2023-07-29] MEDS: QUEtiapine FUMARATE 100 MG TABLET (FP) PO ONE (23:54)
[2023-07-30] MEDS: ONDANSETRON *ODT* 4 MG TABLET SL PRN (10:05)
[2023-07-30] MEDS: BUPRENORPHINE/NALOXONE 4 MG/1 MG FILM PACKET SL SCH (10:06)
[2023-07-30] MEDS ORDERED: hydrOXYzine PAMOATE 25 MG CAPSULE (FP) PO PRN (18:03)
[2023-07-30] MEDS: hydrOXYzine PAMOATE 25 MG CAPSULE (FP) PO ONE (18:13)
[2023-07-31 09:23] VITALS: BP 118/67; PULSE 70; RESP 20; TEMP 97.3
[2023-07-31] MEDS: BUPRENORPHINE/NALOXONE 8 MG/2 MG FILM PACKET SL SCH (09:39)
[2023-07-31] MEDS: methaDONE HCL 10 MG TABLET (FOR DETOX USE ONLY) PO ONE (09:39)
[2023-08-01] MEDS ORDERED: BUPRENORPHINE/NALOXONE 8 MG/2 MG FILM PACKET SL ONE (10:00)
== END 2023-07-31 10:25 | disposition home or self-care (01) | DRG 773 ==
LOC: YASAS 09:04 → Y6N 10:29
PROVIDERS: ADMIT Allergy & Immunology; ATTEND Surgery
PROC: HZ2ZZZZ Detoxification Services for Substance Abuse Treatment (ICD-10-PCS; principal; 2023-07-27)
DX: F11.23 Opioid dependence with withdrawal (principal); F14.20 Cocaine dependence, uncomplicated; F12.20 Cannabis dependence, uncomplicated; F17.210 Nicotine dependence, cigarettes, uncomplicated; F25.9 Schizoaffective disorder, unspecified; F19.24 Other psychoactive substance dependence with psychoactive substance-induced mood disorder; F31.9 Bipolar disorder, unspecified; M25.512 Pain in left shoulder; G89.29 Other chronic pain; Z86.19 Personal history of other infectious and parasitic diseases
CPT/HCPCS: 36415; 80053; 80305; 80307; 83036; 85027; 86780; 93005; 93010; Q0162

== ENCOUNTER 2023-12-21 16:11 | Inpatient (IN) | payer OTHER ==
[2023-12-21 18:03] VITALS: BMI 21.9
[2023-12-21] MEDS ORDERED: BISMUTH SUBSALICYLATE 524 MG/30 ML PO PRN (18:58)
[2023-12-21] MEDS ORDERED: P-EPHED 60MG/TRIPROLIDI 2.5MG TABLET PO PRN (18:58)
[2023-12-21] MEDS ORDERED: POLYETHYLENE GLYCOL (HEALTHYLAX) 3350 17 GM PACKET PO PRN (18:58)
[2023-12-21] MEDS ORDERED: NALOXONE (NARCAN) HCL 4 MG/0.1 ML SPRAY NS PRN (18:58)
[2023-12-21] MEDS ORDERED: MAGNESIUM HYDROX 2400MG/30ML ORAL SUSPENSION 30 ML CUP PO PRN (18:58)
[2023-12-21] MEDS ORDERED: BENZOCAINE/MENTHOL (CHLORASEPTIC ) LOZENGE MM PRN (18:58)
[2023-12-21] MEDS ORDERED: LOPERAMIDE HCL 2 MG CAPSULE PO PRN (18:58)
[2023-12-21] MEDS ORDERED: IBUPROFEN 400 MG TABLET (FP) PO PRN (18:58)
[2023-12-21] MEDS ORDERED: guaiFENesin 600 MG TABLET.ER (FP) PO PRN (18:58)
[2023-12-21] MEDS ORDERED: NALOXONE HCL 0.4 MG/ML VIAL IM PRN (18:58)
[2023-12-21] MEDS ORDERED: NICOTINE POLACRILEX 2 MG LOZENGE BC PRN (18:58)
[2023-12-21] MEDS ORDERED: BENZONATATE 200 MG CAPSULE PO PRN (18:58)
[2023-12-21] MEDS ORDERED: NICOTINE POLACRILEX 2 MG GUM BUC PRN (18:58)
[2023-12-21] MEDS: MELATONIN 5 MG TABLETS PO SCH (21:20)
[2023-12-21] MEDS: THIAMINE 100 MG TABLET PO SCH (21:20)
[2023-12-21] MEDS: QUEtiapine FUMARATE 50 MG TABLET PO ONE (21:20)
[2023-12-21] MEDS: CEPHALEXIN MONOHYDRATE 500 MG CAPSULE (UD) PO SCH (23:07)
[2023-12-22 09:22] LABS: HEMATOCRIT 34.8 % (35.4-49); HEMOGLOBIN 12.2 GM/dL (11.7-16.9); MCH 29.3 pg (25.7-33.7); MEAN CELL VOLUME 83.8 fl (80-96); MEAN PLT VOLUME 8.2 fl (7.5-11.1); PLATELET COUNT 258 10^3/uL (134-434); RBC 4.16 M/mm3 (4.00-5.60); RDW 13.8 % (11.9-15.9); WHITE BLOOD COUNT 5.1 K/mm3 (4.0-10.0)
[2023-12-22 09:27] LABS: POTASSIUM 3.3 mmol/L (3.5-5.1)
[2023-12-22 09:30] LABS: CALCIUM 8.3 mg/dL (8.5-10.1)
[2023-12-22 09:31] LABS: ALBUMIN 2.8 g/dl (3.4-5.0); BLOOD UREA NITROGEN 10.2 mg/dL (7-18)
[2023-12-22 09:34] LABS: CREATININE 0.7 mg/dL (0.55-1.3)
[2023-12-22 09:35] LABS: BILIRUBIN,TOTAL 0.5 mg/dL (0.2-1); TOT PROT 6.1 g/dl (6.4-8.2)
[2023-12-22] MEDS: PRENATAL VITAMINS W/ FOLIC ACID TABLET (FP) PO SCH (09:39)
[2023-12-22] MEDS: methaDONE HCL 10 MG TABLET PO ONE ×2 (09:39→12:30)
[2023-12-22] MEDS: POTASSIUM CHLORIDE ORAL LIQUID 20 MEQ/15 ML PO ONE (11:38)
[2023-12-22] MEDS: TRIMETHOBENZAMIDE HCL 200MG/2ML INJ IM ONE (11:38)
[2023-12-22] MEDS: DICYCLOMINE HCL 10 MG CAPSULE PO PRN (14:53)
[2023-12-22] MEDS: ONDANSETRON *ODT* 4 MG TABLET SL PRN (14:53)
[2023-12-22] MEDS: QUEtiapine FUMARATE 50 MG TABLET PO SCH (14:53)
[2023-12-22] MEDS: POTASSIUM CHLORIDE ORAL LIQUID 20 MEQ/15 ML PO SCH (22:21)
[2023-12-22] MEDS: QUEtiapine FUMARATE 100 MG TABLET (FP) PO SCH (22:21)
[2023-12-23] MEDS ORDERED: cloNIDine HCL 0.1 MG TABLET PO PRN
[2023-12-23] MEDS: methaDONE HCL 40 MG DISPERSABLE TABLET PO ONE (09:33)
[2023-12-23] MEDS: ACETAMINOPHEN 325 MG TABLET (FP) PO PRN (12:01)
[2023-12-23 12:57] LABS: POTASSIUM 4.9 mmol/L (3.5-5.1)
[2023-12-23 13:09] LABS: CALCIUM 8.7 mg/dL (8.5-10.1)
[2023-12-23 13:10] LABS: BLOOD UREA NITROGEN 7.1 mg/dL (7-18)
[2023-12-23 13:13] LABS: CREATININE 0.7 mg/dL (0.55-1.3)
[2023-12-23] MEDS: IBUPROFEN 600 MG TABLET (FP) PO PRN (17:15)
[2023-12-23] MEDS: METHOCARBAMOL 500 MG TABLET PO PRN (20:05)
[2023-12-24] MEDS: methaDONE 40 MG, methaDONE 10 MG PO ONE (09:09)
[2023-12-24] MEDS ORDERED: methaDONE HCL 40 MG DISPERSABLE TABLET PO ONE (10:00)
[2023-12-25] MEDS: methaDONE 40 MG, methaDONE 20 MG PO ONE (09:06)
[2023-12-25] MEDS ORDERED: methaDONE HCL 40 MG DISPERSABLE TABLET PO ONE (10:00)
[2023-12-25] MEDS: HYDROCORTISONE 1% TOPICAL CREAM 30 GM TUBE TP SCH (13:16)
[2023-12-26] MEDS ORDERED: methaDONE HCL 40 MG DISPERSABLE TABLET PO ONE (06:00)
[2023-12-26] MEDS: methaDONE 40 MG, methaDONE 30 MG PO ONE (06:22)
[2023-12-27] MEDS: methaDONE HCL 40 MG DISPERSABLE TABLET PO ONE (09:04)
[2023-12-27] MEDS: MAG HYDROX/AL HYDROX/SIMETH 30 ML UNIT-DOSE CUP PO PRN (15:04)
[2023-12-27 16:59] VITALS: BP 103/58; PULSE 65; RESP 20; TEMP 98.7
== END 2023-12-27 18:07 | disposition other institution (70) | DRG 773 ==
LOC: YASAS 16:11 → Y3N 19:32
PROVIDERS: ADMIT Allergy & Immunology; ATTEND Surgery
PROC: HZ2ZZZZ Detoxification Services for Substance Abuse Treatment (ICD-10-PCS; principal; 2023-12-21)
DX: F11.23 Opioid dependence with withdrawal (principal); F14.20 Cocaine dependence, uncomplicated; F12.20 Cannabis dependence, uncomplicated; F17.210 Nicotine dependence, cigarettes, uncomplicated; F31.9 Bipolar disorder, unspecified; F19.282 Other psychoactive substance dependence with psychoactive substance-induced sleep disorder; F19.24 Other psychoactive substance dependence with psychoactive substance-induced mood disorder; E87.6 Hypokalemia; B18.1 Chronic viral hepatitis B without delta-agent; B18.2 Chronic viral hepatitis C; Z59.02 Unsheltered homelessness
CPT/HCPCS: 36415; 72100-TC-FY; 80048; 80053; 80305; 80307; 85027; 86780; 87811; 93005; 93010; Q0162

== ENCOUNTER 2023-12-27 18:08 | Inpatient (IN) | payer OTHER ==
[2023-12-27] MEDS ORDERED: IBUPROFEN 400 MG TABLET (FP) PO PRN (20:00)
[2023-12-27] MEDS ORDERED: MAGNESIUM HYDROX 2400MG/30ML ORAL SUSPENSION 30 ML CUP PO PRN (20:00)
[2023-12-27] MEDS ORDERED: NALOXONE HCL 0.4 MG/ML VIAL IM PRN (20:00)
[2023-12-27] MEDS ORDERED: NALOXONE (NARCAN) HCL 4 MG/0.1 ML SPRAY NS PRN (20:00)
[2023-12-27] MEDS ORDERED: guaiFENesin 600 MG TABLET.ER (FP) PO PRN (20:00)
[2023-12-27] MEDS ORDERED: POLYETHYLENE GLYCOL (HEALTHYLAX) 3350 17 GM PACKET PO PRN (20:00)
[2023-12-27] MEDS ORDERED: BENZONATATE 200 MG CAPSULE PO PRN (20:00)
[2023-12-27] MEDS ORDERED: BENZOCAINE/MENTHOL (CHLORASEPTIC ) LOZENGE MM PRN (20:00)
[2023-12-27] MEDS ORDERED: LOPERAMIDE HCL 2 MG CAPSULE PO PRN (20:00)
[2023-12-27] MEDS: THIAMINE 100 MG TABLET PO SCH (21:24)
[2023-12-27] MEDS: QUEtiapine FUMARATE 100 MG TABLET (FP) PO ONE (21:24)
[2023-12-27] MEDS: MELATONIN 5 MG TABLETS PO SCH (21:24)
[2023-12-27] MEDS ORDERED: CEPHALEXIN 250 MG/5 ML ORAL SUSPENSION PO ONE (22:00)
[2023-12-27 23:36] LABS: EPI CELLS 7 /uL (0-25.1); HYALINE CASTS 2 /uL (0-3.1); PH,URINE >= 9.0 (5.0-8.0); URINE APPEARANCE CLOUDY; URINE BACTERIA 2 /uL (0-1359); URINE BILIRUBIN NEGATIVE (NEGATIVE); URINE COLOR YELLOW; URINE GLUCOSE (UA) NEGATIVE (NEGATIVE); URINE KETONE NEGATIVE (NEGATIVE); URINE LEUK ESTERASE NEGATIVE (NEGATIVE); URINE NITRITE NEGATIVE (NEGATIVE); URINE PROTEIN 2+ (NEGATIVE); URINE RBC 7 /uL (0-23.9); URINE UROBILINOGEN 0.2 mg/dL (0.2-1.0); URINE WBC 14 /uL (0-25.8)
[2023-12-28] MEDS ORDERED: CEPHALEXIN 250 MG/5 ML ORAL SUSPENSION PO SCH (06:00)
[2023-12-28] MEDS: methaDONE HCL 40 MG DISPERSABLE TABLET PO SCH (06:18)
[2023-12-28] MEDS ORDERED: QUEtiapine FUMARATE 50 MG TABLET PO SCH (09:00)
[2023-12-28] MEDS: PRENATAL VITAMINS W/ FOLIC ACID TABLET (FP) PO SCH (10:00)
[2023-12-28] MEDS: HYDROCORTISONE 1% TOPICAL CREAM 30 GM TUBE TP PRN (10:00)
[2023-12-28] MEDS: QUEtiapine FUMARATE 50 MG TABLET PO SCH ×2 (10:00→21:18)
[2023-12-28 12:45] LABS: HEMATOCRIT 37.3 % (35.4-49); HEMOGLOBIN 12.5 GM/dL (11.7-16.9); MCH 28.9 pg (25.7-33.7); MCHC 33.5 g/dl (32.0-35.9); MEAN CELL VOLUME 86.1 fl (80-96); MEAN PLT VOLUME 8.4 fl (7.5-11.1); PLATELET COUNT 286 10^3/uL (134-434); RBC 4.33 M/mm3 (4.00-5.60); RDW 14.2 % (11.9-15.9); WHITE BLOOD COUNT 4.3 K/mm3 (4.0-10.0)
[2023-12-28 12:59] LABS: CHLORIDE 103 mmol/L (98-107); POTASSIUM 4.7 mmol/L (3.5-5.1); SODIUM 137 mmol/L (136-145)
[2023-12-28 13:08] LABS: ANION GAP 8 mmol/L (4-13); BLOOD UREA NITROGEN 14.9 mg/dL (7-18); CALCIUM 9.2 mg/dL (8.5-10.1); CO2 26 mmol/L (21-32)
[2023-12-28 13:09] LABS: GLUCOSE,RANDOM 97 mg/dL (74-106)
[2023-12-28 13:11] LABS: SGOT/AST 21 U/L (15-37); SGPT/ALT 32 U/L (13-61)
[2023-12-28 13:12] LABS: CREATININE 0.7 mg/dL (0.55-1.3)
[2023-12-28 13:13] LABS: BILIRUBIN,TOTAL 0.7 mg/dL (0.2-1); TOT PROT 6.5 g/dl (6.4-8.2)
[2023-12-28 13:14] LABS: ALK PHOS 57 U/L (45-117)
[2023-12-28] MEDS: ACETAMINOPHEN 325 MG TABLET (FP) PO PRN (14:29)
[2023-12-28] MEDS: hydrOXYzine PAMOATE 25 MG CAPSULE (FP) PO PRN (18:32)
[2023-12-28 18:58] LABS: SYPHILIS W/ RPR CONF NON-REACTIVE (NONREACTIVE)
[2023-12-28] MEDS ORDERED: QUEtiapine FUMARATE 100 MG TABLET (FP) PO SCH (22:00)
[2023-12-29] MEDS: MAG HYDROX/AL HYDROX/SIMETH 30 ML UNIT-DOSE CUP PO PRN (00:58)
[2023-12-30] MEDS: PANTOPRAZOLE 20 MG TABLET PO SCH (10:35)
[2023-12-31] MEDS: QUEtiapine FUMARATE 50 MG TABLET PO SCH (21:52)
[2024-01-02] MEDS ORDERED: QUEtiapine FUMARATE 25 MG TABLET ONE (09:22)
[2024-01-04] MEDS ORDERED: methaDONE HCL 40 MG DISPERSABLE TABLET PO SCH ×2 (06:00)
[2024-01-04] MEDS: methaDONE 80 MG, methaDONE 10 MG PO SCH (06:22)
[2024-01-04] MEDS ORDERED: DOCUSATE SODIUM 100 MG CAPSULE (FP) PO PRN (13:05)
[2024-01-04] MEDS ORDERED: LACTULOSE 20 GM/30 ML UDC (FOR ORAL USE ONLY) PO PRN (13:06)
[2024-01-04] MEDS ORDERED: PANTOPRAZOLE 20 MG TABLET PO SCH (13:15)
[2024-01-04] MEDS: IBUPROFEN 600 MG TABLET (FP) PO PRN (19:13)
[2024-01-04] MEDS: QUEtiapine FUMARATE 200 MG TABLET PO SCH (21:27)
[2024-01-05] MEDS: QUETIAPINE FUMARATE 200 MG, QUETIAPINE FUMARATE 50 MG PO SCH (21:05)
[2024-01-05] MEDS ORDERED: QUEtiapine FUMARATE 200 MG TABLET PO SCH (22:00)
[2024-01-13] MEDS ORDERED: QUEtiapine FUMARATE 100 MG TABLET (FP) ONE (21:03)
[2024-01-13] MEDS: QUEtiapine FUMARATE 300 MG TABLET PO SCH (21:04)
[2024-01-14] MEDS: methaDONE 80 MG, methaDONE 10 MG PO SCH (10:29)
[2024-01-14] MEDS ORDERED: QUEtiapine FUMARATE 100 MG TABLET (FP) ONE (20:46)
[2024-01-15] MEDS ORDERED: QUEtiapine FUMARATE 100 MG TABLET (FP) ONE (20:41)
[2024-01-16 07:47] VITALS: BP 93/62; PULSE 78; RESP 17; TEMP 97.3
== END 2024-01-16 13:30 | disposition home or self-care (01) | DRG 772 ==
LOC: YASAS 18:08 → Y3E 18:09
PROVIDERS: ADMIT Allergy & Immunology; ATTEND Psychiatry & Neurology Pain Medicine
PROC: HZ42ZZZ Group Counseling for Substance Abuse Treatment, Cognitive-Behavioral (ICD-10-PCS; principal; 2023-12-27)
DX: F11.20 Opioid dependence, uncomplicated (principal); F14.20 Cocaine dependence, uncomplicated; F17.210 Nicotine dependence, cigarettes, uncomplicated; F19.282 Other psychoactive substance dependence with psychoactive substance-induced sleep disorder; F19.24 Other psychoactive substance dependence with psychoactive substance-induced mood disorder; F31.9 Bipolar disorder, unspecified; F43.10 Post-traumatic stress disorder, unspecified; K21.9 Gastro-esophageal reflux disease without esophagitis; Z59.02 Unsheltered homelessness
CPT/HCPCS: 36415; 80053; 80307; 81003; 85027; 86780; 86803; 87522; 93005; 93010

== ENCOUNTER 2024-01-22 00:27 | Emergency (ER) | payer OTHER ==
[2024-01-22 00:37] VITALS: BP 118/76; PULSE 109; RESP 22; TEMP 98.9; BMI 25.1
[2024-01-22 02:31] LABS: BASO % 0.5 % (0-2.0); EOS % 0.2 % (0-4.5); HEMATOCRIT 38.9 % (35.4-49); LYMPH % 12.6 % (8-40); MCHC 33.4 g/dl (32.0-35.9); MEAN CELL VOLUME 86.8 fl (80-96); MEAN PLT VOLUME 8.7 fl (7.5-11.1); MONO % 7.8 % (3.8-10.2); NEUT % 78.9 % (42.8-82.8); PLATELET COUNT 174 10^3/uL (134-434); RBC 4.48 M/mm3 (4.00-5.60); RDW 14.2 % (11.9-15.9); WHITE BLOOD COUNT 5.5 K/mm3 (4.0-10.0)
[2024-01-22 02:51] LABS: POTASSIUM 4.3 mmol/L (3.5-5.1)
[2024-01-22 02:53] LABS: ALBUMIN 3.6 g/dl (3.4-5.0); BLOOD UREA NITROGEN 20.1 mg/dL (7-18); CALCIUM 9.1 mg/dL (8.5-10.1)
[2024-01-22 02:56] LABS: CREATININE 0.8 mg/dL (0.55-1.3)
[2024-01-22 02:58] LABS: TOT PROT 7.2 g/dl (6.4-8.2)
[2024-01-22] MEDS ORDERED: methaDONE HCL 10 MG TABLET ONE (03:17)
[2024-01-22] MEDS: methaDONE HCL 40 MG DISPERSABLE TABLET PO ONE (03:29)
== END 2024-01-22 03:40 | disposition home or self-care (01) ==
LOC: JER 00:27
DX: F11.93 Opioid use, unspecified with withdrawal (principal); M79.10 Myalgia, unspecified site; K92.2 Gastrointestinal hemorrhage, unspecified
CPT/HCPCS: 36415; 80053; 82272; 83605; 85025; 87040; 99283-25

== ENCOUNTER 2024-03-04 06:31 | Inpatient (IN) | payer OTHER ==
[2024-03-04 07:18] VITALS: BMI 24.0
[2024-03-04] MEDS ORDERED: LOPERAMIDE HCL 2 MG CAPSULE PO PRN (07:38)
[2024-03-04] MEDS ORDERED: guaiFENesin 600 MG TABLET.ER (FP) PO PRN (07:38)
[2024-03-04] MEDS ORDERED: NALOXONE (NARCAN) HCL 4 MG/0.1 ML SPRAY NS PRN (07:38)
[2024-03-04] MEDS ORDERED: BISMUTH SUBSALICYLATE 524 MG/30 ML PO PRN (07:38)
[2024-03-04] MEDS ORDERED: BENZONATATE 200 MG CAPSULE PO PRN (07:38)
[2024-03-04] MEDS ORDERED: ACETAMINOPHEN 325 MG TABLET (FP) PO PRN (07:38)
[2024-03-04] MEDS ORDERED: MAGNESIUM HYDROX 2400MG/30ML ORAL SUSPENSION 30 ML CUP PO PRN (07:38)
[2024-03-04] MEDS ORDERED: MAG HYDROX/AL HYDROX/SIMETH 30 ML UNIT-DOSE CUP PO PRN (07:38)
[2024-03-04] MEDS ORDERED: POLYETHYLENE GLYCOL (HEALTHYLAX) 3350 17 GM PACKET PO PRN (07:38)
[2024-03-04] MEDS ORDERED: NICOTINE POLACRILEX 4 MG GUM BUC PRN (07:38)
[2024-03-04] MEDS ORDERED: ONDANSETRON *ODT* 4 MG TABLET SL PRN (07:38)
[2024-03-04] MEDS ORDERED: DICYCLOMINE HCL 10 MG CAPSULE PO PRN (07:38)
[2024-03-04] MEDS ORDERED: BENZOCAINE/MENTHOL (CHLORASEPTIC ) LOZENGE MM PRN (07:38)
[2024-03-04] MEDS: NICOTINE 21 MG/24 HOURS TOPICAL PATCH TD SCH (09:05)
[2024-03-04] MEDS: PRENATAL VITAMINS W/ FOLIC ACID TABLET (FP) PO SCH (09:05)
[2024-03-04] MEDS: methaDONE HCL 10 MG TABLET PO ONE ×2 (12:45→15:36)
[2024-03-04] MEDS: methaDONE HCL 40 MG DISPERSABLE TABLET PO ONE (22:12)
[2024-03-04] MEDS: MELATONIN 5 MG TABLETS PO SCH (23:11)
[2024-03-04] MEDS: THIAMINE 100 MG TABLET PO SCH (23:12)
[2024-03-05] MEDS ORDERED: methaDONE HCL 40 MG DISPERSABLE TABLET PO SCH (06:00)
[2024-03-05] MEDS: PANTOPRAZOLE 20 MG TABLET PO SCH (10:20)
[2024-03-05] MEDS: diazePAM 5 MG TABLET PO SCH ×2 (10:21→18:15)
[2024-03-05] MEDS: EMTRICITABINE 200MG/TENOFOVIR 300MG PO SCH (11:09)
[2024-03-05 12:34] LABS: HEMOGLOBIN 13.1 GM/dL (11.7-16.9); MCH 28.9 pg (25.7-33.7); MCHC 32.7 g/dl (32.0-35.9); MEAN CELL VOLUME 88.4 fl (80-96); MEAN PLT VOLUME 8.5 fl (7.5-11.1); PLATELET COUNT 240 10^3/uL (134-434); RBC 4.53 M/mm3 (4.00-5.60); RDW 14.9 % (11.9-15.9); WHITE BLOOD COUNT 3.9 K/mm3 (4.0-10.0)
[2024-03-05] MEDS: QUEtiapine FUMARATE 50 MG TABLET PO SCH (13:25)
[2024-03-05] MEDS: diazePAM 5 MG TABLET PO PRN (13:25)
[2024-03-05] MEDS: QUEtiapine FUMARATE 200 MG TABLET PO SCH (22:25)
[2024-03-06] MEDS: diazePAM 5 MG TABLET PO SCH (05:25)
[2024-03-06] MEDS: IBUPROFEN 600 MG TABLET (FP) PO PRN (22:22)
[2024-03-07] MEDS: diazePAM 5 MG TABLET PO SCH (06:33)
[2024-03-07] MEDS: NALOXONE (NYS OPIOID OVERDOSE PROGRAM) 4 MG/0.1 ML SPRAY NS SCH (15:06)
[2024-03-07 21:03] VITALS: RESP 16
[2024-03-08] MEDS: diazePAM 5 MG TABLET PO ONE (06:05)
[2024-03-08] MEDS: IBUPROFEN 400 MG TABLET (FP) PO PRN (06:15)
[2024-03-08 09:18] VITALS: BP 138/80; PULSE 71; TEMP 97.7
[2024-03-08] MEDS: NALOXONE (NYS OPIOID OVERDOSE PROGRAM) 4 MG/0.1 ML SPRAY NS PRN (12:29)
== END 2024-03-08 12:31 | disposition other institution (70) | DRG 773 ==
LOC: YASAS 06:31 → Y3N 07:48 → Y6N 09:36
PROVIDERS: ADMIT Allergy & Immunology; ATTEND Allergy & Immunology
PROC: HZ2ZZZZ Detoxification Services for Substance Abuse Treatment (ICD-10-PCS; principal; 2024-03-04)
DX: F13.230 Sedative, hypnotic or anxiolytic dependence with withdrawal, uncomplicated (principal); F11.20 Opioid dependence, uncomplicated; F14.20 Cocaine dependence, uncomplicated; F17.210 Nicotine dependence, cigarettes, uncomplicated; F19.282 Other psychoactive substance dependence with psychoactive substance-induced sleep disorder; F19.24 Other psychoactive substance dependence with psychoactive substance-induced mood disorder; F25.9 Schizoaffective disorder, unspecified; K21.9 Gastro-esophageal reflux disease without esophagitis; Z72.53 High risk bisexual behavior; Z88.8 Allergy status to other drugs, medicaments and biological substances
CPT/HCPCS: 36415; 80305; 85027; 86780; 87811; 93005; 93010

== ENCOUNTER 2024-03-08 12:53 | Inpatient (IN) | payer OTHER ==
[2024-03-08] MEDS ORDERED: QUEtiapine FUMARATE 50 MG TABLET PO SCH (14:00)
[2024-03-08] MEDS: QUEtiapine FUMARATE 50 MG TABLET PO SCH (14:31)
[2024-03-08] MEDS ORDERED: NALOXONE (NARCAN) HCL 4 MG/0.1 ML SPRAY NS PRN (15:00)
[2024-03-08] MEDS ORDERED: NALOXONE HCL 0.4 MG/ML VIAL IVPUSH PRN (15:00)
[2024-03-08] MEDS ORDERED: guaiFENesin 600 MG TABLET.ER (FP) PO PRN (15:00)
[2024-03-08] MEDS ORDERED: NICOTINE POLACRILEX 4 MG GUM BUC PRN (15:00)
[2024-03-08] MEDS ORDERED: POLYETHYLENE GLYCOL (HEALTHYLAX) 3350 17 GM PACKET PO PRN (15:00)
[2024-03-08] MEDS ORDERED: METHOCARBAMOL 500 MG TABLET PO PRN (15:00)
[2024-03-08] MEDS ORDERED: NICOTINE 21 MG/24 HOURS TOPICAL PATCH TD PRN (15:00)
[2024-03-08] MEDS ORDERED: MAG HYDROX/AL HYDROX/SIMETH 30 ML UNIT-DOSE CUP PO PRN (15:00)
[2024-03-08] MEDS ORDERED: BENZONATATE 200 MG CAPSULE PO PRN (15:00)
[2024-03-08] MEDS ORDERED: NICOTINE POLACRILEX 4 MG LOZENGE BC PRN (15:00)
[2024-03-08] MEDS ORDERED: MAGNESIUM HYDROX 2400MG/30ML ORAL SUSPENSION 30 ML CUP PO PRN (15:00)
[2024-03-08] MEDS ORDERED: BENZOCAINE/MENTHOL (CHLORASEPTIC ) LOZENGE MM PRN (15:00)
[2024-03-08] MEDS: THIAMINE 100 MG TABLET PO SCH (21:31)
[2024-03-08] MEDS: MELATONIN 5 MG TABLETS PO SCH (21:31)
[2024-03-08] MEDS: QUEtiapine FUMARATE 300 MG TABLET PO SCH (21:32)
[2024-03-08] MEDS ORDERED: QUEtiapine FUMARATE 100 MG TABLET (FP) ONE (21:32)
[2024-03-08] MEDS: IBUPROFEN 600 MG TABLET (FP) PO PRN (22:16)
[2024-03-09] MEDS: EMTRICITABINE 200MG/TENOFOVIR 300MG PO SCH (09:18)
[2024-03-09] MEDS: PRENATAL VITAMINS W/ FOLIC ACID TABLET (FP) PO SCH (09:18)
[2024-03-09] MEDS: FAMOTIDINE 20 MG TABLET PO SCH (09:18)
[2024-03-09] MEDS ORDERED: methaDONE HCL 40 MG DISPERSABLE TABLET PO SCH (10:00)
[2024-03-09] MEDS ORDERED: DICYCLOMINE HCL 10 MG CAPSULE PO PRN (15:49)
[2024-03-09] MEDS ORDERED: BISMUTH SUBSALICYLATE 262 MG/15 ML BTL PO PRN (15:49)
[2024-03-09] MEDS ORDERED: ONDANSETRON *ODT* 4 MG TABLET SL PRN (15:49)
[2024-03-09] MEDS ORDERED: QUEtiapine FUMARATE 100 MG TABLET (FP) ONE (19:25)
[2024-03-10] MEDS: hydrOXYzine PAMOATE 25 MG CAPSULE (FP) PO PRN (09:38)
[2024-03-10] MEDS ORDERED: QUEtiapine FUMARATE 100 MG TABLET (FP) ONE (20:33)
[2024-03-11] MEDS: ACETAMINOPHEN 325 MG TABLET (FP) PO PRN (13:12)
[2024-03-11] MEDS ORDERED: QUEtiapine FUMARATE 100 MG TABLET (FP) ONE (19:13)
[2024-03-12] MEDS ORDERED: QUEtiapine FUMARATE 25 MG TABLET ONE ×2 (05:31→09:34)
[2024-03-12] MEDS ORDERED: QUEtiapine FUMARATE 100 MG TABLET (FP) ONE (19:43)
[2024-03-13] MEDS ORDERED: QUEtiapine FUMARATE 100 MG TABLET (FP) ONE (20:46)
[2024-03-15] MEDS ORDERED: QUEtiapine FUMARATE 100 MG TABLET (FP) ONE (21:50)
[2024-03-16] MEDS ORDERED: QUEtiapine FUMARATE 100 MG TABLET (FP) ONE (22:28)
[2024-03-17] MEDS ORDERED: QUEtiapine FUMARATE 100 MG TABLET (FP) ONE (19:45)
[2024-03-18] MEDS ORDERED: QUEtiapine FUMARATE 100 MG TABLET (FP) ONE (21:08)
[2024-03-19 15:06] LABS: HIV INTERPRETATION NEGATIVE (NEGATIVE)
[2024-03-19] MEDS ORDERED: QUEtiapine FUMARATE 100 MG TABLET (FP) ONE (19:46)
[2024-03-21] MEDS: LOPERAMIDE HCL 2 MG CAPSULE PO PRN (13:28)
[2024-03-21] MEDS ORDERED: QUEtiapine FUMARATE 100 MG TABLET (FP) ONE (21:39)
[2024-03-21] MEDS: IBUPROFEN 400 MG TABLET (FP) PO PRN (21:41)
[2024-03-22] MEDS ORDERED: QUEtiapine FUMARATE 100 MG TABLET (FP) ONE (20:08)
[2024-03-23] MEDS ORDERED: QUEtiapine FUMARATE 25 MG TABLET ONE (09:46)
[2024-03-23] MEDS: FLUoxetine HCL 20 MG CAPSULE PO SCH (10:22)
[2024-03-23] MEDS ORDERED: QUEtiapine FUMARATE 100 MG TABLET (FP) ONE (19:17)
[2024-03-24] MEDS ORDERED: QUEtiapine FUMARATE 100 MG TABLET (FP) ONE (19:44)
[2024-03-25] MEDS ORDERED: QUEtiapine FUMARATE 100 MG TABLET (FP) ONE (19:34)
[2024-03-26] MEDS ORDERED: QUEtiapine FUMARATE 100 MG TABLET (FP) ONE (19:26)
[2024-03-27 06:42] VITALS: RESP 18
[2024-03-27 17:48] VITALS: BP 134/84; PULSE 97; TEMP 97.7
[2024-03-27] MEDS ORDERED: QUEtiapine FUMARATE 100 MG TABLET (FP) ONE (19:38)
== END 2024-03-28 05:00 | disposition short-term general hospital (02) | DRG 772 ==
LOC: YASAS 12:53 → Y3E 12:55
PROVIDERS: ADMIT Psychiatry & Neurology Pain Medicine; ATTEND Psychiatry & Neurology Pain Medicine
PROC: HZ42ZZZ Group Counseling for Substance Abuse Treatment, Cognitive-Behavioral (ICD-10-PCS; principal; 2024-03-08)
DX: F11.20 Opioid dependence, uncomplicated (principal); F14.20 Cocaine dependence, uncomplicated; F13.20 Sedative, hypnotic or anxiolytic dependence, uncomplicated; F17.210 Nicotine dependence, cigarettes, uncomplicated; F31.9 Bipolar disorder, unspecified; K21.9 Gastro-esophageal reflux disease without esophagitis; K02.9 Dental caries, unspecified; M24.412 Recurrent dislocation, left shoulder; Z59.02 Unsheltered homelessness
CPT/HCPCS: 36415; 87389

== ENCOUNTER 2024-03-27 18:01 | Inpatient (IN) | payer OTHER ==
[2024-03-27] MEDS ORDERED: KETOROLAC TROMETHAMINE 15 MG/ML VIAL ONE (20:04)
[2024-03-27] MEDS: KETOROLAC TROMETHAMINE 30 MG/1 ML VIAL IVPUSH ONE (20:12)
[2024-03-27 23:01] LABS: BASO % 0.3 % (0-2.0); EOS % 1.3 % (0-4.5); HEMOGLOBIN 14.2 GM/dL (11.7-16.9); LYMPH % 11.4 % (8-40); MCH 29.5 pg (25.7-33.7); MCHC 33.1 g/dl (32.0-35.9); MEAN CELL VOLUME 89.1 fl (80-96); MEAN PLT VOLUME 8.4 fl (7.5-11.1); MONO % 9.2 % (3.8-10.2); NEUT % 77.8 % (42.8-82.8); PLATELET COUNT 197 10^3/uL (134-434); RBC 4.82 M/mm3 (4.00-5.60); RDW 15.1 % (11.9-15.9); WHITE BLOOD COUNT 8.4 K/mm3 (4.0-10.0)
[2024-03-27] MEDS ORDERED: ACETAMINOPHEN INJECTION 100 ML ONE (23:29)
[2024-03-27 23:33] LABS: POTASSIUM 4.3 mmol/L (3.5-5.1)
[2024-03-27 23:35] LABS: ALBUMIN 3.6 g/dl (3.4-5.0); BLOOD UREA NITROGEN 17.4 mg/dL (7-18); CALCIUM 9.3 mg/dL (8.5-10.1)
[2024-03-27 23:39] LABS: CREATININE 0.8 mg/dL (0.55-1.3)
[2024-03-27 23:40] LABS: BILIRUBIN,TOTAL 0.7 mg/dL (0.2-1); TOT PROT 7.4 g/dl (6.4-8.2)
[2024-03-27] MEDS: ACETAMINOPHEN 1000 MG/100 ML BAG IVPB ONE (23:42)
[2024-03-27 23:55] LABS: ERYTHROCYTE SEDIMENTATION RATE 11 mm/hr (0-10)
[2024-03-28] MEDS ORDERED: LIDOCAINE 4% PATCH TP ONE (03:44)
[2024-03-28] MEDS: LIDOCAINE 4% PATCH TP ONE (03:54)
[2024-03-28] MEDS ORDERED: NALOXONE HCL 0.4 MG/ML VIAL IM PRN (05:10)
[2024-03-28 05:58] VITALS: BMI 26.5
[2024-03-28] MEDS: ACETAMINOPHEN 325 MG TABLET (FP) PO PRN (06:15)
[2024-03-28] MEDS: QUEtiapine FUMARATE 200 MG TABLET PO ONE (08:15)
[2024-03-28] MEDS ORDERED: NALOXONE HCL 0.4 MG/ML VIAL IVPUSH PRN (09:07)
[2024-03-28 09:12] LABS: HEMOGLOBIN 13.5 GM/dL (11.7-16.9); MCH 29.4 pg (25.7-33.7); MCHC 33.7 g/dl (32.0-35.9); MEAN CELL VOLUME 87.5 fl (80-96); MEAN PLT VOLUME 8.6 fl (7.5-11.1); PLATELET COUNT 200 10^3/uL (134-434); RBC 4.57 M/mm3 (4.00-5.60); RDW 15.1 % (11.9-15.9); WHITE BLOOD COUNT 8.6 K/mm3 (4.0-10.0)
[2024-03-28 09:29] LABS: POTASSIUM 4.3 mmol/L (3.5-5.1)
[2024-03-28 09:41] LABS: PHOSPHOROUS 4.3 mg/dL (2.5-4.9)
[2024-03-28 09:42] LABS: ALBUMIN 3.4 g/dl (3.4-5.0); BLOOD UREA NITROGEN 14.4 mg/dL (7-18)
[2024-03-28 09:45] LABS: BILIRUBIN,TOTAL 1.4 mg/dL (0.2-1); CALCIUM 8.8 mg/dL (8.5-10.1); CREATININE 0.8 mg/dL (0.55-1.3); TOT PROT 7.1 g/dl (6.4-8.2)
[2024-03-28 09:46] LABS: URIC ACID 3.5 mg/dL (2.6-7.2)
[2024-03-28] MEDS ORDERED: methaDONE HCL 10 MG TABLET PO ONE (10:00)
[2024-03-28] MEDS: QUEtiapine FUMARATE 50 MG TABLET PO SCH (10:33)
[2024-03-28] MEDS: ENOXAPARIN NA (PORCINE) 40 MG/0.4 ML DISP.SYRIN SQ SCH (10:33)
[2024-03-28] MEDS: NICOTINE 14 MG/24 HOURS TOPICAL PATCH TD SCH (10:34)
[2024-03-28 11:23] LABS: PH,URINE 8.5 (5.0-8.0); URINE APPEARANCE Clear; URINE BILIRUBIN Negative (NEGATIVE); URINE COLOR Yellow; URINE GLUCOSE (UA) Negative (NEGATIVE); URINE KETONE Negative (NEGATIVE); URINE LEUK ESTERASE Negative (NEGATIVE); URINE NITRITE Negative (NEGATIVE); URINE PROTEIN Negative (NEGATIVE)
[2024-03-28] MEDS: EMTRICITABINE 200MG/TENOFOVIR 300MG PO SCH (12:12)
[2024-03-28] MEDS: NAPROXEN 375 MG TABLET PO SCH (12:12)
[2024-03-28] MEDS ORDERED: LIDOCAINE HCL 1%, 10 MG/ML (20ML VIAL) ONE (12:17)
[2024-03-28] MEDS ORDERED: LIDOCAINE HCL 1%, 10 MG/ML (50 mL VIAL) SQ ONE (12:20)
[2024-03-28] MEDS: LIDOCAINE HCL 1%, 10 MG/ML (20ML VIAL) SQ ONE (12:45)
[2024-03-28] MEDS: ONDANSETRON 4 MG/2 ML VIAL IVPUSH PRN (14:06)
[2024-03-28] MEDS ORDERED: QUEtiapine FUMARATE 100 MG TABLET (FP) ONE (21:17)
[2024-03-28] MEDS: LIDOCAINE PATCH REMOVAL MC SCH (22:05)
[2024-03-28] MEDS: QUEtiapine FUMARATE 300 MG TABLET PO SCH (22:06)
[2024-03-28 23:38] VITALS: RESP 18
[2024-03-29] MEDS ORDERED: methaDONE HCL 40 MG DISPERSABLE TABLET PO SCH (06:00)
[2024-03-29 09:21] LABS: POTASSIUM 4.2 mmol/L (3.5-5.1)
[2024-03-29 09:30] LABS: ALBUMIN 3.1 g/dl (3.4-5.0); BLOOD UREA NITROGEN 17.9 mg/dL (7-18); CALCIUM 9.1 mg/dL (8.5-10.1)
[2024-03-29 09:34] LABS: CREATININE 0.8 mg/dL (0.55-1.3)
[2024-03-29 09:35] LABS: BILIRUBIN,TOTAL 1.3 mg/dL (0.2-1); TOT PROT 6.5 g/dl (6.4-8.2)
[2024-03-29] MEDS: FAMOTIDINE 20 MG TABLET PO SCH (10:44)
[2024-03-29] MEDS: VANCOMYCIN PREMIX 1.5 GM 1,500 MG/300 ML BAG IVPB SCH (17:50)
[2024-03-29] MEDS: QUEtiapine FUMARATE 100 MG TABLET (FP) PO SCH (21:30)
[2024-03-29] MEDS: hydrOXYzine PAMOATE 25 MG CAPSULE (FP) PO ONE (21:33)
[2024-03-30 08:23] VITALS: TEMP 97.7
[2024-03-30] MEDS: POLYETHYLENE GLYCOL (HEALTHYLAX) 3350 17 GM PACKET PO SCH (09:21)
[2024-03-30 09:59] LABS: POTASSIUM 4.2 mmol/L (3.5-5.1)
[2024-03-30 10:03] LABS: CALCIUM 9.3 mg/dL (8.5-10.1)
[2024-03-30 10:04] LABS: BLOOD UREA NITROGEN 16.7 mg/dL (7-18)
[2024-03-30 10:07] LABS: CREATININE 0.8 mg/dL (0.55-1.3)
[2024-03-30 15:04] VITALS: BP 101/72; PULSE 75
[2024-03-30] MEDS: LORazepam 2 MG/ML SDV VIAL IVPUSH PRN (15:39)
[2024-03-30] MEDS: KETOROLAC TROMETHAMINE 30 MG/1 ML VIAL IVPUSH ONE (16:55)
== END 2024-03-30 18:00 | disposition short-term general hospital (02) | DRG 344 ==
LOC: JER 18:01 → JERBED 03-28 00:51 → J6S 03-28 04:10 → OBSVTOIN 03-28 09:56
PROVIDERS: ADMIT Internal Medicine; ATTEND Internal Medicine
PROC: 0R9K3ZZ Drainage of Left Shoulder Joint, Percutaneous Approach (ICD-10-PCS; principal; 2024-03-28)
DX: M00.9 Pyogenic arthritis, unspecified (principal); F11.20 Opioid dependence, uncomplicated; F13.20 Sedative, hypnotic or anxiolytic dependence, uncomplicated; F14.20 Cocaine dependence, uncomplicated; G62.9 Polyneuropathy, unspecified; F43.10 Post-traumatic stress disorder, unspecified; K21.9 Gastro-esophageal reflux disease without esophagitis; F31.9 Bipolar disorder, unspecified; B95.62 Methicillin resistant Staphylococcus aureus infection as the cause of diseases classified elsewhere; M25.412 Effusion, left shoulder
CPT/HCPCS: 36415; 70553-TC; 72050-TC-FY; 72125-TC; 72141-TC; 72146-TC; 72148-TC; 73030-TC-LT-FY; 73070-TC-LT-FY; 73200-TC-RT; 80048; 80053; 81003; 83735; 84100; 84439; 84443; 84550; 85025; 85027; 85651; 86140; 87040; 87070; 87075; 87081; 87186; 87205; 87635; 93005; 93010; 93306-TC; 99285-25; G0378; J0131

== ENCOUNTER 2024-07-03 22:02 | Emergency (ER) | payer OTHER ==
[2024-07-03 22:11] VITALS: BP 124/76; PULSE 89; RESP 17; TEMP 97.8; BMI 26.5
[2024-07-03] MEDS ORDERED: ACETAMINOPHEN 325 MG TABLET (FP) ONE (23:42)
[2024-07-03] MEDS: ACETAMINOPHEN 500 MG TABLET (FP) PO ONE (23:44)
[2024-07-04] MEDS ORDERED: KETOROLAC TROMETHAMINE 15 MG/ML VIAL IM ONE (00:47)
[2024-07-04] MEDS ORDERED: KETOROLAC TROMETHAMINE 30 MG/1 ML VIAL ONE (00:58)
[2024-07-04] MEDS: KETOROLAC TROMETHAMINE 30 MG/1 ML VIAL IM ONE (01:09)
== END 2024-07-04 01:41 | disposition home or self-care (01) ==
LOC: JER 22:02
PROC: 3E0233Z Introduction of Anti-inflammatory into Muscle, Percutaneous Approach (ICD-10-PCS; principal; 2024-07-04)
DX: S83.91XA Sprain of unspecified site of right knee, initial encounter (principal); M79.604 Pain in right leg; X58.XXXA Exposure to other specified factors, initial encounter
CPT/HCPCS: 73562-TC-RT-FY; 96372; 99284-25

== ENCOUNTER 2024-07-21 10:09 | Inpatient (IN) | payer OTHER ==
[2024-07-21 10:52] VITALS: BMI 26.4
[2024-07-21] MEDS ORDERED: LOPERAMIDE HCL 2 MG CAPSULE PO PRN (11:30)
[2024-07-21] MEDS ORDERED: POLYETHYLENE GLYCOL (HEALTHYLAX) 3350 17 GM PACKET PO PRN (11:30)
[2024-07-21] MEDS ORDERED: NICOTINE POLACRILEX 2 MG LOZENGE BC PRN (11:30)
[2024-07-21] MEDS ORDERED: IBUPROFEN 400 MG TABLET (FP) PO PRN (11:30)
[2024-07-21] MEDS ORDERED: MAG HYDROX/AL HYDROX/SIMETH 30 ML UNIT-DOSE CUP PO PRN (11:30)
[2024-07-21] MEDS ORDERED: NICOTINE POLACRILEX 2 MG GUM BUC PRN (11:30)
[2024-07-21] MEDS ORDERED: BENZOCAINE/MENTHOL (CHLORASEPTIC ) LOZENGE MM PRN (11:30)
[2024-07-21] MEDS ORDERED: NALOXONE (NARCAN) HCL 4 MG/0.1 ML SPRAY NS PRN (11:30)
[2024-07-21] MEDS ORDERED: ACETAMINOPHEN 325 MG TABLET (FP) PO PRN (11:30)
[2024-07-21] MEDS ORDERED: DICYCLOMINE HCL 10 MG CAPSULE PO PRN (11:30)
[2024-07-21] MEDS ORDERED: BENZONATATE 200 MG CAPSULE PO PRN (11:30)
[2024-07-21] MEDS ORDERED: IBUPROFEN 600 MG TABLET (FP) PO PRN (11:30)
[2024-07-21] MEDS ORDERED: ONDANSETRON *ODT* 4 MG TABLET SL PRN (11:30)
[2024-07-21] MEDS ORDERED: MAGNESIUM HYDROX 2400MG/30ML ORAL SUSPENSION 30 ML CUP PO PRN (11:30)
[2024-07-21] MEDS ORDERED: guaiFENesin 600 MG TABLET.ER (FP) PO PRN (11:30)
[2024-07-21] MEDS ORDERED: methaDONE HCL 10 MG TABLET (FOR DETOX USE ONLY) ONE (12:13)
[2024-07-21] MEDS ORDERED: levETIRAcetam 500 MG TABLET (FP) PO ONE (12:13)
[2024-07-21] MEDS ORDERED: NICOTINE 14 MG/24 HOURS TOPICAL PATCH TD ONE (12:14)
[2024-07-21] MEDS: methaDONE HCL 10 MG TABLET (FOR DETOX USE ONLY) PO ONE (12:17)
[2024-07-21] MEDS: levETIRAcetam 500 MG TABLET (FP) PO SCH (12:17)
[2024-07-21] MEDS: NICOTINE 14 MG/24 HOURS TOPICAL PATCH TD SCH (12:17)
[2024-07-21] MEDS: METHOCARBAMOL 500 MG TABLET PO PRN (17:17)
[2024-07-21] MEDS: diazePAM 5 MG TABLET PO PRN (17:17)
[2024-07-21] MEDS: THIAMINE 100 MG TABLET PO SCH (22:42)
[2024-07-21] MEDS: MELATONIN 5 MG TABLETS PO SCH (22:42)
[2024-07-22 09:00] LABS: HEMATOCRIT 41.3 % (40.1-51.0); HEMOGLOBIN 13.6 g/dL (13.7-17.5); MCHC 32.9 g/dl (32.3-36.5); MEAN CELL VOLUME 92.6 fl (79.0-92.2); MEAN PLT VOLUME 10.4 fl (9.4-12.4); PLATELET COUNT 215 x10^3/uL (163-337); RDW 12.5 % (11.9-15.3)
[2024-07-22 09:06] LABS: CHLORIDE 104 mmol/L (98-107); POTASSIUM 4.2 mmol/L (3.5-5.1); SODIUM 140 mmol/L (136-145)
[2024-07-22 09:13] LABS: ANION GAP 12 mmol/L (4-13); BLOOD UREA NITROGEN 10.1 mg/dL (7-18); CO2 24 mmol/L (21-32); GLUCOSE,RANDOM 97 mg/dL (74-106); SGOT/AST 35 U/L (15-37); SGPT/ALT 39 U/L (13-61)
[2024-07-22 09:15] LABS: BILIRUBIN,TOTAL 0.7 mg/dL (0.2-1)
[2024-07-22 09:16] LABS: ALK PHOS 55 U/L (45-117); CREATININE 0.7 mg/dL (0.55-1.3)
[2024-07-22 09:17] LABS: CALCIUM 8.5 mg/dL (8.5-10.1)
[2024-07-22] MEDS: PRENATAL VITAMINS W/ FOLIC ACID TABLET (FP) PO SCH (09:23)
[2024-07-22] MEDS: methaDONE HCL 10 MG TABLET (FOR DETOX USE ONLY) PO ONE (09:23)
[2024-07-22] MEDS: cloNIDine HCL 0.1 MG TABLET PO PRN (11:43)
[2024-07-22] MEDS: BISMUTH SUBSALICYLATE 524 MG/30 ML PO PRN (14:13)
[2024-07-23] MEDS: QUEtiapine FUMARATE 50 MG TABLET PO SCH (13:34)
[2024-07-23] MEDS: QUEtiapine FUMARATE 200 MG TABLET PO SCH (22:35)
[2024-07-24 08:43] VITALS: RESP 18
[2024-07-24] MEDS: methaDONE HCL 10 MG TABLET (FOR DETOX USE ONLY) PO ONE (09:07)
[2024-07-24] MEDS: DIVALPROEX SODIUM 250 MG TABLET E.C. PO SCH (09:08)
[2024-07-24] MEDS: FAMOTIDINE 20 MG TABLET PO SCH (09:09)
[2024-07-24] MEDS ORDERED: QUEtiapine FUMARATE 50 MG TABLET PO ONE (12:15)
[2024-07-24 12:35] VITALS: BP 130/88; PULSE 84; TEMP 97.7
[2024-07-26] MEDS ORDERED: methaDONE HCL 10 MG TABLET (FOR DETOX USE ONLY) PO ONE (10:00)
== END 2024-07-24 12:27 | disposition left against medical advice (07) | DRG 770 ==
LOC: YASAS 10:09 → Y3N 12:12
PROVIDERS: ADMIT Neuromusculoskeletal Medicine & OMM; ATTEND Allergy & Immunology
PROC: HZ2ZZZZ Detoxification Services for Substance Abuse Treatment (ICD-10-PCS; principal; 2024-07-21)
DX: F11.23 Opioid dependence with withdrawal (principal); F14.10 Cocaine abuse, uncomplicated; F16.10 Hallucinogen abuse, uncomplicated; F12.10 Cannabis abuse, uncomplicated; F17.210 Nicotine dependence, cigarettes, uncomplicated; F25.0 Schizoaffective disorder, bipolar type; F43.10 Post-traumatic stress disorder, unspecified; K21.9 Gastro-esophageal reflux disease without esophagitis; R45.851 Suicidal ideations; Z62.810 Personal history of physical and sexual abuse in childhood; Z86.19 Personal history of other infectious and parasitic diseases; Z56.0 Unemployment, unspecified; Z59.00 Homelessness unspecified
CPT/HCPCS: 36415; 80053; 80305; 80307; 85027; 86780